=== PATIENT | female | born 1965 | race Caucasian/White ===

== ENCOUNTER → 2023-07-07 00:59 | Outpatient (CLI) | payer MEDICAID, SELFPAY ==
--- NOTE | 2023-07-07 09:23 | DI.RAD_ITS ---
Exam(s) XR FOOT RT COMPLETE EXAM: XR FOOT RT COMPLETE CLINICAL HISTORY: pain in rt foot, M79.671. TECHNIQUE: 2D digital imaging was performed of the right foot. Three images were obtained. AP, obl ique and lateral views were obtained. COMPARISON: MR MR FOOT RT W/WO CONTRAST from 06/04/2023 FINDINGS: BONES: No acute fracture is present. No bony destructive lesion is seen. Since the prior examination there has been resection of the 4th toe to the level of the MTP joint. There is a plantar calcaneal spur. There is an enthesophyte at the posterior calcaneus. JOINTS: No dislocation present. Degenerative changes are seen at the foot predominantly at the tarsom etatarsal joints. SOFT TISSUE: There is mild soft tissue swelling of the distal foot. IMPRESSION: 1. 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 Postsurgical changes are seen in the soft tissues in the r egion of the 4th digit. 2. No destructive changes are seen in the bones at this time. DATA REPOSITORY: RADIATION DOSE DELIVERED:
--- NOTE | 2023-07-07 09:23 | DI.RAD_ITS ---
Exam(s) XR FOOT LT COMPLETE EXAM: XR FOOT LT COMPLETE CLINICAL HISTORY: osteomyelitis left foot, pain lt foot, M86.9. TECHNIQUE: 2D digital imaging was performed of the left foot. Three images were obtained. AP, obli que and lateral views were obtained. COMPARISON: MR MR FOOT LT W/WO CONTRAST from 06/04/2023 FINDINGS: BONES: No acute fracture is present. There again seen findings of an amputation of the great toe. Th ere is now fragmentation seen of the head of the 2nd toe which was not present on the prior examinati on. Periosteal reaction is seen in the 2nd metatarsal and the proximal phalanx of the 2nd toe. Ther e is also volume loss of the heads of the 3rd and 4th metatarsals with periosteal reaction seen in th e distal aspect of the 3rd metatarsal bone. The appearance of the 3rd and 4th metatarsal heads may b e similar compared to the MRI from 06/04/2023. There is a plantar calcaneal spur. There is an enthes ophyte at the posterior calcaneus. JOINTS: There does appear to be a posterior dislocation of the 2nd MTP joint. SOFT TISSUE: There is soft tissue swelling of the distal foot. IMPRESSION: 1. Interval fragmentation of the distal aspect of the 2nd metatarsal bone and dislocation of the 2nd MTP joint. Periosteal reaction is seen involving the proximal phalanx of the 2nd toe and the 2nd met atarsal bone. Differential considerations include acute fracture versus is osteomyelitis. 2. Would appear to be stable deformities of the heads of the 3rd and 4th metatarsal bones. 3. Periosteal reaction involving the distal 3rd metatarsal bone. 4. MRI should be considered for further evaluation in this patient. DATA REPOSITORY: RADIATION DOSE DELIVERED:
== END ==
PROVIDERS: PCP Family Medicine; Visit Provider Podiatrist
DX: Z98.890 Other specified postprocedural states; M79.672 Pain in left foot; S92.321A Displaced fracture of second metatarsal bone, right foot, initial encounter for closed fracture; X58.XXXA Exposure to other specified factors, initial encounter
CPT/HCPCS: 73630

== ENCOUNTER 2023-07-14 09:24 | Inpatient (IN) | payer MEDICAID, SELFPAY ==
--- NOTE | 2023-07-14 | DI.RAD_ITS ---
Exam(s) XR FOOT RT COMPLETE EXAM: XR FOOT RT COMPLETE CLINICAL HISTORY: Osteomyelitis left foot. TECHNIQUE: 2D digital imaging was performed. COMPARISON: CR XR FOOT RT COMPLETE from 07/07/2023 CR XR FOOT LT COMPLETE from 07/14/2023 FINDINGS: 3 views Again noted is amputation of the phalanges of the 4th toe. The head of the 4th metatarsal appears in tact. Some mild gas in the soft tissues over this area is decreased from previous study. No evidenc e of osteomyelitis in the other bones of the foot. Inferior calcaneal spur again noted. IMPRESSION: Stable appearance when compared to 07/07/2023. DATA REPOSITORY: RADIATION DOSE DELIVERED:
--- NOTE | 2023-07-14 | DI.RAD_ITS ---
Exam(s) XR FOOT LT COMPLETE EXAM: XR FOOT LT COMPLETE CLINICAL HISTORY: Osteomyelitis right foot. TECHNIQUE: 2D digital imaging was performed. COMPARISON: CR XR FOOT LT COMPLETE from 07/07/2023 FINDINGS: 3 views Again noted is amputation of the phalanges of the great toe. There is no gas in the soft tissues. With respect of the 2nd toe the sharp edge at the level of the neck of the 2nd metatarsal implies pro bable amputation edge. Periosteal bone formation around the distal diaphysis of 2nd metatarsal is ag ain noted. There is dislocation of the metatarsophalangeal joint of the 2nd toe again noted. The am ount of periosteal bone formation around the proximal aspect of proximal phalanx appears unchanged. Part of the head of the 2nd metatarsal is again noted. This has been partially resected. There is now subluxation at the metatarsophalangeal joint of the 3rd toe, with the proximal phalanx b eing subluxed laterally when compared to the prior images. Appearance of the 4th metatarsal and 4th MTP joint is stable, unchanged. Fifth toe appears stable, unchanged. Large inferior calcaneal spur again noted. IMPRESSION: Multilevel findings as above. DATA REPOSITORY: RADIATION DOSE DELIVERED:
--- OUTSIDE RECORDS SUMMARY | 2023-07-14 09:27 | XMS_ITS | Continuity of Care Document ---
Author Name Unknown Organization [facility] Address [address] [place] [address] Care Team Providers Care Digital Media Director Name Role Phone Attila Bernal Primary Care Physician Encounter [facility] Date(s): 12/06/22 - 12/06/22 [facility] [address] [place] [address] Encounter Diagnosis Open toe wound(Discharge Diagnosis) - 12/06/22 Osteomyelitis of toe of left foot(Discharge Diagnosis) - 12/06/22 Cellulitis of toe of left foot(Discharge Diagnosis) - 12/06/22 Discharge Disposition: Home or Self Care Attending Physician: Angelina Cleaning MD Admitting Physician: Angelina Cleaning MD Allergies, Adverse Reactions, Alerts Substance Reaction Severity Status HOUSE DUST Eye swelling Unknown Active ANIMAL DANDER Eye swelling Unknown Active INSECT VENOM Anaphylactic reaction Unknown Active LATEX Skin rash Unknown Active codeine 1 Loss of consciousness Unknown Active morphine Vomiting Unknown Active Bee Stings Anaphylaxis Severe Active 1patient states turns green and passes out Assessment and Plan Extracted from: Title:Clinical Document Author:Berna Vasquez te:12/06/22 Diagnosis: 1. Open toe wound Comment: Diagnosis: 2. Osteomyelitis of toe of left foot Comment: Diagnosis: 3. Cellulitis of toe of left foot Comment: Diagnosis: Leg pain-swelling Comment: Diagnosis: Toe pain-swelling Comment: Additional Orders: Comment: Other status: SARS-CoV-2 (COVID-19) RNA (ID Now),Nasal, Stat Collect, 12/06/22 10:31:00 EDT, Once, Nurse collect, Print Label, No, No, No, No, No, Not (Complete) Future Appointments Diagnostic Tests Pending * Blood Culture 12/06/22 * Blood Culture 12/06/22 Future Scheduled Tests Laboratory* Drug Screen Urine 11/27/22 Radiology* US Lower Ext Arterial Duplex Bilateral 07/12/22 * XR Foot Complete 3+ Views Left 07/26/22 Functional Status 12/06/22 Family Member Travel History No recent t ravel Recent Travel History No recent travel Other exposure to Infectious Disease Non e Immunizations Given and Recorded Vaccine Date Status Refusal Reason influenza virus vaccine, inactivated 08/14/22 Give n influenza virus vaccine, inactivated 09/22/14 Toy rded influenza virus vaccine, inactivated 09/22/12 Toy rded SARS-CoV-2 (COVID-19) mRNA-1273 vaccine 08/06/21 R ecorded SARS-CoV-2 (COVID-19) mRNA-1273 vaccine 01/08/21 R ecorded SARS-CoV-2 (COVID-19) mRNA-1273 vaccine 12/10/20 R ecorded influenza virus vaccine, live 07/16/21 Recorded influenza virus vaccine, live 07/21/20 Recorded influenza virus vaccine, live 08/12/19 Recorded influenza virus vaccine, live 06/18/18 Recorded influenza virus vaccine, live 06/06/17 Recorded influenza virus vaccine, live 06/19/16 Recorded pneumococcal 23-polyvalent vaccine 03/01/19 Record ed tetanus/diphth/pertuss (Tdap) adult/adol 02/22/15 Recorded hepatitis B adult vaccine 09/22/02 Recorded Medications ARIPiprazole 5 mg oral tablet 5 mg = 1 tab, Oral, Daily, # 90 tab, 4 Refill(s), Pharmacy: [facility] Start Date: 05/15/22 Status: Ordered Bactrim DS 800 mg-160 mg oral tablet 1 tab, Oral, TID, # 84 tab, 1 Refill(s), Pharmacy: [facility] [id number], 165, cm, 11/11/22 16:14:00 EST, Height/Length Dosing, 152.1, kg, 11/11/22 16:14:00 EST, Weight Dosing Start Date: 11/15/22 Stop Date: 01/10/23 Status: Ordered BD Ultra finr Pen needles BD Ultra finr Pen needles, Use one daily, Supply, 1 EA, N/A, As Directed, PRN As needed, # 100 EA, 4 Refill(s), Pharmacy: [place] [id number] Start Date: 05/20/22 Status: Ordered Buphenyl 500 mg oral tablet 0 Refill(s) Start Date: 05/13/22 Status: Ordered buPROPion 300 mg/24 hours (XL) oral tablet, extended release 300 mg = 1 tab, Oral, Daily, # 90 tab, 4 Refill(s), Pharmacy: [place] [id number] Start Date: 05/15/22 Status: Ordered cetirizine 10 mg oral tablet 10 mg = 1 tab, Oral, Daily, # 90 tab, 4 Refill(s), Pharmacy: [place] [id number] Start Date: 05/15/22 Status: Ordered DULoxetine 30 mg oral delayed release capsule 30 mg = 1 cap, Oral, Daily, # 90 cap, 4 Refill(s), Pharmacy: [place] [id number] Start Date: 05/15/22 Stop Date: 08/08/23 Status: Ordered DULoxetine 60 mg oral delayed release capsule 60 mg = 1 cap, Oral, Daily, Take in addition to 30 mg for a total dose of 90 mg, # 90 cap, 4 Refill(s), Pharmacy: [place] [facility] [id number] Start Date: 05/15/22 Status: Ordered ferrous sulfate 325 mg (65 mg elemental iron) oral tablet 325 mg = 1 tab, Oral, TID, # 270 tab, 4 Refill(s), Pharmacy: [place] [facility] [id number] Start Date: 05/22/22 Status: Ordered folic acid 1 mg oral tablet 1 mg = 1 tab, Oral, Daily, # 90 tab, 4 Refill(s), Pharmacy: [place] [facility] [id number] Start Date: 05/15/22 Status: Ordered gabapentin 300 mg oral capsule 900 mg = 3 cap, Oral, TID, 0 Refill(s) Start Date: 11/15/22 Status: Ordered gabapentin 300 mg oral capsule 900 mg = 3 cap, Oral, TID, TAKE 3 CAPSULES BY MOUTH THREE TIMES DAILY, # 270 cap, 3 Refill(s), Pharmacy: [facility] [facility] [id number] Start Date: 08/28/22 Status: Ordered ibuprofen 800 mg oral tablet 1 tab, Oral, TID, # 90 tab, 4 Refill(s), Pharmacy: [facility] [facility] [id number] Start Date: 05/15/22 Status: Ordered Lantus Solostar Pen 100 units/mL subcutaneous solution 10 units =, Subcutaneous, Daily, Inject 10 units daily and titrate up by 2 units every 3-4 days until FBS is below 130., # 3 mL, 4 Refill(s), Pharmacy: [place] [id number] Start Date: 05/15/22 Status: Ordered losartan 100 mg oral tablet 100 mg = 1 tab, Oral, Daily, # 90 tab, 4 Refill(s), Pharmacy: [place] [facility] [id number] Start Date: 05/15/22 Status: Ordered metFORMIN 1000 mg oral tablet 1,000 mg = 1 tab, Oral, BID, # 180 tab, 4 Refill(s), Pharmacy: [place] [facility] [id number] Start Date: 05/15/22 Status: Ordered methotrexate 2.5 mg oral tablet 5 mg = 2 tab, Oral, every week, # 30 tab, 3 Refill(s), Pharmacy: [facility] [facility] [id number] Start Date: 05/15/22 Status: Ordered Narcan 4 mg/0.1 mL nasal spray 1 sprays, Nasal, Once, may repeat every 2 to 3 minutes until patient responds, # 2 EA, 0 Refill(s) Start Date: 02/26/22 Status: Ordered omeprazole 40 mg oral delayed release capsule 40 mg = 1 cap, Oral, Daily, # 90 cap, 4 Refill(s), Pharmacy: [place] [id number] Start Date: 05/15/22 Status: Ordered One Touch Verio One Touch Verio, Test twice daily, Supply, See instructions, # 200 strip, 4 Refill(s), Pharmacy: [place] [id number] Start Date: 05/15/22 Status: Ordered OneTouch Delica Plus lancest 30 gauge OneTouch Delica Plus lancest 30 gauge, Test twice daily, Supply, See instructions, # 200 EA, 4 Refill(s), Pharmacy: [place] [id number] Start Date: 05/15/22 Status: Ordered oxyCODONE-acetaminophen 10 mg-325 mg oral tablet 1 tab, Oral, BID, PRN as needed for pain, # 56 tab, 0 Refill(s), Pharmacy: [place] [id number], 165, cm, 11/11/22 16:14:00 EST, Height/Length Dosing, 152.1, kg, 11/11/22 16:14:00 EST, Weight Dosing Start Date: 11/25/22 Stop Date: 12/23/22 Status: Ordered pramipexole 1.5 mg oral tablet See Instructions, Take 1 tablet daily at bedtime, # 90 tab, 4 Refill(s), Pharmacy: [id number] Start Date: 05/20/22 Status: Ordered semaglutide 4 mg/3 mL (1 mg dose) subcutaneous solution 1 mg =, Subcutaneous, every week, # 3 mL, 4 Refill(s), Pharmacy: [id number], 165, cm, 11/11/22 16:14:00 EST, Height/Length Dosing, 152.1, kg, 11/11/22 16:14:00 EST, Weight Dosing Start Date: 11/27/22 Status: Ordered Problem List Condition Confirmation Course Effective Dates Status H ealth Status Informant Accidental poisoning Confirmed Active Adult health examination Confirmed Active Allergies Confirmed Active Allergic reaction to drug Confirmed Active Anesthesia of skin Confirmed Active Atopic dermatitis Confirmed Active Biceps tendinitis Confirmed Active Cellulitis Confirmed Active Chronic pain Confirmed Active Chronic, continuous use of opioids Confirmed Active Depressive disorder Confirmed Active Depressed Confirmed Active Eczema Confirmed Active Foot pain, left Confirmed Active GERD (gastroesophageal reflux disease) Confirmed Active Hypertensive disorder Confirmed Active Impingement syndrome of right shoulder region Confirmed Active Low back pain Confirmed Active Low back pain Confirmed Active Methicillin resistant Staphylococcus aureus 1 Confirmed 11/14/22 Active Migraine Confirmed Active Flu vaccine need Confirmed Active Nicotine dependence Confirmed Active Obesity Confirmed Active Overweight Confirmed Active Pain in right arm Confirmed Active Toe pain, left Confirmed Active Postoperative infection Confirmed Active Psoriasis Confirmed Active Severe obesity Confirmed Active Shoulder pain Confirmed 05/21/16 Active Strain of muscle of upper limb Confirmed Active Strain of tendon of upper arm Confirmed Active Toxic effect of venom Confirmed Active Type 2 diabetes mellitus without complication Confirmed Active Uterine leiomyoma Confirmed Active 1Problem added by Rule (LH_IC_MDRO_MRSA) following Wound Culture from Wound collected on :26:00 EST 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 Procedures Procedure Date Related Diagnosis Body Site Status Arthroplasty, interposition, intercarpal or carpometacarpal joints 1 04/17/21 Completed Rotator cuff repair 2 09/21/16 Com pleted Hysterectomy 09/21/00 Completed section (procedure) 3 09/22/97 Completed Amputation of toe 4 Compl eted Tubal ligation Completed 1L 1st [facility] arthroplasty 2Right shoulder RCR, Biceps tenodesis, ORIF Clavicle 2015 10108; 1994; 1988 4left great toe, along with debridement Results Laboratory List Name Date Basic Metabolic Panel (BMP) 12/06/22 C-Reactive Protein High Sensitivity (CRP HS) 12/06/22 CBC w/ Diff 12/06/22 Sedimentation Rate (ESR) 12/06/22 SARS-CoV-2 (COVID-19) RNA (ID Now) Automated Diff 12/06/22 Most recent to oldest [Reference Range]: 1 WBC [5.0-10.0 x10^3/mcL] 10.3 x10^3/mcL *HI* (12/06/22 11:16 AM) RBC [4.1-5.3 x10^6/mcL] 3.6 x10^6/mcL *LOW* (12/06/22 11:16 AM) Neutro Auto [40.0-75.0 %] 61.1 % (12/06/22 11:16 AM) Lymph Auto [20.0-50.0 %] 28.6 % (12/06/22 11:16 AM) [place] Auto [2.0-15.0 %] 7.1 % (12/06/22 11:16 AM) Basophil Auto [0.0-1.0 %] 0.5 % (12/06/22 11:16 AM) BUN [7-18 mg/dL] 8 mg/dL (12/06/22 11:16 AM) Glucose Level [74-106 mg/dL] 153 mg/dL *HI* (12/06/22 11:16 AM) Potassium Level [3.5-5.1 mmol/L] 3.4 mmo l/L *LOW* (12/06/22 11:16 AM) MCV [80.0-96.0] 90.9 (12/06/22 11:16 AM) MCHC [31.0-35.0 g/dL] 32.4 g/dL (12/06/22 11:16 AM) Sodium Level [136-145 mmol/L] 138 mmol/L (12/06/22 11:16 AM) Hct [37.0-47.0 %] 33.0 % *LOW* (12/06/22 11:16 AM) Calcium Level [8.5-10.1 mg/dL] 9.1 mg/dL (12/06/22 11:16 AM) MCH [26.0-32.0 pg] 29.5 pg (12/06/22 11:16 AM) Neutro Absolute 6.3 x10^3/mcL *NA* (12/06/22 11:16 AM) Hgb [12.0-16.0 g/dL] 10.7 g/dL *LOW* (12/06/22 11:16 AM) Platelets [130-450 x10^3/mcL] 506 x10^3/ mcL *HI* (12/06/22 11:16 AM) CO2 [21-32 mmol/L] 25 mmol/L (12/06/22 11:16 AM) eGFR Non-AA [>=60] 92 (12/06/22 11:16 AM) eGFR AA [>=60] 92 (12/06/22 11:16 AM) Chloride Level [98-107 mmol/L] 102 mmol/ L (12/06/22 11:16 AM) RDW-CV [11.7-17.0 %] 13.2 % (12/06/22 11:16 AM) Imm Gran Auto [0.0-0.9 %] 0.7 % (12/06/22 11:16 AM) CRP High Sens [0.00-3.00 mg/L] 101.65 mg /L *HI* (12/06/22 11:16 AM) Creatinine Level [0.55-1.02 mg/dL] 0.76 mg/dL (12/06/22 11:16 AM) SARS-CoV-2 (COVID-19) RNA (ID Now) [Not Detected] Not Detected (12/06/22 11:13 AM) Eos, Auto [1.0-6.0 %] 2.0 % (12/06/22 11:16 AM) ESR, [place] [0-30 mm/hr] 99 mm/hr *HI* (12/06/22 11:16 AM) Vital Signs Most recent to oldest [Reference Range]: 1 2 Temperature Temporal Artery [36-38 Deg C ] 36.4 Deg C (12/06/22 10:23 AM) Peripheral Pulse Rate [60-100 bpm] 72 bp m (12/06/22 12:54 PM) 79 bpm (12/06/22 10:23 AM) Respiratory Rate [12-24 br/min] 16 br/mi n (12/06/22 12:54 PM) 18 br/min (12/06/22 10:23 AM) Blood Pressure [90-140/60-90 mmHg] 119/6 7mmHg (12/06/22 12:54 PM) 162/77mmHg *HI* (12/06/22 10:23 AM) Weight Dosing 99.79 kg (12/06/22 10:27 AM) Weight Estimated 99.79 kg (12/06/22 10:23 AM) Height/Length Dosing 167.000 cm (12/06/22 10:27 AM) Height/Length Estimated 167.000 cm (12/06/22 10:23 AM) Social History Social History Type Response Smoking Status Smoking tobacco use: Current everyday tobacco user;Never; Number used per day: 6 cigarettes daily; entered on: 02/26/22 Sex Female Hospital Discharge Instructions Patient Education 12/06/2022 12:11:48 Form - Excuse from Work, School, or Physical Activity Excuse from Work, School, or Physical Activity Ms. Dunham needs to be excused from workplace activities that require significant standing or walking for the next 5 days or until advised to resume these activities by her surgeon or primary care physician Health care provider name (printed): Reyes Parrish MD Health care provider (signature): Date: 12/06/2022 Consult note * Junior Wild DO: PERFORM, MODIFY Event Display: Consultation Note Generic Authored Date: [id number] HOOD DUNHAM :1965 Age:57 years Sex:Female Visit Date:12/06/2022 Primary Care Physician: Attila Bernal MD Chief Complaint Left great toe debridement a few weeks ago by Dr. Donato. Going to PT for wound care, and they having been using a silver medication on it. New open wound, Foul odor, increasing pain, and now shooting up leg, and feverish, and new swelling. Considered Reason for Consultation Patient present for left great toe osteomyelitis chronic wound History of Present Illness Had previous debridement of the toe for osteomyelitis has not healed due to??poor sugars and smoking??patient was seen in??wound center as well as rehab and has??not healed since Review of Systems Is insensate to the left toe, is an open wound with previous scar at the tip??has active drainage and some??mild cellulitis??throughout the toe but does not extend up the foot. Physical Exam Vitals & Measurements T:??36.4?C ??(Temporal Artery)?? HR:??72??(Peripheral)?? RR:??16?? BP:??119/67?? SpO2:??97%?? HT:??167.000??cm?? WT:??99.79??kg??(Estimated)?? Pain Score:??10?? O2 Therapy:??Room air?? Is insensate to the left toe, is an open wound with previous scar at the tip??has active drainage and some??mild cellulitis??throughout the toe but does not extend up the foot. Assessment/Plan 1.??Open toe wound??S91.109A Continue wound care 2.??Osteomyelitis of toe of left foot??M86.9 For office visit in the??outpatient setting with plan for ray amputation 3.??Cellulitis of toe of left foot??L03.032 Continue antibiotics Problem List/Past Medical History Ongoing Accidental poisoning Adult health examination Allergic reaction to drug Allergies Anesthesia of skin Atopic dermatitis Biceps tendinitis Cellulitis Chronic pain Chronic, continuous use of opioids Depressed Depressive disorder Eczema Flu vaccine need Foot pain, left GERD (gastroesophageal reflux disease) Hypertensive disorder Impingement syndrome of right shoulder region Low back pain Low back pain Methicillin resistant Staphylococcus aureus Migraine Nicotine dependence Obesity Overweight Pain in right arm Postoperative infection Psoriasis Severe obesity Shoulder pain Strain of muscle of upper limb Strain of tendon of upper arm Toe pain, left Toxic effect of venom Type 2 diabetes mellitus without complication Uterine leiomyoma Historical Disease caused by 2019 novel coronavirus Procedure/Surgical History ???Arthroplasty, interposition, intercarpal or carpometacarpal joints (04/17/2021)???Rotator cuff repair (09/22/2016)???Hysterectomy (09/22/2000)??? section (procedure) (09/22/1997)???Amputation of toe???Tubal ligation Medications Inpatient No active inpatient medications Home ARIPiprazole 5 mg oral tablet, 5 mg= 1 tab, Oral, Daily, 4 refills Bactrim DS 800 mg-160 mg oral tablet, 1 tab, Oral, TID, 1 refills BD Ultra finr Pen needles, 1 EA, N/A, As Directed, PRN, 4 refills Buphenyl 500 mg oral tablet buPROPion 300 mg/24 hours (XL) oral tablet, extended release, 300 mg= 1 tab, Oral, Daily, 4 refills cetirizine 10 mg oral tablet, 10 mg= 1 tab, Oral, Daily, 4 refills DULoxetine 30 mg oral delayed release capsule, 30 mg= 1 cap, Oral, Daily, 4 refills DULoxetine 60 mg oral delayed release capsule, 60 mg= 1 cap, Oral, Daily, 4 refills ferrous sulfate 325 mg (65 mg elemental iron) oral tablet, 325 mg= 1 tab, Oral, TID, 4 refills folic acid 1 mg oral tablet, 1 mg= 1 tab, Oral, Daily, 4 refills gabapentin 300 mg oral capsule, 900 mg= 3 cap, Oral, TID gabapentin 300 mg oral capsule, 900 mg= 3 cap, Oral, TID, 3 refills ibuprofen 800 mg oral tablet, 1 tab, Oral, TID, 4 refills Lantus Solostar Pen 100 units/mL subcutaneous solution, 10 units, Subcutaneous, Daily, 4 refills losartan 100 mg oral tablet, 100 mg= 1 tab, Oral, Daily, 4 refills metFORMIN 1000 mg oral tablet, 1000 mg= 1 tab, Oral, BID, 4 refills methotrexate 2.5 mg oral tablet, 5 mg= 2 tab, Oral, every week, 3 refills Narcan 4 mg/0.1 mL nasal spray, 1 sprays, Nasal, Once omeprazole 40 mg oral delayed release capsule, 40 mg= 1 cap, Oral, Daily, 4 refills One Touch Verio, See instructions, 4 refills OneTouch Delica Plus lancest 30 gauge, See instructions, 4 refills oxyCODONE-acetaminophen 10 mg-325 mg oral tablet, 1 tab, Oral, BID, PRN pramipexole 1.5 mg oral tablet, See Instructions, 4 refills semaglutide 4 mg/3 mL (1 mg dose) subcutaneous solution, 1 mg, Subcutaneous, every week, 4 refills Allergies Bee Stings??(Anaphylaxis) ANIMAL DANDER??(Eye swelling) HOUSE DUST??(Eye swelling) INSECT VENOM??(Anaphylactic reaction) LATEX??(Skin rash) codeine??(Loss of consciousness) morphine??(Vomiting) Social History Alcohol Never Electronic Cigarette/Vaping Electronic Cigarette Use: Use, within last 90 days. Type: Nicotine infused.- Comments: occasionally Substance Use Never Tobacco Current everyday tobacco user Tobacco Use:. 6 cigarettes daily per day. Never Smokeless Tobacco use:. Family History Hypertensive disorder: Mother. Immunizations Vaccine Date Status influenza virus vaccine, inactivated 08/14/2022 Given SARS-CoV-2 (COVID-19) mRNA-1273 vaccine 08/06/2021 Recorded influenza virus vaccine, live 07/16/2021 Recorded SARS-CoV-2 (COVID-19) mRNA-1273 vaccine 01/08/2021 Recorded SARS-CoV-2 (COVID-19) mRNA-1273 vaccine 12/10/2020 Recorded influenza virus vaccine, live 07/21/2020 Recorded influenza virus vaccine, live 08/12/2019 Recorded pneumococcal 23-polyvalent vaccine 03/01/2019 Recorded influenza virus vaccine, live 06/18/2018 Recorded influenza virus vaccine, live 06/06/2017 Recorded influenza virus vaccine, live 06/19/2016 Recorded tetanus/diphth/pertuss (Tdap) adult/adol 02/22/2015 Recorded influenza virus vaccine, inactivated 09/22/2014 Recorded influenza virus vaccine, inactivated 09/22/2012 Recorded hepatitis B adult vaccine 09/22/2002 Recorded Electronically Signed on 12/06/22 01:29 PM Junior Wild DO Reviewed by: Sonny Rojas MD Physician Emergency department Note * Reyes Parrish MD: PERFORM Event Display: ED Note Physician Authored Date: [id number] HOOD DUNHAM :1965 Age:57 years Sex:Female Visit Date:12/06/2022 Primary Care Physician: Attila Bernal MD HPI 57-year-old female with DM II, nicotine dependence, and obesity presents for evaluation of increasing left great toe pain, discharge, and a malodorous??smell??of at least 1 day duration, patient notes that she had subjective chills without further symptoms yesterday, baseline health today, patient had debridement on 11/[address] Donato due to osteomyelitis. Patient is currently on Bactrim.??ROS with no recent constitutional symptoms. ?? Office visit dated 11/28/2022 notable for: Left toe debridement follow-up, wound noted as improving, apparently some degree of ongoing serosanguineous drainage, no evidence of active cellulitis. Patient to continue oral antibiotics for 28 days (Bactrim per patient). ?? Operative note dated 11/12/2022 reviewed and notable for soft tissue and bony debridement (includingrongeur of bone) for osteomyelitis. ?? M/S/F/SocHx notable for: Accidental poisoning, allergies, atopic dermatitis, cellulitis, chronic pain, chronic, continuous use of opioids, depression, GERD, HTN, MRSA, nicotine dependence, obesity, DM II; remainder reviewed with patient and in chart.? Exam HR 79, BP 162/77, RR 18, T 36.4??C, SaO2 99% on room air. Gen: Pleasant, nontoxic-appearing, resting comfortably. HEENT: NC, AT, PEERL, EOMI. Resp: Unlabored respirations with a normal work of breathing. Card: Extremities warm and well perfused.?? GI: Non-distended. : Deferred MSK: Left great toe with surgical amputation of the distal aspect, granulation tissue and purulent drainage appreciated along the prior incision site, mild diffuse swelling, malodor appreciated. Slight swelling extending to the immediately proximal area of the foot. Remainder of foot visually normal, 2+ DP pulse. Neuro:??alert and oriented?3, no facial asymmetry, vision and hearing WNL. Heme/Lymph: Deferred Skin: Normal color with no visible lesions (other than noted above). Psych: Mood and affect appropriate. ?? Labs COVID-19 negative. WBC 10.3, Hb 10.7, platelet 506, sodium 138, potassium 3.4, glucose 153, creatinine 0.76, CRP 101.65, ESR 99 ?? Imaging XR L Foot:??Suspect that the patient had resection of the distal portion of the first distal phalanx.??Since that time has he injured the toe creating comminuted intra-articular fracture of the residual first phalanx and the adjacent proximal phalanx? In the absence of trauma?? the findings are consistent with osteomyelitis.? MDM Previous chart, nursing note, and vitals reviewed.?? A: 57-year-old female with DM II, nicotine dependence, and obesity presents for evaluation of increasing left great toe pain, discharge, and a malodorous??smell??of at least 1 day duration, patient notes that she had subjective chills without further symptoms yesterday, baseline health today, patient had debridement on 11/[address] Donato due to osteomyelitis.? DDx & Evaluation: Exam demonstrates worsening/recurrent soft tissue infection, imaging C/W osteomyelitis. 12:48 pm?Dr. Wild, advised of patient presentation, will evaluate patient in person. Patient is appropriate for discharge on current antibiotics, prompt outpatient follow-up as arranged for likely revision amputation. While the patient does have signs of active infection,??this is localized at the present time and there are no moderate to high-risk features to suggest that thepatient will have systemic involvement or significant local spread.? Impression:??osteomyelitis. Electronically Signed on 12/06/22 01:08 PM Reyes Parrish MD Emergency department Discharge instructions * Reyes Parrish MD: PERFORM Event Display: ED Discharge Information Authored Date: [id number] HOOD DUNHAM :1965 Age:57 years Sex:Female Visit Date:12/06/2022 Primary Care Physician: Attila Bernal MD Discharge Instructions We would like to thank you for allowing us to assist you with your healthcare needs. The following includes patient education materials and information regarding your injury/illness. ?? You were seen at [facility] for evaluation for evaluation of worsening infection on your left great toe.??You were found to have an ongoing / recurrent infection.??Please continue your currently prescribed antibiotics and follow-up as scheduled with your surgeon.??Should you have fevers, chills, or if you feel sick overall, or if you have worsening local infection, increasing pain, orif you are otherwise concerned about your health, please return immediately to the emergency department.??Please read and follow all of the instructions below. ?? Please follow up with your primary care physician in 2-3 days??for repeat evaluation of your wound and your asymptomatic hypertension. When calling for follow-up care, please make the office aware that this follow-up is from your recent emergency room visit.? Your care today was limited to identifying and treating emergent medical problems only. Many peoplehave subtle differences in their test results that require follow up with their outpatient physician(s) to correctly determine if this represents a normal variation or concerning abnormality with respect to your specific health.??The care given to you today was limited to identifying and treating emergent medical problems - you need to request a copy of all of your medical records from today's visit and follow up with your outpatient physician(s) to review both today's visit and your overall health. If you have any new symptoms or if you are at all concerned about your health please return immediately to the emergency department. ?? Prescriptions: If you are uninsured or have financial difficulties with filling your prescription(s), you may consider using a free pharmacy discount service such as [employer] ([employer]) or [employer] ([employer]). These services allow you to search for a medication on your phone (or computer) and obtain a coupon that usually has a significant discount from the list hansen at a pharmacy. Your physician does not have a financial relationship with either of these services. You may also wish to speak with your physician to determine if lower cost prescriptions are possible. ?? Discharge Vitals Temperature??(Temporal Artery) 97.5 ??F (36.4 ??C) Heart Rate??(Peripheral) 72 Respiratory Rate?? 16 Blood Pressure?? 119/67?? Height?? 65.75 in (167.000 cm) Weight??(Estimated) 220.04 lb (99.79 kg) Allergies Bee Stings??(Anaphylaxis) ANIMAL DANDER??(Eye swelling) HOUSE DUST??(Eye swelling) INSECT VENOM??(Anaphylactic reaction) LATEX??(Skin rash) codeine??(Loss of consciousness) morphine??(Vomiting) What to Do Next Upcoming Scheduled Appointments Friday 11:00 AM EDT ?? With: Corrine Wallace PT Where: [facility] [address] [place] [phone] Status: Confirmed 2022 10:15 AM EDT ?? With: Lesley Green PT Where: [address] [phone] Status: Confirmed Friday 11:00 AM EDT ?? With: Corrine Wallace PT Where: [facility] [address] [place] [phone] Status: Confirmed 2022 9:30 AM EDT ?? With: Lesley Green PT Where: [facility] [address] [place] [phone] Status: Confirmed Friday 11:00 AM EDT ?? With: Corrine Wallace PT Where: [facility] [address] [place] [phone] Status: Confirmed 2022 8:45 AM EDT ?? 2022 10:30 AM EDT ?? With: Corrine Wallace PT Where: [facility] [address] [place] [phone] Status: Confirmed Friday 11:00 AM EDT ?? With: Corrine Wallace PT Where: [facility] [address] [place] [phone] Status: Confirmed 2022 10:30 AM EDT ?? With: Corrine Wallace PT Where: [facility] [address] [place] [phone] Status: Confirmed Friday 10:30 AM EDT ?? With: Corrine Wallace PT Where: [facility] [address] [place] [phone] Status: Confirmed 2022 10:30 AM EDT ?? With: Corrine Wallace PT Where: [facility] [address] [place] [phone] Status: Confirmed Friday 9:45 AM EDT ?? With: Corrine Wallace PT Where: [address] [phone] Status: Confirmed 2022 10:30 AM EDT ?? With: Corrine Wallace PT Where: [facility] [address] [place] [phone] Status: Confirmed Friday 9:45 AM EDT ?? With: Corrine Wallace PT Where: [facility] [address] [place] [phone] Status: Confirmed 2022 9:45 AM EDT ?? With: Corrine Wallace PT Where: [facility] [address] [place] [phone] Status: Confirmed 2022 10:40 AM EDT ?? You were treated today on an emergency basis; it may be george to contact your primary care provider to notify them of your visit today. You may have been referred to your regular doctor or a specialist, please follow up as instructed. If your condition worsens or you can't get in to see the doctor, contact the Emergency Department. Medications What How Much When Why Instructions Next Dose Unchanged ARIPiprazole (ARIPiprazole 5 mg oral tablet) 1 tab Oral (given by mouth) Every day Unchanged buPROPion (buPROPion 300 mg/ 24 hours (XL) oral tablet, extended release) 1 tab Oral (given by mouth) Every day Depressive disorder Unchanged cetirizine (cetirizine 10 mg oral tablet) 1 tab Oral (given by mouth) Every day Allergies Unchanged DULoxetine (DULoxetine 30 mg oral delayed release capsule) 1 Capsules Oral (given by mouth) Every day Depressive disorder Duration: 90 Days Unchanged DULoxetine (DULoxetine 60 mg oral delayed release capsule) 1 Capsules Oral (given by mouth) Every day Depressive disorder Take in addition to 30 mg for a total dose of 90 mg ?? Unchanged Durable Medical Equipment for Prescription ([employer] Plus lancest 30 gauge) See instructions Test twice daily ?? Unchanged ferrous sulfate (ferrous sulfate 325 mg (65 mg elemental iron) oral tablet) 1 tab Oral (given by mouth) 3 times a day Type 2 diabetes mellitus without complication Unchanged folic acid (folic acid 1 mg oral tablet) 1 tab Oral (given by mouth) Every day Eczema Unchanged gabapentin (gabapentin 300 mg oral capsule) 3 Capsules Oral (given by mouth) 3 times a day TAKE 3 CAPSULES BY MOUTH THREE TIMES DAILY ?? Unchanged gabapentin (gabapentin 300 mg oral capsule) 3 Capsules Oral (given by mouth) 3 times a day Unchanged ibuprofen (ibuprofen 800 mg oral tablet) 1 tab Oral (given by mouth) 3 times a day Unchanged insulin glargine (Lantus Solostar Pen 100 units/ mL subcutaneous solution) 10 Units Subcutaneous (under the skin) Every day Type 2 diabetes mellitus without complication Inject 10 units daily and titrate up by 2 units every 3-4 days until FBS is below 130. ?? Unchanged insulin pen needles 30G 8 mm (BD Ultra finr Pen needles) 1 Each Not Applicable As Directed as needed for As needed Type 2 diabetes mellitus without complication Use one daily ?? Unchanged losartan (losartan 100 mg oral tablet) 1 tab Oral (given by mouth) Every day Hypertensive disorder Unchanged metFORMIN (metFORMIN 1000 mg oral tablet) 1 tab Oral (given by mouth) 2 times a day Type 2 diabetes mellitus without complication Unchanged methotrexate (methotrexate 2.5 mg oral tablet) 2 tab Oral (given by mouth) Every week Eczema Unchanged naloxone (Narcan 4 mg/ 0.1 mL nasal spray) 1 Sprays Nasal (into the nose) Once may repeat every 2 to 3 minutes until patient responds ?? Unchanged omeprazole (omeprazole 40 mg oral delayed release capsule) 1 Capsules Oral (given by mouth) Every day Unchanged One Touch Verio Test Strips (One Touch Verio) See instructions Type 2 diabetes mellitus without complication Test twice daily ?? Unchanged oxyCODONE-acetaminophen (oxyCODONE-acetaminophen 10 mg-325 mg oral tablet) 1 tab Oral (given by mouth) 2 times a day as needed for as needed for pain Low back pain Chronic pain Duration: 28 Days Unchanged pramipexole (pramipexole 1.5 mg oral tablet) See instructions Take 1 tablet daily at bedtime ?? Unchanged semaglutide (semaglutide 4 mg/ 3 mL (1 mg dose) subcutaneous solution) 1 Milligrams Subcutaneous (under the skin) Every week Unchanged sodium phenylbutyrate (Buphenyl 500 mg oral tablet) Unchanged sulfamethoxazole-trimethoprim (Bactrim DS 800 mg-160 mg oral tablet) 1 tab Oral (given by mouth) 3 times a day Duration: 28 Days Tests Performed Lab Test Name Test Result Date/Time WBC 10.3 x10^3/mcL 12/06/2022 11:16 EDT RBC 3.6 x10^6/mcL 12/06/2022 11:16 EDT Hgb 10.7 g/dL 12/06/2022 11:16 EDT Hct 33.0 % 12/06/2022 11:16 EDT MCV 90.9 12/06/2022 11:16 EDT MCH 29.5 pg 12/06/2022 11:16 EDT MCHC 32.4 g/dL 12/06/2022 11:16 EDT RDW-CV 13.2 % 12/06/2022 11:16 EDT Platelets 506 x10^3/mcL 12/06/2022 11:16 EDT Neutro Auto 61.1 % 12/06/2022 11:16 EDT Lymph Auto 28.6 % 12/06/2022 11:16 EDT [place] Auto 7.1 % 12/06/2022 11:16 EDT Eos, Auto 2.0 % 12/06/2022 11:16 EDT Basophil Auto 0.5 % 12/06/2022 11:16 EDT Imm Gran Auto 0.7 % 12/06/2022 11:16 EDT Neutro Absolute 6.3 x10^3/mcL 12/06/2022 11:16 EDT ESR, Westergren 99 mm/hr 12/06/2022 11:16 EDT Sodium Level 138 mmol/L 12/06/2022 11:16 EDT Potassium Level 3.4 mmol/L 12/06/2022 11:16 EDT Chloride Level 102 mmol/L 12/06/2022 11:16 EDT CO2 25 mmol/L 12/06/2022 11:16 EDT BUN 8 mg/dL 12/06/2022 11:16 EDT Glucose Level 153 mg/dL 12/06/2022 11:16 EDT Creatinine Level 0.76 mg/dL 12/06/2022 11:16 EDT eGFR AA 92 12/06/2022 11:16 EDT eGFR Non-AA 92 12/06/2022 11:16 EDT Calcium Level 9.1 mg/dL 12/06/2022 11:16 EDT CRP High Sens 101.65 mg/L 12/06/2022 11:16 EDT SARS-CoV-2 (COVID-19) RNA (ID Now) Not Detected 12/06/2022 11:13 EDT Patient/Net Trainer Signature Patient Name:HOOD DUNHAM I have received this information and my questions have been answered. Patient/Net Trainer Name: Patient/Net Trainer Signature: Relationship to Patient: Witness Name/Signature: Date: Electronically Signed on: 12/06/2022 13:08 EDTSigned by:KELLY Discharge summary * Berna Vasquez: PERFORM Event Display: Discharge Note Authored Date: * Berna Vasquez: PERFORM Event Display: Discharge Note Authored Date: Diagnosis: 1. Open toe wound Comment: Diagnosis: 2. Osteomyelitis of toe of left foot Comment: Diagnosis: 3. Cellulitis of toe of left foot Comment: Diagnosis: Leg pain-swelling Comment: Diagnosis: Toe pain-swelling Comment: Additional Orders: Comment: Other status: SARS-CoV-2 (COVID-19) RNA (ID Now),Nasal, Stat Collect, 12/06/22 10:31:00 EDT, Once, Nurse collect, Print Label, No, No, No, No, No, Not (Complete) Electronically Signed on 12/06/22 02:01 PM Berna Vasquez Patient Care team information Care Team Personnel Name: Attila Bernal MD Position: Physician Member Role: Primary Care Physician Address: Address: [address] [address]- [place] Name: Reyes Parrish MD Position: Physician Member Role: ED Physician Name: Khushboo Walker Position: Nurse Member Role: ED Nurse Care Team Related Persons Name: KAYAMOISESNIGEL EDGAR Address: Home Name: LIDIA LLOYD Address: Home
--- OUTSIDE RECORDS SUMMARY | 2023-07-14 09:27 | XMS_ITS | Continuity of Care Document ---
Author Name Unknown Organization [facility] Address [address] [place] [address] Care Team Providers Care Manager Enterprise Content Management Name Role Phone Attila Bernal Primary Care Physician [facility] Date(s): 11/12/22 - 11/12/22 [facility] [address] [place] [address] Discharge Disposition: Home or Self Care Attending Physician: Ricardo Michelle MD Admitting Physician: Ricardo Michelle MD Allergies, Adverse Reactions, Alerts Substance Reaction Severity Status HOUSE DUST Eye swelling Unknown Active ANIMAL DANDER Eye swelling Unknown Active INSECT VENOM Anaphylactic reaction Unknown Active LATEX Skin rash Unknown Active codeine 1 Loss of consciousness Unknown Active morphine Vomiting Unknown Active 1patient states turns green and passes out Assessment and Plan Future Appointments Diagnostic Tests Pending * Tissue Culture 11/12/22 Future Scheduled Tests Radiology* US Lower Ext Arterial Duplex Bilateral 07/12/22 * XR Foot Complete 3+ Views Left 07/26/22 Immunizations Given and Recorded Vaccine Date Status [...] Daily, # 90 tab, 4 Refill(s), Pharmacy: [facility] [id number] Start Date: 05/15/22 Status: Ordered BD Ultra finr Pen needles BD Ultra finr Pen needles, Use one daily, Supply, 1 EA, N/A, As Directed, PRN As needed, # 100 EA, 4 Refill(s), Pharmacy: [facility] [id number] Start Date: 05/20/22 Status: Ordered Buphenyl 500 mg oral tablet 0 Refill(s) Start Date: 05/13/22 Status: Ordered buPROPion 150 mg/24 hours (XL) oral tablet, extended release 150 mg 1 tab, Oral, every 24 hr, # 90 tab, 4 Refill(s), Pharmacy: [facility] [id number] Start Date: 05/15/22 Status: Ordered buPROPion 300 mg/24 hours (XL) oral tablet, extended release 300 mg = 1 tab, Oral, Daily, # 90 tab, 4 Refill(s), Pharmacy: [facility] [id number] Start Date: 05/15/22 Status: Ordered cetirizine 10 mg oral tablet 10 mg = 1 tab, Oral, Daily, # 90 tab, 4 Refill(s), Pharmacy: [facility] [id number] Start Date: 05/15/22 Status: Ordered cetirizine 10 mg oral tablet 10 mg = 1 tab, Oral, Daily, # 30 tab, 0 Refill(s) Start Date: 11/12/22 Status: Ordered DULoxetine 30 mg oral delayed release capsule 30 mg = 1 cap, Oral, Daily, # 90 cap, 4 Refill(s), Pharmacy: [facility] [id number] Start Date: 05/15/22 Stop Date: 08/08/23 Status: Ordered DULoxetine 60 mg oral delayed release capsule 60 mg = 1 cap, Oral, Daily, Take in addition to 30 mg for a total dose of 90 mg, # 90 cap, 4 Refill(s), Pharmacy: [facility] [id number] Start Date: 05/15/22 Status: Ordered ferrous sulfate 325 mg (65 mg elemental iron) oral tablet 325 mg = 1 tab, Oral, TID, # 270 tab, 4 Refill(s), Pharmacy: [facility] [id number] Start Date: 05/22/22 Status: Ordered folic acid 1 mg oral tablet 1 mg = 1 tab, Oral, Daily, # 90 tab, 4 Refill(s), Pharmacy: [facility] [id number] Start Date: 05/15/22 Status: Ordered gabapentin 300 mg oral capsule 900 mg = 3 cap, Oral, TID, TAKE 3 CAPSULES BY MOUTH THREE TIMES DAILY, # 270 cap, 3 Refill(s), Pharmacy: [facility] [id number] Start Date: 08/28/22 Status: Ordered ibuprofen 800 mg oral tablet 1 tab, Oral, TID, # 90 tab, 4 Refill(s), Pharmacy: [facility] [id number] Start Date: 05/15/22 Status: Ordered Lantus Solostar Pen 100 units/mL subcutaneous solution 10 units =, Subcutaneous, Daily, Inject 10 units daily and titrate up by 2 units every 3-4 days until FBS is below 130., # 3 mL, 4 Refill(s), Pharmacy: [facility] [id number] Start Date: 05/15/22 Status: Ordered losartan 100 mg oral tablet 100 mg = 1 tab, Oral, Daily, # 90 tab, 4 Refill(s), Pharmacy: [facility] [id number] Start Date: 05/15/22 Status: Ordered metFORMIN 1000 mg oral tablet 1,000 mg = 1 tab, Oral, BID, # 180 tab, 4 Refill(s), Pharmacy: [facility] [id number] Start Date: 05/15/22 Status: Ordered methotrexate 2.5 mg oral tablet 5 mg = 2 tab, Oral, every week, # 30 tab, 3 Refill(s), Pharmacy: [facility] [id number] Start Date: 05/15/22 Status: Ordered Narcan 4 mg/0.1 mL nasal spray 1 sprays, Nasal, Once, may repeat every 2 to 3 minutes until patient responds, # 2 EA, 0 Refill(s) Start Date: 02/26/22 Status: Ordered omeprazole 40 mg oral delayed release capsule 40 mg = 1 cap, Oral, Daily, # 90 cap, 4 Refill(s), Pharmacy: [facility] Start Date: 05/15/22 Status: Ordered One Touch Verio One Touch Verio, Test twice daily, Supply, See instructions, # 200 strip, 4 Refill(s), Pharmacy: [facility] Start Date: 05/15/22 Status: Ordered OneTouch [employer]ica Plus lancest 30 gauge OneTouch Delica Plus lancest 30 gauge, Test twice daily, Supply, See instructions, # 200 EA, 4 Refill(s), Pharmacy: [facility] Start Date: 05/15/22 Status: Ordered oxyCODONE-acetaminophen 10 mg-325 mg oral tablet 1 tab, Oral, BID, PRN as needed for pain, # 56 tab, 0 Refill(s), Pharmacy: [facility] Start Date: 10/28/22 Stop Date: 11/25/22 Status: Ordered Ozempic 2 mg/1.5 mL (0.25 mg or 0.5 mg dose) subcutaneous solution 0.5 mg, Subcutaneous, every week, rotate injection sites, # 2 mL, 6 Refill(s), Pharmacy: [facility] Start Date: 08/14/22 Status: Ordered pramipexole 1.5 mg oral tablet See Instructions, Take 1 tablet daily at bedtime, # 90 tab, 4 Refill(s), Pharmacy: [id number] Start Date: 05/20/22 Status: Ordered Problem List Condition Confirmation Course [...] Depressive disorder Confirmed Active Depressed Confirmed Active Disease caused by 2019 novel coronavirus 1 Confirmed 02/04/22 Active Eczema Confirmed Active Foot pain, left Confirmed Active GERD (gastroesophageal reflux disease) Confirmed Active Hypertensive disorder Confirmed Active Impingement syndrome of right shoulder region Confirmed Active Low back pain Confirmed Active Low back pain Confirmed Active Migraine Confirmed Active Flu vaccine need Confirmed Active Nicotine dependence Confirmed Active Obesity Confirmed Active Overweight Confirmed Active Pain in right arm Confirmed Active Toe pain, left Confirmed Active Postoperative infection Confirmed Active Psoriasis Confirmed Active Severe obesity Confirmed Active Strain of muscle of upper limb Confirmed Active Strain of tendon of upper arm Confirmed Active Toxic effect of venom Confirmed Active Type 2 diabetes mellitus without complication Confirmed Active Uterine leiomyoma Confirmed Active 1Problem added by Rule (IC_COVID19_AUTO_PROBLEM) following SARS-CoV-2 (COVID-19) RNA (ID Now) from Nasal collected on 04-FEB-2022 09:47:00 EDT tested positive for COVID-19. Procedures Procedure Date Related Diagnosis Body Site Status Arthroplasty, interposition, intercarpal or carpometacarpal joints 1 04/17/21 Completed Rotator cuff repair 2 09/21/16 Com pleted Hysterectomy 09/21/00 Completed section (procedure) 3 09/22/97 Completed Tubal ligation Completed 1L 1st [facility] arthroplasty 2Right shoulder RCR, Biceps tenodesis, ORIF Clavicle 2015 [id number]; 1994; 1988 Social History Social History Type Response Smoking Status Smoking tobacco use: Current everyday tobacco user;Never; Number used per day: 6 cigarettes daily; entered on: 02/26/22 Sex Female Patient Care team information Care Team Personnel Name: Attila Bernal MD Position: Physician Member Role: Primary Care Physician Address: Address: [place] [address]- Care Team Related Persons Name: EDGAR GUADALUPE Address: Home Name: LIDIA LLOYD Address: Home
--- OUTSIDE RECORDS SUMMARY | 2023-07-14 09:27 | XMS_ITS | Continuity of Care Document ---
Author Name Unknown Organization [facility] Address [address] [place] [address] Care Team Providers Care Traffic Analyst Name Role Phone Attila Bernal Primary Care Physician Encounter [facility] Date(s): 06/24/23 - 06/25/[address] [id number] Encounter Diagnosis PICC (peripherally inserted central catheter) in place(Discharge Diagnosis) - 06/24/23 Discharge Disposition: Home or Self Care Attending Physician: Naveed Us MD Admitting Physician: Naveed Us MD Allergies, Adverse Reactions, Alerts Substance Reaction Severity Status HOUSE DUST Eye swelling Unknown Active ANIMAL DANDER Eye swelling Unknown Active INSECT VENOM Anaphylactic reaction Unknown Active LATEX Skin rash Unknown Active codeine 1 Loss of consciousness Unknown Active morphine Vomiting Unknown Active Bee Stings Anaphylaxis Severe Active Benzoin Tincture Mild Active 1patient states turns green and passes out Assessment and Plan Future Appointments Future Scheduled Tests Laboratory* Drug Screen Urine 11/27/22 Radiology* US Lower Ext Arterial Duplex Bilateral 07/12/22 * XR Foot Complete 3+ Views Left 07/26/22 Functional Status 06/24/23 Family Member Travel History No recent t [...] B adult vaccine 09/22/02 Recorded Medications ARIPiprazole 10 mg oral tablet 1 tab, Oral, Daily, # 90 tab, 3 Refill(s), Pharmacy: [facility] [id number], 164, cm, 12/19/22 12:43:00 EDT, Height/Length Dosing, 100, kg, 12/19/22 12:43:00 EDT, Weight Dosing Start Date: 05/01/23 Status: Ordered buPROPion 300 mg/24 hours (XL) oral tablet, extended release 300 mg = 1 tab, Oral, Daily, # 90 tab, 4 Refill(s), Pharmacy: [facility] Start Date: 05/15/22 Status: Ordered cetirizine 10 mg oral tablet 10 mg = 1 tab, Oral, Daily, # 90 tab, 4 Refill(s), Pharmacy: [facility] Start Date: 05/15/22 Status: Ordered DULoxetine 30 mg oral delayed release capsule 30 mg = 1 cap, Oral, Daily, # 90 cap, 4 Refill(s), Pharmacy: [facility] Start Date: 05/15/22 Stop Date: 08/08/23 Status: Ordered DULoxetine 60 mg oral delayed release capsule 60 mg = 1 cap, Oral, Daily, Take in addition to 30 mg for a total dose of 90 mg, # 90 cap, 4 Refill(s), Pharmacy: [facility] Start Date: 05/15/22 Status: Ordered ferrous sulfate 325 mg (65 mg elemental iron) oral tablet 325 mg = 1 tab, Oral, TID, # 270 tab, 4 Refill(s), Pharmacy: [facility] [id number] Start Date: 05/22/22 Status: Ordered gabapentin 300 mg oral capsule 900 mg = 3 cap, Oral, TID, TAKE 3 CAPSULES BY MOUTH THREE TIMES DAILY, # 270 cap, 3 Refill(s), Pharmacy: [facility] [id number], 164, cm, 12/19/22 12:43:00 EDT, Height/Length Dosing, 100, kg, 12/20/2311:43:00 EDT, Weight Dosing Start Date: 01/23/23 Status: Ordered ibuprofen 800 mg oral tablet 1 tab, Oral, TID, # 90 tab, 5 Refill(s), Pharmacy: [facility] [id number], 167, cm, 12/06/22 10:27:00 EDT, Height/Length Dosing, 99.79, kg, 12/06/22 10:27:00 EDT, Weight Dosing Start Date: 12/09/22 Status: Ordered Lantus Solostar Pen 100 units/mL subcutaneous solution 38 units, Subcutaneous, Daily, Inject 38 units daily and titrate up by 2 units every 3-4 days untilFBS is below 130., # 15 mL, 4 Refill(s), Pharmacy: [facility] [id number], 164, cm, 12/19/22 12:43:00 EDT, Height/Length Dosing, 100, kg, 12/19/22 12:43:00 EDT, Weight Dosing Start Date: 01/31/23 Status: Ordered losartan 100 mg oral tablet 100 mg = 1 tab, Oral, Daily, # 90 tab, 4 Refill(s), Pharmacy: [facility] [id number] Start Date: 05/15/22 Status: Ordered metFORMIN 1000 mg oral tablet 1,000 mg = 1 tab, Oral, BID, # 180 tab, 4 Refill(s), Pharmacy: [facility] [id number] Start Date: 05/15/22 Status: Ordered Narcan 4 mg/0.1 mL nasal spray 1 sprays, Nasal, Once, may repeat every 2 to 3 minutes until patient responds, # 2 EA, 0 Refill(s) Start Date: 02/26/22 Status: Ordered omeprazole 40 mg oral delayed release capsule 40 mg = 1 cap, Oral, Daily, # 90 cap, 4 Refill(s), Pharmacy: [facility] [id number] Start Date: 05/15/22 Status: Ordered ondansetron 4 mg oral tablet, disintegrating 4 mg = 1 tab, Oral, every 8 hr, PRN as needed for nausea/vomiting, # 90 tab, 0 Refill(s), Pharmacy:[id number], 164, cm, 12/19/22 12:43:00 EDT, Height/Length Dosing, 100, kg, 12/19/22 12:43:00 EDT, Weight Dosing Start Date: 06/02/23 Status: Ordered One Touch Verio One Touch Verio, Test twice daily, Supply, See instructions, # 200 strip, 4 Refill(s), Pharmacy: [facility] Start Date: 05/15/22 Status: Ordered OneTouch Delica Plus lancest 30 gauge OneTouch Delica Plus lancest 30 gauge, Test twice daily, Supply, See instructions, # 200 EA, 4 Refill(s), Pharmacy: [facility] Start Date: 12/31/22 Status: Ordered oxyCODONE-acetaminophen 10 mg-325 mg oral tablet 1 tab, Oral, BID, PRN as needed for pain, # 56 tab, 0 Refill(s), Pharmacy: [id number], 164, cm, 12/19/22 12:43:00 EDT, Height/Length Dosing, 100, kg, 12/19/22 12:43:00 EDT, Weight Dosing Start Date: 05/30/23 Stop Date: 06/27/23 Status: Ordered Ozempic (1 mg dose) 4 mg/3 mL subcutaneous solution 1 mg =, Subcutaneous, every week, # 3 mL, 0 Refill(s), Pharmacy: [id number], 164, cm, 06/03/23 17:35:00 EDT, Height/Length Dosing, 93.5, kg, 06/03/23 17:35:00 EDT, Weight Dosing Start Date: 06/06/23 Status: Ordered pramipexole 1.5 mg oral tablet See Instructions, Take 1 tablet daily at bedtime, # 90 tab, 4 Refill(s), Pharmacy: [id number], 164, cm, 12/19/22 12:43:00 EDT, Height/Length Dosing, 100, kg, 12/19/22 12:43:00 EDT, Weight Dosing Start Date: 01/23/23 Status: Ordered Relion Pen Golden 30G 8mm Relion Pen Golden 30G 8mm, Use one daily, Supply, 1 EA, N/A, As Directed, PRN As needed, # 100 EA,4 Refill(s), Pharmacy: [id number] Start Date: 03/03/23 Status: Ordered Problem List Condition Confirmation Course Effective Dates Status H ealth Status Informant Foot abscess, left Confirmed Active Accidental poisoning Confirmed Active Acute osteomyelitis of toe of left foot Confirmed Active Adult health examination Confirmed Active Allergies Confirmed Active Allergic reaction to drug Confirmed Active Anesthesia of skin Confirmed Active Atopic dermatitis Confirmed Active Biceps tendinitis Confirmed Active Cellulitis Confirmed Active Cellulitis Confirmed Active Chronic pain Confirmed Active Chronic, continuous use of opioids Confirmed Active Depressive disorder Confirmed Active Depressed Confirmed Active Diabetic foot ulcer Confirmed Active Eczema Confirmed Active Foot pain, left Confirmed Active GERD (gastroesophageal reflux disease) Confirmed Active Status post amputation of toe Confirmed Active Hypertensive disorder Confirmed Active Impingement syndrome of right shoulder region Confirmed Active Low back pain Confirmed Active Low back pain Confirmed Active Methicillin resistant Staphylococcus aureus 1 Confirmed 11/14/22 Active Migraine Confirmed Active Flu vaccine need Confirmed Active Nicotine dependence Confirmed Active Obesity Confirmed Active Open wound of fourth toe of right foot Confirmed Active Open wound of toe of right foot Confirmed Active Osteomyelitis Confirmed Active Osteomyelitis of toe of right foot Confirmed Active Overweight Confirmed Active Pain in right arm Confirmed Active Toe pain, left Confirmed Active Postoperative infection Confirmed Active Psoriasis Confirmed Active Sepsis Confirmed Active Severe obesity Confirmed Active Shoulder pain Confirmed 05/21/16 Active Strain of muscle of upper limb Confirmed Active Strain of tendon of upper arm Confirmed Active Toxic effect of venom Confirmed Active Diabetes mellitus, type 2 2 Confirmed Active Type 2 diabetes mellitus without complication Confirmed Active Uterine leiomyoma Confirmed Active 1Problem added by Rule (LH_IC_MDRO_MRSA) following Wound Culture from Wound collected on [id number] EST 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 2From 11-19-2021 visit: should have a1c. back to limited meds due to cost, awaiting insurance. will order, may wait until insurance in place Procedures Procedure Date Related Diagnosis Body Site Status Amputation great toe 12/18/22 Comp leted Arthroplasty, interposition, intercarpal or carpometacarpal joints 1 04/17/21 Completed Rotator cuff repair 2 09/21/16 Com pleted Hysterectomy 09/21/00 Completed section (procedure) 3 09/22/97 Completed Amputation of toe 4 Compl eted Tubal ligation Completed 1L 1st [facility] arthroplasty 2Right shoulder RCR, Biceps tenodesis, ORIF Clavicle 2015 [id number]; 1994; 1988 4left great toe, along with debridement Vital Signs Most recent to oldest [Reference Range]: 1 Temperature Temporal Artery [36-38 Deg C ] 36.7 Deg C (06/24/23 8:38 PM) Peripheral Pulse Rate [60-100 bpm] 89 bp m (06/24/23 8:38 PM) Respiratory Rate [12-24 br/min] 20 br/mi n (06/24/23 8:38 PM) Blood Pressure [90-140/60-90 mmHg] 170/7 6mmHg *HI* (06/24/23 8:38 PM) Weight Dosing 92.50 kg (06/24/23 8:43 PM) Weight Estimated 92.50 kg (06/24/23 8:38 PM) Height/Length Dosing 165.000 cm (06/24/23 8:43 PM) Height/Length Estimated 165.000 cm (06/24/23 8:38 PM) Social History Social History Type Response Tobacco Former tobacco user Tobacco Use:. Sex Female Hospital Discharge Instructions Follow Up Care 06/24/2023 20:38:41 With:Attila Bernal MD Address: [address] When:1 month Physician Emergency department Note * Naveed Us MD: PERFORM Event Display: ED Note Physician Authored Date: [id number] HOOD DUNHAM :1965 Age:57 years Sex:Female Visit Date:06/24/2023 Primary Care Physician: Attila Bernal MD Basic Information Chief Complaint My picc line dressing came off and I think one of the leads came out. I called [facility] and they told me to reinforce it but I don't think it worked PICC line LUE, taped at this time. Pt reports itchingbut no other complaints History Of Present Illness: 57-year-old female past medical history??extensive as noted in the chart but more recently had??infection requiring outpatient PICC line with vancomycin??had a concern about moving the??wind or dislodging the line??from her left arm. ??She accidentally may have pulled on it and thinks it may have moved. ??She reports that it has been functioning??well??otherwise recently. Review of Systems: PICC line problem Physical Exam Vitals & Measurements T:??36.7?C ??(Temporal Artery)?? HR:??89??(Peripheral)?? RR:??20?? BP:??170/76?? SpO2:??100%?? HT:??165.000??cm?? WT:??92.50??kg??(Estimated)?? O2 Therapy:??Room air?? PICC line appears to be in place when looking at the left upper extremity no surrounding hematoma or erythema,??dressing??in place Medical Decision Makin-year-old female presents with??concern about possibly pulling out her PICC line slightly. ??Otherwise she reports that??during her vancomycin infusions it has been working properly recently. ??Hervitals are stable. ??There is no obvious hematoma or erythema around the site insertion. ??She did have this tape quite extensively which was removed, and she does have her??initial PICC line dressing in place.?? Chest x-ray does not show any coiling of the PICC line in the left arm??and shows appropriate placement.?? Line was able to be flushed and appears to be in working condition.?? Dressing was changed.?? Close follow-up with??her infusion center. ??Discharge stable condition return precautions ED. Assessment/Plan 1.??PICC (peripherally inserted central catheter) in place??Z45.2 Follow Up With When Contact Information Attila Bernal MD Within 1 month [facility] [address] [address]- Additional Instructions: Medication Reconciliation Unchanged ARIPiprazole (ARIPiprazole 10 mg oral tablet)1 tab Oral (given by mouth) every day. Refills: 3. ?? buPROPion (buPROPion 300 mg/24 hours (XL) oral tablet, extended release)1 tab Oral (given by mouth)every day. Refills: 4. ?? cetirizine (cetirizine 10 mg oral tablet)1 tab Oral (given by mouth) every day. Refills: 4. ?? DULoxetine (DULoxetine 30 mg oral delayed release capsule)1 Capsules Oral (given by mouth) every day for 90 Days. Refills: 4. ?? DULoxetine (DULoxetine 60 mg oral delayed release capsule)1 Capsules Oral (given by mouth) every day. Take in addition to 30 mg for a total dose of 90 mg. Refills: 4. ?? Durable Medical Equipment for Prescription ([employer] Plus lancest 30 gauge)Test twice daily.Refills: 4. ?? ferrous sulfate (ferrous sulfate 325 mg (65 mg elemental iron) oral tablet)1 tab Oral (given by mouth) 3 times a day. Refills: 4. ?? gabapentin (gabapentin 300 mg oral capsule)3 Capsules Oral (given by mouth) 3 times a day. TAKE 3 CAPSULES BY MOUTH THREE TIMES DAILY. Refills: 3. ?? ibuprofen (ibuprofen 800 mg oral tablet)1 tab Oral (given by mouth) 3 times a day. Refills: 5. ?? insulin glargine (Lantus Solostar Pen 100 units/mL subcutaneous solution)38 Units Subcutaneous (under the skin) every day. Inject 38 units daily and titrate up by 2 units every 3-4 days until FBS is below 130.. Refills: 4. ?? insulin pen needles 30G 8 mm (Relion Pen Golden 30G 8mm)1 Each Not Applicable As Directed as needed. Use one daily. Refills: 4. ?? losartan (losartan 100 mg oral tablet)1 tab Oral (given by mouth) every day. Refills: 4. ?? metFORMIN (metFORMIN 1000 mg oral tablet)1 tab Oral (given by mouth) 2 times a day. Refills: 4. ?? naloxone (Narcan 4 mg/0.1 mL nasal spray)1 Sprays Nasal (into the nose) once. may repeat every 2 to3 minutes until patient responds. ?? omeprazole (omeprazole 40 mg oral delayed release capsule)1 Capsules Oral (given by mouth) every day. Refills: 4. ?? ondansetron (ondansetron 4 mg oral tablet, disintegrating)1 tab Oral (given by mouth) every 8 hoursas needed as needed for nausea/vomiting. Refills: 0. ?? One Touch Verio Test Strips (One Touch Verio)Test twice daily. Refills: 4. ?? oxyCODONE-acetaminophen (oxyCODONE-acetaminophen 10 mg-325 mg oral tablet)1 tab Oral (given by mouth) 2 times a day as needed as needed for pain for 28 Days. Refills: 0. ?? pramipexole (pramipexole 1.5 mg oral tablet)Take 1 tablet daily at bedtime. Refills: 4. ?? semaglutide (Ozempic (1 mg dose) 4 mg/3 mL subcutaneous solution)1 Milligrams Subcutaneous (under the skin) every week. Refills: 0. Problem List/Past Medical History Ongoing Accidental poisoning Acute osteomyelitis of toe of left foot Adult health examination Allergic reaction to drug Allergies Anesthesia of skin Atopic dermatitis Biceps tendinitis Cellulitis Cellulitis Chronic pain Chronic, continuous use of opioids Depressed Depressive disorder Diabetes mellitus, type 2 Diabetic foot ulcer Eczema Flu vaccine need Foot abscess, left Foot pain, left GERD (gastroesophageal reflux disease) Hypertensive disorder Impingement syndrome of right shoulder region Low back pain Low back pain Methicillin resistant Staphylococcus aureus Migraine Nicotine dependence Obesity Open wound of fourth toe of right foot Open wound of toe of right foot Osteomyelitis Osteomyelitis of toe of right foot Overweight Pain in right arm Postoperative infection Psoriasis Sepsis Severe obesity Shoulder pain Status post amputation of toe Strain of muscle of upper limb Strain of tendon of upper arm Toe pain, left Toxic effect of venom Type 2 diabetes mellitus without complication Uterine leiomyoma Historical Disease caused by 2019 novel coronavirus Procedure/Surgical History ???Amputation great toe (12/19/2022)???Arthroplasty, interposition, intercarpal or carpometacarpal joints (04/17/2021)???Rotator cuff repair (09/22/2016)???Hysterectomy (09/22/2000)??? section (procedure) (09/22/1997)???Amputation of toe???Tubal ligation Allergies Bee Stings??(Anaphylaxis) Benzoin Tincture ANIMAL DANDER??(Eye swelling) HOUSE DUST??(Eye swelling) INSECT VENOM??(Anaphylactic reaction) LATEX??(Skin rash) codeine??(Loss of consciousness) morphine??(Vomiting) Social History Alcohol Never Electronic Cigarette/Vaping Electronic Cigarette Use: Use, within last 90 days.- Comments: occasionally Substance Use Never Tobacco Former tobacco user Tobacco Use:. Family History Hypertensive disorder: Mother. Electronically Signed on 06/25/23 07:01 AM Naveed Us MD Emergency department Discharge instructions * Naveed Us MD: PERFORM Event Display: ED Discharge Information Authored Date: [id number] HOOD DUNHAM :1965 Age:57 years Sex:Female Visit Date:06/24/2023 Primary Care Physician: Attila Bernal MD Discharge Instructions We would like to thank you for allowing us to assist you with your healthcare needs. The following includes patient education materials and information regarding your injury/illness. Diagnosis from Today's Visit PICC (peripherally inserted central catheter) in place Discharge Vitals Temperature??(Temporal Artery) 98.1 ??F (36.7 ??C) Heart Rate??(Peripheral) 89 Respiratory Rate?? 20 Blood Pressure?? 170/76?? Height?? 64.96 in (165.000 cm) Weight??(Estimated) 203.96 lb (92.50 kg) Allergies Bee Stings??(Anaphylaxis) Benzoin Tincture ANIMAL DANDER??(Eye swelling) HOUSE DUST??(Eye swelling) INSECT VENOM??(Anaphylactic reaction) LATEX??(Skin rash) codeine??(Loss of consciousness) morphine??(Vomiting) What to Do Next You Need to Schedule the Following Appointments Follow Up with??Attila Bernal MD When:??Within 1 month Where: [facility] [address] [address] Upcoming Scheduled Appointments Friday 1:00 PM EDT ?? With: Edgra Morrell Where: [address] [address] Status: Confirmed Friday 2:20 PM EDT ?? With: Attila Bernal MD Where: [facility] [address] [address] Status: Confirmed You were treated today on an emergency [...] Why Instructions Next Dose Unchanged ARIPiprazole (ARIPiprazole 10 mg oral tablet) 1 tab Oral [...] ?? Unchanged Durable Medical Equipment for Prescription ([employer] Plus lancest 30 gauge) See instructions Test twice daily ?? Unchanged ferrous sulfate (ferrous sulfate 325 mg (65 mg elemental iron) oral tablet) 1 tab Oral (given by mouth) 3 times a day Type 2 diabetes mellitus without complication Unchanged gabapentin (gabapentin 300 mg oral capsule) 3 Capsules Oral (given by mouth) 3 times a day TAKE 3 CAPSULES BY MOUTH THREE TIMES DAILY ?? Unchanged ibuprofen (ibuprofen 800 mg oral tablet) 1 tab Oral (given by mouth) 3 times a day Unchanged insulin glargine (Lantus Solostar Pen 100 units/ mL subcutaneous solution) 38 Units Subcutaneous (under the skin) Every day Type 2 diabetes mellitus without complication Inject 38 units daily and titrate up by 2 units every 3-4 days until FBS is below 130. ?? Unchanged insulin pen needles 30G 8 mm (Relion Pen Golden 30G 8mm) 1 Each Not Applicable As Directed as needed for As needed Type 2 diabetes mellitus without complication Use one daily ?? Unchanged losartan (losartan 100 mg oral tablet) 1 tab Oral (given by mouth) Every day Hypertensive disorder Unchanged metFORMIN (metFORMIN 1000 mg oral tablet) 1 tab Oral (given by mouth) 2 times a day Type 2 diabetes mellitus without complication Unchanged naloxone (Narcan 4 mg/ 0.1 mL nasal spray) 1 Sprays Nasal (into the nose) Once may repeat every 2 to 3 minutes until patient responds ?? Unchanged omeprazole (omeprazole 40 mg oral delayed release capsule) 1 Capsules Oral (given by mouth) Every day Unchanged ondansetron (ondansetron 4 mg oral tablet, disintegrating) 1 tab Oral (given by mouth) Every 8 hours as needed for as needed for nausea/vomiting Unchanged One Touch Verio Test Strips (One [...] tablet daily at bedtime ?? Unchanged semaglutide (Ozempic (1 mg dose) 4 mg/ 3 mL subcutaneous solution) 1 Milligrams Subcutaneous (under the skin) Every week Patient/Sanitation Superintendent Signature Patient Name:HOOD DUNHAM I have received this information and my questions have been answered. Patient/Sanitation Superintendent Name: Patient/Sanitation Superintendent Signature: Relationship to Patient: Witness Name/Signature: Date: Electronically Signed on: 06/25/2023 00:03 EDTSigned by:JOHNNIE Emergency department Note * Althea Macedo H: PERFORM Event Display: ED Notes Authored Date: [id number] Patient Care team information Care Team Personnel Name: Attila Bernal MD Position: Physician Member Role: Informed Provider Address: Address: [address] [address]- [place] Name: Naveed Us MD Position: Physician Member Role: ED Physician Address: Address: [address] [address] Name: Indira Dorado RN Position: Nurse Member Role: ED Nurse Care Team Related Persons Name: EDGAR GUADALUPE Name: SUPA MOON Name: HOSSEIN MCNEIL Name: WILLA MCNEIL
--- OUTSIDE RECORDS SUMMARY | 2023-07-14 09:27 | XMS_ITS | Continuity of Care Document ---
Author Name Unknown Organization [facility] Address [address] [place] [address] Care Team Providers Care Cafeteria Counter Attendant Name Role Phone Attila Bernal Primary Care Physician [phone] Encounter [facility] Date(s): 01/23/23 - 01/23/[address] [address] Discharge Disposition: Home or Self Care Attending Physician: Attila Bernal MD Admitting Physician: Attila Bernal MD Referring Physician: Attila Bernal MD Allergies, Adverse Reactions, Alerts Substance Reaction [...] Plan Future Appointments Diagnostic Tests Pending * Opioids and Metabolites Confirmation Panel, Urine CTOX 01/23/23 Future Scheduled Tests Laboratory* Drug Screen Urine [...] Recorded Medications ARIPiprazole 10 mg oral tablet 10 mg = 1 tab, Oral, Daily, # 30 tab, 2 Refill(s), Pharmacy: [facility] [address], 164, cm, 12/19/22 12:43:00 EDT, Height/Length Dosing, 100, kg, 12/19/22 12:43:00 EDT, Weight Dosing Start Date: 01/23/23 Status: Ordered Bactrim DS 800 mg-160 mg oral tablet 1 tab, Oral, TID, # 84 tab, 1 Refill(s), Pharmacy: [facility] [address], 165, cm, 11/11/22 16:14:00 EST, Height/Length Dosing, 152.1, kg, 11/11/22 16:14:00 EST, Weight Dosing Start Date: 11/15/22 Stop Date: 01/10/23 Status: Ordered BD Ultra finr Pen needles BD Ultra finr Pen needles, Use one daily, Supply, 1 EA, N/A, As Directed, PRN As needed, # 100 EA, 4 Refill(s), Pharmacy: [facility] Start Date: 05/20/22 Status: Ordered buPROPion 300 mg/24 hours (XL) oral tablet, extended release 300 mg = 1 tab, Oral, Daily, # 90 tab, 4 Refill(s), Pharmacy: [facility] [address] Start Date: 05/15/22 Status: Ordered cetirizine 10 mg oral tablet 10 mg = 1 tab, Oral, Daily, # 90 tab, 4 Refill(s), Pharmacy: [facility] [address] Start Date: 05/15/22 Status: Ordered DULoxetine 30 mg oral delayed release capsule 30 mg = 1 cap, Oral, Daily, # 90 cap, 4 Refill(s), Pharmacy: [facility] [address] Start Date: 05/15/22 Stop Date: 08/08/23 Status: Ordered DULoxetine 60 mg oral delayed release capsule 60 mg = 1 cap, Oral, Daily, Take in addition to 30 mg for a total dose of 90 mg, # 90 cap, 4 Refill(s), Pharmacy: [facility] [address] Start Date: 05/15/22 Status: Ordered ferrous sulfate 325 mg (65 mg elemental iron) oral tablet 325 mg = 1 tab, Oral, TID, # 270 tab, 4 Refill(s), Pharmacy: [facility] [address] Start Date: 05/22/22 Status: Ordered folic acid 1 mg oral tablet 1 mg = 1 tab, Oral, Daily, # 90 tab, 4 Refill(s), Pharmacy: [facility] [address] Start Date: 05/15/22 Status: Ordered gabapentin 300 mg oral capsule 900 mg = 3 cap, Oral, TID, TAKE 3 CAPSULES BY MOUTH THREE TIMES DAILY, # 270 cap, 3 Refill(s), Pharmacy: [facility] [address], 164, cm, 12/19/22 12:43:00 EDT, Height/Length Dosing, 100, kg, 12/20/2311:43:00 EDT, Weight Dosing Start Date: 01/23/23 Status: Ordered ibuprofen 800 mg oral tablet 1 tab, Oral, TID, # 90 tab, 5 Refill(s), Pharmacy: [facility] [address], 167, cm, 12/06/22 10:27:00 EDT, Height/Length Dosing, 99.79, kg, 12/06/22 10:27:00 EDT, Weight Dosing Start Date: 12/09/22 Status: Ordered Lantus Solostar Pen 100 units/mL subcutaneous solution 10 units =, Subcutaneous, Daily, Inject 10 units daily and titrate up by 2 units every 3-4 days until FBS is below 130., # 3 mL, 4 Refill(s), Pharmacy: [facility] [address] Start Date: 05/15/22 Status: Ordered losartan 100 mg oral tablet 100 mg = 1 tab, Oral, Daily, # 90 tab, 4 Refill(s), Pharmacy: [facility] [address] Start Date: 05/15/22 Status: Ordered metFORMIN 1000 mg oral tablet 1,000 mg = 1 tab, Oral, BID, # 180 tab, 4 Refill(s), Pharmacy: [facility] [address] Start Date: 05/15/22 Status: Ordered Narcan 4 mg/0.1 mL nasal spray 1 sprays, Nasal, Once, may repeat every 2 to 3 minutes until patient responds, # 2 EA, 0 Refill(s) Start Date: 02/26/22 Status: Ordered omeprazole 40 mg oral delayed release capsule 40 mg = 1 cap, Oral, Daily, # 90 cap, 4 Refill(s), Pharmacy: [facility] [address] Start Date: 05/15/22 Status: Ordered One Touch Verio One Touch Verio, Test twice daily, Supply, See instructions, # 200 strip, 4 Refill(s), Pharmacy: [facility] [address] Start Date: 05/15/22 Status: Ordered OneTouch Delica Plus lancest 30 gauge OneTouch Delica Plus lancest 30 gauge, Test twice daily, Supply, See instructions, # 200 EA, 4 Refill(s), Pharmacy: [facility] [address] Start Date: 12/31/22 Status: Ordered oxyCODONE-acetaminophen 10 mg-325 mg oral tablet 1 tab, Oral, BID, PRN as needed for pain, # 56 tab, 0 Refill(s), Pharmacy: [facility] [address], 164, cm, 12/19/22 12:43:00 EDT, Height/Length Dosing, 100, kg, 12/19/22 12:43:00 EDT, Weight Dosing Start Date: 01/23/23 Stop Date: 02/20/23 Status: Ordered pramipexole 1.5 mg oral tablet See Instructions, Take 1 tablet daily at bedtime, # 90 tab, 4 Refill(s), Pharmacy: [id number], 164, cm, 12/19/22 12:43:00 EDT, Height/Length Dosing, 100, kg, 12/19/22 12:43:00 EDT, Weight Dosing Start Date: 01/23/23 Status: Ordered semaglutide 4 mg/3 mL (1 mg dose) subcutaneous solution 1 mg =, Subcutaneous, every week, # 3 mL, 4 Refill(s), Pharmacy: [id number], 165, cm, 11/11/22 16:14:00 EST, Height/Length Dosing, 152.1, kg, 11/11/22 16:14:00 EST, Weight Dosing Start Date: 11/27/22 Status: Ordered Problem List Condition Confirmation Course Effective Dates Status H ealth Status Informant Accidental poisoning Confirmed Active Acute osteomyelitis of [...] Nicotine dependence Confirmed Active Obesity Confirmed Active Osteomyelitis Confirmed Active Overweight Confirmed Active Pain in right arm Confirmed Active Toe pain, left Confirmed Active Postoperative infection Confirmed Active Psoriasis Confirmed Active Severe obesity Confirmed Active Shoulder pain Confirmed 05/21/16 Active Strain of muscle of upper limb Confirmed Active Strain of tendon of upper arm Confirmed Active Toxic effect of venom Confirmed Active Diabetes mellitus, type 2 Confirmed Active Type 2 diabetes mellitus [...] shoulder RCR, Biceps tenodesis, ORIF Clavicle 2015 [id number]; 1994; 1988 4left great toe, along with debridement Results Laboratory List Name Date Drug Screen Urine (Drug Screen Urine w/ Opiate Conf) 01/23/23 Automated Diff 01/23/23 Basic Metabolic Panel (BMP) 01/23/23 CBC w/ Diff 01/23/23 Hemoglobin A1c 01/23/23 Sedimentation Rate (ESR) 01/23/23 Most recent to oldest [Reference Range]: 1 WBC [5.0-10.0 x10^3/mcL] 9.1 x10^3/mcL (01/23/23 2:19 PM) RBC [4.1-5.3 x10^6/mcL] 4.7 x10^6/mcL (01/23/23 2:19 PM) Neutro Auto [40.0-75.0 %] 54.8 % (01/23/23 2:19 PM) Lymph Auto [20.0-50.0 %] 35.0 % (01/23/23 2:19 PM) [place] Auto [2.0-15.0 %] 7.3 % (01/23/23 2:19 PM) Basophil Auto [0.0-1.0 %] 0.8 % (01/23/23 2:19 PM) BUN [7-18 mg/dL] 6 mg/dL *LOW* (01/23/23 2:19 PM) U Amph Scrn [Negative] Negative (01/23/23 3:30 PM) Glucose Level [74-106 mg/dL] 89 mg/dL (01/23/23 2:19 PM) Potassium Level [3.5-5.1 mmol/L] 2.8 mmo l/L *LOW* (01/23/23 2:19 PM) U Benzodia Scrn [Negative] Negative (01/23/23 3:30 PM) MCV [80.0-96.0 fL] 89.7 fL (01/23/23 2:19 PM) MCHC [31.0-35.0 g/dL] 32.1 g/dL (01/23/23 2:19 PM) Sodium Level [136-145 mmol/L] 142 mmol/L (01/23/23 2:19 PM) Hct [37.0-47.0 %] 42.0 % (01/23/23 2:19 PM) U Cocaine Scrn [Negative] Negative (01/23/23 3:30 PM) Calcium Level [8.5-10.1 mg/dL] 9.6 mg/dL (01/23/23 2:19 PM) MCH [26.0-32.0 pg] 28.8 pg (01/23/23 2:19 PM) Neutro Absolute 5.0 x10^3/mcL *NA* (01/23/23 2:19 PM) Hgb [12.0-16.0 g/dL] 13.5 g/dL (01/23/23 2:19 PM) Platelets [130-450 x10^3/mcL] 413 x10^3/ mcL (01/23/23 2:19 PM) CO2 [21-32 mmol/L] 32 mmol/L (01/23/23 2:19 PM) U Jen Scrn [Negative] Negative (01/23/23 3:30 PM) U Opiate Scrn [Negative] Negative (01/23/23 3:30 PM) eGFR Non-AA [>=60] 85 (01/23/23 2:19 PM) eGFR AA [>=60] 85 (01/23/23 2:19 PM) Hemoglobin A1c [4.0-6.0 %] 5.5 % (01/23/23 2:19 PM) Chloride Level [98-107 mmol/L] 102 mmol/ L (01/23/23 2:19 PM) U Oxy Scrn [Negative] Positive *ABN* (01/23/23 3:30 PM) U PCP Scrn [Negative] Negative (01/23/23 3:30 PM) RDW-CV [11.7-17.0 %] 13.4 % (01/23/23 2:19 PM) U THC Scr [Negative] Negative (01/23/23 3:30 PM) U PPX Scr [Negative] Negative (01/23/23 3:30 PM) U Methadone Scr [Negative] Negative (01/23/23 3:30 PM) Imm Gran Auto [0.0-0.9 %] 0.2 % (01/23/23 2:19 PM) U Buprenorph Scr [Negative] Negative (01/23/23 3:30 PM) U mAMP Scr [Negative] Negative (01/23/23 3:30 PM) U TCA Scr [Negative] Negative (01/23/23 3:30 PM) Creatinine Level [0.55-1.02 mg/dL] 0.81 mg/dL (01/23/23 2:19 PM) Eos, Auto [1.0-6.0 %] 1.9 % (01/23/23 2:19 PM) ESR, Westergren [0-30 mm/hr] 10 mm/hr (01/23/23 2:19 PM) Social History Social History Type Response Smoking Status Smoking tobacco use: Current everyday tobacco user;Never; Number used per day: 6 cigarettes daily; entered on: 02/26/22 Sex Female Patient Care team information Care Team Personnel Name: Attila Bernal MD Position: Physician Member Role: Primary Care Physician Address: Address: [address] Care Team Related Persons Name: EDGAR GUADALUPE Address: Home
--- OUTSIDE RECORDS SUMMARY | 2023-07-14 09:28 | XMS_ITS | Continuity of Care Document ---
Author Name Unknown Organization [facility] Address [address] [place] [address] Care Team Providers Care Director Of Acquisitions Name Role Phone Attila Bernal Primary Care Physician Encounter [facility] Date(s): 08/14/22 - 08/14/[address] [address] Discharge Disposition: Home or Self Care Attending Physician: Attila Bernal MD Admitting Physician: Attila Bernal MD Allergies, Adverse Reactions, Alerts Substance Reaction Severity Status HOUSE DUST Eye swelling Unknown Active ANIMAL DANDER Eye swelling Unknown Active INSECT VENOM Anaphylactic reaction Unknown Active LATEX Skin rash Unknown Active codeine 1 Loss of consciousness Unknown Active morphine Vomiting Unknown Active 1patient states turns green and passes out Assessment and Plan Future Appointments Future Scheduled Tests Laboratory* Basic Metabolic Panel 08/14/22 * Hemoglobin A1c 08/14/22 Radiology* US Lower Ext Arterial Duplex Bilateral [...] 90 tab, 4 Refill(s), Pharmacy: [facility] [id number] Start Date: 05/15/22 Status: Ordered Bactrim DS 800 mg-160 mg oral tablet 1 tab, Oral, BID, # 28 tab, 0 Refill(s), Pharmacy: [facility] [id number] Start Date: 07/24/22 Stop Date: 08/07/22 Status: Ordered Bactrim DS 800 mg-160 mg oral tablet 1 tab, Oral, BID, # 14 tab, 0 Refill(s), Pharmacy: [facility] [id number] Start Date: 06/13/22 Stop Date: 06/20/22 Status: Ordered BD Ultra finr Pen needles BD Ultra finr Pen needles, Use one daily, Supply, 1 EA, N/A, As Directed, PRN As needed, # 100 EA, 4 Refill(s), Pharmacy: [facility] [address] Start Date: 05/20/22 Status: Ordered Buphenyl 500 mg oral tablet 0 Refill(s) Start Date: 05/13/22 Status: Ordered buPROPion 150 mg =, Oral, Daily, takes with a 300 mg tablet, 0 Refill(s) Start Date: 05/13/22 Status: Ordered buPROPion 150 mg/24 hours (XL) oral tablet, extended release 150 mg 1 tab, Oral, every 24 hr, # 90 tab, 4 Refill(s), Pharmacy: [facility] [id number] Start Date: 05/15/22 Status: Ordered buPROPion 300 mg/24 hours (XL) oral tablet, extended release 300 mg = 1 tab, Oral, Daily, # 60 tab, 0 Refill(s) Start Date: 02/26/22 Status: Ordered buPROPion 300 mg/24 hours (XL) oral tablet, extended release 300 mg = 1 tab, Oral, Daily, # 90 tab, 4 Refill(s), Pharmacy: [facility] [address] Start Date: 05/15/22 Status: Ordered cetirizine 10 mg oral tablet 10 mg = 1 tab, Oral, Daily, # 90 tab, 4 Refill(s), Pharmacy: [facility] [address] Start Date: 05/15/22 Status: Ordered clindamycin 300 mg oral capsule 300 mg = 1 cap, Oral, TID, # 30 cap, 0 Refill(s), Pharmacy: [id number] Start Date: 05/13/22 Stop Date: 05/23/22 Status: Ordered DULoxetine 30 mg oral delayed release capsule TAKE 1 CAPSULE BY MOUTH ONCE DAILY, TAKE IN ADDITION TO 60 MG FOR A TOTAL DAILY DOSE OF 90 MG Start Date: 02/26/22 Status: Ordered DULoxetine 30 mg oral delayed release capsule 30 mg = 1 cap, Oral, Daily, # 90 cap, 4 Refill(s), Pharmacy: [facility] [id number] Start Date: 05/15/22 Stop Date: 08/08/23 Status: Ordered DULoxetine 60 mg oral delayed release capsule TAKE 1 CAPSULE BY MOUTH ONCE DAILY DIRECTED Start Date: 02/26/22 Status: Ordered DULoxetine 60 mg oral delayed release capsule 60 mg = 1 cap, Oral, Daily, Take in addition to 30 mg for a total dose of 90 mg, # 90 cap, 4 Refill(s), Pharmacy: [facility] [address] Start Date: 05/15/22 Status: Ordered ferrous sulfate 325 mg (65 mg elemental iron) oral tablet 325 mg = 1 tab, Oral, TID, # 270 tab, 4 Refill(s), Pharmacy: [facility] [address] Start Date: 05/22/22 Status: Ordered folic acid 1 mg oral tablet 1 mg = 1 tab, Oral, Daily, # 90 tab, 0 Refill(s) Start Date: 02/26/22 Status: Ordered folic acid 1 mg oral tablet 1 mg = 1 tab, Oral, Daily, # 90 tab, 0 Refill(s) Start Date: 02/26/22 Status: Ordered folic acid 1 mg oral tablet 1 mg = 1 tab, Oral, Daily, # 90 tab, 4 Refill(s), Pharmacy: [facility] [address] Start Date: 05/15/22 Status: Ordered gabapentin 300 mg oral capsule 900 mg = 3 cap, Oral, TID, TAKE 3 CAPSULES BY MOUTH THREE TIMES DAILY, # 270 cap, 3 Refill(s), Pharmacy: [facility] [id number] Start Date: 05/15/22 Status: Ordered ibuprofen 800 mg oral tablet 800 mg = 1 tab, Oral, TID, # 90 tab, 0 Refill(s) Start Date: 02/26/22 Status: Ordered ibuprofen 800 mg oral tablet 1 tab, Oral, TID, # 90 tab, 4 Refill(s), Pharmacy: [facility] [address] Start Date: 05/15/22 Status: Ordered Lantus Solostar Pen 100 units/mL subcutaneous solution 10 units =, Subcutaneous, Daily, Inject 10 units daily and titrate up by 2 units every 3-4 days until FBS is below 130., # 3 mL, 4 Refill(s), Pharmacy: [facility] [id number] Start Date: 05/15/22 Status: Ordered losartan 100 mg oral tablet 100 mg = 1 tab, Oral, Daily, # 90 tab, 0 Refill(s) Start Date: 02/26/22 Status: Ordered losartan 100 mg oral tablet 100 mg = 1 tab, Oral, Daily, # 90 tab, 4 Refill(s), Pharmacy: [facility] [address] Start Date: 05/15/22 Status: Ordered metFORMIN 1000 mg oral tablet 1,000 mg = 1 tab, Oral, BID, # 180 tab, 0 Refill(s) Start Date: 02/26/22 Status: Ordered metFORMIN 1000 mg oral tablet 1,000 mg = 1 tab, Oral, BID, # 180 tab, 4 Refill(s), Pharmacy: [facility] [address] Start Date: 05/15/22 Status: Ordered methotrexate 2.5 mg oral tablet TAKE 2 TABLETS BY MOUTH ONCE A WEEK Start Date: 02/26/22 Status: Ordered methotrexate 2.5 mg oral tablet 5 mg = 2 tab, Oral, every week, # 30 tab, 3 Refill(s), Pharmacy: [facility] [address] Start Date: 05/15/22 Status: Ordered Narcan 4 mg/0.1 mL nasal spray 1 sprays, Nasal, Once, may repeat every 2 to 3 minutes until patient responds, # 2 EA, 0 Refill(s) Start Date: 02/26/22 Status: Ordered omeprazole 40 mg oral delayed release capsule 40 mg = 1 cap, Oral, Daily, # 90 cap, 0 Refill(s) Start Date: 02/26/22 Status: Ordered omeprazole 40 mg oral delayed release capsule 40 mg = 1 cap, Oral, Daily, # 90 cap, 4 Refill(s), Pharmacy: [facility] [address] Start Date: 05/15/22 Status: Ordered One Touch Verio One Touch Verio, Test twice daily, Supply, See instructions, # 200 strip, 4 Refill(s), Pharmacy: [facility] [address] Start Date: 05/15/22 Status: Ordered OneTouch Delica Plus lancest 30 gauge OneTouch Delica Plus lancest 30 gauge, Test twice daily, Supply, See instructions, # 200 EA, 4 Refill(s), Pharmacy: [facility] [address] Start Date: 05/15/22 Status: Ordered OneTouch Verio OneTouch Verio, Test twice a day, Supply, See instructions, # 1 EA, 0 Refill(s), Pharmacy: [facility] [address] Start Date: 05/15/22 Status: Ordered oxyCODONE-acetaminophen 10 mg-325 mg oral tablet 1 tab, Oral, BID, PRN as needed for pain, # 56 tab, 0 Refill(s), Pharmacy: [facility] [address] Start Date: 07/22/22 Stop Date: 08/19/22 Status: Ordered Ozempic 2 mg/1.5 mL (0.25 mg or 0.5 mg dose) subcutaneous solution 0.5 mg, Subcutaneous, every week, rotate injection sites, # 2 mL, 6 Refill(s), Pharmacy: [facility] [address] Start Date: 08/14/22 Status: Ordered pramipexole 1.5 mg oral tablet See Instructions, Take 1 tablet daily at bedtime, # 90 tab, 4 Refill(s), Pharmacy: [facility] [id number] Start Date: 05/20/22 Status: Ordered Problem List Condition Confirmation Course Effective Dates Status H ealth Status Informant Accidental poisoning Confirmed Active Adult health examination Confirmed Active Allergies Confirmed Active Anesthesia of skin Confirmed Active [...] shoulder RCR, Biceps tenodesis, ORIF Clavicle 2015 [id number]; 1994; 1988 Results Laboratory List Name Date Drug Screen Urine (Drug Screen Urine w/ Opiate Conf) 08/14/22 Most recent to oldest [Reference Range]: 1 U Amph Scrn [Negative] Negative (08/14/22 5:45 PM) U Benzodia Scrn [Negative] Negative (08/14/22 5:45 PM) U Cocaine Scrn [Negative] Negative (08/14/22 5:45 PM) U Jen Scrn [Negative] Negative (08/14/22 5:45 PM) U Opiate Scrn [Negative] Negative (08/14/22 5:45 PM) U Oxy Scrn [Negative] Positive *ABN* (08/14/22 5:45 PM) U PCP Scrn [Negative] Negative (08/14/22 5:45 PM) U THC Scr [Negative] Negative (08/14/22 5:45 PM) U PPX Scr [Negative] Negative (08/14/22 5:45 PM) U Methadone Scr [Negative] Negative (08/14/22 5:45 PM) U Buprenorph Scr [Negative] Negative (08/14/22 5:45 PM) U mAMP Scr [Negative] Negative (08/14/22 5:45 PM) U TCA Scr [Negative] Negative (08/14/22 5:45 PM) Social History Social History Type Response Smoking Status Smoking tobacco use: Current everyday tobacco user;Never; Number used per day: 6 cigarettes daily; entered on: 02/26/22 Sex Female Patient Care team information Personnel Name: Attila Bernal MD Address: Address: [address] [address]- [place]
--- OUTSIDE RECORDS SUMMARY | 2023-07-14 09:28 | XMS_ITS | Continuity of Care Document ---
Author Name Unknown Organization [facility] Address [address] [place] [address] Care Team Providers Care Protection Consultant Name Role Phone Attila Bernal Primary Care Physician Encounter [facility] Date(s): 06/23/23 - 06/23/23 [facility] [address] [place] [address] Discharge Disposition: Home or Self Care Attending [...] Daily, # 90 tab, 3 Refill(s), Pharmacy: [facility] [id number], 164, cm, 12/19/22 12:43:00 EDT, Height/Length Dosing, 100, kg, 12/19/22 12:43:00 EDT, Weight Dosing Start Date: 05/01/23 Status: Ordered buPROPion 300 mg/24 hours (XL) oral tablet, extended release 300 mg = 1 tab, Oral, Daily, # 90 tab, 4 Refill(s), Pharmacy: [facility] [id number] Start Date: 05/15/22 Status: Ordered cetirizine 10 mg oral tablet 10 mg = 1 tab, Oral, Daily, # 90 tab, 4 Refill(s), Pharmacy: [facility] Start Date: 05/15/22 Status: Ordered DULoxetine 30 mg oral delayed release capsule 30 mg = 1 cap, Oral, Daily, # 90 cap, 4 Refill(s), Pharmacy: [facility] Start Date: 05/15/22 Stop Date: 08/08/23 Status: Ordered DULoxetine 60 mg oral delayed release capsule 60 mg = 1 cap, Oral, Daily, Take in addition to 30 mg for a total dose of 90 mg, # 90 cap, 4 Refill(s), Pharmacy: [facility] Start Date: 05/15/22 Status: Ordered ferrous sulfate 325 mg (65 mg elemental iron) oral tablet 325 mg = 1 tab, Oral, TID, # 270 tab, 4 Refill(s), Pharmacy: [facility] Start Date: 05/22/22 Status: Ordered gabapentin 300 mg oral capsule 900 mg = 3 cap, Oral, TID, TAKE 3 CAPSULES BY MOUTH THREE TIMES DAILY, # 270 cap, 3 Refill(s), Pharmacy: [facility] [address], 164, cm, 12/19/22 12:43:00 EDT, Height/Length Dosing, 100, kg, 12/20/2311:43:00 EDT, Weight Dosing Start Date: 01/23/23 Status: Ordered ibuprofen 800 mg oral tablet 1 tab, Oral, TID, # 90 tab, 5 Refill(s), Pharmacy: [facility] [address], 167, cm, 12/06/22 10:27:00 EDT, Height/Length Dosing, 99.79, kg, 12/06/22 10:27:00 EDT, Weight Dosing Start Date: 12/09/22 Status: Ordered Lantus Solostar Pen 100 units/mL subcutaneous solution 38 units, Subcutaneous, Daily, Inject 38 units daily and titrate up by 2 units every 3-4 days untilFBS is below 130., # 15 mL, 4 Refill(s), Pharmacy: [facility] [address], 164, cm, 12/19/22 12:43:00 EDT, Height/Length Dosing, 100, kg, 12/19/22 12:43:00 EDT, Weight Dosing Start Date: 01/31/23 Status: Ordered losartan 100 mg oral tablet 100 mg = 1 tab, Oral, Daily, # 90 tab, 4 Refill(s), Pharmacy: [facility] [id number] Start Date: 05/15/22 Status: Ordered metFORMIN 1000 mg oral tablet 1,000 mg = 1 tab, Oral, BID, # 180 tab, 4 Refill(s), Pharmacy: [facility] [address] Start Date: 05/15/22 Status: Ordered Narcan 4 mg/0.1 mL nasal spray 1 sprays, Nasal, Once, may repeat every 2 to 3 minutes until patient responds, # 2 EA, 0 Refill(s) Start Date: 02/26/22 Status: Ordered omeprazole 40 mg oral delayed release capsule 40 mg = 1 cap, Oral, Daily, # 90 cap, 4 Refill(s), Pharmacy: [facility] [id number] Start Date: 05/15/22 Status: Ordered ondansetron 4 mg oral tablet, disintegrating 4 mg = 1 tab, Oral, every 8 hr, PRN as needed for nausea/vomiting, # 90 tab, 0 Refill(s), Pharmacy:[id number], 164, cm, 12/19/22 12:43:00 EDT, Height/Length Dosing, 100, kg, 12/19/22 12:43:00 EDT, Weight Dosing Start Date: 06/02/23 Status: Ordered One Touch Verio One Touch Verio, Test twice daily, Supply, See instructions, # 200 strip, 4 Refill(s), Pharmacy: [facility] Start Date: 05/15/22 Status: Ordered OneTouch Delica Plus lancest 30 gauge OneTouch Delica Plus lancest 30 gauge, Test twice daily, Supply, See instructions, # 200 EA, 4 Refill(s), Pharmacy: [facility] Start Date: 12/31/22 Status: Ordered oxyCODONE-acetaminophen 10 mg-325 mg oral tablet 1 tab, Oral, BID, PRN as needed for pain, # 56 tab, 0 Refill(s), Pharmacy: [id number], 164, cm, 12/19/22 12:43:00 EDT, Height/Length Dosing, 100, kg, 12/19/22 12:43:00 EDT, Weight Dosing Start Date: 05/30/23 Stop Date: 06/27/23 Status: Ordered Ozempic (1 mg dose) 4 mg/3 mL subcutaneous solution 1 mg =, Subcutaneous, every week, # 3 mL, 0 Refill(s), Pharmacy: [facility], 164, cm, 06/03/23 17:35:00 EDT, Height/Length Dosing, 93.5, kg, 06/03/23 17:35:00 EDT, Weight Dosing Start Date: 06/06/23 Status: Ordered pramipexole 1.5 mg oral tablet See Instructions, Take 1 tablet daily at bedtime, # 90 tab, 4 Refill(s), Pharmacy: [id number], 164, cm, 12/19/22 12:43:00 EDT, Height/Length Dosing, 100, kg, 12/19/22 12:43:00 EDT, Weight Dosing Start Date: 01/23/23 Status: Ordered Relion Pen [place] 30G 8mm Relion Pen [place] 30G 8mm, Use one daily, Supply, 1 EA, N/A, As Directed, PRN As needed, # 100 EA,4 Refill(s), Pharmacy: [id number] Start Date: 03/03/23 Status: Ordered Problem List [...] following Wound Culture from Wound collected on [id number] EST 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 2From 11-19-2021 [...] shoulder RCR, Biceps tenodesis, ORIF Clavicle 2015 [id number]; 1994; 1988 4left great toe, along with debridement Results Laboratory List Name Date Vancomycin Lvl Trough 06/23/23 Most recent to oldest [Reference Range]: 1 Vanco Tr [5.0-10.0 ug/mL] 5.1 ug/mL (06/23/23 6:53 PM) Social History Social History Type Response Tobacco Former tobacco user Tobacco Use:. Sex Female Patient Care team information Care Team Personnel Name: Attila Bernal MD Position: Physician Member Role: Informed Provider Address: Address: [address] Care Team Related Persons Name: EDGAR GUADALUPE Name: SUPA MOON Name: HOSSEIN MCNEIL Name: WILLA MCNEIL
--- OUTSIDE RECORDS SUMMARY | 2023-07-14 09:28 | XMS_ITS | Continuity of Care Document ---
Author Name Unknown Organization [facility] Address [address] [place] [address] Care Team Providers Care Marketing Representative Name Role Phone Attila Bernal Primary Care Physician [facility] 05/16/23 - 05/16/[address] [address] Encounter Diagnosis Open wound of toe of right foot(Discharge Diagnosis) - 05/16/23 Discharge Disposition: Home or Self Care Attending [...] Daily, # 90 tab, 3 Refill(s), Pharmacy: [facility], 164, cm, 12/19/22 12:43:00 EDT, Height/Length Dosing, 100, kg, 12/19/22 12:43:00 EDT, Weight Dosing Start Date: 05/01/23 Status: Ordered Bactrim DS 800 mg-160 mg oral tablet 1 tab, Oral, TID, # 84 tab, 1 Refill(s), Pharmacy: [place] [address], 165, cm, 11/11/22 16:14:00 EST, Height/Length Dosing, 152.1, kg, 11/11/22 16:14:00 EST, Weight Dosing Start Date: 11/15/22 Stop Date: 01/10/23 Status: Ordered Bactrim DS 800 mg-160 mg oral tablet 1 tab, Oral, BID, # 20 tab, 0 Refill(s), Pharmacy: [place] [address], 164, cm, 12/19/22 12:43:00 EDT, Height/Length Dosing, 100, kg, 12/19/22 12:43:00 EDT, Weight Dosing Start Date: 05/16/23 Stop Date: 05/26/23 Status: Ordered buPROPion 300 mg/24 hours (XL) oral tablet, extended release 300 mg = 1 tab, Oral, Daily, # 90 tab, 4 Refill(s), Pharmacy: [facility] Start Date: 05/15/22 Status: Ordered cetirizine 10 mg oral tablet 10 mg = 1 tab, Oral, Daily, # 90 tab, 4 Refill(s), Pharmacy: [place] [address] Start Date: 05/15/22 Status: Ordered DULoxetine 30 mg oral delayed release capsule 30 mg = 1 cap, Oral, Daily, # 90 cap, 4 Refill(s), Pharmacy: [place] [address] Start Date: 05/15/22 Stop Date: 08/08/23 Status: Ordered DULoxetine 60 mg oral delayed release capsule 60 mg = 1 cap, Oral, Daily, Take in addition to 30 mg for a total dose of 90 mg, # 90 cap, 4 Refill(s), Pharmacy: [place] [address] Start Date: 05/15/22 Status: Ordered ferrous sulfate 325 mg (65 mg elemental iron) oral tablet 325 mg = 1 tab, Oral, TID, # 270 tab, 4 Refill(s), Pharmacy: [place] [address] Start Date: 05/22/22 Status: Ordered folic acid 1 mg oral tablet 1 mg = 1 tab, Oral, Daily, # 90 tab, 4 Refill(s), Pharmacy: [place] [address] Start Date: 05/15/22 Status: Ordered gabapentin 300 mg oral capsule 900 mg = 3 cap, Oral, TID, TAKE 3 CAPSULES BY MOUTH THREE TIMES DAILY, # 270 cap, 3 Refill(s), Pharmacy: [facility] [facility] [address], 164, cm, 12/19/22 12:43:00 EDT, Height/Length Dosing, 100, kg, 12/20/2311:43:00 EDT, Weight Dosing Start Date: 01/23/23 Status: Ordered ibuprofen 800 mg oral tablet 1 tab, Oral, TID, # 90 tab, 5 Refill(s), Pharmacy: [facility] [facility] [address], 167, cm, 12/06/22 10:27:00 EDT, Height/Length Dosing, 99.79, kg, 12/06/22 10:27:00 EDT, Weight Dosing Start Date: 12/09/22 Status: Ordered Lantus Solostar Pen 100 units/mL subcutaneous solution 38 units, Subcutaneous, Daily, Inject 38 units daily and titrate up by 2 units every 3-4 days untilFBS is below 130., # 15 mL, 4 Refill(s), Pharmacy: [place] [facility] [address], 164, cm, 12/19/22 12:43:00 EDT, Height/Length Dosing, 100, kg, 12/19/22 12:43:00 EDT, Weight Dosing Start Date: 01/31/23 Status: Ordered losartan 100 mg oral tablet 100 mg = 1 tab, Oral, Daily, # 90 tab, 4 Refill(s), Pharmacy: [place] [facility] [address] Start Date: 05/15/22 Status: Ordered metFORMIN 1000 mg oral tablet 1,000 mg = 1 tab, Oral, BID, # 180 tab, 4 Refill(s), Pharmacy: [place] [facility] [address] Start Date: 05/15/22 Status: Ordered Narcan 4 mg/0.1 mL nasal spray 1 sprays, Nasal, Once, may repeat every 2 to 3 minutes until patient responds, # 2 EA, 0 Refill(s) Start Date: 02/26/22 Status: Ordered omeprazole 40 mg oral delayed release capsule 40 mg = 1 cap, Oral, Daily, # 90 cap, 4 Refill(s), Pharmacy: [facility] [facility] [address] Start Date: 05/15/22 Status: Ordered One Touch Verio One Touch Verio, Test twice daily, Supply, See instructions, # 200 strip, 4 Refill(s), Pharmacy: [place] [address] Start Date: 05/15/22 Status: Ordered OneTouch Delica Plus lancest 30 gauge OneTouch Delica Plus lancest 30 gauge, Test twice daily, Supply, See instructions, # 200 EA, 4 Refill(s), Pharmacy: [facility] [address] Start Date: 12/31/22 Status: Ordered oxyCODONE-acetaminophen 10 mg-325 mg oral tablet 1 tab, Oral, BID, PRN as needed for pain, # 56 tab, 0 Refill(s), Pharmacy: [place] [address], 164, cm, 12/19/22 12:43:00 EDT, Height/Length Dosing, 100, kg, 12/19/22 12:43:00 EDT, Weight Dosing Start Date: 05/01/23 Stop Date: 05/29/23 Status: Ordered Ozempic (1 mg dose) 4 mg/3 mL subcutaneous solution 1 mg =, Subcutaneous, every week, # 3 mL, 0 Refill(s), Pharmacy: [place] [address], 164, cm, 12/19/22 12:43:00 EDT, Height/Length Dosing, 100, kg, 12/19/22 12:43:00 EDT, Weight Dosing Start Date: 04/29/23 Status: Ordered pramipexole 1.5 mg oral tablet See Instructions, Take 1 tablet daily at bedtime, # 90 tab, 4 Refill(s), Pharmacy: [id number], 164, cm, 12/19/22 12:43:00 EDT, Height/Length Dosing, 100, kg, 12/19/22 12:43:00 EDT, Weight Dosing Start Date: 01/23/23 Status: Ordered Relion Pen [place] 30G 8mm Relion Pen [place] 30G 8mm, Use one daily, Supply, 1 EA, N/A, As Directed, PRN As needed, # 100 EA,4 Refill(s), Pharmacy: [id number] Start Date: 03/03/23 Status: Ordered Problem List [...] right foot Confirmed Active Osteomyelitis Confirmed Active Overweight Confirmed [...] on :26:00 EST 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 2From 11-19-2021 [...] shoulder RCR, Biceps tenodesis, ORIF Clavicle 2015 [id number]; 1994; 1988 4left great toe, along with debridement Results Orders for Microbiology Reports Name Date Wound Culture 05/16/23 Microbiology Reports TEST:Wound Culture STATUS:Order in Progress BODY SITE:Right Foot SOURCE:Drainage COLLECTED DATE/TIME:05/16/23 10:13 AM STAIN REPORT Few epithelial cells Rare White Blood Cells Moderate Gram Positive Cocci Rare Gram Negative Cocci Social History Social History Type Response Smoking Status Smoking tobacco use: Current everyday tobacco user;Never; Number used per day: 6 cigarettes daily; entered on: 04/17/23 Sex Female Patient Care team information Care Team Personnel Name: Attila Bernal MD Position: Physician Member Role: Informed Provider Address: Address: [address] Care Team Related Persons Name: EDGAR GUADALUPE Address: Home Name: HOSSEIN MCNEIL Name: WILLA MCNEIL
--- OUTSIDE RECORDS SUMMARY | 2023-07-14 09:28 | XMS_ITS | Continuity of Care Document ---
Author Name Unknown Organization [facility] Address [address] [place] [address] Care Team Providers Care Repairer Recreational Vehicle Name Role Phone Attila Bernal Primary Care Physician [facility] Date[facility] 04/17/23 - 04/17/[address] [address] Discharge Disposition: Home or Self Care Attending [...] Opioids and Metabolites Confirmation Panel, Urine CTOX 04/17/23 Future Scheduled Tests Laboratory* Drug Screen Urine [...] Daily, # 30 tab, 2 Refill(s), Pharmacy: [facility], 164, cm, 12/19/22 12:43:00 EDT, Height/Length Dosing, 100, kg, 12/19/22 12:43:00 EDT, Weight Dosing Start Date: 01/23/23 Status: Ordered Bactrim DS 800 mg-160 mg oral tablet 1 tab, Oral, TID, # 84 tab, 1 Refill(s), Pharmacy: [place] [address], 165, cm, 11/11/22 16:14:00 EST, Height/Length Dosing, 152.1, kg, 11/11/22 16:14:00 EST, Weight Dosing Start Date: 11/15/22 Stop Date: 01/10/23 Status: Ordered buPROPion 300 mg/24 hours (XL) oral tablet, extended release 300 mg = 1 tab, Oral, Daily, # 90 tab, 4 Refill(s), Pharmacy: [facility] Start Date: 05/15/22 Status: Ordered cetirizine 10 mg oral tablet 10 mg = 1 tab, Oral, Daily, # 90 tab, 4 Refill(s), Pharmacy: [facility] Start Date: 05/15/22 Status: Ordered DULoxetine 30 mg oral delayed release capsule 30 mg = 1 cap, Oral, Daily, # 90 cap, 4 Refill(s), Pharmacy: [facility] Start Date: 05/15/22 Stop Date: 08/08/23 Status: Ordered DULoxetine 60 mg oral delayed release capsule 60 mg = 1 cap, Oral, Daily, Take in addition to 30 mg for a total dose of 90 mg, # 90 cap, 4 Refill(s), Pharmacy: [place] [id number] Start Date: 05/15/22 Status: Ordered ferrous sulfate 325 mg (65 mg elemental iron) oral tablet 325 mg = 1 tab, Oral, TID, # 270 tab, 4 Refill(s), Pharmacy: [place] [id number] Start Date: 05/22/22 Status: Ordered folic acid 1 mg oral tablet 1 mg = 1 tab, Oral, Daily, # 90 tab, 4 Refill(s), Pharmacy: [place] [address] Start Date: 05/15/22 Status: Ordered gabapentin 300 mg oral capsule 900 mg = 3 cap, Oral, TID, TAKE 3 CAPSULES BY MOUTH THREE TIMES DAILY, # 270 cap, 3 Refill(s), Pharmacy: [place] [address], 164, cm, 12/19/22 12:43:00 EDT, Height/Length Dosing, 100, kg, 12/20/2311:43:00 EDT, Weight Dosing Start Date: 01/23/23 Status: Ordered ibuprofen 800 mg oral tablet 1 tab, Oral, TID, # 90 tab, 5 Refill(s), Pharmacy: [place] [address], 167, cm, 12/06/22 10:27:00 EDT, Height/Length Dosing, 99.79, kg, 12/06/22 10:27:00 EDT, Weight Dosing Start Date: 12/09/22 Status: Ordered Lantus Solostar Pen 100 units/mL subcutaneous solution 38 units, Subcutaneous, Daily, Inject 38 units daily and titrate up by 2 units every 3-4 days untilFBS is below 130., # 15 mL, 4 Refill(s), Pharmacy: [place] [address], 164, cm, 12/19/22 12:43:00 EDT, Height/Length Dosing, 100, kg, 12/19/22 12:43... Start Date: 01/31/23 Status: Ordered losartan 100 mg oral tablet 100 mg = 1 tab, Oral, Daily, # 90 tab, 4 Refill(s), Pharmacy: [place] [id number] Start Date: 05/15/22 Status: Ordered metFORMIN 1000 mg oral tablet 1,000 mg = 1 tab, Oral, BID, # 180 tab, 4 Refill(s), Pharmacy: [facility] [id number] Start Date: 05/15/22 Status: Ordered Narcan 4 mg/0.1 mL nasal spray 1 sprays, Nasal, Once, may repeat every 2 to 3 minutes until patient responds, # 2 EA, 0 Refill(s) Start Date: 02/26/22 Status: Ordered omeprazole 40 mg oral delayed release capsule 40 mg = 1 cap, Oral, Daily, # 90 cap, 4 Refill(s), Pharmacy: [place] [address] Start Date: 05/15/22 Status: Ordered One Touch Verio One Touch Verio, Test twice daily, Supply, See instructions, # 200 strip, 4 Refill(s), Pharmacy: [place] [address] Start Date: 05/15/22 Status: Ordered OneTouch Delica Plus lancest 30 gauge OneTouch Delica Plus lancest 30 gauge, Test twice daily, Supply, See instructions, # 200 EA, 4 Refill(s), Pharmacy: [place] [id number] Start Date: 12/31/22 Status: Ordered oxyCODONE-acetaminophen 10 mg-325 mg oral tablet 1 tab, Oral, BID, PRN as needed for pain, # 56 tab, 0 Refill(s), Pharmacy: [facility] [address], 164, cm, 12/19/22 12:43:00 EDT, Height/Length Dosing, 100, kg, 12/19/22 12:43:00 EDT, Weight Dosing Start Date: 03/27/23 Stop Date: 04/24/23 Status: Ordered pramipexole 1.5 mg oral tablet See Instructions, Take 1 tablet daily at bedtime, # 90 tab, 4 Refill(s), Pharmacy: [place] [id number], 164, cm, 12/19/22 12:43:00 EDT, Height/Length Dosing, 100, kg, 12/19/22 12:43:00 EDT, Weight Dosing Start Date: 01/23/23 Status: Ordered Relion Pen [place] 30G 8mm Relion Pen [place] 30G 8mm, Use one daily, Supply, 1 EA, N/A, As Directed, PRN As needed, # 100 EA,4 Refill(s), Pharmacy: [place] [address] Start Date: 03/03/23 Status: Ordered semaglutide 4 mg/3 mL (1 mg dose) subcutaneous solution 1 mg =, Subcutaneous, every week, # 3 mL, 4 Refill(s), Pharmacy: [id number], 165, cm, 11/11/22 16:14:00 [...] following Wound Culture from Wound collected on [id number]:00 EST 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 2From 11-19-2021 [...] shoulder RCR, Biceps tenodesis, ORIF Clavicle 2015 [id number]; 1994; 1988 4left great toe, along with debridement Results Laboratory List Name Date Drug Screen Urine (Drug Screen Urine w/ Opiate Conf) 04/17/23 Basic Metabolic Panel (BMP) 04/17/23 Hemoglobin A1c 04/17/23 Most recent to oldest [Reference Range]: 1 BUN [7-18 mg/dL] 15 mg/dL (04/17/23 9:53 AM) U Amph Scrn [Negative] Negative 1 (04/17/23 1:58 PM) Glucose Level [74-106 mg/dL] 116 mg/dL *HI* (04/17/23 9:53 AM) Potassium Level [3.5-5.1 mmol/L] 4.1 mmo l/L (04/17/23 9:53 AM) U Benzodia Scrn [Negative] Negative (04/17/23 1:58 PM) Sodium Level [136-145 mmol/L] 141 mmol/L (04/17/23 9:53 AM) U Cocaine Scrn [Negative] Negative (04/17/23 1:58 PM) Calcium Level [8.5-10.1 mg/dL] 9.0 mg/dL (04/17/23 9:53 AM) CO2 [21-32 mmol/L] 28 mmol/L (04/17/23 9:53 AM) U Jen Scrn [Negative] Negative (04/17/23 1:58 PM) U Opiate Scrn [Negative] Negative (04/17/23 1:58 PM) eGFR Non-AA [>=60] 95 (04/17/23 9:53 AM) eGFR AA [>=60] 95 (04/17/23 9:53 AM) Hemoglobin A1c [4.0-6.0 %] 5.8 % (04/17/23 9:53 AM) Chloride Level [98-107 mmol/L] 106 mmol/ L (04/17/23 9:53 AM) U Oxy Scrn [Negative] Positive *ABN* (04/17/23 1:58 PM) U PCP Scrn [Negative] Negative (04/17/23 1:58 PM) U THC Scr [Negative] Negative (04/17/23 1:58 PM) U PPX Scr [Negative] Negative (04/17/23 1:58 PM) U Methadone Scr [Negative] Negative (04/17/23 1:58 PM) U Buprenorph Scr [Negative] Negative (04/17/23 1:58 PM) U mAMP Scr [Negative] Negative (04/17/23 1:58 PM) U TCA Scr [Negative] Negative (04/17/23 1:58 PM) Creatinine Level [0.55-1.02 mg/dL] 0.74 mg/dL (04/17/23 9:53 AM) 1Interpretive Data: These are unconfirmed screening results, to be used only for medical (i.e. treatment) purposes. These screening results must not be used for non-medical purposes (e.g. employment or legal testing). New method started 03/28/11 Test Name Reference Range (Cut-off) THC Neg (50 ng/mL) PCP Neg (25 ng/mL) LESLIE Neg (150 ng/mL) MET Neg (500 ng/mL OPI Neg (100 ng/mL) AMP Neg (500 ng/mL BZO Neg (150 ng/mL) TCA Neg (300 ng/mL) MTD Neg (200 ng/mL) BAR Neg (200 ng/mL) OXY Neg (100 ng/mL) PPX Neg (300 ng/mL) BUP Neg (10 ng/mL) Social History Social History Type Response Smoking Status Smoking tobacco use: Current everyday tobacco user;Never; Number used per day: 6 cigarettes daily; entered on: 04/17/23 Sex Female Patient Care team information Care Team Personnel Name: Attila Bernal MD Position: Physician Member Role: Primary Care Physician Address: Address: [id number] [place] [address] Care Team Related Persons Name: EDGAR GUADALUPE Address: Home
--- OUTSIDE RECORDS SUMMARY | 2023-07-14 09:28 | XMS_ITS | Continuity of Care Document ---
Author Name Unknown Organization [facility] Address [address] [place] [address] Care Team Providers Care Belt Tender Name Role Phone Attila Bernal Primary Care Physician [phone] Encounter [facility] Date(s): 06/02/23 - 06/02/[address] [address] Discharge Disposition: Home or Self Care Attending [...] Daily, # 90 tab, 3 Refill(s), Pharmacy: [facility], 164, cm, 12/19/22 12:43:00 EDT, Height/Length Dosing, 100, kg, 12/19/22 12:43:00 EDT, Weight Dosing Start Date: 05/01/23 Status: Ordered Bactrim DS 800 mg-160 mg oral tablet 1 tab, Oral, TID, # 84 tab, 1 Refill(s), Pharmacy: [facility], 165, cm, 11/11/22 16:14:00 EST, Height/Length Dosing, 152.1, kg, 11/11/22 16:14:00 EST, Weight Dosing Start Date: 11/15/22 Stop Date: 01/10/23 Status: Ordered Bactrim DS 800 mg-160 mg oral tablet 1 tab, Oral, BID, # 20 tab, 0 Refill(s), Pharmacy: [facility], 164, cm, 12/19/22 12:43:00 EDT, Height/Length Dosing, 100, kg, 12/19/22 12:43:00 EDT, Weight Dosing Start Date: 05/16/23 Stop Date: 05/26/23 Status: Ordered buPROPion 300 mg/24 hours (XL) oral tablet, extended release 300 mg = 1 tab, Oral, Daily, # 90 tab, 4 Refill(s), Pharmacy: [facility] Start Date: 05/15/22 Status: Ordered cetirizine 10 mg oral tablet 10 mg = 1 tab, Oral, Daily, # 90 tab, 4 Refill(s), Pharmacy: [place] [id number] Start Date: 05/15/22 Status: Ordered DULoxetine 30 mg oral delayed release capsule 30 mg = 1 cap, Oral, Daily, # 90 cap, 4 Refill(s), Pharmacy: [facility] Start Date: 05/15/22 Stop Date: 08/08/23 Status: Ordered DULoxetine 60 mg oral delayed release capsule 60 mg = 1 cap, Oral, Daily, Take in addition to 30 mg for a total dose of 90 mg, # 90 cap, 4 Refill(s), Pharmacy: [place] [address] Start Date: 05/15/22 Status: Ordered ferrous sulfate 325 mg (65 mg elemental iron) oral tablet 325 mg = 1 tab, Oral, TID, # 270 tab, 4 Refill(s), Pharmacy: [facility] Start Date: 05/22/22 Status: Ordered folic acid 1 mg oral tablet 1 mg = 1 tab, Oral, Daily, # 90 tab, 4 Refill(s), Pharmacy: [place] [id number] Start Date: 05/15/22 Status: Ordered gabapentin 300 mg oral capsule 900 mg = 3 cap, Oral, TID, TAKE 3 CAPSULES BY MOUTH THREE TIMES DAILY, # 270 cap, 3 Refill(s), Pharmacy: [facility], 164, cm, 12/19/22 12:43:00 EDT, Height/Length Dosing, 100, kg, 12/20/2311:43:00 EDT, Weight Dosing Start Date: 01/23/23 Status: Ordered ibuprofen 800 mg oral tablet 1 tab, Oral, TID, # 90 tab, 5 Refill(s), Pharmacy: [place] [address], 167, cm, 12/06/22 10:27:00 EDT, Height/Length Dosing, 99.79, kg, 12/06/22 10:27:00 EDT, Weight Dosing Start Date: 12/09/22 Status: Ordered Lantus Solostar Pen 100 units/mL subcutaneous solution 38 units, Subcutaneous, Daily, Inject 38 units daily and titrate up by 2 units every 3-4 days untilFBS is below 130., # 15 mL, 4 Refill(s), Pharmacy: [facility] [id number], 164, cm, 12/19/22 12:43:00 EDT, Height/Length Dosing, 100, kg, 12/19/22 12:43:00 EDT, Weight Dosing Start Date: 01/31/23 Status: Ordered losartan 100 mg oral tablet 100 mg = 1 tab, Oral, Daily, # 90 tab, 4 Refill(s), Pharmacy: [place] [address] Start Date: 05/15/22 Status: Ordered metFORMIN 1000 mg oral tablet 1,000 mg = 1 tab, Oral, BID, # 180 tab, 4 Refill(s), Pharmacy: [place] [facility] [address] Start Date: 05/15/22 Status: Ordered Narcan 4 mg/0.1 mL nasal spray 1 sprays, Nasal, Once, may repeat every 2 to 3 minutes until patient responds, # 2 EA, 0 Refill(s) Start Date: 02/26/22 Status: Ordered omeprazole 40 mg oral delayed release capsule 40 mg = 1 cap, Oral, Daily, # 90 cap, 4 Refill(s), Pharmacy: [place] [address] Start Date: 05/15/22 Status: Ordered ondansetron 4 mg oral tablet, disintegrating 4 mg = 1 tab, Oral, every 8 hr, PRN as needed for nausea/vomiting, # 90 tab, 0 Refill(s), Pharmacy:[place] [id number], 164, cm, 12/19/22 12:43:00 EDT, Height/Length Dosing, 100, kg, 12/19/22 12:43:00 EDT, Weight Dosing Start Date: 06/02/23 Status: Ordered One Touch Verio One Touch Verio, Test twice daily, Supply, See instructions, # 200 strip, 4 Refill(s), Pharmacy: [place] [address] Start Date: 05/15/22 Status: Ordered OneTouch Delica Plus lancest 30 gauge OneTouch Delica Plus lancest 30 gauge, Test twice daily, Supply, See instructions, # 200 EA, 4 Refill(s), Pharmacy: [place] [address] Start Date: 12/31/22 Status: Ordered oxyCODONE-acetaminophen 10 mg-325 mg oral tablet 1 tab, Oral, BID, PRN as needed for pain, # 56 tab, 0 Refill(s), Pharmacy: [place] [address], 164, cm, 12/19/22 12:43:00 EDT, Height/Length Dosing, 100, kg, 12/19/22 12:43:00 EDT, Weight Dosing Start Date: 05/30/23 Stop Date: 06/27/23 Status: Ordered Ozempic (1 mg dose) 4 mg/3 mL subcutaneous solution 1 mg =, Subcutaneous, every week, # 3 mL, 0 Refill(s), Pharmacy: [id number], 164, cm, 12/19/22 12:43:00 EDT, Height/Length Dosing, 100, kg, 12/19/22 12:43:00 EDT, Weight Dosing Start Date: 04/29/23 Status: Ordered pramipexole 1.5 mg oral tablet See Instructions, Take 1 tablet daily at bedtime, # 90 tab, 4 Refill(s), Pharmacy: [id number], 164, cm, 12/19/22 12:43:00 EDT, Height/Length Dosing, 100, kg, 12/19/22 12:43:00 EDT, Weight Dosing Start Date: 01/23/23 Status: Ordered Relion Pen [place] 30G 8mm Relion Pen [place] 30G 8mm, Use one daily, Supply, 1 EA, N/A, As Directed, PRN As needed, # 100 EA,4 Refill(s), Pharmacy: [id number] Start Date: 03/03/23 [...] shoulder RCR, Biceps tenodesis, ORIF Clavicle 2015 [id number]; 1994; 1988 4left great toe, along with debridement Results Laboratory List Name Date .Manual Differential ([facility]) 06/02/23 C-Reactive Protein High Sensitivity (CRP High Sensitivity (CV Risk)) 06/02/23 CBC w/ Diff 06/02/23 Comprehensive Metabolic Panel (CMP) 06/02 Sedimentation Rate (ESR) 06/02/23 Most recent to oldest [Reference Range]: 1 WBC [5.0-10.0 x10^3/mcL] 23.4 x10^3/mcL *HI* (06/02/23 9:11 AM) RBC [4.1-5.3 x10^6/mcL] 4.1 x10^6/mcL (06/02/23 9:11 AM) Segs Man [40-75 %] 80 % *HI* (06/02/23 9:11 AM) Lymph Man [20-50 %] 7 % *LOW* (06/02/23 9:11 AM) [place] Man [2-15 %] 11 % (06/02/23 9:11 AM) Eos Man [1-6 %] 1 % (06/02/23 9:11 AM) BUN [7-18 mg/dL] 9 mg/dL (06/02/23 9:11 AM) Glucose Level [74-106 mg/dL] 141 mg/dL *HI* (06/02/23 9:11 AM) Potassium Level [3.5-5.1 mmol/L] 3.1 mmo l/L *LOW* (06/02/23 AM) MCV [80.0-96.0 fL] 89.6 fL (06/02/23 9: AM) RBC Morph Normal (06/02/23) AST [15-37 unit/L] 9 unit/L *LOW* (06/02/23 AM) ALT [14-59 unit/L] 18 unit/L (06/02/23 AM) MCHC [31.0-35.0 g/dL] 33.7 g/dL (06/02/23 AM) Sodium Level [136-145 mmol/L] 138 mmol/L (06/02/23 AM) Hct [37.0-47.0 %] 37.1 % (06/02/23 AM) Calcium Level [8.5-10.1 mg/dL] 8.9 mg/dL (06/02/23: AM) Albumin Level [3.4-5.0 g/dL] 3.2 g/dL *LOW* (06/02/23 AM) Protein Total [6.4-8.2 g/dL] 7.0 g/dL (06/02/23: AM) MCH [26.0-32.0 pg] 30.2 pg (06/02/23 AM) Bilirubin Total [0.2-1.0 mg/dL] 0.5 mg/d L (06/02/23: AM) Hgb [12.0-16.0 g/dL] 12.5 g/dL (06/02/23: AM) Alk Phos [46-146 unit/L] 93 unit/L (06/02/23 AM) Band Man [0-5 %] 0 % (06/02/23: AM) Platelets [130-450 x10^3/mcL] 400 x10^3/ mcL (06/02/23 9: AM) CO2 [21-32 mmol/L] 27 mmol/L (06/02/23 9:11 AM) eGFR Non-AA [>=60] 89 (06/02/23 9:11 AM) eGFR AA [>=60] 89 (06/02/23 9:11 AM) Chloride Level [98-107 mmol/L] 101 mmol/ L (06/02/23 9:11 AM) RDW-CV [11.5-14.5 %] 12.3 % (06/02/23 9:11 AM) CRP High Sens [0.00-3.00 mg/L] 146.94 mg /L 1, 2 *HI* (06/02/23 9:11 AM) Slide Review Man Diff (06/02/23 9:11 AM) Abs Neut Man 18.7 x10^3/mcL *NA* (06/02/23 9:11 AM) Creatinine Level [0.55-1.02 mg/dL] 0.78 mg/dL (06/02/23 9:11 AM) Baso Man [0-1 %] 1 % (06/02/23 9:11 AM) ESR, [place] [0-30 mm/hr] 49 mm/hr *HI* (06/02/23 9:11 AM) 1Interpretive Data: Risk Level Age/Sex Range Units Less Risk All <1.0 mg/L Average Risk All 1.0 - 3.0 mg/L High Risk All >3.0 mg/L *Indeterminate All >10.0 mg/L *May be an indication of inflammation or infection. 2Result Comment: Required dilution Social History Social History Type Response Smoking Status Smoking tobacco use: Current everyday tobacco user;Never; Number used per day: 6 cigarettes daily; entered on: 04/17/23 Sex Female Patient Care team information Care Team Personnel Name: Attila Bernal MD Position: Physician Member Role: Informed Provider Address: Address: [address] Care Team Related Persons Name: EDGAR GUADALUPE Address: Home Name: HOSSEIN MCNEIL Name: WILLA MCNEIL
--- OUTSIDE RECORDS SUMMARY | 2023-07-14 09:28 | XMS_ITS | Continuity of Care Document ---
Author Name Unknown Organization [facility] Address [address] [place] [address] Care Team Providers Care Database Coordinator Name Role Phone Attila Bernal Primary Care Physician [phone] Encounter [facility]_[place] Date(s): 06/03/23 - 06/06/23 [facility] [address] [place] [address] Encounter Diagnosis Cellulitis(Discharge Diagnosis) - 06/03/23 Diabetic foot ulcer(Discharge Diagnosis) - 06/03/23 Depressive disorder(Discharge Diagnosis) - 06/03/23 Osteomyelitis of toe of right foot(Discharge Diagnosis) - 06/04/23 Foot abscess, left(Discharge Diagnosis) - 06/04/23 Type 2 diabetes mellitus without complication(Discharge Diagnosis) - 06/03/23 Sepsis(Discharge Diagnosis) - 06/03/23 Non-pressure chronic ulcer of other part of unspecified foot with unspecified severity(Discharge Diagnosis) - 06/03/23 Discharge Disposition: Home or Self Care Attending [...] Plan Future Appointments Diagnostic Tests Pending * Blood Culture 06/06/23 * Blood Culture 06/06/23 * Surgical Pathology [facility] 06/05/23 Future Scheduled Tests Laboratory* Drug Screen Urine 11/27/22 Radiology* US Lower Ext Arterial Duplex Bilateral 07/12/22 * XR Foot Complete 3+ Views Left 07/26/22 Functional Status 06/06/23 Living Environment No Living Environmen t Information Available Living Situation Home independently Patient's Responsibilities Community mob ility, Driving, 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, Health and wellness, Housework, Laundry, Meal preparation, Personal ADL, Shopping, Other: 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 [employer] 06/06/23 Lunch Percent 5 06/06/23 Breakfast Percent 5 06/06/23 Activity Status ADL Up to toilet 06/04/23 Anti-Embolism Device Activity: Applied Anti-Embolism Site Condition: No complic ations 06/03/23 Personal Care Provided Gown change, Linen change 06/03/23 ADLs Independent History of Falls Immediately prior to hospitalization Family Member Travel History No recent t [...] hepatitis B adult vaccine 09/22/02 Recorded Medications amoxicillin-clavulanate 875 mg-125 mg oral tablet 1 tab, Oral, every 12 hr, # 20 tab, 0 Refill(s), Pharmacy: [id number], 164, cm, 06/03/2317:35:00 EDT, Height/Length Dosing, 93.5, kg, 06/03/23 17:35:00 EDT, Weight Dosing Start Date: 06/06/23 Stop Date: 06/16/23 Status: Ordered ARIPiprazole 10 mg oral tablet 1 tab, Oral, Daily, # 90 tab, 3 Refill(s), Pharmacy: [place] [id number], 164, cm, 12/19/22 12:43:00 EDT, Height/Length Dosing, 100, kg, 12/19/22 12:43:00 EDT, Weight Dosing Start Date: 05/01/23 Status: Ordered buPROPion 300 mg/24 hours (XL) oral tablet, extended release 300 mg = 1 tab, Oral, Daily, # 90 tab, 4 Refill(s), Pharmacy: [place] [facility] [address] Start Date: 05/15/22 Status: Ordered cetirizine 10 mg oral tablet 10 mg = 1 tab, Oral, Daily, # 90 tab, 4 Refill(s), Pharmacy: [place] [address] Start Date: 05/15/22 Status: Ordered doxycycline hyclate 100 mg oral capsule 100 mg = 1 cap, Oral, BID, # 20 cap, 0 Refill(s), Pharmacy: [place] [facility] [address], 164, cm, 06/03/23 17:35:00 EDT, Height/Length Dosing, 93.5, kg, 06/03/23 17:35:00 EDT, Weight Dosing Start Date: 06/06/23 Stop Date: 06/16/23 Status: Ordered DULoxetine 30 mg oral delayed release capsule 30 mg = 1 cap, Oral, Daily, # 90 cap, 4 Refill(s), Pharmacy: [place] [facility] [id number] Start Date: 05/15/22 Stop Date: 08/08/23 Status: Ordered DULoxetine 60 mg oral delayed release capsule 60 mg = 1 cap, Oral, Daily, Take in addition to 30 mg for a total dose of 90 mg, # 90 cap, 4 Refill(s), Pharmacy: [facility] [facility] [id number] Start Date: 05/15/22 Status: Ordered ferrous sulfate 325 mg (65 mg elemental iron) oral tablet 325 mg = 1 tab, Oral, TID, # 270 tab, 4 Refill(s), Pharmacy: [place] [address] Start Date: 05/22/22 Status: Ordered folic acid 1 mg oral tablet 1 mg = 1 tab, Oral, Daily, # 90 tab, 4 Refill(s), Pharmacy: [facility] Start Date: 05/15/22 Status: Ordered gabapentin 300 mg oral capsule 900 mg = 3 cap, Oral, TID, TAKE 3 CAPSULES BY MOUTH THREE TIMES DAILY, # 270 cap, 3 Refill(s), Pharmacy: [place] [id number], 164, cm, 12/19/22 12:43:00 EDT, Height/Length Dosing, 100, kg, 12/20/2311:43:00 EDT, Weight Dosing Start Date: 01/23/23 Status: Ordered ibuprofen 800 mg oral tablet 1 tab, Oral, TID, # 90 tab, 5 Refill(s), Pharmacy: [facility] [address], 167, cm, 12/06/22 10:27:00 EDT, Height/Length Dosing, 99.79, kg, 12/06/22 10:27:00 EDT, Weight Dosing Start Date: 12/09/22 Status: Ordered Lantus Solostar Pen 100 units/mL subcutaneous solution 38 units, Subcutaneous, Daily, Inject 38 units daily and titrate up by 2 units every 3-4 days untilFBS is below 130., # 15 mL, 4 Refill(s), Pharmacy: [place] [address], 164, cm, 12/19/22 12:43:00 EDT, Height/Length Dosing, 100, kg, 12/19/22 12:43:00 EDT, Weight Dosing Start Date: 01/31/23 Status: Ordered losartan 100 mg oral tablet 100 mg = 1 tab, Oral, Daily, # 90 tab, 4 Refill(s), Pharmacy: [facility] Start Date: 05/15/22 Status: Ordered metFORMIN 1000 mg oral tablet 1,000 mg = 1 tab, Oral, BID, # 180 tab, 4 Refill(s), Pharmacy: [place] [id number] Start Date: 05/15/22 Status: Ordered Narcan 4 mg/0.1 mL nasal spray 1 sprays, Nasal, Once, may repeat every 2 to 3 minutes until patient responds, # 2 EA, 0 Refill(s) Start Date: 02/26/22 Status: Ordered omeprazole 40 mg oral delayed release capsule 40 mg = 1 cap, Oral, Daily, # 90 cap, 4 Refill(s), Pharmacy: [id number] Start Date: 05/15/22 Status: Ordered ondansetron 4 mg oral tablet, disintegrating 4 mg = 1 tab, Oral, every 8 hr, PRN as needed for nausea/vomiting, # 90 tab, 0 Refill(s), Pharmacy:[facility], 164, cm, 12/19/22 12:43:00 EDT, Height/Length Dosing, 100, kg, 12/19/22 12:43:00 EDT, Weight Dosing Start Date: 06/02/23 Status: Ordered One Touch Verio One Touch Verio, Test twice daily, Supply, See instructions, # 200 strip, 4 Refill(s), Pharmacy: [facility] Start Date: 05/15/22 Status: Ordered OneTouch Delica Plus lancest 30 gauge OneTouch Delica Plus lancest 30 gauge, Test twice daily, Supply, See instructions, # 200 EA, 4 Refill(s), Pharmacy: [facility] Start Date: 12/31/22 Status: Ordered oxyCODONE-acetaminophen 10 mg-325 mg oral tablet 1 tab, Oral, BID, PRN as needed for pain, # 56 tab, 0 Refill(s), Pharmacy: [facility], 164, cm, 12/19/22 12:43:00 EDT, Height/Length Dosing, 100, kg, 12/19/22 12:43:00 EDT, Weight Dosing Start Date: 05/30/23 Stop Date: 06/27/23 Status: Ordered Ozempic (1 mg dose) 4 mg/3 mL subcutaneous solution 1 mg =, Subcutaneous, every week, # 3 mL, 0 Refill(s), Pharmacy: [facility], 164, cm, 06/03/23 17:35:00 EDT, Height/Length Dosing, 93.5, kg, 06/03/23 17:35:00 EDT, Weight Dosing Start Date: 06/06/23 Status: Ordered pramipexole 1.5 mg oral tablet See Instructions, Take 1 tablet daily at bedtime, # 90 tab, 4 Refill(s), Pharmacy: [facility], 164, cm, 12/19/22 12:43:00 EDT, Height/Length Dosing, 100, kg, 12/19/22 12:43:00 EDT, Weight Dosing Start Date: 01/23/23 Status: Ordered Relion Pen Lefor 30G 8mm Relion Pen Lefor 30G 8mm, Use one daily, Supply, 1 EA, N/A, As Directed, PRN As needed, # 100 EA,4 Refill(s), Pharmacy: [facility] Start Date: 03/03/23 Status: Ordered Mental Status 06/03/23 Eye Opening Response [place] Spontaneous ly Best Verbal Response Eveline Oriented Best Motor Response Eveline Obeys comman ds [place] Coma Score 15 Problem List Condition Confirmation Course Effective Dates [...] following Wound Culture from Wound collected on [id number] EST 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 2From 11-19-2021 [...] shoulder RCR, Biceps tenodesis, ORIF Clavicle 2015 [id number]; 1994; 1988 4left great toe, along with debridement Results Laboratory List Name Date Glucose POCT 06/06/23 Glucose POCT 06/06/23 Automated Diff 06/06/23 Basic Metabolic Panel (BMP) 06/06/23 C-Reactive Protein 06/06/23 CBC w/ Diff 06/06/23 Magnesium Level 06/06/23 Glucose POCT 06/05/23 ABO/Rh 06/05/23 Antibody Screen Gel 06/05/23 Basic Metabolic Panel (BMP) 06/05/23 C-Reactive Protein 06/05/23 CBC w/ Diff 06/05/23 Magnesium Level 06/05/23 Vancomycin Level 06/05/23 Automated Diff 06/05/23 Lactic Acid 06/04/23 Vancomycin Level 06/04/23 .Manual Differential ([facility]) 06/04/23 Basic Metabolic Panel (BMP) 06/04/23 C-Reactive Protein 06/04/23 CBC w/ Diff 06/04/23 SARS-CoV-2 (COVID-19) RNA (ID Now) Blood Culture ID ([facility]) 2 06/03/23 Urinalysis Microscopic 06/03/23 Urinalysis with Micro if Indicated and C ulture if Indicated 06/03/23 CBC w/ Diff 06/03/23 .Manual Differential (NCTY) 06/03/23 Comprehensive Metabolic Panel (CMP) 06/03 Lactic Acid 06/03/23 PT/ INR 06/03/23 PTT 06/03/23 Procalcitonin 06/03/23 Troponin-I 06/03/23 Most recent to oldest [Reference Range]: 1 2 3 WBC [5.0-10.0 x10^3/mcL] 7.9 x10^3/mcL (06/06/23 7:00 AM) 11.9 x10^3/mcL *HI* (06/05/23 7:08 AM) 20.9 x10^3/mcL *HI* (06/04/23 7:00 AM) RBC [4.1-5.3 x10^6/mcL] 3.6 x10^6/mcL *LOW* (06/06/23 7:00 AM) 3.2 x10^6/mcL *LOW* (06/05/23 7:08 AM) 3.6 x10^6/mcL *LOW* (06/04/23 7:00 AM) Segs Man [40-75 %] 82 % *HI* (06/04/23 7:00 AM) 88 % *HI* (06/03/23 12:46 PM) Lymph Man [20-50 %] 9 % *LOW* (06/04/23 7:00 AM) 7 % *LOW* (06/03/23 12:46 PM) Neutro Auto [40.0-75.0 %] 70.7 % (06/06/23 7:00 AM) 76.2 % *HI* (06/05/23 7:08 AM) Lymph Auto [20.0-50.0 %] 18.2 % *LOW* (06/06/23 7:00 AM) 13.8 % *LOW* (06/05/23 7:08 AM) Bucks Auto [2.0-15.0 %] 8.2 % (06/06/23 7:00 AM) 8.5 % (06/05/23 7:08 AM) Basophil Auto [0.0-1.0 %] 0.5 % (06/06/23 7:00 AM) 0.3 % (06/05/23 7:08 AM) Bucks Man [2-15 %] 7 % (06/04/23 7:00 AM) 5 % (06/03/23 12:46 PM) Eos Man [1-6 %] 1 % (06/04/23 7:00 AM) 0 % *LOW* (06/03/23 12:46 PM) Prothrombin Time [9.0-11.0 seconds] 11.3 seconds *HI* (06/03/23 12:45 PM) INR 1.1 1 *NA* (06/03/23 12:45 PM) BUN [7-18 mg/dL] 8 mg/dL (06/06/23 7:00 AM) 8 mg/dL (06/05/23 7:08 AM) 10 mg/dL (06/04/23 7:00 AM) Glucose POC [74-106 mg/dL] 100 mg/dL (06/06/23 11:40 AM) 87 mg/dL (06/06/23 7:32 AM) 122 mg/dL *HI* (06/05/23 8:02 PM) UA Color Yellow (06/03/23 12:59 PM) UA WBC [0-3] 0-3 (06/03/23 12:59 PM) ABO/Rh Type B POS *Unknown* (06/05/23 7:08 AM) Glucose Level [74-106 mg/dL] 101 mg/dL (06/06/23 7:00 AM) 97 mg/dL (06/05/23 7:08 AM) 112 mg/dL *HI* (06/04/23 7:00 AM) Potassium Level [3.5-5.1 mmol/L] 3.0 mmol/L *LOW* (06/06/23 7:00 AM) 3.1 mmol/L *LOW* (06/05/23 7:08 AM) 3.7 mmol/L (06/04/23 7:00 AM) MCV [80.0-96.0 fL] 88.3 fL (06/06/23 7:00 AM) 88.6 fL (06/05/23 7:08 AM) 90.4 fL (06/04/23 7:00 AM) UA Urobilinogen Normal (06/03/23 12:59 PM) RBC Morph Normal (06/04/23 7:00 AM) Normal (06/03/23 12:46 PM) UA Bili [Negative] Negative (06/03/23 12:59 PM) CRP [<=10.0 mg/L] 159.2 mg/L *HI* (06/06/23 7:00 AM) 240.1 mg/L *HI* (06/05/23 7:08 AM) 317.9 mg/L *HI* (06/04/23 7:00 AM) UA Ketones Negative (06/03/23 12:59 PM) AST [15-37 unit/L] 12 unit/L *LOW* (06/03/23 12:45 PM) ALT [14-59 unit/L] 20 unit/L (06/03/23 12:45 PM) MCHC [31.0-35.0 g/dL] 32.8 g/dL (06/06/23 7:00 AM) 34.3 g/dL (06/05/23 7:08 AM) 32.9 g/dL (06/04/23 7:00 AM) Troponin-I [0.0-51.4 pg/mL] 7.8 pg/mL (06/03/23 12:45 PM) Sodium Level [136-145 mmol/L] 139 mmol/L (06/06/23 7:00 AM) 137 mmol/L (06/05/23:08 AM) 136 mmol/L (06/04/23 7:00 AM) UA RBC [0-2] 0-2 (06/03/23 12:59 PM) UA Leuk Est Negative (06/03/23 12:59 PM) Vancomycin Level Random [18-26 ug/mL] 10 ug/mL *LOW* (06/05/23 7:08 AM) 13 ug/mL *LOW* (06/04/23 7:10 AM) UA Nitrite Negative (06/03/23 12:59 PM) UA Glucose [Negative] Negative (06/03/23 12:59 PM) Hct [37.0-47.0 %] 31.7 % *LOW* (06/06/23 7:00 AM) 28.0 % *LOW* (06/05/23:08 AM) 32.8 % *LOW* (06/04/23 7:00 AM) UA Bacteria None Seen /HPF (06/03/23 12:59 PM) Partial Thromboplastin Time [22-35 seconds] 32 seconds 2 (06/03/23 12:45 PM) Calcium Level [8.5-10.1 mg/dL] 8.3 mg/dL *LOW* (06/06/23 7:00 AM) 8.3 mg/dL *LOW* (06/05/23 7:08 AM) 8.6 mg/dL (06/04/23 7:00 AM) Albumin Level [3.4-5.0 g/dL] 3.3 g/dL *LOW* (06/03/23 12:45 PM) Protein Total [6.4-8.2 g/dL] 7.6 g/dL (06/03/23 12:45 PM) UA Protein Negative (06/03/23 12:59 PM) MCH [26.0-32.0 pg] 29.0 pg (06/06/23 7:00 AM) 30.4 pg (06/05/23 7:08 AM) 29.8 pg (06/04/23 7:00 AM) Magnesium Level [1.8-2.4 mg/dL] 1.7 mg/dL *LOW* (06/06/23 7:00 AM) 1.6 mg/dL *LOW* (06/05/23 7:08 AM) Neutro Absolute 5.6 x10^3/mcL *NA* (06/06/23 7:00 AM) 9.1 x10^3/mcL *NA* (06/05/23 7:08 AM) Bilirubin Total [0.2-1.0 mg/dL] 0.6 mg/dL (06/03/23 12:45 PM) Hgb [12.0-16.0 g/dL] 10.4 g/dL *LOW* (06/06/23 7:00 AM) 9.6 g/dL *LOW* (06/05/23 7:08 AM) 10.8 g/dL *LOW* (06/04/23 7:00 AM) Alk Phos [46-146 unit/L] 133 unit/L (06/03/23 12:45 PM) UA Blood Trace *ABN* (06/03/23 12:59 PM) UA Mucous None Seen /HPF (06/03/23 12:59 PM) Band Man [0-5 %] 0 % (06/04/23 7:00 AM) 0 % (06/03/23 12:46 PM) UA Spec Grav 1.010 *NA* (06/03/23 12:59 PM) Platelets [130-450 x10^3/mcL] 414 x10^3/ mcL (06/06/23 7:00 AM) 356 x10^3/mcL (06/05/23 7:08 AM) 331 x10^3/mcL (06/04/23 7:00 AM) CO2 [21-32 mmol/L] 23 mmol/L (06/06/23 7:00 AM) 24 mmol/L (06/05/23 7:08 AM) 24 mmol/L (06/04/23 7:00 AM) Lactic Acid Lvl [0.7-2.0 mmol/L] 1.5 mmol/L (06/04/23 10:20 AM) 2.4 mmol/L 3 *CRIT* (06/03/23 12:45 PM) UA Squam Epithelial [None Seen] None Seen (06/03/23 12:59 PM) UA pH 6.5 *NA* (06/03/23 12:59 PM) eGFR Non-AA [>=60] 106 (06/06/23 7:00 AM) 104 (06/05/23 7:08 AM) 80 (06/04/23 7:00 AM) eGFR AA [>=60] 106 (06/06/23 7:00 AM) 104 (06/05/23 7:08 AM) 80 (06/04/23 7:00 AM) UA Appear Clear (06/03/23 12:59 PM) Chloride Level [98-107 mmol/L] 105 mmol/L (06/06/23 7:00 AM) 102 mmol/L (06/05/23:08 AM) 102 mmol/L (06/04/23 7:00 AM) Procalcitonin [0.00-0.50 ng/mL] 0.34 ng/mL (06/03/23 12:45 PM) RDW-CV [11.5-14.5 %] 12.2 % (06/06/23 7:00 AM) 12.1 % (06/05/23:08 AM) 12.4 % (06/04/23 7:00 AM) Acinetobacter Baumannii Cmpl x BCID-BFire [Not Detected] Not Detected (06/03/23 2:04 PM) Sharyn albicans BCID-BFire [Not Detected] Not Detected (06/03/23 2:04 PM) Sharyn glabrata BCID-BFire [Not Detected] Not Detected (06/03/23 2:04 PM) Sharyn krusei BCID-[facility] [Not Detected] Not Detected (06/03/23 2:04 PM) Sharyn parapsilosis BCID-BFire [Not Detected] Not Detected (06/03/23 2:04 PM) Sharyn tropicalis BCID-BFir e [Not Detected] Not Detected (06/03/23 2:04 PM) Enterobacter cloacae complex BCID-BFire [Not Detected] Not Detected (06/03/23 2:04 PM) E. coli BCID-BFire [Not Detected] Not Detected (06/03/23 2:04 PM) Haemophilus influenzae BCID-BFire [Not Detected] Not Detected (06/03/23 2:04 PM) Klebsiella oxytoca BCID-BFir e [Not Detected] Not Detected (06/03/23 2:04 PM) Klebsiella pneumoniae BCID-BFire [Not Detected] Not Detected (06/03/23 2:04 PM) KPC (carbapenem-resist gene) BCID-BFire N/A *NA* (06/03/23 2:04 PM) Listeria monocytogenes BCID-BFire [Not Detected] Not Detected (06/03/23 2:04 PM) mecA (methicillin-resist gene) BCID-BFir Detected (06/03/23 2:04 PM) Neisseria meningitidis BCID-BFire [Not Detected] Not Detected (06/03/23 2:04 PM) Pseudomonas aeruginosa BCID-BFire [Not Detected] Not Detected (06/03/23 2:04 PM) Proteus species BCID-BFire [Not Detected] Not Detected (06/03/23 2:04 PM) Streptococcus agalactiae (gr p B) -BFire [Not Detected] Not Detected (06/03/23 2:04 PM) Streptococcus pneumoniae BCID-BFire [Not Detected] Not Detected (06/03/23 2:04 PM) Streptococcus pyogenes (grp A) -BFire [Not Detected] Not Detected (06/03/23 2:04 PM) Serratia marcescens BCID-BFire [Not Detected] Not Detected (06/03/23 2:04 PM) Staphylococcus aureus BCID-BFire [Not Detected] Detected *ABN* (06/03/23 2:04 PM) Staphylococcus species BCID-BFire [Not Detected] Detected *ABN* (06/03/23 2:04 PM) Streptococcus species BCID-BFire [Not Detected] Not Detected (06/03/23 2:04 PM) Snow/B (vanc-resist gene) BCID-BFire N/A *NA* (06/03/23 2:04 PM) Imm Gran Auto [0.0-0.9 %] 0.4 % (06/06/23 7:00 AM) 0.3 % (06/05/23 7:08 AM) Slide Review Not Indicated (06/06/23 7:00 AM) Man Diff (06/04/23 7:00 AM) Man Diff (06/03/23 12:46 PM) Vanco Ds Dt. 04-JUN-2023 *Unknown* (06/05/23 7:08 AM) 04-JUN-2023 *Unknown* (06/04/23 7:10 AM) Vanco Ds Tm. 1412 *NA* (06/05/23 7:08 AM) 0200 *NA* (06/04/23 7:10 AM) UA Culture Ind?. 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 Unknown (06/03/23 4:11 PM) In ICU? Unknown (06/03/23 4:11 PM) Group care resident? Unknown (06/03/23 4:11 PM) status? Unknown (06/03/23 4:11 PM) Cryptococcus neoformans/ricardo-Bifre [Not Detected] Not Detected (06/03/23 2:04 PM) Sharyn auris-Bfire [Not Detected] Not Detected (06/03/23 2:04 PM) Stenotrophomonas maltophila-Bfire [Not Detected] Not Detected (06/03/23 2:04 PM) Salmonella spp. -Bfire [Not Detected] Not Detected (06/03/23 2:04 PM) Bacteroides fragilis-Bfire [Not Detected] Not Detected (06/03/23 2:04 PM) Enterobacterales-Bfire [Not Detected] Not Detected (06/03/23 2:04 PM) Staphylococcus epidmidis-Bfire [Not Detected] Not Detected (06/03/23 2:04 PM) Enterococcus Faecium-Bfire [Not Detected] Not Detected (06/03/23 2:04 PM) Enterococcus Faecalis-Bfire [Not Detected] Not Detected (06/03/23 2:04 PM) VIM-Bfire N/A *NA* (06/03/23 2:04 PM) BNK-30-rprq-Bfire N/A *NA* (06/03/23 2:04 PM) NDM-Bfire N/A *NA* (06/03/23 2:04 PM) mecA/C and MREJ-Bfire Detected *NA* (06/03/23 2:04 PM) IMP-Bfire N/A *NA* (06/03/23 2:04 PM) CTX-M-Bfire N/A *NA* (06/03/23 2:04 PM) mecA/C-Bfire N/A *NA* (06/03/23 2:04 PM) Klebsiella aerogenes-Bfire [Not Detected] Not Detected (06/03/23 2:04 PM) Staphylococcus lugdunensis-Bfire [Not Detected] Not Detected (06/03/23 2:04 PM) Baso Man [0-1 %] 0 % (06/04/23 7:00 AM) 0 % (06/03/23 12:46 PM) Eos, Auto [1.0-6.0 %] 2.0 % (06/06/23 7:00 AM) 0.9 % *LOW* (06/05/23 7:08 AM) 1Interpretive Data: INR 2-2.5 Prophylaxis: Short term DVT INR 2-3 Prophylaxis: hip and femur surgery Therapy: DVT (3 mos) PE (3-6 mos) TIA (penitentiary) Atr Fib (exterminator termite) Syst. emb post CT Mitral Stenosis with emboli (penitentiary) Tissue prosthetic valves (3 mos min) INR 3-4.5 Therapy: recurrent DVT, PE (penitentiary) Prosthetic heart valves (exterminator termite) 2Interpretive Data: NEW reagent effective 06/25/2022- Therapeutic Heparin Reference Range (0.3-0.7 effective anti-Xa level) 40-70 seconds Range (0.3-0.7 effective anti-Xa level) 40-70 seconds NEW reagent effective 06/25/2022- Therapeutic Heparin Reference Range (0.3-0.7 effective anti-Xa level) 40-70 seconds. 3Result Comment: Called to and verbally verified by [id number] - ED - Dr. Parrish at 06/03/2023 12:52:40 EDT. Repeated to confirm Orders for Microbiology Reports Name Date Wound Culture 06/04/23 Wound Culture 06/03/23 Blood Culture 06/03/23 Blood Culture 06/03/23 Microbiology Reports TEST:Wound Culture STATUS:Auth (Verified) BODY SITE:Left Foot SOURCE:Abscess COLLECTED DATE/TIME:06/04/23 4:50 PM FINAL REPORT Moderate Methicillin-Resistant Staphylococcus aureus STAIN REPORT Many White Blood Cells Few Gram Positive Cocci ORGANISM:Methicillin-Resistant Staphylococcus aureus Susceptibilty: Methicillin-Resistant Staphylococcus aureus Tested Drug ANDRES Dilution ANDRES Interpretati on Vancomycin 1 S Trimethoprim/Sulfa 2/38 S Tigecycline <=0.25 S Tetracycline <=4 S Synercid 1 S Rifampin <=1 S Penicillin >2 R* Oxacillin >2 R Meropenem <=2 R* Linezolid 2 S Levofloxacin 4 I Imipenem <=4 R* Gentamicin <=4 S Erythromycin >4 R Daptomycin <=0.5 S Clindamycin >4 R Ciprofloxacin >2 R Cephalothin <=8 R* Ceftriaxone 8 R* Ceftaroline <=0.5 S Cefoxitin Screen >4 Pos Cefotaxime <=8 R* Cefepime 8 R* Cefazolin <=8 R* Azithromycin >4 R Ampicillin/Sulbactam <=8/4 R* Ampicillin >8 R* Amoxicillin/Clavulanate <=4/2 R* TEST:Wound Culture STATUS:Auth (Verified) BODY SITE:Right Foot SOURCE:Wound COLLECTED DATE/TIME:06/03/23 5:19 PM FINAL REPORT Moderate Methicillin-Resistant Staphylococcus aureus STAIN REPORT No organisms seen. ORGANISM:Methicillin-Resistant Staphylococcus aureus Susceptibilty: Methicillin-Resistant Staphylococcus aureus Tested Drug ANDRES Dilution ANDRES Interpretati on Vancomycin 1 S Trimethoprim/Sulfa 2/38 S Tigecycline <=0.25 S Tetracycline <=4 S Synercid 1 S Rifampin <=1 S Penicillin >2 R* Oxacillin >2 R Meropenem <=2 R* Linezolid <=1 S Levofloxacin 4 I Imipenem <=4 R* Gentamicin <=4 S Erythromycin >4 R Daptomycin <=0.5 S Clindamycin >4 R Ciprofloxacin >2 R Cephalothin <=8 R* Ceftriaxone <=4 R* Ceftaroline <=0.5 S Cefoxitin Screen >4 Pos Cefotaxime <=8 R* Cefepime 8 R* Cefazolin <=8 R* Azithromycin >4 R Ampicillin/Sulbactam <=8/4 R* Ampicillin >8 R* Amoxicillin/Clavulanate <=4/2 R* TEST:Blood Culture STATUS:Order in Progress BODY SITE: SOURCE:Blood COLLECTED DATE/TIME:06/03/23 2:04 PM PRELIMINARY REPORT No growth at 24 hours. TEST:Blood Culture STATUS:Auth (Verified) BODY SITE: SOURCE:Blood COLLECTED DATE/TIME:06/03/23 2:04 PM FINAL REPORT Methicillin-Resistant Staphylococcus aureus STAIN REPORT Few Gram Positive Cocci ORGANISM:Methicillin-Resistant Staphylococcus aureus Susceptibilty: Methicillin-Resistant Staphylococcus aureus Tested Drug ANDRES Dilution ANDRES Interpretati on Vancomycin 1 S Trimethoprim/Sulfa 2/38 S Tigecycline <=0.25 S Tetracycline <=4 S Synercid 1 S Rifampin <=1 S Penicillin >2 R* Oxacillin >2 R Meropenem <=2 R* Linezolid 2 S Levofloxacin 4 I Imipenem <=4 R* Gentamicin <=4 S Erythromycin >4 R Daptomycin <=0.5 S Clindamycin >4 R Ciprofloxacin >2 R Cephalothin <=8 R* Ceftriaxone <=4 R* Ceftaroline <=0.5 S Cefoxitin Screen >4 Pos Cefotaxime <=8 R* Cefepime 8 R* Cefazolin <=8 R* Azithromycin >4 R Ampicillin/Sulbactam <=8/4 R* Ampicillin >8 R* Amoxicillin/Clavulanate <=4/2 R* Vital Signs Most recent to oldest [Reference Range]: 1 2 3 Temperature Tympanic [36.6-37.9 Deg C] 36.0 Deg C *LOW* (06/04/23 1:12 AM) Temperature Temporal Artery [36-38 Deg C] 36.5 Deg C (06/06/23 2:12 PM) 36.3 Deg C (06/06/23 10:10 AM) 36 Deg C (06/06/23 6:17 AM) Temperature Temporal Artery (DegF) [97.3-100 Deg F] 97.7 Deg F (06/05/23 2:15 PM) 97.7 Deg F (06/05/23 1:15 PM) 97.7 Deg F (06/05/23 1:00 PM) Peripheral Pulse Rate [60-100 bpm] 53 bpm *LOW* (06/06/23 2:12 PM) 75 bpm (06/06/23 10:10 AM) 76 bpm (06/06/23 6:17 AM) Heart Rate Monitored [60-100 bpm] 78 bpm (06/05/23 2:15 PM) 86 bpm (06/05/23 2:00 PM) 80 bpm (06/05/23 1:45 PM) Respiratory Rate [12-24 br/min] 18 br/min (06/06/23 2:12 PM) 18 br/min (06/06/23 10:10 AM) 18 br/min (06/06/23 6:17 AM) Blood Pressure [90-140/60-90 mmHg] 132/88mmHg (06/06/23 2:12 PM) 128/69mmHg (06/06/23 10:10 AM) 128/70mmHg (06/06/23 6:17 AM) Mean Arterial Pressure, Cuff [65-140 mmHg] 98 mmHg (06/05/23 2:15 PM) 79 mmHg (06/05/23 2:00 PM) 93 mmHg (06/05/23 1:45 PM) Mean Arterial Pressure Cuff 103 mmHg (06/06/23 2:12 PM) 85 mmHg (06/06/23 10:10 AM) 88 mmHg (06/06/23 6:17 AM) Blood Pressure Location Left arm (06/05/23 10:10 AM) Right arm (06/04/23 2:36 AM) Right arm (06/03/23 10:14 PM) Blood Pressure Method Automatic (06/05/23 10:10 AM) Weight 54.5 kg (06/06/23 6:17 AM) 98.5 kg (06/05/23 6:15 AM) 96.7 kg (06/04/23 6:31 AM) Weight Dosing 93.500 kg (06/03/23 5:34 PM) 92.99 kg (06/03/23 12:31 PM) Height 164.000 cm (06/03/23 5:34 PM) 164.000 cm (06/03/23 12:22 PM) Height/Length Dosing 164.000 cm (06/03/23 5:34 PM) 164.000 cm (06/03/23 12:31 PM) Body Mass Index 34.760 kg/m2 (06/03/23 5:34 PM) 35.000 kg/m2 (06/03/23 12:22 PM) Social History Social History Type Response Smoking Status Smoking tobacco use: Current everyday tobacco user;Never; Number used per day: 6 cigarettes daily; entered on: 04/17/23 Sex Female Hospital Discharge Instructions Patient Education 06/06/2023 10:57:10 Diabetes Mellitus and Foot Care Diabetes Mellitus and Foot Care Foot care is an important part of your health, especially when you have diabetes. Diabetes may cause you to have problems because of poor blood flow (circulation) to your feet and legs, which can cause your skin to: ??? Become thinner and vacuum drier tender. ??? Break more easily. ??? Heal more slowly. ??? Peel and crack. You may also have nerve damage (neuropathy) in your legs and feet, causing decreased feeling in them. This means that you may not notice minor injuries to your feet that could lead to more serious problems. Noticing and addressing any potential problems early is the best way to prevent future foot problems. How to care for your feet Foot hygiene ??? Wash your feet daily with warm water and mild soap. Do not use hot water. Then, pat your feet and the areas between your toes until they are completely dry. Do not soak your feet as this can dry your skin. ??? Trim your toenails straight across. Do not dig under them or around the cuticle. File the edgesof your nails with an emery board or nail file. ??? Apply a moisturizing lotion or petroleum jelly to the skin on your feet and to dry, brittle toenails. Use lotion that does not contain alcohol and is unscented. Do not apply lotion between your toes. Shoes and socks ??? Wear clean socks or stockings every day. Make sure they are not too tight. Do not wear knee-high stockings since they may decrease blood flow to your legs. ??? Wear shoes that fit properly and have enough cushioning. Always look in your shoes before you put them on to be sure there are no objects inside. ??? To break in new shoes, wear them for just a few hours a day. This prevents injuries on your feet. Wounds, scrapes, corns, and calluses ??? Check your feet daily for blisters, cuts, bruises, sores, and redness. If you cannot see the bottom of your feet, use a mirror or ask someone for help. ??? Do not cut corns or calluses or try to remove them with medicine. ??? If you find a minor scrape, cut, or break in the skin on your feet, keep it and the skin aroundit clean and dry. You may clean these areas with mild soap and water. Do not clean the area with peroxide, alcohol, or iodine. ??? If you have a wound, scrape, corn, or callus on your foot, look at it several times a day to make sure it is healing and not infected. Check for: ??? Redness, swelling, or pain. ??? Fluid or blood. ??? Warmth. ??? Pus or a bad smell. General tips ??? Do not cross your legs. This may decrease blood flow to your feet. ??? Do not use heating pads or hot water bottles on your feet. They may burn your skin. If you havelost feeling in your feet or legs, you may not know this is happening until it is too late. ??? Protect your feet from hot and cold by wearing shoes, such as at the beach or on hot pavement. ??? Schedule a complete foot exam at least once a year (annually) or more often if you have foot problems. Report any cuts, sores, or bruises to your health care provider immediately. Where to find more information ??? [place] [employer]: www.diabetes.org ? ? Association of [employer] Education [employer]: www.diabeteseducator.org Contact a health care provider if: ??? You have a medical condition that increases your risk of infection and you have any cuts, sores, or bruises on your feet. ??? You have an injury that is not healing. ??? You have redness on your legs or feet. ??? You feel burning or tingling in your legs or feet. ??? You have pain or cramps in your legs and feet. ??? Your legs or feet are numb. ??? Your feet always feel cold. ??? You have pain around any toenails. Get help right away if: ??? You have a wound, scrape, corn, or callus on your foot and: ??? You have pain, swelling, or redness that gets worse. ??? You have fluid or blood coming from the wound, scrape, corn, or callus. ??? Your wound, scrape, corn, or callus feels warm to the touch. ??? You have pus or a bad smell coming from the wound, scrape, corn, or callus. ??? You have a fever. ??? You have a red line going up your leg. Summary ??? Check your feet every day for blisters, cuts, bruises, sores, and redness. ??? Apply a moisturizing lotion or petroleum jelly to the skin on your feet and to dry, brittle toenails. ??? Wear shoes that fit properly and have enough cushioning. ??? If you have foot problems, report any cuts, sores, or bruises to your health care provider immediately. ??? Schedule a complete foot exam at least once a year (annually) or more often if you have foot problems. This information is not intended to replace advice given to you by your health care provider. Make sure you discuss any questions you have with your health care provider. Document Revised: 03/29/2021 Document Reviewed: 03/29/2021 [employer] Patient Education ?? 2022 [employer]. 06/06/2023 10:57:07 Cellulitis, Adult, Qyag-ji-Cedc Cellulitis, Adult Cellulitis is a skin infection. The infected area is often warm, red, swollen, and sore. It occurs most often in the arms and lower legs. It is very important to get treated for this condition. What are the causes? This condition is caused by bacteria. The bacteria enter through a break in the skin, such as a cut, burn, insect bite, open sore, or crack. What increases the risk? This condition is more likely to occur in people who: ??? Have a weak body defense system (immune system). ??? Have open cuts, edwards, bites, or scrapes on the skin. ??? Are older than 60 years of age. ??? Have a blood sugar problem (diabetes). ??? Have a long-lasting (chronic) liver disease (cirrhosis) or kidney disease. ??? Are very overweight (obese). ??? Have a skin problem, such as: ??? Itchy rash (eczema). ??? Slow movement of blood in the veins (venous stasis). ??? Fluid buildup below the skin (edema). ??? Have been treated with high-energy rays (radiation). ??? Use IV drugs. What are the signs or symptoms? Symptoms of this condition include: ??? Skin that is: ??? Red. ??? Streaking. ??? Spotting. ??? Swollen. ??? Sore or painful when you touch it. ??? Warm. ??? A fever. ??? Chills. ??? Blisters. How is this diagnosed? This condition is diagnosed based on: ??? Medical history. ??? Physical exam. ??? Blood tests. ??? Imaging tests. How is this treated? Treatment for this condition may include: ??? Medicines to treat infections or allergies. ??? Home care, such as: ??? Rest. ??? Placing cold or warm cloths (compresses) on the skin. ??? Hospital care, if the condition is very bad. Follow these instructions at home: Medicines ??? Take pgpx-kdh-fknkkds and prescription medicines only as told by your doctor. ??? If you were prescribed an antibiotic medicine, take it as told by your doctor. Do not stop taking it even if you start to feel better. General instructions ??? Drink enough fluid to keep your pee (urine) pale yellow. ??? Do not touch or rub the infected area. ??? Raise (elevate) the infected area above the level of your heart while you are sitting or lying down. ??? Place cold or warm cloths on the area as told by your doctor. ??? Keep all follow-up visits as told by your doctor. This is important. Contact a doctor if: ??? You have a fever. ??? You do not start to get better after 1???2 days of treatment. ??? Your bone or joint under the infected area starts to hurt after the skin has healed. ??? Your infection comes back. This can happen in the same area or another area. ??? You have a swollen bump in the area. ??? You have new symptoms. ??? You feel ill and have muscle aches and pains. Get help right away if: ??? Your symptoms get worse. ??? You feel very sleepy. ??? You throw up (vomit) or have watery poop (diarrhea) for a long time. ??? You see red streaks coming from the area. ??? Your red area gets larger. ??? Your red area turns dark in color. These symptoms may represent a serious problem that is an emergency. Do not wait to see if the symptoms will go away. Get medical help right away. Call your local emergency services (911 in the [place] Do not drive yourself to the hospital. Summary ??? Cellulitis is a skin infection. The area is often warm, red, swollen, and sore. ??? This condition is treated with medicines, rest, and cold and warm cloths. ??? Take all medicines only as told by your doctor. ??? Tell your doctor if symptoms do not start to get better after 1???2 days of treatment. This information is not intended to replace advice given to you by your health care provider. Make sure you discuss any questions you have with your health care provider. Document Revised: 06/20/2022 Document Reviewed: 06/20/2022 [employer] Patient Education ?? 2022 Adisn. 06/06/2023 10:57:03 Sepsis, Diagnosis, Adult Sepsis, Diagnosis, Adult Sepsis is a serious bodily reaction to an infection. The infection that triggers sepsis may be froma bacteria, virus, or fungus. Sepsis can result from an infection in any part of your body. Infections that commonly lead to sepsis include skin, lung, and urinary tract infections. Sepsis is a medical emergency that must be treated right away in a hospital. In severe cases, it can lead to septic shock. Septic shock can weaken your heart and cause your blood pressure to drop. This can cause your central nervous system and your body's organs to stop working. What are the causes? This condition is caused by a severe reaction to infections from bacteria, viruses, or fungus. The germs that most often lead to sepsis include: ??? Escherichia coli (E. coli) bacteria. ??? Staphylococcus aureus (staph) bacteria. ??? Some types of Streptococcus bacteria. The most common infections affect these organs: ??? The lung (pneumonia). ??? The kidneys or bladder (urinary tract infection). ??? The skin (cellulitis). ??? The bowel, gallbladder, or pancreas. What increases the risk? You are more likely to develop this condition if: ??? Your body's disease-fighting system (immune system) is weakened. ??? You are age 65 or older. ??? You are male. ??? You had surgery or you have been hospitalized. ??? You have these devices inserted into your body: ??? A small, thin tube (catheter). ??? IV line. ??? Breathing tube. ??? Drainage tube. ??? You are not getting enough nutrients from food (malnourished). ??? You have a chronic disease, such as cancer, lung disease, kidney disease, or diabetes. What are the signs or symptoms? Symptoms of this condition may include: ??? Fever. ??? Chills or feeling very cold. ??? Confusion or anxiety. ??? Fatigue. ??? Muscle aches. ??? Shortness of breath or rapid breathing (hyperventilation). ??? Nausea and vomiting. ??? Urinating much less than usual. ??? Fast heart rate. ??? Changes in skin color. Your skin may look blotchy, pale, or blue. ??? Cool, clammy, or sweaty skin. ??? Skin rash. Other symptoms depend on the source of your infection. How is this diagnosed? This condition is diagnosed based on your symptoms, medical history, and physical exam. Other testsmay also be done to find out the cause of the infection and how severe the sepsis is. Tests may include: ??? Blood tests. ??? Urine tests. ??? Swabs from other areas of your body that may have an infection. These samples may be tested (cultured) to find out what type of bacteria is causing the infection. ??? Chest X-ray to check for pneumonia. Other imaging tests, such as a CT scan, may also be done. ??? Lumbar puncture. This removes a small amount of the fluid that surrounds your brain and spinal cord. The fluid is then examined for infection. How is this treated? This condition must be treated in a hospital. Based on the cause of your infection, you may be given an antibiotic, antiviral, or antifungal medicine. You may also receive: ??? Fluids through an IV. ??? Oxygen and breathing assistance. ??? Medicines to increase your blood pressure. ??? Kidney dialysis. This process cleans your blood if your kidneys have failed. ??? Surgery to remove infected tissue. ??? Blood transfusion if needed. ??? Medicine to prevent blood clots. ??? Nutrients to correct imbalances in basic body function (metabolism). You may: ??? Receive important salts and minerals (electrolytes) through an IV. ??? Have your blood sugar level adjusted. Follow these instructions at home: Medicines ??? Take qewj-uue-yhbpgte and prescription medicines only as told by your health care provider. ??? If you were prescribed an antibiotic, antiviral, or antifungal medicine, take it as told by your health care provider. Do not stop taking the medicine even if you start to feel better. General instructions ??? If you have a catheter or other indwelling device, ask to have it removed as soon as possible. ??? Keep all follow-up visits. This is important. Contact a health care provider if: ??? You do not feel like you are getting better or regaining strength. ??? You are having trouble coping with your recovery. ??? You frequently feel tired. ??? You feel worse or do not seem to get better after surgery. ??? You think you may have an infection after surgery. Get help right away if: ??? You have any symptoms of sepsis. ??? You have difficulty breathing. ??? You have a rapid or skipping heartbeat. ??? You become confused or disoriented. ??? You have a high fever. ??? Your skin becomes blotchy, pale, or blue. ??? You have an infection that is getting worse or not getting better. These symptoms may represent a serious problem that is an emergency. Do not wait to see if the symptoms will go away. Get medical help right away. Call your local emergency services (911 in the [place] Do not drive yourself to the hospital. Summary ??? Sepsis is a medical emergency that requires immediate treatment in a hospital. ??? This condition is caused by a severe reaction to infections from bacteria, viruses, or fungus. ??? Based on the cause of your infection, you may be given an antibiotic, antiviral, or antifungal medicine. ??? Treatment may also include IV fluids, breathing assistance, and kidney dialysis. This information is not intended to replace advice given to you by your health care provider. Make sure you discuss any questions you have with your health care provider. Document Revised: 07/23/2021 Document Reviewed: 07/23/2021 [employer] Patient Education ?? 2022 Adisn. Follow Up Care 06/03/2023 12:22:44 With:Edison Thien LEYVA MD Address: [address] [place] [address] [address] [place] [address]- When:06/11/2023 Comments:Surgical follow up With:Attila Bernal MD Address: [address] [address]- When:1 to 2 weeks Comments:Hospital follow up Pharmacology Note * Radha Lucia PharmD: PERFORM Event Display: Pharmacy Note Authored Date: [id number] [facility] Pharmacokinetics Note Drug: Vancomycin Pharmacokinetic target: AUC24 (range) 400-600 mg/L.hr Charlee Dunham is a(n) 57 years old female initiating Vancomycin for Abdominal abscess Recent measured serum creatinine values: 06/03/2023 12:45 1.21 mg/dL Assessment: Analysis using Frug[employer] gives the following patient-specific pharmacokinetic parameters: CL: 3.1 L/hr V: 77.6 L T1/2: 18.2 hours At this time we recommend a loading dose of 1500mg and a maintenance regimen of 750 mg IV every 12 hours, which is predicted to result in a steady-state trough of 15.9 mg/L and AUC24 of 465 mg/L.hr. Recommendations: - Vancomycin 750 mg IV every 12 hours - Obtain Vancomycin level 06/04/2023 at 07:00am - Continue to monitor serum creatinine Discharge instructions * Irma Navas D: PERFORM, MODIFY Event Display: Discharge Instructions Authored Date: [id number] CHARLEE DUNHAM :1965 Age:57 years Sex:Female Visit Date:06/03/2023 Primary Care Physician: Attila Bernal MD Hospital Discharge Instructions We would like to thank you for allowing us to assist you with your healthcare needs. The following includes patient education materials and information regarding your injury/illness. Your Next Steps Discharge Orders Discharge Activity Restrictions, as tolerated Discharge Diet Instruction, Diabetic Diet Discharge Surgical Wound Instructions, Right foot 4th toe, cleanse wound skintegrity, adaptic to wound bed, calcium alginate, wrap with gauze Wound Care: Change dressing on both feet daily and as needed. Cleanse with Skintegrity spray, coverwith 4x4 gauze, wrap with Katey and betty wrap. Report to [facility] on 06/09/23 between 8-9am for dressing change to be done by nursing staff. Follow Up Appointments Follow Up with??Attila Bernal MD When:??Within 1 to 2 weeks Why: Hospital follow up Where: [place] [id number]- Follow Up with??Edison [facility], Thien Infante MD When:??06/11/2023 02:45 AM EDT Why: Surgical follow up Where: [facility] [address] [place] [address]- Medications What How Much When Why Instructions Next Dose New amoxicillin-clavulanate (amoxicillin-clavulanate 875 mg-125 mg oral tablet) 1 tab Oral (given by mouth) Every 12 hours Duration: 10 Days Pickup at [facility] 415 06/06 @ 9pm New doxycycline (doxycycline hyclate 100 mg oral capsule) 1 Capsules Oral (given by mouth) 2 times a day Duration: 10 Days Pickup at [facility] 415 06/06 @ 9pm Unchanged ARIPiprazole (ARIPiprazole 10 mg oral tablet) 1 tab Oral (given by mouth) Every day 06/07 @ 9am Unchanged buPROPion (buPROPion 300 mg/ 24 hours (XL) oral tablet, extended release) 1 tab Oral (given by mouth) Every day Depressive disorder 06/07 @ 9am Unchanged cetirizine (cetirizine 10 mg oral tablet) 1 tab Oral (given by mouth) Every day Allergies Resume home dose Unchanged DULoxetine (DULoxetine 30 mg oral delayed release capsule) 1 Capsules Oral (given by mouth) Every day Depressive disorder Duration: 90 Days 06/07 @ 9am Unchanged DULoxetine (DULoxetine 60 mg oral delayed release capsule) 1 Capsules Oral (given by mouth) Every day Depressive disorder Take in addition to 30 mg for a total dose of 90 mg ?? 06/07??@ 9am Unchanged Durable Medical Equipment for Prescription (Content Syndicate: [employer] Plus lancest 30 gauge) See instructions Test twice daily ?? Unchanged ferrous sulfate (ferrous sulfate 325 mg (65 mg elemental iron) oral tablet) 1 tab Oral (given by mouth) 3 times a day Type 2 diabetes mellitus without complication 06/06 @ 3pm Unchanged folic acid (folic acid 1 mg oral tablet) 1 tab Oral (given by mouth) Every day Eczema 06/07 @ 9am Unchanged gabapentin (gabapentin 300 mg oral capsule) 3 Capsules Oral (given by mouth) 3 times a day TAKE 3 CAPSULES BY MOUTH THREE TIMES DAILY ?? 06/06 @ 3pm & 9pm Unchanged ibuprofen (ibuprofen 800 mg oral tablet) 1 tab Oral (given by mouth) 3 times a day Resume home dose Unchanged insulin glargine (Lantus Solostar Pen 100 units/ mL subcutaneous solution) 38 Units Subcutaneous (under the skin) Every day Type 2 diabetes mellitus without complication Inject 38 units daily and titrate up by 2 units every 3-4 days until FBS is below 130. ?? 06/07 @ 9am Unchanged insulin pen needles 30G 8 mm (Relion Pen Lefor 30G 8mm) 1 Each Not Applicable As Directed as needed for As needed Type 2 diabetes mellitus without complication Use one daily ?? Unchanged losartan (losartan 100 mg oral tablet) 1 tab Oral (given by mouth) Every day Hypertensive disorder Resume home dose Unchanged metFORMIN (metFORMIN 1000 mg oral tablet) 1 tab Oral (given by mouth) 2 times a day Type 2 diabetes mellitus without complication Resume Unchanged naloxone (Narcan 4 mg/ 0.1 mL nasal spray) 1 Sprays Nasal (into the nose) Once may repeat every 2 to 3 minutes until patient responds ?? Unchanged omeprazole (omeprazole 40 mg oral delayed release capsule) 1 Capsules Oral (given by mouth) Every day 06/07 @ 7am Unchanged ondansetron (ondansetron 4 mg oral tablet, disintegrating) 1 tab Oral (given by mouth) Every 8 hours as needed for as needed for nausea/vomiting as needed Unchanged One Touch Verio Test Strips (One Touch Verio) See instructions Type 2 diabetes mellitus without complication Test twice daily ?? Unchanged oxyCODONE-acetaminophen (oxyCODONE-acetaminophen 10 mg-325 mg oral tablet) 1 tab Oral (given by mouth) 2 times a day as needed for as needed for pain Low back pain Chronic pain Duration: 28 Days as needed Unchanged pramipexole (pramipexole 1.5 mg oral tablet) See instructions Take 1 tablet daily at bedtime ?? Resume home dose Unchanged semaglutide (Ozempic (1 mg dose) 4 mg/ 3 mL subcutaneous solution) 1 Milligrams Subcutaneous (under the skin) Every week Resume home dose Pharmacy Information [id number]: [address] [place] [address] [phone] Your Summary Your Care Team Admitting Physician - Ricardo Michelle MD Attending Physician - Ricardo Michelle MD Primary Care Physician - Attila Bernal MD Your Diagnosis Sepsis Depressive disorder Cellulitis Osteomyelitis of toe of right foot Diabetic foot ulcer Type 2 diabetes mellitus without complication Foot abscess, left Non-pressure chronic ulcer of other part of unspecified foot with unspecified severity Discharge Vitals Temperature??(Temporal Artery) 97.3 ??F (36.3 ??C) Heart Rate??(Peripheral) 75 Respiratory Rate?? 18 Blood Pressure?? 128/69?? Weight?? 120.17 lb (54.5 kg) Allergies Bee Stings??(Anaphylaxis) Benzoin Tincture ANIMAL DANDER??(Eye swelling) HOUSE DUST??(Eye swelling) INSECT VENOM??(Anaphylactic reaction) LATEX??(Skin rash) codeine??(Loss of consciousness) morphine??(Vomiting) Patient/Network Developer Signature Patient Name:CHARLEE DUNHAM I have received this information and my questions have been answered. Patient/Network Developer Name: Patient/Network Developer Signature: Relationship to Patient: Witness Name/Signature: Date: Electronically Signed on: 06/06/2023 12:01 EDTSigned by:KATINA Consult note * Edison DASHThien MD: PERFORM, MODIFY Event Display: Consultation Note Generic Authored Date: [id number] CHARLEE DUNHAM :1965 Age:57 years Sex:Female Visit Date:06/03/2023 Primary Care Physician: Attila Bernal MD Chief Complaint sepsis, cellulitis, fall at home The patient is a 57-year-old female with past medical history of insulin- dependent type 2 diabetes mellitus, nicotine dependence, peripheral vascular disease status post left sided toe amputation, history of depression, GERD, obesity, history of migraines, anxiety and chronic back pain who presented to the emergency department with a chief complaint of fevers and rigors.?? The patient states thatshe has been generally feeling unwell over the past hour or so and she feels as though she started to shake after she had fallen approximately 1 hour prior to arrival to the emergency department.?? She states that she did hit her head but denies any loss of consciousness.?? She is complaining of some mild neck pain.?? She does have fevers and chills as well.?? Denies any chest pain, shortness of breath, abdominal pain, nausea, vomiting, diarrhea, lightness or dizziness.?? She does state she hasa chronic right toe wound which she states she has been on Bactrim for approximately 1 month for.?? She was seen in the clinic recently for this and she knows that she possibly required debridement.?? She does have a left-sided toe amputation in the past as well due to infected diabetic foot wound.?? In the emergency department patient's vital signs were remarkable for fever of 37.9, tachycardia with heart rate ranging 100 to 113 bpm, respiratory rate 18 to 25 breaths/min and blood pressures have been stable.?? Labs were significant for WBC count of 20.3 with left shift of 80%, hemoglobin 12.3, platelet count 383, sodium 133, potassium 3.2, chloride 96, creatinine 1.21, lactic acid of 2.4, troponin 7.8, procalcitonin 0.34.?? COVID testing was negative.? She has been on??Bactrim??for left foot??toe ulceration??which she says has improved significantly. ?? No history of??seen podiatry Physical Exam Vitals & Measurements T:??37.8?C ??(Temporal Artery)?? TMIN:??35.4?C ??(Temporal Artery)?? TMAX:??37.9?C ??(Temporal Artery)?? HR:??80??(Peripheral)?? RR:??20?? BP:??113/61?? SpO2:??95%?? HT:??164.000??cm?? WT:??96.7??kg?? BMI:??34.760?? Pain Score:??6?? O2 Therapy:??Room air?? Pleasant female??appears well-nourished and hydrated In no acute distress Musculoskeletal:??Right 2nd??toe on the lateral aspect??with?? ulceration, left??plantar aspect of foot with??black appearing eschar??in the ball??of the metatarsal area??of the large toe??which is status post??amputation??with large callus on the left??plantar aspect??of the foot Skin:??Skin is warm, dry and pink,?No??rashes,?No??lesions Assessment/Plan 1.??Sepsis??A41.9 ?? 2.??Cellulitis??L03.90 ??and concerns for deeper infection in both feet Ulceration of the??right toe??this point do not see any bone exposed or??concerns for osteo??but??the??intensity may??be present where an MRI would behelpful. Right foot status post amputation??this edematous and some erythema??she says is normal??no??fluctuance could be appreciated??we will plan also to??obtain an MRI??of both feet??with a high white count. Recommend??referral to??podiatry??to help assist with??potential orthotics to prevent??ongoing??diabetic feet problems.?? Since??podiatry??or orthopedic??surgery for foot care are??not available??I will??plan to follow the patient Ordered: MRI Foot w/ + w/o Contrast Left, 06/04/23 11:30:00 EDT, Routine, Reason: RULE OUT OSTEOMYLITIS, EDEMA, ERYTHEMA, Reason: RULE OUT OSTEOMYLITIS, EDEMA, ERYTHEMA, Exam to be performed outside organization? ?? 3.??Diabetic foot ulcer??E11.621 ?? 4.??Osteomyelitis??M86.9 ?? 5.??Type 2 diabetes mellitus without complication??E11.9 ?? 6.??Depressive disorder??F32.A ?? Non-pressure chronic ulcer of other part of unspecified foot with unspecified severity??L97.509 ?? Orders: MRI Foot w/ + w/o Contrast Right, 06/04/23 11:30:00 EDT, Routine, Reason: RULE OUT OSTEOMYLITIS, EDEMA, ERYTHEMA, Reason: RULE OUT OSTEOMYLITIS, EDEMA, ERYTHEMA, Exam to be performed outside organization? Problem List/Past Medical History Ongoing Accidental poisoning Acute osteomyelitis of toe of left foot Adult health examination Allergic reaction to drug Allergies Anesthesia of skin Atopic dermatitis Biceps tendinitis Cellulitis Cellulitis Chronic pain Chronic, continuous use of opioids Depressed Depressive disorder Diabetes mellitus, type 2 Diabetic foot ulcer Eczema Flu vaccine need Foot pain, left GERD (gastroesophageal reflux disease) Hypertensive disorder Impingement syndrome of right shoulder region Low back pain Low back pain Methicillin resistant Staphylococcus aureus Migraine Nicotine dependence Obesity Open wound of fourth toe of right foot Open wound of toe of right foot Osteomyelitis Overweight Pain in right arm Postoperative infection Psoriasis Sepsis Severe obesity Shoulder pain Status post amputation of toe Strain of muscle of upper limb Strain of tendon of upper arm Toe pain, left Toxic effect of venom Type 2 diabetes mellitus without complication Uterine leiomyoma Historical Disease caused by 2018 novel coronavirus Procedure/Surgical History ???Amputation great toe (12/19/2022)???Arthroplasty, interposition, intercarpal or carpometacarpal joints (04/17/2021)???Rotator cuff repair (09/22/2016)???Hysterectomy (09/22/2000)??? section (procedure) (09/22/1997)???Amputation of toe???Tubal ligation Medications Inpatient acetaminophen, 650 mg= 2 tab, Oral, every 6 hr, PRN ARIPiprazole, 10 mg= 2 tab, Oral, Daily buPROPion, 300 mg= 2 tab, Oral, Daily cefepime DULoxetine, 60 mg= 2 cap, Oral, Daily DULoxetine, 30 mg= 1 cap, Oral, Daily ferrous sulfate, 325 mg= 1 tab, Oral, TID folic acid, 1 mg= 1 tab, Oral, Daily gabapentin, 900 mg= 3 cap, Oral, TID insulin glargine, 20 units= 0.2 mL, Subcutaneous, Daily insulin lispro (HumaLog) correction- sensitive, Sensitive Scale, Subcutaneous, AC & bedtime lidocaine 1% injectable solution, 5 mg= 0.5 mL, Intradermal, As Directed, PRN loratadine, 10 mg= 1 tab, Oral, Daily Normal Saline Flush, 10 mL, IV Push, every 12 hr (ingrid) omeprazole, 40 mg= 2 cap, Oral, Daily ondansetron, 4 mg= 2 mL, IV Push, every 6 hr, PRN Sodium Chloride 0.9% 1,000 mL, 1000 mL, IV Sodium Chloride 0.9% 1,000 mL, 1000 mL, IV vancomycin, 750 mg= 150 mL, IV Piggyback, every 12 hr Home ARIPiprazole 10 mg oral tablet, 1 tab, Oral, Daily, 3 refills Bactrim DS 800 mg-160 mg oral tablet, 1 tab, Oral, TID, 1 refills Bactrim DS 800 mg-160 mg oral tablet, 1 tab, Oral, BID buPROPion 300 mg/24 hours (XL) oral tablet, [...] 800 mg oral tablet, 1 tab, Oral, TID Lantus Solostar Pen 100 units/mL subcutaneous solution, 38 units, Subcutaneous, Daily, 4 refills losartan 100 mg oral tablet, 100 mg= 1 tab, Oral, Daily, 4 refills metFORMIN 1000 mg oral tablet, 1000 mg= 1 tab, Oral, BID, 4 refills Narcan 4 mg/0.1 mL nasal spray, 1 sprays, Nasal, Once omeprazole 40 mg oral delayed release capsule, 40 mg= 1 cap, Oral, Daily, 4 refills ondansetron 4 mg oral tablet, disintegrating, 4 mg= 1 tab, Oral, every 8 hr, PRN One Touch Verio, See instructions, 4 refills OneTouch Delica Plus lancest 30 gauge, See instructions, 4 refills oxyCODONE-acetaminophen 10 mg-325 mg oral tablet, 1 tab, Oral, BID, PRN Ozempic (1 mg dose) 4 mg/3 mL subcutaneous solution, 1 mg, Subcutaneous, every week pramipexole 1.5 mg oral tablet, See Instructions, 4 refills Relion Pen Lefor 30G 8mm, 1 EA, N/A, As Directed, PRN, 4 refills Allergies Bee Stings??(Anaphylaxis) Benzoin Tincture ANIMAL DANDER??(Eye [...] adult vaccine 09/22/2002 Recorded Electronically Signed on 06/04/23 11:37 AM Thien Black MD Electronically Signed on 06/04/23 12:06 PM Thien Black MD Procedure note * Thien Black MD: PERFORM Event Display: Procedure Note Authored Date: [id number] CHARLEE DUNHAM :1965 Age:57 years Sex:Female Visit Date:06/03/2023 Primary Care Physician: Attila Bernal MD Procedure Name I&D??of the left foot Indication Abscess Location Hospital bed Pre-Procedure Exam Procedural Sedation None Technique The patient was prepped and draped??she had little sensation in the left foot??dorsum??of the??first phalange at the base??area corresponding with MRI this area is anesthetized??posteriorly??and the plantar surface also with??was an area??what appeared to be some tracking on??MRI??both areas were anesthetized a cruciate incision was made??in the dorsum??anteriorly??where approximately 15 cc of purulence was expressed??this was cultured??posteriorly where the??tracking to be identified on MRI and this was opened as well with a scalpel??purulence was expressed??and then a??Betadine soaked??4 x 4 was??threaded through the 2 incisions??hemostat had been used to explore the wound??sure there is no??additional abscesses once this is completed??4 x 4 ABD was placed in??wound was then dressed Assessment/Plan 1.??Sepsis??A41.9 2.??Depressive disorder??F32.A 3.??Cellulitis??L03.90 4.??Osteomyelitis of toe of right foot??M86.9 5.??Diabetic foot ulcer??E11.621 6.??Type 2 diabetes mellitus without complication??E11.9 7.??Foot abscess, left??L02.612 Non-pressure chronic ulcer of other part of unspecified foot with unspecified severity??L97.509 Orders: Wound Care, 06/04/23 15:53:00 EDT, Other, Daily, Change dressing PRN, Right foot 4th toe, cleanse wound skintegrity, adaptic to wound bed, calcium alginate, wrap with gauze Electronically Signed on 06/04/23 10:44 PM [facility] shellfish manager Note * Irma Navas D: PERFORM Event Display: Case Management Note Authored Date: [id number] Discharge instructions/education on wound care cellulitis toe amputation reviewed with patient at bedside. Patient reports surgeon did dressing changes with her today and she feels comfortable doing this independently at home through the weekend. Patient will follow-up with [facility] Friday for dressing change to be done by nursing patient is scheduled for follow-up with Dr. Hogan on Monday 06/11 at 2:45 PM however patient says she cannot make this appointment so she will discuss this Friday morning when she goes in for her dressing change. Patient agreeable to referral being sent to [facility] podiatry and this was generated through referral management. No home health services ordered upon discharge as patient plans to continue working. Unable to schedule patient to follow-up with PCP at this time we will work on this next week. Patient's home medications from pharmacy returned to her prior to discharge. TECHNICAL PROJECT MANAGER notified that IV needs to be removed prior to discharge. Extra wound care supplies provided to patient. Contact information provided. Patient aware of new medications for pickup???schedule and indication reviewed. Patient engaged in education and able to verbalize teach back of reviewed material. * Edgar Cordova: PERFORM Event Display: Case Management Note Authored Date: [id number] LOC:Acute Adult Infection: Musculoskeletal Episode Day: 1 InterQual?? criteria (IQ) is confidential and proprietary information and is being provided to you solely as it pertains to the information requested. IQ may contain advanced clinical knowledge whichwe recommend you discuss with your physician upon disclosure to you. Use permitted by and subject to license with [employer] and/or one of its subsidiaries. IQ reflects clinical interpretations and analyses and cannot alone either (a) resolve medical ambiguities of particular situations;or (b) provide the sole basis for definitive decisions. IQ is intended solely for use as screening guidelines with respect to medical appropriateness of healthcare services. All ultimate care decisions are strictly and solely the obligation and responsibility of your health care provider. ?? 2022 [employer] and/or one of its subsidiaries. All Rights Reserved. CPT?? only ?? 8973-7704 [employer]. All Rights Reserved. Review Outcome: Acute Met Other InterQual [X] Select Day, One: [X] Episode Day 1, One: [X] ACUTE, ??? One: [X] Osteomyelitis, actual or suspected, by bone scan, x-ray, CT or MRI and, ??? One: [X] Anti-infective [X] Bone culture scheduled or performed within 24h Anesthesiology Progress note * Khushboo Wheeler MD: PERFORM Event Display: Anesthesiology Progress Note Authored Date: [id number] CHARLEE DUNHAM :1965 Age:57 years Sex:Female Visit Date:06/03/2023 Primary Care Physician: Attila Bernal MD Procedure: on 06/05/23- right ankle block preop diagnosis: Right foot infection Postop diagnosis: Right foot infection Anesthesia Versed ?? Consent was obtained for right ankle block.?? Monitors were applied.?? A time out was done and the patient participated.?? The??right ankle was prepped and draped in an aseptic technique.?? The deep peroneal, superficial peroneal, posterior tibial, and sural nerves were blocked using a 27 guage needle.?? A total of 27 mls of 0.5 % ropivacaine were used.?? Meaningful contact was maintained throughout.??The patient tolerated the procedure well. Electronically Signed on 06/06/23 06:15 AM Khushboo Wheeler MD EKG study * Event Display: Telemetry Strips Please click on link to view image. * Event Display: Telemetry Strips Please click on link to view image. * Event Display: Telemetry Strips Please click on link to view image. Pharmacology Progress note * Antnoia Mehta: PERFORM Event Display: Pharmacy Progress Note Authored Date: [id number] Pharmacy Progress Note [facility] Pharmacokinetics Note Drug: Vancomycin Pharmacokinetic target: AUC24 (range) 400-600 mg/L.hr Current regimen: 750 mg IV every 12 hours Charlee Dunham is a(n) 57 years old female receiving Vancomycin 750 mg IV every 12 hours for abdominalabscess Recent measured serum creatinine values: 06/05/2023 07:00 0.63 mg/dL 06/04/2023 07:00 0.85 mg/dL 06/03/2023 12:45 1.21 mg/dL Assessment: Analysis of the most recent level(s) using [employer] gives the following patient-specific pharmacokinetic parameters: CL: 6.37 L/hr V: 88.2 L T1/2: 10.2 hours Using these values, the current regimen of Vancomycin 750 mg IV every 12 hours is predicted to result in a steady-state trough of 6.9 mg/L and AUC24 of 236 mg/L.hr. At this time we recommend a loading dose of 1500 mg at 14:05 06/03/2023, followed by a regimen of 1500 mg IV every 12 hours, which is p redicted to result in a steady-state trough of 14 mg/L and AUC24 of 469 mg/L.hr. Recommendations: - Vancomycin 1500 mg IV every 12 hours - Obtain Vancomycin level 06/10/2023 at 0700 - Continue to monitor serum creatinine Antonia Mehta Electronically Signed on 06/05/23 08:58 AM Antonia Mehta * Antonia Mehta: PERFORM Event Display: Pharmacy Progress Note Authored Date: [id number] Pharmacy Progress Note Medication list updated with recent fill history from [facility]. Patient was not in room when I went to talk with her. [facility], PharmD. Electronically Signed on 06/04/23 01:15 PM Antonia Mehta * Antonia Mehta: PERFORM Event Display: Pharmacy Progress Note Authored Date: [id number] Pharmacy Progress Note [facility] Pharmacokinetics Note Drug: Vancomycin Pharmacokinetic target: AUC24 (range) 400-600 mg/L.hr Current regimen: 750 mg IV every 12 hours Charlee Dunham is a(n) 57 years old female receiving Vancomycin 750 mg IV every 12 hours for abdominalabscess Recent measured serum creatinine values: 06/03/2023 12:45 1.21 mg/dL Assessment: Analysis of the most recent level(s) using Frugalo gives the following patient-specific pharmacokinetic parameters: CL: 3.18 L/hr V: 88.9 L T1/2: 20.1 hours Using these values, the current regimen of Vancomycin 750 mg IV every 12 hours is predicted to result in a steady-state trough of 16.1 mg/L and AUC24 of 462 mg/L.hr. At this time we recommend a loading dose of 1500 mg at 14:05 06/03/2023, followed by a regimen of 750 mg IV every 12 hours, which is p redicted to result in a steady-state trough of 16.1 mg/L and AUC24 of 462 mg/L.hr. Recommendations: - Vancomycin 750 mg IV every 12 hours - Obtain Vancomycin level 06/05/2023 at 0700 - Continue to monitor serum creatinine Antonia Mehta Electronically Signed on 06/04/23 09:02 AM Antonia Mehta Physician Emergency department Note * Reyes Parrish MD: PERFORM Event Display: ED Note Physician Authored Date: CHARLEE DUNHAM :1965 Age:57 years Sex:Female Visit Date:06/03/2023 Primary Care Physician: Attila Bernal MD HPI 57-year-old obese female with IDDM, nicotine dependence, left foot toe amputations, and low back pain presents for evaluation of shaking of approximately 1 hour duration, denies fevers and chills, notes that she apparently lost her balance this morning when attempting to sit on the toilet, fell forward and struck her head without LOC, patient endorses mild neck pain as well.??Patient was asymptomatic between her fall until approximately 1 hour ago. Denies abdominal pain, chest pain, shortness of breath, dysuria, urinary frequency. Patient no preceding chest pain, abdominal pain, or shortness of breath prior to her fall. Takes no blood thinners or antiplatelet medications. ?? M/S/F/SocHx notable for: please see HPI; remainder reviewed with patient and in chart.? ROS: Negative constitutional, eye, cardiovascular, pulmonary, GI, , MSK, skin, neurologic, psychiatric, endocrine unless noted in the HPI. ?? Exam HR 113, RR 96/64, T 37.4?C, RR 18, SaO2 95% on room air. Gen:??Pleasant, resting comfortably, however the patient has diffuse fine shaking. HEENT: NC, AT, PEERL, EOMI. Resp: Clear to auscultation bilaterally, normal work of breathing, no accessory muscle usage. Card: Regular rate and rhythm with no murmurs, rubs, or gallops, extremities warm and well perfused.?? GI: Non-tender to palpation throughout all quadrants, non-distended, no rebound or guarding. : No suprapubic tenderness to palpation. MSK: No visible deformities, strength and tone without visually appreciable deficit. Nonfocal mild??mid??C-spine tenderness to palpation, mild approximately T3 tenderness to palpation, remainder of C, T, L-spine without tenderness palpation or palpable abnormalities. Patient comfortably moving her neck through full range of motion. Left great toe surgically absent, there is warmth, mild tenderness, and swelling without crepitus in the distal half to approximately one third of the left foot. Approximately the second MTP joint there is a callus. [id number] ultrasound with underlying subcu tissue cobblestoning edema and no focal drainable fluid collections, no gas appreciated. Skin: Normal color with no visible lesions. Neuro: alert and oriented?3, no facial asymmetry, vision and hearing WNL. Psych: Mood and affect appropriate. ?? Labs?? Druvr-ld-verr glucose 104 Lactic acid 2.4 WBC 28.3, Hb 12.3, sodium 133, potassium 3.2, AST 12, ALT 20, ALP 133, total bilirubin 0.6. UA - negative nitrate, negative leukocyte esterase, no bacteria. Troponin 7.8. ?? Imaging EKG: SR at [address]-segment elevations or depressions, T-wave inversions or new LBBB. CT interval 169 msec, QTc 375 msec, no delta waves, epsilon waves, coved or saddle ST-segment changes in leads V1-3, preseptal or inferior lead Q-waves, biphasic P-waves, or T-wave inversions; no LVH. ?? CXR: no acute findings seen in the chest.? XR T-spine: No displaced fracture seen of the visualized portions thoracic spine. ?? XR C-Spine:?? 1.??C7, C7-T1 not well visualized on lateral view. No obvious displaced fracture seen of visualizedportions cervical spine. If there remains suspicion for fracture or other pathology/process, then CT, MRI recommended.?? 2.??Evidence of calcification left carotid artery region, more advanced than expected for age. Correlate for causes, risk factors for atherosclerotic disease, arterial calcification. ?? CT Head:?? 1.??No acute intracranial abnormality seen.?? 2.??Partial opacification sphenoid sinus.?? 3.??Please see body of report for findings. ?? XR L Foot:?? 1. 1st toe amputation through the MTP joint with associated soft tissue swelling 2. Fragmentation and collapse of the heads of this 3rd and 4th metatarsals ?? MDM Previous chart, nursing note, labs, imaging, and vitals reviewed.?? A:??57-year-old obese female with IDDM, nicotine dependence, left foot toe amputations, and low back pain presents for evaluation of shaking of approximately 1 hour duration, denies fevers and chills, notes that she apparently lost her balance this morning when attempting to sit on the toilet, fellforward and struck her head without LOC, patient endorses mild neck pain as well.? Evaluation:?Trauma -??CT head unremarkable, plain films of the C and T-spine without evidence of abnormality, areas that were poorly visualized were without corresponding tenderness on exam. ?Infection -patient with soft tissue infection of the left foot, no drainable fluid collections identified, no clear evidence of osteomyelitis. Patient was given 2 L NS, 0.5 mg Ativan, 1.5 g vancomycin, and 3.375 g Zosyn for symptom management.??Patient with sepsis secondary to cellulitis, no clear evidence of necrotizing fasciitis.??Chest x-ray, abdominal exam, urinalysis, and history withoutevidence of an alternate infectious source. ? Disposition: Patient admitted for further care. ?? Impression: Cellulitis, sepsis. ?? (please reference below for remainder of encounter information) Critical Care Time Organ system(s): Cardiopulmonary, vascular, EXPRESS MANAGER, Renal?? Intervention: Assessment of the patient, interpretation of studies, communication related to patient care. Time: 30 minutes were spent directly related to patient care exclusive of separately billed procedures ?? [place] Body Weight and Adjusted Body Weight from [employer] on 06/03/2023 All calculations should be rechecked by clinician prior to use ?? RESULT SUMMARY: 56 kg [place] Body Weight ?? Equivalent to 123 lbs ?? Actual body weight is 166% (1.7x) ideal body weight ?? 71 kg Adjusted Body Weight ?? Equivalent to 156 lbs ? INPUTS: Sex??? > 1 = Female Height??? > 164 cm Actual body weight??? > 92.99 kg Electronically Signed on 06/03/23 03:05 PM Reyes Parrish MD Progress note * Ricardo Michelle MD: PERFORM Event Display: Progress Note - Physician Authored Date: Work/School Release Form Employee/Student Information Name:CHARLEE DUNHAM Address: [address] [place] [address] [address] [id number] Sex:Female Date of :1965 Age:57 years Emergency Contact:HOSSEIN MCNEIL Release Details This notice verifies that the above identified individual was seen in this facility. Date seen:??06/03-06/06? He/she may return to work/school on date:?2022 ? 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 Restrictions Timeframe Restrictions apply through this date:??N?A? After the date above, he/she should be able to participate full in all duties and activities. Note: If symptoms continue and he/she is unable to return to work/school with full duties by the date specified, please advise them to return to this facility or make an appointment with their Primary Care Provider or Work Comp Physician for further evaluation. Provider Signature: Date: Provider Name:??____Ricardo Michelle MD Electronically Signed on 06/06/23 03:21 PM Ricardo Michelle MD * Ricardo Mcihelle MD: PERFORM Event Display: Progress Note - Physician Authored Date: [id number] CHARLEE DUNHAM :1965 Age:57 years Sex:Female Visit Date:06/03/2023 Primary Care Physician: Attila Bernal MD Subjective The patient is being seen examined as a follow-up??for sepsis,??left lower extremity cellulitis andabscess, right lower extremity fourth digit osteomyelitis of the toe and infected diabetic foot ulcer, type 2 diabetes mellitus, history of depression.?? Patient today is currently n.p.o. awaiting to go to the OR for her suspected toe amputation. ??Overall is considerably improved and fevers and chills and rigors have resolved. ??Yesterday patient had an I&D of the left foot and an abscess and purulent discharge??was found??on MRI. Review of Systems Constitutional:?No??fevers,?No??chills,?No??sweats Eye:?No??recent visual problems ENT:?No??ear pain,?No??nasal congestion,?No??sore throat Respiratory:?No??shortness of breath,?No??cough Cardiovascular:?No??Chest pain,?No??palpitations,?No??syncope Gastrointestinal:?Nonausea,?No??vomiting,?No??diarrhea Genitourinary:?No??hematuria?? Ludni/Lymph:?No??bruising tendency,?No??swollen lymph glands Endocrine:?No??excessive thirst,??No??excessive hunger Musculoskeletal:??Positive for??right lower extremity??toe wound with drainage Integumentary:?No??rash,?No??pruritus,?No??abrasions Neurologic:??Alert & oriented X 4, positive for headache Psychiatric:?No??anxiety,?No??depression Objective Vitals & Measurements T:??36.4?C ??(Temporal Artery)?? TMIN:??36.4?C ??(Temporal Artery)?? TMAX:??37.8?C ??(Temporal Artery)?? HR:??89??(Peripheral)?? RR:??16?? BP:??129/64?? SpO2:??96%?? WT:??98.5??kg?? Pain Score:??0?? O2 Flow Rate:??4?? O2 Therapy:??Room air?? Physical Exam General:??Alert and oriented, well nourished,?No??acute distress Eye:??PERRL, EOMI,?Normal?conjunctiva HENT:??Normocephalic,??Normal?hearing, moist oral mucosa,?No??scleral icterus,?No??sinustenderness Neck:??Supple, non-tender,?No??carotid bruits,?No??JVD,?No??lymphadenopathy Lungs:??Clear to auscultation and percussion,?Non-labored?respiration Heart:?Normal?rate,?Regular??rhythm,?No??murmur,?No??gallop,?No??edema Abdomen:??Soft, non-tender, non-distended,?Normal?bowel sounds,?No??masses Musculoskeletal:??Right toe on the lateral aspect??with purulent discharge??and ulceration, left foot status post??I&D and bandages clean dry and intact Skin:??Skin is warm, dry and pink,?No??rashes,?No??lesions Neurologic:??Awake, alert and oriented X4, CN II-XII grossly??intact Psychiatric:??Cooperative, appropriate mood and affect Assessment/Plan 1.??Sepsis??A41.9 Sepsis and SIRS is improving but still present??with decrease in her WBC count. ??Primary source ofinfection is likely left??foot abscess which and incision and drainage was performed on 06/04/2023. ??Patient is n.p.o. today for??right foot fourth digit suspected amputation/debridement??for osteomyelitis. ??Continue vancomycin, cefepime and Flagyl. ??Appreciate surgical input??and recommendations. ??Continue with wound care.?? Follow-up on cultures. 2.??Depressive disorder??F32.A ??Continue bupropion. 3.??Cellulitis??L03.90 ??As above. 4.??Osteomyelitis of toe of right foot??M86.9 ??As above. 5.??Diabetic foot ulcer??E11.621 ??As above. 6.??Type 2 diabetes mellitus without complication??E11.9 ?Continue insulin glargine, insulin sliding scale, Chemstrips AC plus at bedtime and diabetic diet. 7.??Foot abscess, left??L02.612 ??As above. Non-pressure chronic ulcer of other part of unspecified foot with unspecified severity??L97.509 Orders: magnesium sulfate, 1 g = 100 mL, IV Piggyback, Soln-IV, Once, Administer over: 1 hr, First Dose: 06/05/23 10:00:00 EDT, Stop Date: 06/05/23 10:00:00 EDT, Physician Stop, Routine, 100 mL/hr metroNIDAZOLE, 500 mg = 100 mL, IV Piggyback, Soln-IV, every 8 hr, Antibiotic Indication Skin/soft tissue, abscess/purulent, Administer over: 0.5 hr, First Dose: 06/04/23 18:41:00 EDT, Routine, 200 mL/hr vancomycin, 1,500 mg = 300 mL, IV Piggyback, Soln, every 12 hr, Antibiotic Indication Abdominal abscess, Administer over: 2 hr, First Dose: 06/05/23 14:00:00 EDT, 150 mL/hr Basic Metabolic Panel, Blood, Routine, 06/05/23 6:00:00 EDT, every morning, Lab Collect C-Reactive Protein, Blood, Routine, 06/05/23 6:00:00 EDT, every morning, Lab Collect CBC w/ Diff, Blood, Routine, 06/05/23 6:00:00 EDT, every morning, Lab Collect NPO at Midnight, 06/04/23 16:47:00 EDT, Constant Indicator Wound Culture, Abscess, Foot L, Routine collect, RT - Routine, 06/04/23 16:47:00 EDT, Once, Nurse collect, Print Label Electronically Signed on 06/05/23 04:34 PM Ricardo Michelle MD * Ricardo Michelle MD: PERFORM Event Display: Progress Note - Physician Authored Date: [id number] CHARLEE DUNHAM :1965 Age:57 years Sex:Female Visit Date:06/03/2023 Primary Care Physician: Attila Bernal MD Subjective The patient is being seen examined as a follow-up for sepsis secondary to??left lower extremity cellulitis and??abscess as well as right lower extremity??fourth??digit??osteomyelitis of the toe/infected diabetic foot ulcer, type 2 diabetes mellitus, history of depression.?? Patient today still feels somewhat improved with decrease in rigors.?? MRI was planned for today and then revealed abscess in left lower extremity and bedside incision and drainage was performed on the left side. ??Patient states that her fevers and chills are improved.?? Review of Systems Constitutional:?Positive for??fevers,?No??chills,?No??sweats Eye:?No??recent visual problems ENT:?No??ear pain,?No??nasal congestion,?No??sore throat Respiratory:?No??shortness of breath,?No??cough Cardiovascular:?No??Chest pain,?No??palpitations,?No??syncope Gastrointestinal:?Nonausea,?No??vomiting,?No??diarrhea Genitourinary:?No??hematuria?? Ludin/Lymph:?No??bruising tendency,?No??swollen lymph glands Endocrine:?No??excessive thirst,??No??excessive hunger Musculoskeletal:??Positive for??right lower extremity??toe wound with drainage Integumentary:?No??rash,?No??pruritus,?No??abrasions Neurologic:??Alert & oriented X 4, positive for headache Psychiatric:?No??anxiety,?No??depression Objective Vitals & Measurements T:??37.8?C ??(Temporal Artery)?? TMIN:??35.4?C ??(Temporal Artery)?? TMAX:??37.8?C ??(Temporal Artery)?? HR:??80??(Peripheral)?? RR:??20?? BP:??113/61?? SpO2:??95%?? WT:??96.7??kg?? Pain Score:??0?? O2 Therapy:??Room air?? Physical Exam General:??Alert and oriented, well nourished,?No??acute distress Eye:??PERRL, EOMI,?Normal?conjunctiva HENT:??Normocephalic,??Normal?hearing, moist oral mucosa,?No??scleral icterus,?No??sinustenderness Neck:??Supple, non-tender,?No??carotid bruits,?No??JVD,?No??lymphadenopathy Lungs:??Clear to auscultation and percussion,?Non-labored?respiration Heart:?Normal?rate,?Regular??rhythm,?No??murmur,?No??gallop,?No??edema Abdomen:??Soft, non-tender, non-distended,?Normal?bowel sounds,?No??masses Musculoskeletal:??Right toe on the lateral aspect??with purulent discharge??and ulceration, left??plantar aspect of foot with??black appearing eschar??in the ball??of the metatarsal area??of the large toe??which is status post??amputation??with large callus on the left??plantar aspect??of the foot Skin:??Skin is warm, dry and pink,?No??rashes,?No??lesions Neurologic:??Awake, alert and oriented X4, CN II-XII grossly??intact Psychiatric:??Cooperative, appropriate mood and affect Assessment/Plan 1.??Sepsis??A41.9 Sepsis and SIRS is improving but SIRS is still present with leukocytosis which is down to 20. ??MRIof bilateral lower extremities and feet were obtained yesterday and revealed??left-sided abscess and right-sided what appears to be osteomyelitis of the fourth digit on the right foot.?? After these findings were seen patient was made n.p.o. and bedside incision and drainage was performed and??large amount of pus was removed. ??Follow-up on blood cultures. ??Follow-up on cultures of the abscess as well. ??Continue vancomycin and cefepime.?? We will add metronidazole for abscess component on theleft side. ??Continue with wound care.?N.p.o. after midnight for possible surgical intervention t omorrow??for osteomyelitis of right toe.?? Appreciate surgery's input and assistance and recommendations. 2.??Depressive disorder??F32.A Continue bupropion. 3.??Cellulitis??L03.90 As above. 4.??Osteomyelitis of toe of right foot??M86.9 As above. 5.??Diabetic foot ulcer??E11.621 As above. 6.??Type 2 diabetes mellitus without complication??E11.9 ??Continue insulin glargine, insulin sliding scale, Chemstrips AC plus at bedtime and diabetic diet. 7.??Foot abscess, left??L02.612 As above. Non-pressure chronic ulcer of other part of unspecified foot with unspecified severity??L97.509 Orders: metroNIDAZOLE, 500 mg = 100 mL, IV Piggyback, Soln-IV, every 8 hr, Antibiotic Indication Skin/soft tissue, abscess/purulent, First Dose: 06/04/23 18:41:00 EDT, Routine, 200 mL/hr ABO/Rh, Blood, Routine, 06/05/23 6:00:00 EDT, Once, Lab Collect Antibody Screen Gel, Blood, Routine, 06/05/23 6:00:00 EDT, Once, Lab Collect Basic Metabolic Panel, Blood, Routine, 06/05/23 6:00:00 EDT, every morning, Lab Collect C-Reactive Protein, Blood, Routine, 06/05/23 6:00:00 EDT, every morning, Lab Collect CBC w/ Diff, Blood, Routine, 06/05/23 6:00:00 EDT, every morning, Lab Collect Consult to Counter Pocket Trimmer, 06/03/23 18:58:00 EDT, Evaluate and Treat Consult to Counter Pocket Trimmer, 06/04/23 0:37:00 EDT, Evaluate and Treat Diet Order, 06/04/23 16:51:00 EDT, Diabetic, Medium (1,700-2,000 ruben) 75g CHO NPO at Midnight, 06/04/23 16:47:00 EDT, Constant Indicator Vancomycin Level, Blood, Timed Study, 06/05/23 7:00:00 EDT, Once, Lab Collect, 06/04/23, 1412 Wound Culture, Abscess, Foot L, Routine collect, RT - Routine, 06/04/23 16:47:00 EDT, Once, Nurse collect, Print Label Wound Culture, Wound, Foot R, Routine collect, RT - Routine, 06/03/23 16:33:00 EDT, Once, Nurse collect, Print Label Electronically Signed on 06/04/23 06:46 PM Ricardo Michelle MD History and physical note * Ricardo Michelle MD: PERFORM Event Display: History and Physical Authored Date: [id number] CHARLEE DUNHAMAN :1965 Age:57 years Sex:Female Visit Date:06/03/2023 Primary Care Physician: Attila Bernal MD Chief Complaint neck ache, chills, foot woonds History of Present Illness The patient is a 57-year-old female with past medical history of insulin- dependent type 2 diabetes mellitus, nicotine dependence, peripheral vascular disease status post left sided toe amputation, history of depression, GERD, obesity, history of migraines, anxiety and chronic back pain who presented to the emergency department with a chief complaint of fevers and rigors.?? The patient states thatshe has been generally feeling unwell over the past hour or so and she feels as though she started to shake after she had fallen approximately 1 hour prior to arrival to the emergency department.?? She states that she did hit her head but denies any loss of consciousness.?? She is complaining of some mild neck pain.?? She does have fevers and chills as well.?? Denies any chest pain, shortness of breath, abdominal pain, nausea, vomiting, diarrhea, lightness or dizziness.?? She does state she hasa chronic right toe wound which she states she has been on Bactrim for approximately 1 month for.?? She was seen in the clinic recently for this and she knows that she possibly required debridement.?? She does have a left-sided toe amputation in the past as well due to infected diabetic foot wound.?? In the emergency department patient's vital signs were remarkable for fever of 37.9, tachycardia with heart rate ranging 100 to 113 bpm, respiratory rate 18 to 25 breaths/min and blood pressures have been stable.?? Labs were significant for WBC count of 20.3 with left shift of 80%, hemoglobin 12.3, platelet count 383, sodium 133, potassium 3.2, chloride 96, creatinine 1.21, lactic acid of 2.4, troponin 7.8, procalcitonin 0.34.?? COVID testing was negative.?? CT of the brain was negative for any acute intracranial abnormalities but there was partial opacification of sphenoid sinus seen.?? X-ray of the left foot was significant for first toe amputation and fragmentation collapse of the heads of the third and fourth metatarsal.?? X-ray of the cervical spine revealed C7-T1 not well visualized evidence of calcification of left carotid artery region.?? X-ray of the thoracic spine revealed no displaced fracture.?? Chest x-ray with no acute findings. Review of Systems Constitutional:?Positive for??fevers,?No??chills,?No??sweats Eye:?No??recent visual problems ENT:?No??ear pain,?No??nasal congestion,?No??sore throat Respiratory:?No??shortness of breath,?No??cough Cardiovascular:?No??Chest pain,?No??palpitations,?No??syncope Gastrointestinal:?Nonausea,?No??vomiting,?No??diarrhea Genitourinary:?No??hematuria?? Ludin/Lymph:?No??bruising tendency,?No??swollen lymph glands Endocrine:?No??excessive thirst,??No??excessive hunger Musculoskeletal:??Positive for??right lower extremity??toe wound with drainage Integumentary:?No??rash,?No??pruritus,?No??abrasions Neurologic:??Alert & oriented X 4, positive for headache Psychiatric:?No??anxiety,?No??depression Physical Exam Vitals & Measurements T:??37.9?C ??(Temporal Artery)?? TMIN:??37.4?C ??(Temporal Artery)?? TMAX:??37.9?C ??(Temporal Artery)?? HR:??101??(Peripheral)?? RR:??18?? BP:??117/43?? SpO2:??98%?? HT:??164.000??cm?? WT:??93.500??kg?? BMI:??34.760?? Pain Score:??8?? O2 Therapy:??Room air?? General:??Alert and oriented, well nourished,?No??acute distress Eye:??PERRL, EOMI,?Normal?conjunctiva HENT:??Normocephalic,??Normal?hearing, moist oral mucosa,?No??scleral icterus,?No??sinustenderness Neck:??Supple, non-tender,?No??carotid bruits,?No??JVD,?No??lymphadenopathy Lungs:??Clear to auscultation and percussion,?Non-labored?respiration Heart:?Normal?rate,?Regular??rhythm,?No??murmur,?No??gallop,?No??edema Abdomen:??Soft, non-tender, non-distended,?Normal?bowel sounds,?No??masses Musculoskeletal:??Right toe on the lateral aspect??with purulent discharge??and ulceration, left??plantar aspect of foot with??black appearing eschar??in the ball??of the metatarsal area??of the large toe??which is status post??amputation??with large callus on the left??plantar aspect??of the foot Skin:??Skin is warm, dry and pink,?No??rashes,?No??lesions Neurologic:??Awake, alert and oriented X4, CN II-XII grossly??intact Psychiatric:??Cooperative, appropriate mood and affect Assessment/Plan 1.??Sepsis??A41.9 57-year-old female who??who presents to the emergency department with fevers and chills and rigors.??Patient is meeting sepsis and SIRS criteria with fever, leukocytosis which is severe at 28, tachycardia and tachypnea. ??Source of infection appears to be purulent cellulitis and infected diabetic foot ulcer with history of MRSA??and as well as concern for osteomyelitis with eschar on the plantaraspect of the left foot as well as a deep ulceration of the right foot with possible??visualizationof musculature of the toe on the right side. ??Due to the severity of the infection??as well as known peripheral vascular disease and history of amputation??and??immunocompromise state of??diabetes??and history of resistant bugs we will admit as inpatient. ??She also has failed outpatient treatmentwith Bactrim necessitating inpatient treatment and possible surgical intervention. ??Sepsis also severe with lactic acidosis.?? Normal saline at 75 mL/h. ??Vancomycin??with pharmacy to dose and cefepime.?? Surgical consultation has been placed and appreciate their assistance and recommendations. ??Follow-up on cultures??as there is also concern for bacteremia with her rigors.?? Will discuss with surgery and consider MRI of the bilateral feet??versus CT scan to rule out osteomyelitis. ?? 2.??Cellulitis??L03.90 As above. ?? 3.??Diabetic foot ulcer??E11.621 As above. ?? 4.??Osteomyelitis??M86.9 As above. ?? 5.??Type 2 diabetes mellitus without complication??E11.9 Continue insulin glargine, insulin sliding scale, Chemstrips AC plus at bedtime and diabetic diet. Ordered: ferrous sulfate, 325 mg = 1 tab, Oral, Tab, TID, First Dose: 06/03/23 21:00:00 EDT, Routine insulin glargine, 20 units = 0.2 mL, Subcutaneous, Soln, Daily, First Dose: 06/04/23 9:00:00 EDT, Routine ?? 6.??Depressive disorder??F32.A Continue bupropion. Ordered: buPROPion, 300 mg = 2 tab, Oral, Tab-ER, Daily, First Dose: 06/04/23 9:00:00 EDT, Routine DULoxetine, 60 mg = 2 cap, Oral, Cap-DR, Daily, First Dose: 06/04/23 9:00:00 EDT, Routine DULoxetine, 30 mg = 1 cap, Oral, Cap-DR, Daily, First Dose: 06/04/23 9:00:00 EDT, Routine ?? Non-pressure chronic ulcer of other part of unspecified foot with unspecified severity??L97.509 ?? Orders: acetaminophen, 650 mg = 2 tab, Oral, Tab, every 6 hr, PRN pain, First Dose: 06/03/23 16:33:00 EDT, Routine ARIPiprazole, 10 mg = 2 tab, Oral, Tab, Daily, First Dose: 06/04/23 9:00:00 EDT, Routine cefepime, 2 g = 1 EA, IV Piggyback, Powder-Inj, every 12 hr, Antibiotic Indication Skin/Soft- Tissue Infection, Administer over: 0.5 hr, First Dose: 06/03/23 16:33:00 EDT, Routine, 200 mL/hr folic acid, 1 mg = 1 tab, Oral, Tab, Daily, First Dose: 06/04/23 9:00:00 EDT, Routine gabapentin, 900 mg = 3 cap, Oral, Cap, TID, First Dose: 06/03/23 21:00:00 EDT, Routine lidocaine 1% injectable solution, 5 mg 0.5 mL, Intradermal, Soln, As Directed, PRN other (see comment), First Dose: 06/03/23 16:33:00 EDT loratadine, 10 mg = 1 tab, Oral, Tab, Daily, First Dose: 06/04/23 9:00:00 EDT, Routine omeprazole, 40 mg = 2 cap, Oral, Cap-DR, Daily, First Dose: 06/04/23 6:00:00 EDT, Routine ondansetron, 4 mg = 2 mL, IV Push, Soln, every 6 hr, PRN nausea/vomiting, First Dose: 06/03/23 16:33:00 EDT, Routine Normal Saline Flush, 10 mL, IV Push, Soln, every 12 hr (ingrid), First Dose: 06/03/23 21:00:00 EDT Sodium Chloride 0.9% 1,000 mL, Total Volume (mL): 1,000, 1,000 mL, Soln-IV, IV, 30 mL/hr, Start Date: 06/03/23 16:33:00 EDT, 92.99 kg, Populate Charting Weight From Order, 2.06, m2 Sodium Chloride 0.9% 1,000 mL, Total Volume (mL): 1,000, 1,000 mL, Soln-IV, IV, 75 mL/hr, Start Date: 06/03/23 16:33:00 EDT, 92.99 kg, Populate Charting Weight From Order, 2.06, m2 vancomycin, 750 mg = 150 mL, IV Piggyback, Soln, every 12 hr, Antibiotic Indication Abdominal abscess, Administer over: 1 hr, First Dose: 06/03/23 2:00:00 EDT, 150 mL/hr Ambulate as Tolerated, 06/03/23 16:33:00 EDT, PRN Consult to General Surgery, Routine, diabetic foot wound Diet Order, 06/03/23 16:33:00 EDT, Diabetic Notify Provider of Vital Signs, 06/03/23 16:33:00 EDT, SpO2 < 92% on 2L O2 NC, T > 101.5, HR > 100, HR < 50, SBP greater than 160, SBP less than 90, DBP greater than 90, DBP less than 50,Resp Rate greater than 30, Resp Rate less than 8, Constant Indicator PSO Admit to Inpatient, Semi-Private, Inpatient, Ricardo Michelle MD, 06/03/23 16:08:00 EDT, 06/03/2316:08:00 EDT, 06/03/23 16:08:00 EDT, 2 midnights or more Resuscitation Status, 06/03/23 16:33:00 EDT, Full Code Sequential Compression Devices (SCD's), 06/03/23 16:33:00 EDT, Constant Order, Intermittent pneumatic compression, 06/03/23 16:33:00 EDT Vancomycin Level, Blood, Routine, 06/04/23 7:00:00 EDT, Once, Lab Collect, 06/04/23, 0200 Vital Signs, 06/03/23 16:33:00 EDT, Constant order, every 4 hrs Weight, 06/03/23 16:33:00 EDT, PRN, Admission and Discharge Wound Culture, Wound, Foot R, Routine collect, RT - Routine, 06/03/23 16:33:00 EDT, Once, Nurse collect, Print Label Problem List/Past Medical History Ongoing Accidental poisoning Acute osteomyelitis of toe of left foot Adult health examination Allergic reaction to drug Allergies Anesthesia of skin Atopic dermatitis Biceps tendinitis Cellulitis Cellulitis Chronic pain Chronic, continuous use of opioids Depressed Depressive disorder Diabetes mellitus, type 2 Diabetic foot ulcer Eczema Flu vaccine need Foot pain, left GERD (gastroesophageal reflux disease) Hypertensive disorder Impingement syndrome of right shoulder region Low back pain Low back pain Methicillin resistant Staphylococcus aureus Migraine Nicotine dependence Obesity Open wound of fourth toe of right foot Open wound of toe of right foot Osteomyelitis Overweight Pain in right arm Postoperative infection [...] (procedure) (09/22/1997)???Amputation of toe???Tubal ligation Medications Inpatient acetaminophen, 650 mg= 2 tab, Oral, every 6 hr, PRN ARIPiprazole, 10 mg= 2 tab, Oral, Daily buPROPion, 300 mg= 2 tab, Oral, Daily cefepime DULoxetine, 60 mg= 2 cap, Oral, Daily DULoxetine, 30 mg= 1 cap, Oral, Daily ferrous sulfate, 325 mg= 1 tab, Oral, TID folic acid, 1 mg= 1 tab, Oral, Daily gabapentin, 900 mg= 3 cap, Oral, TID insulin glargine, 20 units= 0.2 mL, Subcutaneous, Daily lidocaine 1% injectable solution, 5 mg= 0.5 mL, Intradermal, As Directed, PRN loratadine, 10 mg= 1 tab, Oral, Daily Normal Saline Flush, 10 mL, IV Push, every 12 hr (ingrid) omeprazole, 40 mg= 2 cap, Oral, Daily ondansetron, 4 mg= 2 mL, IV Push, every 6 hr, PRN Sodium Chloride 0.9% 1,000 mL, 1000 mL, IV Sodium Chloride 0.9% 1,000 mL, 1000 mL, IV vancomycin, 750 mg= 150 mL, IV Piggyback, every 12 hr Home ARIPiprazole 10 mg oral tablet, 1 tab, Oral, Daily, 3 refills Bactrim DS 800 mg-160 mg oral tablet, 1 tab, Oral, TID, 1 refills Bactrim DS 800 mg-160 mg oral tablet, 1 tab, Oral, BID buPROPion 300 mg/24 hours (XL) oral tablet, [...] 800 mg oral tablet, 1 tab, Oral, TID Lantus Solostar Pen 100 units/mL subcutaneous solution, 38 units, Subcutaneous, Daily, 4 refills losartan 100 mg oral tablet, 100 mg= 1 tab, Oral, Daily, 4 refills metFORMIN 1000 mg oral tablet, 1000 mg= 1 tab, Oral, BID, 4 refills Narcan 4 mg/0.1 mL nasal spray, 1 sprays, Nasal, Once omeprazole 40 mg oral delayed release capsule, 40 mg= 1 cap, Oral, Daily, 4 refills ondansetron 4 mg oral tablet, disintegrating, 4 mg= 1 tab, Oral, every 8 hr, PRN One Touch Verio, See instructions, 4 refills OneTouch Delica Plus lancest 30 gauge, See instructions, 4 refills oxyCODONE-acetaminophen 10 mg-325 mg oral tablet, 1 tab, Oral, BID, PRN Ozempic (1 mg dose) 4 mg/3 mL subcutaneous solution, 1 mg, Subcutaneous, every week pramipexole 1.5 mg oral tablet, See Instructions, 4 refills Relion Pen Lefor 30G 8mm, 1 EA, N/A, As Directed, PRN, 4 refills Allergies Bee Stings??(Anaphylaxis) Benzoin Tincture ANIMAL DANDER??(Eye [...] Recorded hepatitis B adult vaccine 09/22/2002 Recorded Lab Results Test Name Test Result Date/Time WBC 28.3 x10^3/mcL 06/03/2023 12:46 EDT RBC 4.1 x10^6/mcL 06/03/2023 12:46 EDT Hgb 12.3 g/dL 06/03/2023 12:46 EDT Hct 35.8 % 06/03/2023 12:46 EDT MCV 86.9 fL 06/03/2023 12:46 EDT MCH 29.9 pg 06/03/2023 12:46 EDT MCHC 34.4 g/dL 06/03/2023 12:46 EDT RDW-CV 12.2 % 06/03/2023 12:46 EDT Platelets 383 x10^3/mcL 06/03/2023 12:46 EDT Segs Man 88 % 06/03/2023 12:46 EDT Lymph Man 7 % 06/03/2023 12:46 EDT Bucks Man 5 % 06/03/2023 12:46 EDT Eos Man 0 % 06/03/2023 12:46 EDT Baso Man 0 % 06/03/2023 12:46 EDT Band Man 0 % 06/03/2023 12:46 EDT Abs Neut Man 24.9 x10^3/mcL 06/03/2023 12:46 EDT RBC Morph Normal 06/03/2023 12:46 EDT Slide Review Man Diff 06/03/2023 12:46 EDT Prothrombin Time 11.3 seconds 06/03/2023 12:45 EDT INR 1.1 06/03/2023 12:45 EDT Partial Thromboplastin Time 32 seconds 06/03/2023 12:45 EDT Sodium Level 133 mmol/L 06/03/2023 12:45 EDT Potassium Level 3.2 mmol/L 06/03/2023 12:45 EDT Chloride Level 96 mmol/L 06/03/2023 12:45 EDT CO2 26 mmol/L 06/03/2023 12:45 EDT Alk Phos 133 unit/L 06/03/2023 12:45 EDT AST 12 unit/L 06/03/2023 12:45 EDT ALT 20 unit/L 06/03/2023 12:45 EDT BUN 12 mg/dL 06/03/2023 12:45 EDT Glucose Level 115 mg/dL 06/03/2023 12:45 EDT Creatinine Level 1.21 mg/dL 06/03/2023 12:45 EDT eGFR AA 53 06/03/2023 12:45 EDT eGFR Non-AA 53 06/03/2023 12:45 EDT Calcium Level 9.3 mg/dL 06/03/2023 12:45 EDT Protein Total 7.6 g/dL 06/03/2023 12:45 EDT Albumin Level 3.3 g/dL 06/03/2023 12:45 EDT Bilirubin Total 0.6 mg/dL 06/03/2023 12:45 EDT Lactic Acid Lvl 2.4 mmol/L 06/03/2023 12:45 EDT Glucose POC 104 mg/dL 06/03/2023 12:29 EDT Troponin-I 7.8 pg/mL 06/03/2023 12:45 EDT Procalcitonin 0.34 ng/mL 06/03/2023 12:45 EDT UA Color YELLOW. 06/03/2023 12:59 EDT UA Appear CLEAR. 06/03/2023 12:59 EDT UA Glucose NEGATIVE 06/03/2023 12:59 EDT UA Bili NEGATIVE 06/03/2023 12:59 EDT UA Ketones NEGATIVE 06/03/2023 12:59 EDT UA Spec Grav 1.010 06/03/2023 12:59 EDT UA Blood TRACE. 06/03/2023 12:59 EDT UA pH 6.5 06/03/2023 12:59 EDT UA Protein NEGATIVE 06/03/2023 12:59 EDT UA Urobilinogen 0.2 Uro 06/03/2023 12:59 EDT UA Nitrite NEGATIVE 06/03/2023 12:59 EDT UA Leuk Est NEGATIVE 06/03/2023 12:59 EDT UA Culture Ind?. Not Indicated 06/03/2023 12:59 EDT UA WBC 0-3 06/03/2023 12:59 EDT UA RBC 0-2 06/03/2023 12:59 EDT UA Squam Epithelial None Seen 06/03/2023 12:59 EDT UA Mucous None Seen 06/03/2023 12:59 EDT UA Bacteria None Seen 06/03/2023 12:59 EDT SARS-CoV-2 (COVID-19) RNA (ID Now) Not Detected 06/03/2023 16:11 EDT Employed in healthcare? Unknown 06/03/2023 16:11 EDT Symptomatic as defined by CDC? Unknown 06/03/2023 16:11 EDT In ICU? Unknown 06/03/2023 16:11 EDT Group care resident? Unknown 06/03/2023 16:11 EDT status? Unknown 06/03/2023 16:11 EDT Electronically Signed on 06/03/23 06:27 PM Ricardo Michelle MD Discharge summary * Ricardo Michelle MD: PERFORM Event Display: Discharge Summary Authored Date: [id number] CHARLEE DUNHAM :1965 Age:57 years Sex:Female Visit Date:06/03/2023 Primary Care Physician: Attila Bernal MD Hospital Course The patient is a 57-year-old female with past medical history of insulin- dependent diabetes mellitus, nicotine dependence, peripheral vascular disease status post left-sided toe amputation, history of depression, GERD, obesity, history of migraines, anxiety and chronic back pain who presents to theemergency department on June 03, 2023 with a chief complaint of fevers and chills.?? Patient was admitted to the hospital for sepsis secondary to cellulitis of the left lower extremity and diabetic ulcer on the fourth digit of the right foot.?? Patient was started on broad-spectrum antibioticswith vancomycin, cefepime and Flagyl was also added later.?? MRI of bilateral feet were obtained torule osteomyelitis on the left foot there was a significantly large abscess and incision and drainage was performed on June 04, 2023 large amount of pustular drainage was removed with cultures growing MRSA.?? On June 05, 2023 patient had the toe amputated as there were signs of osteomyelitis on the MRI and as she was failing antibiotic therapy.?? On the MRI of the left foot there is also superiorly dislocated second MTP joint and MTP fusion with fracture deformity disease and collapseof the articular surfaces of the third and fourth metatarsal head with reactive edema and ulceration of the plantar aspect of the foot adjacent to the second metatarsal head.?? Patient continued to improve and sepsis and SIRS resolved and her WBC count trended downwards from 28.3 down to 7.9 duringher hospitalization.?? She also had some electrolyte abnormalities which were repleted.?? Patient will continue with daily wound care dressing changes for which she has been taught and will continue forward and to include cleansing with saline solution as well as using ABD pads, 4 x 4 gauze and Acebandages.?? Sensitivities have returned and will continue forward with doxycycline 100 mg p.o. twice daily and Augmentin for abscess and broader range for bacteria although likely related to the MRSA.?? Patient to follow-up with her PCP within 1 week.?? Patient to follow-up with surgery in 7 days.?? Patient to also follow-up with podiatry as soon as possible within 1 to 2 weeks.?? Can also consider consultation with vascular surgery for further work-up and to possibly prevent further need for surgical intervention.?? At the time of discharge patient was stable to return home.?? For her other chronic medical conditions her home medications were continued. Physical Exam Vitals & Measurements T:??36.5?C ??(Temporal Artery)?? TMIN:??36?C ??(Temporal Artery)?? TMAX:??36.9?C ??(Temporal Artery)?? HR:??53??(Peripheral)?? RR:??18?? BP:??132/88?? SpO2:??97%?? WT:??54.5??kg?? Pain Score:??0?? O2 Therapy:??Room air?? General:??Alert and oriented, well nourished,?No??acute distress Eye:??PERRL, EOMI,?Normal?conjunctiva HENT:??Normocephalic,??Normal?hearing, moist oral mucosa,?No??scleral icterus,?No??sinustenderness Neck:??Supple, non-tender,?No??carotid bruits,?No??JVD,?No??lymphadenopathy Lungs:??Clear to auscultation and percussion,?Non-labored?respiration Heart:?Normal?rate,?Regular??rhythm,?No??murmur,?No??gallop,?No??edema Abdomen:??Soft, non-tender, non-distended,?Normal?bowel sounds,?No??masses Musculoskeletal:??Right foot status post amputation of fourth digit??with bandage clean dry and intact, left foot status post??I&D and bandages clean dry and intact Skin:??Skin is warm, dry and pink,?No??rashes,?No??lesions Neurologic:??Awake, alert and oriented X4, CN II-XII grossly??intact Psychiatric:??Cooperative, appropriate mood and affect Procedure/Surgical History ???Amputation great toe (12/19/2022)???Arthroplasty, interposition, intercarpal or carpometacarpal joints (04/17/2021)???Rotator cuff repair (09/22/2016)???Hysterectomy (09/22/2000)??? section (procedure) (09/22/1997)???Amputation of toe???Tubal ligation Social History Alcohol Never Electronic Cigarette/Vaping Electronic Cigarette Use: Use, within last 90 days. Type: Nicotine infused.- Comments: occasionally Substance Use Never Tobacco Current everyday tobacco user Tobacco Use:. 6 cigarettes daily per day. Never Smokeless Tobacco use:. Discharge Plan Discharge planning greater than 30 minutes. 1.??Sepsis??A41.9 The patient is a 57-year-old female with past medical history of insulin- dependent diabetes mellitus, nicotine dependence, peripheral vascular disease status post left-sided toe amputation, history of depression, GERD, obesity, history of migraines, anxiety and chronic back pain [facility] with a chief complaint of fevers and chills.?? Patient was admitted to the hospital for sepsis secondary to cellulitis of the left lower extremity and diabetic ulcer on the fourth digit of the right foot.?? Patient was started on broad-spectrum antibioticswith vancomycin, cefepime and Flagyl was also added later.?? MRI of bilateral feet were obtained torule osteomyelitis on the left foot there was a significantly large abscess and incision and drainage was performed on June 04, 2023 large amount of pustular drainage was removed with cultures growing MRSA.?? On June 05, 2023 patient had the toe amputated as there were signs of osteomyelitis on the MRI and as she was failing antibiotic therapy.?? On the MRI of the left foot there is also superiorly dislocated second MTP joint and MTP fusion with fracture deformity disease and collapseof the articular surfaces of the third and fourth metatarsal head with reactive edema and ulceration of the plantar aspect of the foot adjacent to the second metatarsal head.?? Patient continued to improve and sepsis and SIRS resolved and her WBC count trended downwards from 28.3 down to 7.9 duringher hospitalization.?? She also had some electrolyte abnormalities which were repleted.?? Patient will continue with daily wound care dressing changes for which she has been taught and will continue forward and to include cleansing with saline solution as well as using ABD pads, 4 x 4 gauze and Acebandages.?? Sensitivities have returned and will continue forward with doxycycline 100 mg p.o. twice daily and Augmentin for abscess and broader range for bacteria although likely related to the MRSA.?? Patient to follow-up with her PCP within 1 week.?? Patient to follow-up with surgery in 7 days.?? Patient to also follow-up with podiatry as soon as possible within 1 to 2 weeks.?? Can also consider consultation with vascular surgery for further work-up and to possibly prevent further need for surgical intervention.?? At the time of discharge patient was stable to return home.?? For her other chronic medical conditions her home medications were continued. 2.??Depressive disorder??F32.A 3.??Cellulitis??L03.90 4.??Osteomyelitis of toe of right foot??M86.9 5.??Diabetic foot ulcer??E11.621 6.??Type 2 diabetes mellitus without complication??E11.9 7.??Foot abscess, left??L02.612 Non-pressure chronic ulcer of other part of unspecified foot with unspecified severity??L97.509 Orders: amoxicillin-clavulanate 875 mg-125 mg oral tablet, 1 tab, Oral, every 12 hr, # 20 tab, 0 Refill(s),Pharmacy: [id number], 164, cm, 06/03/23 17:35:00 EDT, Height/Length Dosing, 93.5, kg, 06/03/23 17:35:00 EDT, Weight Dosing doxycycline hyclate 100 mg oral capsule, 100 mg = 1 cap, Oral, BID, # 20 cap, 0 Refill(s), Pharmacy: [id number], 164, cm, 06/03/23 17:35:00 EDT, Height/Length Dosing, 93.5, kg, 06/03/23 17:35:00 EDT, Weight Dosing Blood Culture, Blood, Routine collect, RT - Routine, 06/06/23 9:25:00 EDT, Once, Lab Collect, PrintLabel Blood Culture, Blood, Routine collect, RT - Routine, 06/06/23 9:25:00 EDT, Once, Lab Collect, PrintLabel Diet Order, 06/05/23 19:08:00 EDT, Diabetic Discharge Activity Restrictions, as tolerated Discharge Diet Instruction, Diabetic Diet Discharge Patient, 06/06/23 11:04:00 EDT, Home Independently Discharge Surgical Wound Instructions, Right foot 4th toe, cleanse wound skintegrity, adaptic to wound bed, calcium alginate, wrap with gauze All Diagnoses This Visit Sepsis Depressive disorder Cellulitis Osteomyelitis of toe of right foot Diabetic foot ulcer Type 2 diabetes mellitus without complication Foot abscess, left Non-pressure chronic ulcer of other part of unspecified foot with unspecified severity Patient Education Diabetes Mellitus and Foot Care Cellulitis, Adult, [id number] Sepsis, Diagnosis, Adult Follow Up With When Contact Information [facility] MD 06/11/2023 02:45 AM EDT [address] [place] [address]- Additional Instructions: Surgical follow up Attila Bernal MD Within 1 to 2 weeks [facility] Primary [address] [address]- Additional Instructions: Hospital follow up Medication Reconciliation New Prescription amoxicillin-clavulanate (amoxicillin-clavulanate 875 mg-125 mg oral tablet)1 tab Oral (given by mouth) every 12 hours for 10 Days. Refills: 0. ?? doxycycline (doxycycline hyclate 100 mg oral capsule)1 Capsules Oral (given by mouth) 2 times a dayfor 10 Days. Refills: 0. ?? Unchanged ARIPiprazole (ARIPiprazole 10 mg oral tablet)1 [...] 4. ?? Durable Medical Equipment for Prescription ([employer] DelElance Plus lancest 30 gauge)Test twice daily.Refills: 4. ?? ferrous sulfate (ferrous sulfate 325 mg (65 mg elemental iron) oral tablet)1 tab Oral (given by mouth) 3 times a day. Refills: 4. ?? folic acid (folic acid 1 mg oral tablet)1 tab Oral (given by mouth) every day. Refills: 4. ?? gabapentin (gabapentin 300 [...] pen needles 30G 8 mm (Relion Pen [place] 30G 8mm)1 Each Not Applicable As Directed [...] (under the skin) every week. Refills: 0. Electronically Signed on 06/06/23 06:45 PM Ricardo Michelle MD Patient Care team information Care Team Personnel Name: Attila Bernal MD Position: Physician Member Role: Informed Provider Address: Address: [address] Name: Sunshine Hobbs Position: Nurse Member Role: ED Nurse Name: Reyes Parrish MD Position: Physician Member Role: ED Physician Care Team Related Persons Name: EDGAR GUADALUPE Name: SUPA MOON Name: HOSSEIN MCNEIL Name: WILLA MCNEIL
--- OUTSIDE RECORDS SUMMARY | 2023-07-14 09:28 | XMS_ITS | Continuity of Care Document ---
Author Name Unknown Organization [facility] Address [address] [place] [address] Care Team Providers Care Food Court Team Member Name Role Phone Attila Bernal Primary Care Physician Encounter [facility] Date(s): 06/26/23 - 06/26/23 [facility] [address] [place] [address] Discharge Disposition: Home or Self Care Attending Physician: Lester Brito DO Admitting Physician: Lester Brito DO Referring Physician: Lester Briot DO Allergies, Adverse Reactions, Alerts Substance Reaction Severity [...] 90 tab, 3 Refill(s), Pharmacy: [facility] [id number], 164, cm, 12/19/22 12:43:00 EDT, Height/Length Dosing, 100, kg, 12/19/22 12:43:00 EDT, Weight Dosing Start Date: 05/01/23 Status: Ordered buPROPion 300 mg/24 hours (XL) oral tablet, extended release 300 mg = 1 tab, Oral, Daily, # 90 tab, 4 Refill(s), Pharmacy: [facility] Start Date: 05/15/22 Status: Ordered cetirizine 10 mg oral tablet 10 mg = 1 tab, Oral, Daily, # 90 tab, 4 Refill(s), Pharmacy: [facility] Start Date: 05/15/22 Status: Ordered DULoxetine 30 mg oral delayed release capsule 30 mg = 1 cap, Oral, Daily, # 90 cap, 4 Refill(s), Pharmacy: [facility] Start Date: 05/15/22 Stop Date: 08/08/23 Status: Ordered DULoxetine 60 mg oral delayed release capsule 60 mg = 1 cap, Oral, Daily, Take in addition to 30 mg for a total dose of 90 mg, # 90 cap, 4 Refill(s), Pharmacy: [facility] Start Date: 05/15/22 Status: Ordered ferrous sulfate 325 mg (65 mg elemental iron) oral tablet 325 mg = 1 tab, Oral, TID, # 270 tab, 4 Refill(s), Pharmacy: [facility] Start Date: 05/22/22 Status: Ordered gabapentin 300 mg oral capsule 900 mg = 3 cap, Oral, TID, TAKE 3 CAPSULES BY MOUTH THREE TIMES DAILY, # 270 cap, 3 Refill(s), Pharmacy: [facility] [address], 164, cm, 12/19/22 12:43:00 EDT, Height/Length Dosing, 100, kg, 12/20/2311:43:00 EDT, Weight Dosing Start Date: 01/23/23 Status: Ordered ibuprofen 800 mg oral tablet 1 tab, Oral, TID, # 90 tab, 5 Refill(s), Pharmacy: [facility] [address], 167, cm, 12/06/22 10:27:00 EDT, Height/Length Dosing, 99.79, kg, 12/06/22 10:27:00 EDT, Weight Dosing Start Date: 12/09/22 Status: Ordered Lantus Solostar Pen 100 units/mL subcutaneous solution 38 units, Subcutaneous, Daily, Inject 38 units daily and titrate up by 2 units every 3-4 days untilFBS is below 130., # 15 mL, 4 Refill(s), Pharmacy: [facility] [address], 164, cm, 12/19/22 12:43:00 EDT, Height/Length Dosing, 100, kg, 12/19/22 12:43:00 EDT, Weight Dosing Start Date: 01/31/23 Status: Ordered losartan 100 mg oral tablet 100 mg = 1 tab, Oral, Daily, # 90 tab, 4 Refill(s), Pharmacy: [facility] [id number] Start Date: 05/15/22 Status: Ordered metFORMIN 1000 mg oral tablet 1,000 mg = 1 tab, Oral, BID, # 180 tab, 4 Refill(s), Pharmacy: [facility] [id number] Start Date: 05/15/22 Status: Ordered Narcan 4 mg/0.1 mL nasal spray 1 sprays, Nasal, Once, may repeat every 2 to 3 minutes until patient responds, # 2 EA, 0 Refill(s) Start Date: 02/26/22 Status: Ordered omeprazole 40 mg oral delayed release capsule 40 mg = 1 cap, Oral, Daily, # 90 cap, 4 Refill(s), Pharmacy: [facility] [id number] Start Date: 05/15/22 Status: Ordered ondansetron 4 [...] instructions, # 200 strip, 4 Refill(s), Pharmacy: [facility] Start Date: 05/15/22 Status: Ordered OneTouch Delica Plus lancest 30 gauge OneTouch Delica Plus lancest 30 gauge, Test twice daily, Supply, See instructions, # 200 EA, 4 Refill(s), Pharmacy: [facility] Start Date: 12/31/22 Status: Ordered oxyCODONE-acetaminophen 10 mg-325 mg oral tablet 1 tab, Oral, BID, PRN as needed for pain, # 56 tab, 0 Refill(s), Pharmacy: [id number], 164, cm, 12/19/22 12:43:00 EDT, Height/Length Dosing, 100, kg, 12/19/22 12:43:00 EDT, Weight Dosing Start Date: 05/30/23 Stop Date: 06/27/23 Status: Ordered Ozempic (1 mg dose) 4 mg/3 mL subcutaneous solution 1 mg =, Subcutaneous, every week, # 3 mL, 1 Refill(s), Pharmacy: [facility], 165, cm, 06/24/23 20:43:00 EDT, Height/Length Dosing, 92.5, kg, 06/24/23 20:43:00 EDT, Weight Dosing Start Date: 06/26/23 Status: Ordered pramipexole 1.5 mg oral tablet See Instructions, Take 1 tablet daily at bedtime, # 90 tab, 4 Refill(s), Pharmacy: [id number], 164, cm, 12/19/22 12:43:00 EDT, Height/Length Dosing, 100, kg, 12/19/22 12:43:00 EDT, Weight Dosing Start Date: 01/23/23 Status: Ordered Relion Pen [place] 30G 8mm Relion Pen [place] 30G 8mm, Use one daily, Supply, 1 EA, N/A, As Directed, PRN As needed, # 100 EA,4 Refill(s), Pharmacy: [id number] Start Date: 03/03/23 Status: Ordered Problem List [...] following Wound Culture from Wound collected on [id number] EST 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 2From 11-19-2021 [...] shoulder RCR, Biceps tenodesis, ORIF Clavicle 2015 [id number]; 1994; 1988 4left great toe, along with debridement Results Laboratory List Name Date C-Reactive Protein High Sensitivity 06/26 Comprehensive Metabolic Panel 06/26/23 Hemoglobin 06/26/23 Vancomycin Level 06/26/23 Most recent to oldest [Reference Range]: 1 BUN [7-18 mg/dL] 9 mg/dL (06/26/23 12:12 PM) Glucose Level [74-106 mg/dL] 147 mg/dL *HI* (06/26/23 12:12 PM) Potassium Level [3.5-5.1 mmol/L] 3.1 mmo l/L *LOW* (06/26/23 12:12 PM) AST [15-37 unit/L] 14 unit/L *LOW* (06/26/23 12: PM) ALT [14-59 unit/L] 21 unit/L (06/26/23 12:12 PM) Sodium Level [136-145 mmol/L] 141 mmol/L (06/26/23 12:12 PM) Vancomycin Level Random [18-26 ug/mL] 6 ug/mL *LOW* (06/26/23 12:12 PM) Calcium Level [8.5-10.1 mg/dL] 8.8 mg/dL (06/26/23 12:12 PM) Albumin Level [3.4-5.0 g/dL] 3.0 g/dL *LOW* (06/26/23 12:12 PM) Protein Total [6.4-8.2 g/dL] 7.1 g/dL (06/26/23 12:12 PM) Bilirubin Total [0.2-1.0 mg/dL] 0.3 mg/d L (06/26/23 12:12 PM) Hgb [12.0-16.0 g/dL] 10.7 g/dL *LOW* (06/26/23 12:12 PM) Alk Phos [46-146 unit/L] 101 unit/L (06/26/23 12:12 PM) CO2 [21-32 mmol/L] 27 mmol/L (06/26/23 12:12 PM) eGFR Non-AA [>=60] 103 (06/26/23 12:12 PM) eGFR AA [>=60] 103 (06/26/23 12:12 PM) Chloride Level [98-107 mmol/L] 105 mmol/ L (06/26/23 12:12 PM) CRP High Sens [0.00-3.00 mg/L] 12.25 mg/ L 1 *HI* (06/26/23 12:12 PM) Olamide Ds Dt. 26-JUN-2023 *Unknown* (06/26/23 12:12 PM) Olamide Ds Tm. 0630 *NA* (06/26/23 12:12 PM) Creatinine Level [0.55-1.02 mg/dL] 0.65 mg/dL (06/26/23 12:12 PM) 1Interpretive Data: Risk Level Age/Sex Range Units Less Risk All <1.0 mg/L Average Risk All 1.0 - 3.0 mg/L High Risk All >3.0 mg/L *Indeterminate All >10.0 mg/L *May be an indication of inflammation or infection. Social History Social History Type Response Tobacco Former tobacco user Tobacco Use:. Sex Female Patient Care team information Care Team Personnel Name: Attila Bernal MD Position: Physician Member Role: Informed Provider Address: Address: [address] Care Team Related Persons Name: EDGAR GUADALUPE Name: SUPA MOON Name: HOSSEIN MCNEIL Name: WILLA MCNEIL
--- OUTSIDE RECORDS SUMMARY | 2023-07-14 09:28 | XMS_ITS | Continuity of Care Document ---
Author Name Unknown Organization [facility] Address [address] [place] [address] Care Team Providers Care Fitness Sales Consultant Name Role Phone Attila Bernal Primary Care Physician [phone] [facility] - 07/24/[address] [address] Encounter Diagnosis Diabetic ulcer of left foot(Discharge Diagnosis) - 07/24/22 Non-pressure chronic ulcer of other part of left foot with unspecified severity (Discharge Diagnosis) - 07/24/22 Discharge Disposition: Home or Self Care Attending Physician: Mauricio Donato MD Admitting Physician: Mauricio Donato MD Referring Physician: Mauricio Donato MD Allergies, Adverse Reactions, Alerts Substance Reaction Severity Status HOUSE DUST Eye swelling Unknown Active ANIMAL DANDER Eye swelling Unknown Active INSECT VENOM Anaphylactic reaction Unknown Active LATEX Skin rash Unknown Active codeine 1 Loss of consciousness Unknown Active morphine Vomiting Unknown Active 1patient states turns green and passes out Assessment and Plan Future Appointments Future Scheduled Tests Radiology* US Lower Ext Arterial Duplex Bilateral 07/12/22 Immunizations Given and Recorded Vaccine Date Status Refusal Reason SARS-CoV-2 (COVID-19) mRNA-1273 vaccine 08/06/21 R ecorded [...] Record ed tetanus/diphth/pertuss (Tdap) adult/adol 02/22/15 Recorded influenza virus vaccine, inactivated 09/22/14 Toy rded influenza virus vaccine, inactivated 09/22/12 Toy rded hepatitis B adult vaccine 09/22/02 Recorded Medications ARIPiprazole 5 mg oral tablet 5 mg = 1 tab, Oral, Daily, # 90 tab, 4 Refill(s), Pharmacy: [facility] [id number] Start Date: 05/15/22 Status: Ordered Bactrim DS 800 mg-160 mg oral tablet 1 tab, Oral, BID, # 28 tab, 0 Refill(s), Pharmacy: [facility] [id number] Start Date: 07/24/22 Stop Date: 08/07/22 Status: Ordered Bactrim DS 800 mg-160 mg oral tablet 1 tab, Oral, BID, # 14 tab, 0 Refill(s), Pharmacy: [facility] [id number] Start Date: 06/13/22 Stop Date: 06/20/22 Status: Ordered BD Ultra finr Pen needles BD Ultra finr Pen needles, Use one daily, Supply, 1 EA, N/A, As Directed, PRN As needed, # 100 EA, 4 Refill(s), Pharmacy: [facility] [id number] Start Date: 05/20/22 Status: Ordered Buphenyl 500 mg oral tablet 0 Refill(s) Start Date: 05/13/22 Status: Ordered buPROPion 150 mg =, Oral, Daily, takes with a 300 mg tablet, 0 Refill(s) Start Date: 05/13/22 Status: Ordered buPROPion 150 mg/24 hours (XL) oral tablet, extended release 150 mg 1 tab, Oral, every 24 hr, # 90 tab, 4 Refill(s), Pharmacy: [facility] [id number] Start Date: 05/15/22 Status: Ordered buPROPion 300 mg/24 hours (XL) oral tablet, extended release 300 mg = 1 tab, Oral, Daily, # 60 tab, 0 Refill(s) Start Date: 02/26/22 Status: Ordered buPROPion 300 mg/24 hours (XL) oral tablet, extended release 300 mg = 1 tab, Oral, Daily, # 90 tab, 4 Refill(s), Pharmacy: [facility] [id number] Start Date: 05/15/22 Status: Ordered cetirizine 10 mg oral tablet 10 mg = 1 tab, Oral, Daily, # 90 tab, 4 Refill(s), Pharmacy: [facility] [id number] Start Date: 05/15/22 Status: Ordered clindamycin 300 mg oral capsule 300 mg = 1 cap, Oral, TID, # 30 cap, 0 Refill(s), Pharmacy: [id number] Start Date: 05/13/22 Stop Date: 05/23/22 Status: Ordered DULoxetine 30 mg oral delayed release capsule TAKE 1 CAPSULE BY MOUTH ONCE DAILY, TAKE IN ADDITION TO 60 MG FOR A TOTAL DAILY DOSE OF 90 MG Start Date: 02/26/22 Status: Ordered DULoxetine 30 mg oral delayed release capsule 30 mg = 1 cap, Oral, Daily, # 90 cap, 4 Refill(s), Pharmacy: [facility] [id number] Start Date: 05/15/22 Stop Date: 08/08/23 Status: Ordered DULoxetine 60 mg oral delayed release capsule TAKE 1 CAPSULE BY MOUTH ONCE DAILY DIRECTED Start Date: 02/26/22 Status: Ordered DULoxetine 60 mg oral delayed release capsule 60 mg = 1 cap, Oral, Daily, Take in addition to 30 mg for a total dose of 90 mg, # 90 cap, 4 Refill(s), Pharmacy: [facility] [id number] Start Date: 05/15/22 Status: Ordered ferrous sulfate 325 mg (65 mg elemental iron) oral tablet 325 mg = 1 tab, Oral, TID, # 270 tab, 4 Refill(s), Pharmacy: [facility] [id number] Start Date: 05/22/22 Status: Ordered folic acid [...] Daily, # 90 tab, 4 Refill(s), Pharmacy: [facility] [id number] Start Date: 05/15/22 Status: Ordered gabapentin 300 mg oral capsule 900 mg = 3 cap, Oral, TID, TAKE 3 CAPSULES BY MOUTH THREE TIMES DAILY, # 270 cap, 3 Refill(s), Pharmacy: [facility] [id number] Start Date: 05/15/22 Status: Ordered ibuprofen 800 mg oral tablet 800 mg = 1 tab, Oral, TID, # 90 tab, 0 Refill(s) Start Date: 02/26/22 Status: Ordered ibuprofen 800 mg oral tablet 1 tab, Oral, TID, # 90 tab, 4 Refill(s), Pharmacy: [facility] [id number] Start Date: 05/15/22 Status: Ordered Lantus Solostar Pen 100 units/mL subcutaneous solution 10 units =, Subcutaneous, Daily, Inject 10 units daily and titrate up by 2 units every 3-4 days until FBS is below 130., # 3 mL, 4 Refill(s), Pharmacy: [facility] [id number] Start Date: 05/15/22 Status: Ordered losartan 100 mg oral tablet 100 mg = 1 tab, Oral, Daily, # 90 tab, 0 Refill(s) Start Date: 02/26/22 Status: Ordered losartan 100 mg oral tablet 100 mg = 1 tab, Oral, Daily, # 90 tab, 4 Refill(s), Pharmacy: [facility] [id number] Start Date: 05/15/22 Status: Ordered metFORMIN 1000 mg oral tablet 1,000 mg = 1 tab, Oral, BID, # 180 tab, 0 Refill(s) Start Date: 02/26/22 Status: Ordered metFORMIN 1000 mg oral tablet 1,000 mg = 1 tab, Oral, BID, # 180 tab, 4 Refill(s), Pharmacy: [facility] [id number] Start Date: 05/15/22 Status: Ordered methotrexate 2.5 mg oral tablet TAKE 2 TABLETS BY MOUTH ONCE A WEEK Start Date: 02/26/22 Status: Ordered methotrexate 2.5 mg oral tablet 5 mg = 2 tab, Oral, every week, # 30 tab, 3 Refill(s), Pharmacy: [facility] [id number] Start Date: 05/15/22 Status: Ordered Narcan 4 [...] Daily, # 90 cap, 4 Refill(s), Pharmacy: [facility] [address] Start Date: 05/15/22 Status: Ordered One Touch Verio One Touch Verio, Test twice daily, Supply, See instructions, # 200 strip, 4 Refill(s), Pharmacy: [facility] [id number] Start Date: 05/15/22 Status: Ordered OneTouch Delica Plus lancest 30 gauge OneTouch Delica Plus lancest 30 gauge, Test twice daily, Supply, See instructions, # 200 EA, 4 Refill(s), Pharmacy: [facility] [id number] Start Date: 05/15/22 Status: Ordered OneTouch Verio OneTouch Verio, Test twice a day, Supply, See instructions, # 1 EA, 0 Refill(s), Pharmacy: [facility] [id number] Start Date: 05/15/22 Status: Ordered oxyCODONE-acetaminophen 10 mg-325 mg oral tablet 1 tab, Oral, BID, PRN as needed for pain, # 56 tab, 0 Refill(s), Pharmacy: [facility] [id number] Start Date: 07/22/22 Stop Date: 08/19/22 Status: Ordered Ozempic 2 mg/1.5 mL (0.25 mg or 0.5 mg dose) subcutaneous solution 0.5 mg, Subcutaneous, every week, rotate injection sites, # 2 mL, 6 Refill(s), Pharmacy: [facility] [id number] Start Date: 05/15/22 Status: Ordered pramipexole 1.5 mg oral tablet See Instructions, Take 1 tablet daily at bedtime, # 90 tab, 4 Refill(s), Pharmacy: [id number] Start Date: 05/20/22 Status: Ordered Problem List [...] back pain Confirmed Active Migraine Confirmed Active Nicotine dependence Confirmed Active Obesity [...] shoulder RCR, Biceps tenodesis, ORIF Clavicle 2015 [id number]; 1994; 1988 Social History Social History Type Response Smoking Status Smoking tobacco use: Current everyday tobacco user;Never; Number used per day: 6 cigarettes daily; entered on: 02/26/22 Sex Female Patient Care team information Personnel Name: Attila Bernal MD Address: Address: [address]
--- OUTSIDE RECORDS SUMMARY | 2023-07-14 09:28 | XMS_ITS | Continuity of Care Document ---
Author Name Unknown Organization [facility] Address [address] [place] [address] Care Team Providers Care Payroll And Benefits Specialist Name Role Phone Attila Bernal Primary Care Physician Encounter [facility]CT[facility]_[place] Date(s): 06/16/23 - 06/22/23 [facility] [address] [place] [address] Encounter Diagnosis Diabetic foot ulcer(Discharge Diagnosis) - 06/16/23 Type 2 diabetes mellitus without complication(Discharge Diagnosis) - 06/16/23 Hypertensive disorder(Discharge Diagnosis) - 06/16/23 Depressive disorder(Discharge Diagnosis) - 06/16/23 Right leg numbness(Discharge Diagnosis) - 06/21/23 Peripheral vascular disease(Discharge Diagnosis) - 06/21/23 Discharge Disposition: Home or Self Care Attending Physician: Lester Brtio DO Admitting Physician: Roscoe Kidd MD Allergies, Adverse Reactions, Alerts Substance Reaction [...] Complete 3+ Views Left 07/26/22 Functional Status 06/22/23 ADLs Independent Activity Status ADL Ambulating in room 06/20/23 Personal Care Provided Bed bath 06/17/23 Living Environment No Living Environmen t Information Available Lives In Mobile home Lives With Alone Living Situation Home independently Home Barriers None 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 Home Equipment Cane, Walker 1 Number of Stairs Outside 4 2 1Result Comment: Has dme, but does not use. 2Result Comment: railing Immunizations Given and Recorded Vaccine Date Status [...] Daily, # 90 tab, 3 Refill(s), Pharmacy: [facility], 164, cm, 12/19/22 12:43:00 EDT, Height/Length Dosing, 100, kg, 12/19/22 12:43:00 EDT, Weight Dosing Start Date: 05/01/23 Status: Ordered buPROPion 300 mg/24 hours (XL) oral tablet, extended release 300 mg = 1 tab, Oral, Daily, # 90 tab, 4 Refill(s), Pharmacy: [facility] [address] Start Date: 05/15/22 Status: Ordered cetirizine 10 mg oral tablet 10 mg = 1 tab, Oral, Daily, # 90 tab, 4 Refill(s), Pharmacy: [place] [id number] Start Date: 05/15/22 Status: Ordered DULoxetine 30 mg oral delayed release capsule 30 mg = 1 cap, Oral, Daily, # 90 cap, 4 Refill(s), Pharmacy: [place] [id number] Start Date: 05/15/22 Stop Date: 08/08/23 Status: Ordered DULoxetine 60 mg oral delayed release capsule 60 mg = 1 cap, Oral, Daily, Take in addition to 30 mg for a total dose of 90 mg, # 90 cap, 4 Refill(s), Pharmacy: [place] [id number] Start Date: 05/15/22 Status: Ordered ferrous sulfate 325 mg (65 mg elemental iron) oral tablet 325 mg = 1 tab, Oral, TID, # 270 tab, 4 Refill(s), Pharmacy: [place] [id number] Start Date: 05/22/22 Status: Ordered gabapentin 300 mg oral capsule 900 mg = 3 cap, Oral, TID, TAKE 3 CAPSULES BY MOUTH THREE TIMES DAILY, # 270 cap, 3 Refill(s), Pharmacy: [place] [id number], 164, cm, 12/19/22 12:43:00 EDT, Height/Length Dosing, 100, kg, 12/20/2311:43:00 EDT, Weight Dosing Start Date: 01/23/23 Status: Ordered ibuprofen 800 mg oral tablet 1 tab, Oral, TID, # 90 tab, 5 Refill(s), Pharmacy: [place] [id number], 167, cm, 12/06/22 10:27:00 EDT, Height/Length Dosing, 99.79, kg, 12/06/22 10:27:00 EDT, Weight Dosing Start Date: 12/09/22 Status: Ordered Lantus Solostar Pen 100 units/mL subcutaneous solution 38 units, Subcutaneous, Daily, Inject 38 units daily and titrate up by 2 units every 3-4 days untilFBS is below 130., # 15 mL, 4 Refill(s), Pharmacy: [place] [id number], 164, cm, 12/19/22 12:43:00 EDT, Height/Length Dosing, 100, kg, 12/19/22 12:43:00 EDT, Weight Dosing Start Date: 01/31/23 Status: Ordered losartan 100 mg oral tablet 100 mg = 1 tab, Oral, Daily, # 90 tab, 4 Refill(s), Pharmacy: [place] [id number] Start Date: 05/15/22 Status: Ordered metFORMIN 1000 mg oral tablet 1,000 mg = 1 tab, Oral, BID, # 180 tab, 4 Refill(s), Pharmacy: [place] [id number] Start Date: 05/15/22 Status: Ordered Narcan 4 mg/0.1 mL nasal spray 1 sprays, Nasal, Once, may repeat every 2 to 3 minutes until patient responds, # 2 EA, 0 Refill(s) Start Date: 02/26/22 Status: Ordered omeprazole 40 mg oral delayed release capsule 40 mg = 1 cap, Oral, Daily, # 90 cap, 4 Refill(s), Pharmacy: [place] [id number] Start Date: 05/15/22 Status: Ordered ondansetron 4 mg oral tablet, disintegrating 4 mg = 1 tab, Oral, every 8 hr, PRN as needed for nausea/vomiting, # 90 tab, 0 Refill(s), Pharmacy:[place] [id number], 164, cm, 12/19/22 12:43:00 EDT, Height/Length Dosing, 100, kg, 12/19/22 12:43:00 EDT, Weight Dosing Start Date: 06/02/23 Status: Ordered One Touch Verio One Touch Verio, Test twice daily, Supply, See instructions, # 200 strip, 4 Refill(s), Pharmacy: [place] [id number] Start Date: 05/15/22 Status: Ordered OneTouch Delica Plus lancest 30 gauge OneTouch Delica Plus lancest 30 gauge, Test twice daily, Supply, See instructions, # 200 EA, 4 Refill(s), Pharmacy: [place] [id number] Start Date: 12/31/22 Status: Ordered oxyCODONE-acetaminophen 10 mg-325 mg oral tablet 1 tab, Oral, BID, PRN as needed for pain, # 56 tab, 0 Refill(s), Pharmacy: [place] [id number], 164, cm, 12/19/22 12:43:00 EDT, Height/Length Dosing, 100, kg, 12/19/22 12:43:00 EDT, Weight Dosing Start Date: 05/30/23 Stop Date: 06/27/23 Status: Ordered Ozempic (1 mg dose) 4 mg/3 mL subcutaneous solution 1 mg =, Subcutaneous, every week, # 3 mL, 0 Refill(s), Pharmacy: [id number], 164, cm, 06/03/23 17:35:00 EDT, Height/Length Dosing, 93.5, kg, 06/03/23 17:35:00 EDT, Weight Dosing Start Date: 06/06/23 Status: Ordered pramipexole 1.5 mg oral tablet See Instructions, Take 1 tablet daily at bedtime, # 90 tab, 4 Refill(s), Pharmacy: [id number], 164, cm, 12/19/22 12:43:00 EDT, Height/Length Dosing, 100, kg, 12/19/22 12:43:00 EDT, Weight Dosing Start Date: 01/23/23 Status: Ordered Relion Pen [place] 30G 8mm Relion Pen [place] 30G 8mm, Use one daily, Supply, 1 EA, N/A, As Directed, PRN As needed, # 100 EA,4 Refill(s), Pharmacy: [id number] Start Date: 03/03/23 Status: Ordered [...] following Wound Culture from Wound collected on [id number] EST 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 2From 11-19-2021 [...] shoulder RCR, Biceps tenodesis, ORIF Clavicle 2015 [id number]; 1994; 1988 4left great toe, along with debridement Results Laboratory List Name Date Vancomycin Level 06/22/23 Basic Metabolic Panel 06/22/23 CBC w/ Diff 06/22/23 Magnesium Level 06/22/23 C-Reactive Protein (CRP) 06/22/23 Glucose POCT 06/22/23 Automated Diff 06/22/23 Glucose POCT 06/21/23 Glucose POCT 06/21/23 Automated Diff 06/21/23 Basic Metabolic Panel 06/21/23 CBC w/ Diff 06/21/23 Magnesium Level 06/21/23 C-Reactive Protein (CRP) 06/21/23 Vancomycin Level 06/21/23 Basic Metabolic Panel 06/20/23 C-Reactive Protein (CRP) 06/20/23 CBC w/ Diff 06/20/23 Magnesium Level 06/20/23 Vancomycin Level 06/20/23 Automated Diff 06/20/23 Phosphorus Level 06/19/23 Phosphorus Level 06/18/23 .Manual Differential (NCTY) 06/17/23 CBC w/ Diff 06/17/23 Phosphorus Level 06/17/23 SARS-CoV-2 (COVID-19) RNA (ID Now) C-Reactive Protein High Sensitivity 06/16 Comprehensive Metabolic Panel 06/16/23 Procalcitonin 06/16/23 Sedimentation Rate (ESR) 06/16/23 Most recent to oldest [Reference Range]: 1 2 3 WBC [5.0-10.0 x10^3/mcL] 7.4 x10^3/mcL (06/22/23 7:38 AM) 9.7 x10^3/mcL (06/21/23 6:48 AM) 13.6 x10^3/mcL *HI* (06/20/23 7:18 AM) RBC [4.1-5.3 x10^6/mcL] 3.5 x10^6/mcL *LOW* (06/22/23 7:38 AM) 3.6 x10^6/mcL *LOW* (06/21/23 6:48 AM) 3.7 x10^6/mcL *LOW* (06/20/23 7:18 AM) Segs Man [40-75 %] 71 % (06/17/23 7:25 AM) Lymph Man [20-50 %] 20 % (06/17/23 7:25 AM) Neutro Auto [40.0-75.0 %] 55.2 % (06/22/23 7:38 AM) 62.1 % (06/21/23 6:48 AM) 74.9 % (06/20/23 7:18 AM) Lymph Auto [20.0-50.0 %] 29.4 % (06/22/23 7:38 AM) 25.6 % (06/21/23 6:48 AM) 15.7 % *LOW* (06/20/23 7:18 AM) Yuba Auto [2.0-15.0 %] 9.0 % (06/22/23 7:38 AM) 7.0 % (06/21/23 6:48 AM) 5.0 % (06/20/23 7:18 AM) Basophil Auto [0.0-1.0 %] 1.5 % *HI* (06/22/23 7:38 AM) 1.2 % *HI* (06/21/23 6:48 AM) 1.2 % *HI* (06/20/23 7:18 AM) Yuba Man [2-15 %] 8 % (06/17/23 7:25 AM) Eos Man [1-6 %] 1 % (06/17/23 7:25 AM) BUN [7-18 mg/dL] 6 mg/dL *LOW* (06/22/23 7:38 AM) 8 mg/dL (06/21/23 6:48 AM) 6 mg/dL *LOW* (06/20/23 7:18 AM) Glucose POC [74-106 mg/dL] 73 mg/dL *LOW* (06/22/23 7:24 AM) 167 mg/dL *HI* (06/21/23 8:39 PM) 130 mg/dL *HI* (06/21/23 4:46 PM) Glucose Level [74-106 mg/dL] 77 mg/dL (06/22/23 7:38 AM) 86 mg/dL (06/21/23 6:48 AM) 115 mg/dL *HI* (06/20/23 7:18 AM) Potassium Level [3.5-5.1 mmol/L] 3.7 mmol/L (06/22/23 7:38 AM) 3.5 mmol/L (06/21/23 6:48 AM) 4.3 mmol/L (06/20/23 7:18 AM) MCV [80.0-96.0 fL] 89.8 fL (06/22/23 7:38 AM) 91.2 fL (06/21/23 6:48 AM) 91.5 fL (06/20/23 7:18 AM) RBC Morph Normal (06/17/23 7:25 AM) CRP [<=10.0 mg/L] 19.9 mg/L *HI* (06/22/23 7:37 AM) 43.5 mg/L *HI* (06/21/23 6:47 AM) 77.4 mg/L *HI* (06/20/23 7:18 AM) AST [15-37 unit/L] 11 unit/L *LOW* (06/16/23 12:09 PM) ALT [14-59 unit/L] 19 unit/L (06/16/23 12:09 PM) MCHC [31.0-35.0 g/dL] 32.3 g/dL (06/22/23 7:38 AM) 31.7 g/dL (06/21/23 6:48 AM) 31.6 g/dL (06/20/23 7:18 AM) Sodium Level [136-145 mmol/L] 142 mmol/L (06/22/23 7:38 AM) 142 mmol/L (06/21/23 6:48 AM) 142 mmol/L (06/20/23 7:18 AM) Vancomycin Level Random [18-26 ug/mL] 15 ug/mL *LOW* (06/22/23 10:00 AM) 10 ug/mL *LOW* (06/21/23 6:47 AM) 13 ug/mL *LOW* (06/20/23 7:18 AM) Hct [37.0-47.0 %] 31.6 % *LOW* (06/22/23 7:38 AM) 33.1 % *LOW* (06/21/23 6:48 AM) 33.5 % *LOW* (06/20/23 7:18 AM) Calcium Level [8.5-10.1 mg/dL] 8.4 mg/dL *LOW* (06/22/23 7:38 AM) 8.5 mg/dL (06/21/23 6:48 AM) 8.7 mg/dL (06/20/23 7:18 AM) Phosphorus Level [2.6-4.7 mg/dL] 4.3 mg/dL (06/19/23 7:10 AM) 4.0 mg/dL (06/18/23 7:00 AM) 3.5 mg/dL (06/17/23 7:25 AM) Albumin Level [3.4-5.0 g/dL] 2.9 g/dL *LOW* (06/16/23 12:09 PM) Protein Total [6.4-8.2 g/dL] 7.1 g/dL (06/16/23 12:09 PM) MCH [26.0-32.0 pg] 29.0 pg (06/22/23 7:38 AM) 28.9 pg (06/21/23 6:48 AM) 29.0 pg (06/20/23 7:18 AM) Magnesium Level [1.8-2.4 mg/dL] 1.8 mg/dL (06/22/23 7:38 AM) 1.7 mg/dL *LOW* (06/21/23 6:48 AM) 1.9 mg/dL (06/20/23 7:18 AM) Neutro Absolute 4.1 x10^3/mcL *NA* (06/22/23 7:38 AM) 6.0 x10^3/mcL *NA* (06/21/23 6:48 AM) 10.2 x10^3/mcL *NA* (06/20/23 7:18 AM) Bilirubin Total [0.2-1.0 mg/dL] 0.3 mg/dL (06/16/23 12:09 PM) Hgb [12.0-16.0 g/dL] 10.2 g/dL *LOW* (06/22/23 7:38 AM) 10.5 g/dL *LOW* (06/21/23 6:48 AM) 10.6 g/dL *LOW* (06/20/23 7:18 AM) Alk Phos [46-146 unit/L] 97 unit/L (06/16/23 12:09 PM) Band Man [0-5 %] 0 % (06/17/23 7:25 AM) Platelets [130-450 x10^3/mcL] 484 x10^3/mcL *HI* (06/22/23 7:38 AM) 556 x10^3/mcL *HI* (06/21/23 6:48 AM) 538 x10^3/mcL *HI* (06/20/23 7:18 AM) CO2 [21-32 mmol/L] 27 mmol/L (06/22/23 7:38 AM) 27 mmol/L (06/21/23 6:48 AM) 26 mmol/L (06/20/23 7:18 AM) eGFR Non-AA [>=60] 108 (06/22/23 7:38 AM) 105 (06/21/23 6:48 AM) 86 (06/20/23 7:18 AM) eGFR AA [>=60] 108 (06/22/23 7:38 AM) 105 (06/21/23 6:48 AM) 86 (06/20/23 7:18 AM) Chloride Level [98-107 mmol/L] 109 mmol/L *HI* (06/22/23 7:38 AM) 107 mmol/L (06/21/23 6:48 AM) 106 mmol/L (06/20/23 7:18 AM) Procalcitonin [0.00-0.50 ng/mL] <0.15 ng/mL (06/16/23 12:09 PM) RDW-CV [11.5-14.5 %] 12.8 % (06/22/23 7:38 AM) 12.9 % (06/21/23 6:48 AM) 12.7 % (06/20/23 7:18 AM) Imm Gran Auto [0.0-0.9 %] 1.5 % *HI* (06/22/23 7:38 AM) 0.6 % (06/21/23 6:48 AM) 0.6 % (06/20/23 7:18 AM) CRP High Sens [0.00-3.00 mg/L] 23.96 mg/L 1 *HI* (06/16/23 12:09 PM) Slide Review Man Diff (06/17/23 7:25 AM) Olamide Cummins Dt. 22-JUN-2023 *Unknown* (06/22/23 10:00 AM) 20-JUN-2023 *Unknown* (06/21/23 6:47 AM) 19-JUN-2023 *Unknown* (06/20/23 7:18 AM) Olamide Cummins Tm. 0500 *NA* (06/22/23 10:00 AM) 1730 *NA* (06/21/23 6:47 AM) 2200 *NA* (06/20/23 7:18 AM) Creatinine Level [0.55-1.02 mg/dL] 0.54 mg/dL *LOW* (06/22/23 7:38 AM) 0.60 mg/dL (06/21/23 6:48 AM) 0.80 mg/dL (06/20/23 7:18 AM) SARS-CoV-2 (COVID-19) RNA (ID Now) [Not Detected] Not Detected (06/16/23 5:00 PM) Baso Man [0-1 %] 0 % (06/17/23 7:25 AM) Eos, Auto [1.0-6.0 %] 3.4 % (06/22/23 7:38 AM) 3.5 % (06/21/23 6:48 AM) 2.6 % (06/20/23 7:18 AM) ESR, Westergren [0-30 mm/hr] 64 mm/hr *HI* (06/16/23 12:09 PM) 1Interpretive Data: Risk Level Age/Sex Range Units Less Risk All <1.0 mg/L Average Risk All 1.0 - 3.0 mg/L High Risk All >3.0 mg/L *Indeterminate All >10.0 mg/L *May be an indication of inflammation or infection. Orders for Microbiology Reports Name Date Blood Culture 06/16/23 Microbiology Reports TEST:Blood Culture STATUS:Auth (Verified) BODY SITE: SOURCE:Blood COLLECTED DATE/TIME:06/16/23 1:06 PM FINAL REPORT No growth at 5 days. Vital Signs Most recent to oldest [Reference Range]: 1 2 3 Temperature Temporal Artery [36-38 Deg C] 36.3 Deg C (06/22/23 7:22 AM) 36.7 Deg C (06/22/23 4:13 AM) 36.9 Deg C (06/21/23 8:42 PM) Temperature Temporal Artery (DegF) [97.3-100 Deg F] 97.34 Deg F (06/22/23 7:22 AM) 98.06 Deg F (06/22/23 4:13 AM) 98.42 Deg F (06/21/23 8:42 PM) Peripheral Pulse Rate [60-100 bpm] 71 bpm (06/22/23 7:22 AM) 69 bpm (06/22/23 4:13 AM) 93 bpm (06/21/23 8:42 PM) Heart Rate Monitored [60-100 bpm] 87 bpm (06/16/23 3:44 PM) 80 bpm (06/16/23 2:40 PM) Respiratory Rate [12-24 br/min] 16 br/min (06/22/23 7:22 AM) 17 br/min (06/22/23 4:13 AM) 16 br/min (06/21/23 8:42 PM) Blood Pressure [90-140/60-90 mmHg] 127/70mmHg (06/22/23 7:22 AM) 115/63mmHg (06/22/23 4:13 AM) 121/64mmHg (06/21/23 8:42 PM) Mean Arterial Pressure, Cuff [65-140 mmHg] 80 mmHg (06/22/23 4:13 AM) 83 mmHg (06/21/23 8:42 PM) 81 mmHg (06/21/23 5:00 PM) Mean Arterial Pressure Cuff 87 mmHg (06/22/23 7:22 AM) 79 mmHg (06/22/23 4:13 AM) 82 mmHg (06/21/23 8:42 PM) Blood Pressure Location Right arm (06/22/23 7:22 AM) Right arm (06/22/23 4:13 AM) Right arm (06/21/23 8:42 PM) Blood Pressure Method Automatic (06/22/23 7:22 AM) Automatic (06/22/23 4:13 AM) Automatic (06/21/23 8:42 PM) Weight 95.8 kg (06/22/23 7:22 AM) 95.9 kg (06/18/23 11:01 AM) 95.3 kg (06/17/23 6:27 AM) Weight Measured (lbs) 211.203 lb (06/22/23 7:22 AM) Weight Dosing 54.500 kg (06/16/23 5:44 PM) 88.90 kg (06/16/23 10:32 AM) Weight Estimated 88.90 kg (06/16/23 10:06 AM) Height 164.000 cm (06/16/23 5:44 PM) Height/Length Dosing 164.000 cm (06/16/23 5:44 PM) 165.100 cm (06/16/23 10:32 AM) Body Mass Index 20.260 kg/m2 (06/16/23 5:44 PM) Height/Length Estimated 165.100 cm (06/16/23 10:06 AM) Social History Social History Type Response Tobacco Former tobacco user Tobacco Use:. Sex Female Hospital Discharge Instructions Patient Education 06/22/2023 06:26:11 Diabetes Mellitus and Foot Care Diabetes Mellitus and Foot Care Foot care is an important part of your health, especially when you have diabetes. Diabetes may cause you to have problems because of poor blood flow (circulation) to your feet and legs, which can cause your skin to: ??? 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 ??? Break more easily. ??? Heal more [...] immediately. Where to find more information ??? [place] [employer]: www.diabetes.org ? ? Association of [...] provider. Document Revised: 03/29/2021 Document Reviewed: 03/29/2021 Elsevier Patient Education ?? 2022 BRAIN. Follow Up Care 06/16/2023 10:06:43 With:Attila Bernal MD Address: [place] [id number]- When:06/26/2023 09:20:00 Comments:Hospital follow up Pharmacology Note * Radha Lucia PharmD: PERFORM Event Display: Pharmacy Note Authored Date: [id number] [facility] Pharmacokinetics Note Drug: Vancomycin Pharmacokinetic target: AUC24 (range) 400-600 mg/L.hr Current regimen: 1250 mg IV every 12 hours Charlee Dunham is a(n) 57 years old female receiving Vancomycin 1250 mg IV every 12 hours for DiabeticFoot Infection Recent measured serum creatinine values: 06/19/2023 07:10 0.65 mg/dL 06/18/2023 07:00 0.54 mg/dL 06/17/2023 07:25 0.61 mg/dL Assessment: Analysis of the most recent level(s) using [employer] gives the following patient-specific pharmacokinetic parameters: CL: 4.65 L/hr V: 53.8 L T1/2: 8.94 hours Using these values, the current regimen of Vancomycin 1250 mg IV every 12 hours is predicted to result in a steady-state trough of 15.4 mg/L and AUC24 of 534 mg/L.hr. At this time we recommend a regimen of 1250 mg IV every 12 hours, which is predicted to result in a steady-state trough of 15.4 mg/Land AUC24 of 534 mg/L.hr. Recommendations: - Vancomycin 1250 mg IV every 12 hours - Obtain Vancomycin level 06/20/2023 at 07:00am - Continue to monitor serum creatinine Discharge instructions * Meghan Conti RN: PERFORM Event Display: Discharge Instructions Authored Date: [id number] CHARLEE DUNHAM :1965 Age:57 years Sex:Female Visit Date:06/16/2023 Primary Care Physician: Attila Bernal MD Hospital Discharge Instructions We would like to thank you for allowing us to assist you with your healthcare needs. The following includes patient education materials and information regarding your injury/illness. Your Next Steps Discharge Orders Discharge Activity Restrictions, Other (please specify):, Limit walking; keep feet and wounds covered and clean at all times Discharge Diet Instruction, Diabetic Diet Scheduled Future Appointments 2022 10:20 AM EDT ?? With: Attila Bernal MD Where: [address] [address] Status: Confirmed Friday 2:20 PM EDT ?? With: Attila Bernal MD Where: [address] [address] Status: Confirmed Follow Up Appointments Follow Up with??Attila Bernal MD When:??06/26/2023 10:20 AM EDT Why: Hospital follow up Where: [address] [address]- Medications What How Much When Why Instructions Next Dose Changed buPROPion (buPROPion 300 mg/ 24 hours (XL) oral tablet, extended release) 1 tab Oral (given by mouth) Every day Depressive disorder Unchanged ARIPiprazole (ARIPiprazole 10 mg oral tablet) 1 tab Oral (given by mouth) Every day Unchanged cetirizine (cetirizine 10 mg oral tablet) [...] ?? Unchanged Durable Medical Equipment for Prescription ([employer] lancest 30 gauge) See instructions Test [...] pen needles 30G 8 mm (Relion Pen [place] 30G 8mm) 1 Each Not Applicable As [...] Milligrams Subcutaneous (under the skin) Every week ?? What How Much When Comments Stop Taking doxycycline (doxycycline hyclate 100 mg oral capsule) 1 Capsules Oral (given by mouth) 2 times a day Duration: 10 Days Your Summary Your Care Team Admitting Physician - Roscoe Kidd MD Attending Physician - Lester Brito DO Primary Care Physician - Attila Bernal MD Your Diagnosis Diabetic foot ulcer Type 2 diabetes mellitus without complication Hypertensive disorder Depressive disorder Right leg numbness Peripheral vascular disease Problems Ongoing - Any problem that you are currently receiving treatment for. Accidental poisoning Acute osteomyelitis of toe of [...] diabetes mellitus without complication Uterine leiomyoma Historical - Any problem that you are no longer receiving treatment for. Disease caused by 2019 novel coronavirus Tests Performed/Pending .Manual Differential (NCTY) Automated Diff Basic Metabolic Panel C-Reactive Protein High Sensitivity CBC w/ Diff Comprehensive Metabolic Panel CRP Glucose POCT Magnesium Level Phosphorus Level Procalcitonin SARS-CoV-2 (COVID-19) RNA (ID Now) Sedimentation Rate (ESR) Vancomycin Level?-- Results Pending -- Discharge Vitals Temperature??(Temporal Artery) 97.3 ??F (36.3 ??C) Heart Rate??(Peripheral) 71 Respiratory Rate?? 16 Blood Pressure?? 127/70?? Weight?? 211.24 lb (95.8 kg) Allergies Bee Stings??(Anaphylaxis) Benzoin Tincture ANIMAL DANDER??(Eye swelling) HOUSE DUST??(Eye swelling) INSECT VENOM??(Anaphylactic reaction) LATEX??(Skin rash) codeine??(Loss of consciousness) morphine??(Vomiting) Education Materials Diabetes Mellitus and Foot Care Foot care is an important part of your health, especially when you have diabetes. Diabetes may cause you to have problems because of poor blood flow (circulation) to your feet and legs, which can cause your skin to: ? 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 ? Break more easily. ? Heal more slowly. ? Peel and crack. You may also have nerve damage (neuropathy) in your legs and feet, causing decreased feeling in them. This means that you may not notice minor injuries to your feet that could lead to more serious problems. Noticing and addressing any potential problems early is the best way to prevent future foot problems. How to care for your feet Foot hygiene ? Wash your feet daily with warm water and mild soap. Do not use hot water. Then, pat your feet and the areas between your toes until they are completely dry. Do not soak your feet as this can dry yourskin. ? Trim your toenails straight across. Do not dig under them or around the cuticle. File the edges of your nails with an emery board or nail file. ? Apply a moisturizing lotion or petroleum jelly to the skin on your feet and to dry, brittle toenails. Use lotion that does not contain alcohol and is unscented. Do not apply lotion between your toes. Shoes and socks ? Wear clean socks or stockings every day. Make sure they are not too tight. Do not wear knee-high stockings since they may decrease blood flow to your legs. ? Wear shoes that fit properly and have enough cushioning. Always look in your shoes before you put them on to be sure there are no objects inside. ? To break in new shoes, wear them for just a few hours a day. This prevents injuries on your feet. Wounds, scrapes, corns, and calluses ? Check your feet daily for blisters, cuts, bruises, sores, and redness. If you cannot see the bottomof your feet, use a mirror or ask someone for help. ? Do not cut corns or calluses or try to remove them with medicine. ? If you find a minor scrape, cut, or break in the skin on your feet, keep it and the skin around it clean and dry. You may clean these areas with mild soap and water. Do not clean the area with peroxide, alcohol, or iodine. ? If you have a wound, scrape, corn, or callus on your foot, look at it several times a day to make sure it is healing and not infected. Check for: ? Redness, swelling, or pain. ? Fluid or blood. ? Warmth. ? Pus or a bad smell. General tips ? Do not cross your legs. This may decrease blood flow to your feet. ? Do not use heating pads or hot water bottles on your feet. They may burn your skin. If you have lost feeling in your feet or legs, you may not know this is happening until it is too late. ? Protect your feet from hot and cold by wearing shoes, such as at the beach or on hot pavement. ? Schedule a complete foot exam at least once a year (annually) or more often if you have foot problems. Report any cuts, sores, or bruises to your health care provider immediately. Where to find more information ? [place] [employer]: www.diabetes.org ? Association of Diabetes Care & Education Specialists: www.diabeteseducator.org Contact a health care provider if: ? You have a medical condition that increases your risk of infection and you have any cuts, sores, orbruises on your feet. ? You have an injury that is not healing. ? You have redness on your legs or feet. ? You feel burning or tingling in your legs or feet. ? You have pain or cramps in your legs and feet. ? Your legs or feet are numb. ? Your feet always feel cold. ? You have pain around any toenails. Get help right away if: ? You have a wound, scrape, corn, or callus on your foot and: ? You have pain, swelling, or redness that gets worse. ? You have fluid or blood coming from the wound, scrape, corn, or callus. ? Your wound, scrape, corn, or callus feels warm to the touch. ? You have pus or a bad smell coming from the wound, scrape, corn, or callus. ? You have a fever. ? You have a red line going up your leg. Summary ? Check your feet every day for blisters, cuts, bruises, sores, and redness. ? Apply a moisturizing lotion or petroleum jelly to the skin on your feet and to dry, brittle toenails. ? Wear shoes that fit properly and have enough cushioning. ? If you have foot problems, report any cuts, sores, or bruises to your health care provider immediately. ? Schedule a complete foot exam at least once a year (annually) or more often if you have foot problems. This information is not intended to replace advice given to you by your health care provider. Make sure you discuss any questions you have with your health care provider. Document Revised: 03/29/2021 Document Reviewed: 03/29/2021 [employer] Patient Education ?? 2022 [employer] 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 Patient/Stone Trimmer Name: Patient/Stone Trimmer Signature: Relationship to Patient: Witness Name/Signature: Date: Electronically Signed on: 06/22/2023 09:51 EDTSigned by:NURIS Consult note * Nilo Oconnor DO: PERFORM Event Display: Consultation Note Generic Authored Date: [id number] CHARLEE DUNHAM :1965 Age:57 years Sex:Female Visit Date:06/16/2023 Primary Care Physician: Attila Bernal MD Chief Complaint Pt states she has had prolems with her feet due to Diabetic Ulcers Reason for Consultation diabetic foot ulcers History of Present Illness The patient is a 57-year-old female with past medical history of insulin- dependent type 2 diabetes mellitus, nicotine dependence, peripheral vascular disease status post left sided toe amputation, history of depression, GERD, obesity, history of migraines, anxiety and chronic back pain who presented to the emergency department concern for healing of her wounds. She had right 4th toe amputation and drainage of abscess of left foot and placement of drain with Dr. Hogan sep 15. She was seen in office Sep 20 and had sutures removed to her right foot and drain removed left foot. She was set up with referal to podiatry at this time but was not able to make the appointment. She presents with increa sed swelling to the left foot after drain was removed. SHe has noted some drainage from the wound that has since stopped. She also noted the the wound on her right foot 4th toe amputation opened up. NO fevers, currently. She states redness and swelling improved. Review of Systems Pertinent HPI in chart Physical Exam Vitals & Measurements T:??36.3?C ??(Temporal Artery)?? TMIN:??35.9?C ??(Temporal Artery)?? TMAX:??36.7?C ??(Temporal Artery)?? HR:??83??(Peripheral)?? RR:??18?? BP:??124/63?? SpO2:??99%?? HT:??164.000??cm?? WT:??95.3??kg?? BMI:??20.260?? Pain Score:??4?? O2 Therapy:??Room air?? NAD, cooperative ?? Non labored breathing ?? RR ?? Soft, NT, ND ?? Left foot is swollen with erythema, no active drainage, previous drain was removed and site is now closed. There is warmness to touch ?? Right foot 4th digit with superificial wound dehiscence. no active drainage. Assessment/Plan 1.??Diabetic foot ulcer??E11.621 S/P right foot 4th digit amputation with superficial wound dehiscence. Patient left foot status post drainage with sialastic drain (latex allergy). ?? Pack the right foot wound dehiscence with daily dressing changes ?? Left foot I suspect an abscess has formed, she is generally insensate on exam. Will plan on openingwound further and attempt this at bedside. ?? - Continue broad spectrum abx to cover for MRSA - Ok for diet today. 2.??Type 2 diabetes mellitus without complication??E11.9 3.??Hypertensive disorder??I10 4.??Depressive disorder??F32.A Non-pressure chronic ulcer of other part of unspecified foot with unspecified severity??L97.509 Problem List/Past Medical History Ongoing Accidental poisoning [...] (09/22/1997)???Amputation of toe???Tubal ligation Medications Inpatient acetaminophen, 1000 mg= 2 tab, Oral, every 6 hr, PRN ARIPiprazole, 10 mg= 2 tab, Oral, Daily buPROPion, 300 mg= 2 tab, Oral, Daily Colace, 200 mg= 2 cap, Oral, BID, PRN Dextrose 50% intravenous solution, 12.5 g= 25 mL, IV Push, As Directed, PRN Dextrose 50% intravenous solution, 25 g= 50 mL, IV Push, As Directed, PRN DULoxetine, 60 mg= 2 cap, Oral, Daily DULoxetine, 30 mg= 1 cap, Oral, Daily ferrous sulfate, 325 mg= 1 tab, Oral, TID folic acid, 1 mg= 1 tab, Oral, Daily gabapentin, 900 mg= 3 cap, Oral, TID GlucaGen, 1 mg= 3 mL, IM, As Directed, PRN glucose 40% oral gel, 15 g, Oral, As Directed, PRN glucose 40% oral gel, 30 g, Oral, As Directed, PRN ibuprofen, 600 mg= 1 tab, Oral, every 6 hr, PRN insulin glargine, 38 units= 0.38 mL, Subcutaneous, Daily insulin lispro (HumaLog) correction- moderate, Moderate Scale, Subcutaneous, QID(ACHS) lidocaine 1% injectable solution, 1 mg= 0.1 mL, Intradermal, As Directed, PRN loratadine, 10 mg= 1 tab, Oral, Daily losartan, 100 mg= 2 tab, Oral, Daily morphine, 4 mg= 1 mL, IV Push, every 2 hr, PRN Mylanta, 15 mL, Oral, every 6 hr, PRN Normal Saline Flush, 10 mL, IV Push, every 12 hr (ingrid) omeprazole, 40 mg= 2 cap, Oral, Daily ondansetron, 4 mg= 2 mL, IV Push, every 6 hr, PRN oxyCODONE, 10 mg= 2 tab, Oral, every 4 hr, PRN pramipexole, 1.5 mg= 1.5 tab, Oral, every night at bedtime Sodium Chloride 0.9% 1,000 mL, 1000 mL, IV Sodium Chloride 0.9% 1,000 mL, 1000 mL, IV vancomycin, 1000 mg= 200 mL, IV Piggyback, every 8 hr Zosyn + Sodium Chloride 0.9% 100 mL Home ARIPiprazole 10 mg oral tablet, 1 tab, Oral, Daily, 3 refills buPROPion 300 mg/24 hours (XL) oral tablet, extended release, 300 mg= 1 tab, Oral, Daily, 4 refills cetirizine 10 mg oral tablet, 10 mg= 1 tab, Oral, Daily, 4 refills doxycycline hyclate 100 mg oral capsule, 100 mg= 1 cap, Oral, BID DULoxetine 30 mg oral delayed release capsule, [...] tablet, See Instructions, 4 refills Relion [place] 30G 8mm, 1 EA, N/A, As Directed, PRN, 4 refills Allergies Bee Stings??(Anaphylaxis) Benzoin Tincture ANIMAL DANDER??(Eye swelling) HOUSE DUST??(Eye swelling) INSECT VENOM??(Anaphylactic reaction) LATEX??(Skin rash) codeine??(Loss of consciousness) morphine??(Vomiting) Social History Alcohol Never Electronic Cigarette/Vaping Electronic Cigarette Use: Use, within last 90 days.- Comments: occasionally Substance Use Never Tobacco Former tobacco user Tobacco Use:. Family History Hypertensive disorder: Mother. Immunizations Vaccine [...] adult vaccine 09/22/2002 Recorded Electronically Signed on 06/17/23 12:59 PM Nilo Oconnor DO Procedure note * Nilo Oconnor DO: PERFORM Event Display: Procedure Note Authored Date: [id number] CHARLEE DUNHAM :1965 Age:57 years Sex:Female Visit Date:06/16/2023 Primary Care Physician: Attila Bernal MD Procedure Name Left foot abscess drainage Consent Verbal consent Indication 57 year old female with recurrent infection of her left foot . She previously had abscess that was drained. Location Left foot Pre-Procedure Exam Left foot cellulitis, ulcer on plantar aspect of left food and dorsal aspect of left food 2nd interdigit space. There is tract that communicates through the ulcers. Procedural Sedation NOne Technique The wound was probed with betadine wick. There was through and through tract from previous abscess cavity. A iodoform 1/2 packing was placed through the wound and tied in place for drainage. There was a??small amount of purulent drainage.??Patient tolerated the procedure well. Post-Procedure Exam Complications NOne Total Time 5 min Assessment/Plan 1.??Diabetic foot ulcer??E11.[address] for drainage.??continue IV abx treatment 2.??Type 2 diabetes mellitus without complication??E11.9 3.??Hypertensive disorder??I10 4.??Depressive disorder??F32.A Non-pressure chronic ulcer of other part of unspecified foot with unspecified severity??L97.509 Electronically Signed on 06/17/23 04:13 PM Nilo Oconnor DO Occupational therapy Progress note * Lesley Weston OT: PERFORM, MODIFY Event Display: Occupational Therapy Progress Note Authored Date: [id number] Patient ID and date of checked: Confirmed *Current Level of Care:??In-Patient *Admitting Diagnosis: Diabetic foot ulcer *Therapy Diagnosis: Increased need for assistance with personal care Pertinent Medical History: Patient presented to ED for worsening right diabetic foot ulcers. She was admitted 06/16/23 for above diagnosis. Other medical history includes multiple digit amputations due to PVD and poorly controlled diabetes as well as the following: Accidental poisoning Acute osteomyelitis of toe of left foot Adult health examination Allergic reaction to drug Allergies Anesthesia of skin Atopic dermatitis Biceps tendinitis Cellulitis Cellulitis Chronic pain Chronic, continuous use of opioids Depressive disorder Diabetes mellitus, type 2 Diabetic foot ulcer Eczema Flu vaccine need Foot abscess, left Foot pain, left GERD (gastroesophageal reflux disease) Hypertensive disorder Impaired tissue integrity Impingement syndrome of right shoulder region Low back pain Methicillin resistant Staphylococcus aureus [...] 2 diabetes mellitus without complication Uterine leiomyoma *Subjective: Patient resting on bed upon OT and PT arrival. Patient reports she has been toileting independently. Easily agrees to functional performance with therapists. Patient left in care of PT to perform stairs upon OT departure. RN updated. Hand Dominance: Right *Barriers to Learning: ??x None Communication Cultural Education level Hearing Language Vision Physical Cognitive Motivational Emotional Acute medical condition Precautions: ??x Standard precautions ??x MRSA/VRE Contact precautions Droplet precautions Airborne precautions Covid precautions Total hip replacement Total knee replacement Total shoulder replacement Fall risk *Previous Level of Function: Patient lives alone and is independent with all ADL and IADL, including driving, with no use of AD for functional mobility at baseline. 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 Currently,she is employed at [employer]. Prior Home Setup: ?Living Situation/Level of Supervision: lives alone/ independent ?Living Environment: mobile home with 4 steps with railing to enter. Bathroom has tub/shower with multiple grab bars in tub and surrounding standard height toilet. ?Home Equipment: has RW and cane, DNU at baseline *Current Level of Function: Pain: Numeric rating not provided. Patient is able to bear full weight through R foot without increased pain. Vision/Hearing: both WFL Cognition: All grossly WFL including safety awareness Upper Extremity Passive/Active Range of Motion: B UE AROM is WFL Manual Muscle Testing: B UE strength is WFL Proprioception/Sensation: Chronically impaired. Coordination: ?Fine Motor: intact ?Gross Motor: intact ADLs: Activity Assistance Comments Bathing Upper Body ??independent ??washing face and applying deoderant, both performed in standing at sink Bathing Lower Body Dressing Upper Body Dressing Lower Body ??patient denies need to don underwear when offered. Independent with sock management Eating ??independent Shaving Combing Hair Brushing Teeth ??independent ??performed in standing at sink Toileting ??denies need at this time, still, reports independence prior to OT arrival Bed Mobility: Activity Assistance Comments Rolling Scooting/Repositioning Supine to Sit ??independent Sit to Supine Transfers: Activity Assistive Device Assistance Comments Sit to Stand ??none utilized ??independent ??from EOB Stand to Sit ??independent ??controlled descent with appropriate hand and foot placement Bed to Chair Chair to Bed Shower Transfer Toilet Transfer ??patient reports independence Functional Ambulation During ADLs: Assistance Assistive Device Distance??(ft) Comments ??independent ??none, patient managed IV pole independently ??20 x2 ??- Balance: ?Static Sitting: good ?Dynamic Sitting: good ?Static Standing: good ?Dynamic Standing: good *Standardized Testing: Standardized Test Score Comments AM-PAC Levon Index Jack Balance Score PASS SLUMS Short Blessed Test [place] Cognitive Assessment Modified Levon Index ??100/100 ??[place] with all ADLs Motor Assessment Scale Quick DASH *Patient Education: Patient introduced to this therapist and provided brief scope of acute OT services. *Occupational Therapy Assessment: Patient is a 57-year-old female currently admitted for diabetic right foot ulcer. Patient lives at home alone and is independent with all ADLs and IADLs, with no useof AD for functional mobility at baseline. Patient easily agrees to therapy evaluation this morningand demonstrates independence during all self-care and functional mobility tasks. Given level of independence demonstrated, there is no indication for further skilled acute OT services. Patient will be discharged from OT at this time. *Rehab Potential: Not applicable?_ *Short Term Goals?time frame: NA *Retirement Goals?time frame: NA *Patient Goals: Home *Discharge Plan: discharge from therapy today Discharge Recommendations: ?Post discharge Rehab needs: None for OT ?Supervision needs: limited supervision ?Discussed plan of care with: patient, PT, RN *Procedure Documentation: CPT 35803: Low Complexity OT Evaluation:??10 minutes Occupational Therapy Low Complexity Evaluation performed. History involves brief review. Examination of performance deficit(s) includes 1-3 elements. Clinical decision making includes limited?? treatment option considerations. present?comorbidities. Task modifications/assistance are not necessary. *Total Time: 10 minutes *Time In: 11:35 *Time Out: 11:45 Electronically Signed on 06/17/23 12:27 PM Lesley Weston OT senior planning manager Note * Edgar Cordova: PERFORM Event Display: Case Management Note Authored Date: [id number] Day Reviewed: 06/16/2023 Review Type: Level Of Service Subtype: LOC:Acute Adult Infection: Musculoskeletal Episode Day: 1 InterQual?? criteria (IQ) is confidential and proprietary information and is being provided to you solely as it pertains to the information requested. IQ may contain advanced clinical knowledge whichwe recommend you discuss with your physician upon disclosure to you. Use permitted by and subject to license with [employer] and/or one of its subsidiaries. IQ reflects [...] of your health care provider. ?? 2022 [employer] and/or one of its subsidiaries. All Rights Reserved. CPT?? only ?? [employer]. All Rights Reserved. Review Outcome: Acute Met Other InterQual [X] Select Day, One: [X] Episode Day 1, One: [X] ACUTE, ??? One: [X] Osteomyelitis, actual or suspected, by bone scan, x-ray, CT or MRI and, ??? One: [X] Anti-infective [X] Bone culture scheduled or performed within 24h EKG study * Event Display: Telemetry Strips Please click on link to view image. * Event Display: Telemetry Strips Please click on link to view image. Pharmacology Progress note * Lindsey Armenta PharmD: PERFORM Event Display: Pharmacy Progress Note Authored Date: [id number] Pharmacy Progress Note * During daily monitoring; patient had a change in Scr, noted below. Vancomycin dosage has been adjusted accordingly. Will continue to monitor. * [facility] Pharmacokinetics Note Drug: Vancomycin Pharmacokinetic target: AUC24 (range) 400-600 mg/L.hr Current regimen: 1250 mg IV every 12 hours Charlee Dunham is a(n) 57 years old female receiving Vancomycin 1250 mg IV every 12 hours for [PLEASE ADD INDICATION] Recent measured serum creatinine values: 06/20/2023 07:18 0.8 mg/dL 06/19/2023 07:10 0.65 mg/dL 06/18/2023 07:00 0.54 mg/dL Assessment: Analysis of the most recent level(s) using [employer] gives the following patient-specific pharmacokinetic parameters: CL: 4.1 L/hr V: 51.6 L T1/2: 9.71 hours Using these values, the current regimen of Vancomycin 1250 mg IV every 12 hours is predicted to result in a steady-state trough of 18.1 mg/L and AUC24 of 606 mg/L.hr. At this time we recommend a regimen of 750 mg IV every 8 hours, which is predicted to result in a steady-state trough of 17.8 mg/L and AUC24 of 546 mg/L.hr. Recommendations: - Vancomycin 750 mg IV every 8 hours - Obtain Vancomycin level 06/21/2023 @ 07:00 - Continue to monitor serum creatinine Lindsey Armenta pharmD Electronically Signed on 06/20/23 09:41 AM Lindsey Armenta PharmD * Lindsey Armenta PharmD: PERFORM Event Display: Pharmacy Progress Note Authored Date: [id number] Discussed potential oral option of linezolid as a possibility for MRSA treatment for Charlee as she did fail treatment with doxycyline as an outpatient and would meet criteria to be initiated on this with insurance coverage. Still discussion of continuing vancomycin therapy and that 12 hour regimen would be preferred for outpatient setting vs Q8h regimen. Will adjust from 750 mg q8h to 1000 mg q12h with close monitoring of her Scr as it did increase from 0.65 to 0.8 this morning. Dose of 1000 mg q12h would result in a predicted AUC of 487 mg/L.hr which is between the desired range of 400-600 mg/L.hr. Mateusz NEGRETE Electronically Signed on 06/20/23 10:48 AM Lindsey Armenta PharmD * Antonia Mehta: PERFORM Event Display: Pharmacy Progress Note Authored Date: [id number] Pharmacy Progress Note [facility] Pharmacokinetics Note Drug: Vancomycin Pharmacokinetic target: AUC24 (range) 400-600 mg/L.hr Current regimen: 1000 mg IV every 8 hours Charlee Dunham is a(n) 57 years old female receiving Vancomycin 1000 mg IV every 8 hours for diabetic foot infection Recent measured serum creatinine values: 06/18/2023 08:57 0.54 mg/dL 06/18/2023 07:00 0.54 mg/dL 06/17/2023 07:25 0.61 mg/dL Assessment: Analysis of the most recent level(s) using [employer] gives the following patient-specific pharmacokinetic parameters: CL: 4.86 L/hr V: 57.5 L T1/2: 8.67 hours Using these values, the current regimen of Vancomycin 1000 mg IV every 8 hours is predicted to result in a steady-state trough of 19.6 mg/L and AUC24 of 616 mg/L.hr. At this time we recommend a regimen of 1250 mg IV every 12 hours, which is predicted to result in a steady-state trough of 14.9 mg/L and AUC24 of 515 mg/L.hr. Recommendations: - Vancomycin 1250 mg IV every 12 hours - Obtain Vancomycin level 06/19/2023 at 0700 - Continue to monitor serum creatinine Antonia Mehta Electronically Signed on 06/18/23 09:08 AM Antonia Mehta * Antonia Mehta: PERFORM Event Display: Pharmacy Progress Note Authored Date: [id number] Pharmacy Progress Note [facility] Pharmacokinetics Note Drug: Vancomycin Pharmacokinetic target: AUC24 (range) 400-600 mg/L.hr Current regimen: 1000 mg IV every 8 hours Charlee Dunham is a(n) 57 years old female receiving Vancomycin 1000 mg IV every 8 hours for diabetic foot infection Recent measured serum creatinine values: 06/17/2023 07:25 0.61 mg/dL 06/16/2023 17:31 0.62 mg/dL 06/05/2023 07:00 0.63 mg/dL Assessment: Analysis of the most recent level(s) using [employer] gives the following patient-specific pharmacokinetic parameters: CL: 6.32 L/hr V: 84.4 L T1/2: 9.58 hours Using these values, the current regimen of Vancomycin 1000 mg IV every 8 hours is predicted to result in a steady-state trough of 15.2 mg/L and AUC24 of 469 mg/L.hr. At this time we recommend a regimen of 1000 mg IV every 8 hours, which is predicted to result in a steady-state trough of 15.2 mg/L and AUC24 of 469 mg/L.hr. Recommendations: - Vancomycin 1000 mg IV every 8 hours - Obtain Vancomycin level 06/18/2023 at 0700 - Continue to monitor serum creatinine Antonia Mehta Electronically Signed on 06/17/23 02:03 PM Antonia Mehta Respiratory therapy Hospital Progress note * Alok Mao: PERFORM Event Display: Respiratory Therapy Progress Note Authored Date: [id number] ??CHARLEE DUNHAM 57 Years MEASURED Body Mass Index: 20.26 kg/m2 (06/16/23 17:44:00) BSA Measured: 2.3 m2 (08/14/22 15:38:00) Height: 164 cm (06/16/23 17:44:00) Weight: 54.5 kg (06/16/23 17:44:00) DOSING Height/Length Dosin cm (06/16/23 17:44:00) Weight Dosin.5 kg (06/16/23 17:44:00) Respiratory Shift Summary Breath Sounds: Clear Shift Treatments: None Shift Events: Respiratory Protocol??Aerosol Therapy Assessment and Scoring Lung History (1) Smoking history less than 1 pack/day, History of lung disease(Asthma) Breath Sounds (0) Clear in all [place] Respiratory Rate (1)??19-25 Modified Adan Scale or Observed Dyspnea (0) None Oxygen Therapy (0) Room air, at baseline home O2, post-op, or CHF Home Respiratory Medications (0) None Inhaler Use Assessment ? Clinically Stable? Yes? Can take a slow deep breath on command? Yes? Can perform a 3 second breath hold? Yes Respiratory total Score: 2 Respiratory Guidelines 0-2 pts - No Therapy indicated Electronically Signed on 06/16/23 06:57 PM Alok Mao Physician Emergency department Note * Junior Basurto MD: PERFORM Event Display: ED Note Physician Authored Date: [id number] CHARLEE DUNHAM :1965 Age:57 years Sex:Female Visit Date:06/16/2023 Primary Care Physician: Attila Bernal MD Basic Information Time Seen: Junior Basurto MD / 06/16/2023 11:32 Chief Complaint Pt states she has had prolems with her feet due to Diabetic Ulcers History Of Present Illness: This is a very pleasant 57-year-old lady, history notable for but not limited to type 2 diabetes, previous diabetic ulcer??with??multiple toe amputations,??GERD,??presenting today for evaluation of left greater than right toe pain.?? She is noted to have come to the hospital 06/03 For diabetic wounds and underwent MRI of his feet on 06/04.?? There is concern for skin/soft tissue infection on the left foot but then some osteomyelitis on her right fourth toe.?? She subsequently had the right fourthtoe??amputated and felt like things were healing well. ??She was on IV antibiotics??while in the hospital and noted improvement to the pain and swelling to her left foot.?? She went home on the??15thon Bactrim and notes that she completed that course 2 days ago. ??Since, she has had worsening erythema??and pain in the left foot and noted that the??incision on the right foot seems to be more openwith some drainage as well. ??She has not had fevers or chills. Review of Systems: Positive for foot wound and otherwise as noted in HPI Physical Exam Vitals & Measurements T:??35.9?C ??(Temporal Artery)?? HR:??82??(Peripheral)?? RR:??20?? BP:??125/65?? SpO2:??97%?? HT:??164.000??cm?? WT:??54.500??kg?? BMI:??20.260?? Pain Score:??8?? O2 Therapy:??Room air?? Vital signs and nursing notes reviewed ?? CONSTITUTIONAL: _well appearing in no acute distress SKIN: _Warm, dry EYES: _extraocular movements are grossly intact, clear conjunctiva HENT: _Normocephalic, atraumatic, moist mucus membranes NECK: _no obvious swelling, normal range of motion PULMONARY: _normal chest rise and fall, no respiratory distress or stridor CARDIOVASCULAR: _regular rate, distal extremities are warm and well perfused GASTROINTESTINAL: _nondistended GENITOURINARY: _deferred NEUROLOGIC: _normal speech, moves all extremities with equal strength and coordination MUSCULOSKELETAL: _Left foot???patient is??status post great toe??amputation. ??There is fairly diffuse erythema??and some induration noted dorsal aspect of the forefoot extending to the second and third toe. ??This is blanchable. ??There is no extending crepitus. ??The right foot, there is notably??fourth toe amputation??with somewhat open incision, no significant erythema, mild amount of drainage. ??Otherwise no deformities noted to this foot PSYCHIATRIC: _normal mood and affect ? Medical Decision Making: ? On my initial evaluation the patient appears generally well and non-toxic, they engage and answer questions appropriately, hemodynamically stable, no evidence of tachycardia, easy WOB with SpO2 saturation upper 90s to 100% on room air, afebrile by oral temperature.?? Her??feet are concerning for diabetic ulcer/cellulitis versus potential osteomyelitis versus??abscess, does not appear to have rapidly progressive features or signs of systemic illness??that would raise suspicion??for necrotizing infection. ??We will plan to check labs as ordered, check cultures and give IV antibiotics. ??We willcheck screening x-ray to evaluate for overt signs of osteomyelitis??although in the context of recent MRI,??relatively low suspicion. Procedure No Qualifying Data Reexamination/Reevaluation Labs reviewed???mild leukocytosis is noted at 15.8.?? CRP is elevated at 23.?? Mild hypokalemia is noted which we will replace oral and IV.?? Renal function is preserved.?? X-rays do not show clear signs of osteomyelitis.?? Discussed with hospitalist group, Dr. Kidd, who graciously agrees to evaluate for admission. ?? Medical Decision-Making: Clinical lab tests: ordered and reviewed -??Yes Tests in the radiology section of CPT??: ordered and reviewed -??Yes Tests in the medicine section of CPT??: ordered and reviewed -??Yes Review and summarize past medical records -??Yes Discuss the patient with other providers -??Yes Assessment/Plan 1.??Diabetic foot ulcer??E11.621 2.??Type 2 diabetes mellitus without complication??E11.9 3.??Hypertensive disorder??I10 4.??Depressive disorder??F32.A Non-pressure chronic ulcer of other part of unspecified foot with unspecified severity??L97.509 Orders: Blood Culture, Blood, Stat collect, ST - Stat, 06/16/23 12:37:00 EDT, Once, Nurse collect, Print Label Decision to Admit, 06/16/23 13:54:00 EDT, Medical Unit Medication Reconciliation Unchanged ARIPiprazole (ARIPiprazole 10 mg oral tablet)1 tab Oral (given by mouth) every day. Refills: 3. ?? buPROPion (buPROPion 300 mg/24 hours (XL) oral tablet, extended release)1 tab Oral (given by mouth)every day. Refills: 4. ?? cetirizine (cetirizine 10 mg oral tablet)1 tab Oral (given by mouth) every day. Refills: 4. ?? doxycycline (doxycycline hyclate 100 mg oral capsule)1 Capsules Oral (given by mouth) 2 times a dayfor 10 Days. Refills: 0. ?? DULoxetine (DULoxetine 30 mg oral delayed release capsule)1 Capsules Oral (given by mouth) every day for 90 Days. Refills: 4. ?? DULoxetine (DULoxetine 60 mg oral delayed release capsule)1 Capsules Oral (given by mouth) every day. Take in addition to 30 mg for a total dose of 90 mg. Refills: 4. ?? Durable Medical Equipment for Prescription (Tandem Transit Plus lancest 30 gauge)Test twice daily.Refills: 4. [...] pen needles 30G 8 mm (Relion [place] 30G 8mm)1 Each Not Applicable As Directed [...] (09/22/2000)??? section (procedure) (09/22/1997)???Amputation of toe???Tubal ligation Medication Administration Given cefTRIAXone, IV Piggyback ferrous sulfate, 325 mg, Oral. For: Type 2 diabetes mellitus without complication gabapentin, 900 mg, Oral magnesium sulfate, 1 g, 1 g, IV Piggyback potassium chloride, 10 mEq, 10 mEq, 10 mEq, IV Piggyback potassium chloride, 40 mEq, Oral vancomycin, IV Piggyback Zosyn + Sodium Chloride 0.9% 100 mL, IV Piggyback Allergies Bee Stings??(Anaphylaxis) Benzoin Tincture ANIMAL DANDER??(Eye swelling) HOUSE DUST??(Eye swelling) INSECT VENOM??(Anaphylactic reaction) LATEX??(Skin rash) codeine??(Loss of consciousness) morphine??(Vomiting) Social History Alcohol Never Electronic Cigarette/Vaping Electronic Cigarette Use: Use, within last 90 days.- Comments: occasionally Substance Use Never Tobacco Former tobacco user Tobacco Use:. Family History Hypertensive disorder: Mother. Electronically Signed on 06/16/23 07:48 PM Junior Basurto MD Physical therapy Progress note * Lesley Green PT: PERFORM Event Display: Physical Therapy Progress Note Authored Date: [id number] Patient ID and date of checked:??Yes *Current Level of Care: In-Patient *Admitting Diagnosis: Feet pain with infection status post recent amputation. *Therapy Diagnosis: Same with concerns for mobility Pertinent Medical History: Methicillin resistant Staphylococcus aureus Shoulder pain Accidental poisoning Acute osteomyelitis of toe of left foot Adult health examination Allergic reaction to drug Allergies Anesthesia of skin Atopic dermatitis Biceps tendinitis Cellulitis Cellulitis Chronic pain Chronic, continuous use of opioids Depressed Depressive disorder Diabetes mellitus, type 2 Diabetic foot ulcer Eczema Flu vaccine need Foot abscess, left Foot pain, left GERD (gastroesophageal reflux disease) Hypertensive disorder Impaired tissue integrity Impingement syndrome of right shoulder region Low back pain Low back pain Migraine Nicotine dependence Obesity Open wound of fourth toe of right foot Open wound of toe of right foot Osteomyelitis Osteomyelitis of toe of right foot Overweight Pain in right arm Postoperative infection Psoriasis Sepsis Severe obesity Status post amputation of toe Strain of muscle of upper limb Strain of tendon of upper arm Toe pain, left Toxic effect of venom Type 2 diabetes mellitus without complication Uterine leiomyoma Amputation great toe: 12/19/22 Arthroplasty, interposition, intercarpal or carpometacarpal joints: 04/17/21 Rotator cuff repair: 09/22/16 Hysterectomy: 09/22/00 section: 09/22/97 Amputation of toe Tubal ligation *Subjective: Patient reporting to therapy that she has been ambulating independently in the room and into the bathroom. She has no concerns about returning to her previous environment. *Barriers to Learning: ??x None Communication Cultural Education level Hearing Language Vision Physical Cognitive Motivational Emotional Precautions: Standard precautions ??x MRSA/VRE Contact precautions Droplet precautions Airborne precautions Covid precautions Total hip replacement Total knee replacement Total shoulder replacement Fall risk *Previous Level of Function: Patient living independently in her own home. Driving for community access. As working at [employer]. Occupational Status/Profile: As per above Prior Home Setup: ?? Living Situation/Level of Supervision: Independent ?Living Environment: Single-story mobile home ?Stairs/Ramps: 4 with railings ?Home Equipment: Patient has a cane and a walker available. *Current Level of Function: Ambulate independently without assistive device in her room. Pain: ?Patient complaining of primarily right foot pain and is currently on IV antibiotics. Cognition: Alert and oriented Passive/Active Range of Motion: Within normal limits Manual Muscle Testing: Not formally tested today Bed Mobility: Activity Assistance Comments Rolling Scooting/Repositioning Supine to Sit Independent Sit to Supine Independent Transfers: Activity Assistive Device Assistance Comments Sit to Stand Independent Stand to Sit Independent Bed to Chair Chair to Bed Shower Transfer Toilet Transfer Ambulation: Assistance Assistive Device Distance Comments Independent None required Total of 40 feet Patient has been accessing bathroom independently. Stairs: Assistance Assistive Device # Steps Comments Independent Railings only For Balance: No loss of balance or concerns of balance noted during all mobility completed. Skin Integrity: Not assessed by PT is being managed by PCP and surgical services. *Standardized Testing: Standardized Test: [facility] Functional Impairment Rating ? Score: 0% impairment ? Comments: *Patient Education: None required *Physical Therapy Assessment: Patient is a 57-year-old female well-known to physical therapy for multiple courses of outpatient treatment related to bilateral foot wounds due to complications from diabetes. Patient recently underwent multiple amputations and subsequently developed an infection requiring recent hospitalization. Patient's wounds are being managed by surgical services. Patient's primary admitting diagnosis was bilateral foot pain, and this was not a limiting factor in patient's independence with mobility today. She was able to complete all transfers, ambulation, and stairs required for return home without difficulty or concerns for balance. No further skilled physical therapy i ntervention is required and patient is being discharged from our care. *Rehab Potential:??Not applicable *Short Term Goals?time frame: Not applicable *Ward Attendant Goals?time frame: Not applicable *Patient Goals: To have less foot pain and for the wound to heal. PT Plan of Care:??Discharge from skilled PT services today. Discharge Recommendations: No needs identified for return to home environment. *Evaluation Procedure Documentation: CPT 39035: Low Complexity PT Evaluation:?20?? minutes Physical Therapy Evaluation performed. History involves 3 or more personal factors and/or comorbidities. Examination of body system(s) includes 3 or more elements. Clinical presentation is stable. Clinical decision making is low. *Total Time: 20 minutes *Time In: 11:30 AM *Time Out: 11:50 AM This document was dictated utilizing voice recognition software and may contain inadvertent errors. Electronically Signed on 06/17/23 12:50 PM Lesley Green PT Progress note * Lester Brito DO: PERFORM Event Display: Progress Note - Physician Authored Date: [id number] CHARLEE DUNHAM :1965 Age:57 years Sex:Female Visit Date:06/16/2023 Primary Care Physician: Attila Bernal MD Subjective 57-year-old woman??with a history of??diabetes, hypertension, depression,??cellulitis,??and obesity??presented with??a diabetic foot wound??and has subsequently undergone??drain placement. ?? I was called last??evening for patient complaint of right lower leg numbness. ??Exam was unrevealing??and she has no other new neurological findings. ?? Did do a CTA??of both legs to assess her vasculature and to see if we could identify??possible cause of her??numbness??but this??revealed only some??minor vascular disease but no evidence of DVT??or other??changes to account for her??below the??right knee??numbness in the??S1-S2 dermatomal distribut ion??(though only below the knee). Review of Systems Right lower extremity numbness??and bilateral??chronic foot numbness.?? No fevers. ??Denies chest pain, dyspnea, palpitations, dizziness, headaches, sudden visual changes, cough, or new peripheral edema. Objective Vitals & Measurements T:??37.0?C ??(Temporal Artery)?? TMIN:??36.1?C ??(Temporal Artery)?? TMAX:??37?C ??(Temporal Artery)?? HR:??79??(Peripheral)?? RR:??18?? BP:??129/66?? SpO2:??99%?? NIH Stroke Scale Score:??1?? Pain Score:??8?? O2 Therapy:??Room air?? Physical Exam General: Alert and oriented woman who appears stated age in no acute distress; ??apparent full command of cognitive faculties HEENT: Normocephalic; normal facial movements; extraocular muscle movements apparently normal; necksupple without adenopathy; no evidence of thyromegaly or nodularity Cardiovascular: S1-S2; ??no noted murmurs, rubs or gallops Pulmonary: Good air movement bilaterally with no wheezes, rales or rhonchi Skin: Warm and dry; no rashes Neurological: Moves all extremities; no focal deficits; cranial nerves 3, 4, 6, 7, 8, 11, and 12 within normal limits Musculoskeletal: No edema; no obvious arthropathy; left foot with??mild erythema??but with??very little erythema??and no obvious tenderness;??plastic drain??passes through??the ventral and dorsal surfaces of foot??to keep wound open; right foot with??dehisced??surgical wound between third and fifthtoes, with absence??of fourth toe Psych: normal affect; apparently euthymic; no abnormal thoughts or hallucinations evident.?? Assessment/Plan 1.??Diabetic foot ulcer??E11.621 Seems to have failed??oral therapy with metronidazole, Levaquin, and Bactrim. ?? Have reinstituted??vancomycin and her white cell count and??CRP have come down. ?? Decline is in place and she should be able to??return home tomorrow. ?? She has wounds on both feet but a drain??in her left foot??and a surgical wound on the right foot??which will take some time to heal??by secondary intention??with her reduced??blood flow. ??She does have an appointment with podiatry??next week.?? She should be able to discharge home tomorrow to continue her vancomycin infusions. 2.??Type 2 diabetes mellitus without complication??E11.9 Continue glargine, sliding scale, and her diabetic diet.?? Diabetes has been well controlled with her A1c in March 2023 of 5.8%. 3.??Hypertensive disorder??I10 Blood pressure's well controlled. 4.??Depressive disorder??F32.A Continue duloxetine, gabapentin, and aripiprazole. ??Mood does seem to be a bit low. 5.??Right leg numbness??R20.0 The cause of this and not entirely clear although??it is in an S1-S2 dermatomal distribution but only below the knee.?? It seems likely??to be a local effect. ??She has no other neurological changes.??CTA of her lower extremity??did not reveal??a cause of this. 6.??Peripheral vascular disease??I73.9 CTA of both lower extremities showed segmental disease of bilateral anterior tibial arteries??with bilateral??patent dorsal pedis??arteries??but no evidence of significant vascular stenosis or occlusion in the arteries of the abdomen pelvis or lower extremities. Orders: Lovenox, 40 mg = 0.4 mL, Subcutaneous, Soln, every 24 hr for 30 days, First Dose: 06/20/23 18:56:00EDT, Stop Date: 07/20/23 18:55:00 EDT, Physician Stop, Routine magnesium oxide, 400 mg = 1 tab, Oral, Tab, Daily for 30 days, First Dose: 06/22/23 9:00:00 EDT, Stop Date: 07/22/23 8:59:00 EDT, Physician Stop, Routine vancomycin, 1,000 mg = 1 EA, IV Piggyback, Powder-Inj, Once, Antibiotic Indication Diabetic Foot Infection, Administer over: 1 hr, First Dose: 06/21/23 17:30:00 EDT, Stop Date: 06/21/23 17:30:00 EDT,Physician Stop, Routine, 250 mL/hr vancomycin, 1,000 mg = 1 EA, IV Piggyback, Powder-Inj, Once, Antibiotic Indication Diabetic Foot Infection, Administer over: 1.3 hr, First Dose: 06/22/23 5:00:00 EDT, Stop Date: 06/22/23 5:00:00 EDT,Physician Stop, Routine, 200 mL/hr Communication Order, 06/20/23 12:59:00 EDT, Constant order, Flush before and after use with 20 ml 0.9% normal saline, or at least every 24 hours. Communication Order, 06/20/23 12:59:00 EDT, Constant order, If unable to obtain blood return, the following trechnique may initiate blood flow: Valsalva - ask patient to cough, hold breath, change position and lift shoulders. If still no blood return order a STAT portabl... Communication Order, 06/20/23 12:59:00 EDT, Constant order, Use minimum of 10 ml syringe to avoid excessive pressure. Dressing Change, 06/21/23 12:59:00 EDT, Stop date 06/21/23 12:59:00 EDT, Change PICC Line Dressing 24 hours after insertion Dressing Change, 06/27/23 12:59:00 EDT, every week, Change extension sets, needleless connector andStatLock weekly with the dressing change. [facility] [place], 06/20/23 12:59:00 EDT, Constant order, Change Continuous IV Tubing every 96 hours Vancomycin Level, Blood, Timed Study, 06/22/23 10:00:00 EDT, Once, Lab Collect, 06/22/23, 0500 Disposition:??Patient will discharge to home tomorrow??to continue with her vancomycin infusions. Electronically Signed on 06/21/23 12:02 PM Lester Brito DO * Nilo Oconnor DO: PERFORM Event Display: Progress Note - Physician Authored Date: [id number] CHARLEE DUNHAM :1965 Age:57 years Sex:Female Visit Date:06/16/2023 Primary Care Physician: Attila Bernal MD Subjective Patient had some numbness in left calf last night. Somewhat improved this morning. Over-all sensation and motor function remains intact. WBC normalized and CRP downtrending. Review of Systems see hPI Objective Vitals & Measurements T:??36.3?C ??(Temporal Artery)?? TMIN:??36.1?C ??(Temporal Artery)?? TMAX:??37?C ??(Temporal Artery)?? HR:??71??(Peripheral)?? RR:??17?? BP:??116/63?? SpO2:??97%?? NIH Stroke Scale Score:??1?? Pain Score:??8?? O2 Therapy:??Room air?? Physical Exam left foot with palpable DP pulse, connie in place with minimal seropurulent drainage on dressing ?? right foot with palpable PT, sensation and motor function intact, in the 4th web space superficial incisional dehiscence with some fibrinous exudate. Assessment/Plan 1.??Diabetic foot ulcer??E11.621 Overall improving eryrthema and swelling in left foot with drain placed. Covering for MRSA with vancomycin with no normalization of WBC count and CRP downtrending. CT of RLE was ordered for numbness and we can follow up on that. PICC line as been placed and she can be discharged on IV abx with podiatry follow up. 2.??Type 2 diabetes mellitus without complication??E11.9 3.??Hypertensive disorder??I10 4.??Depressive disorder??F32.A 5.??Right leg numbness??R20.0 Electronically Signed on 06/21/23 09:41 AM El-Nilo Solano DO * Lester Brito DO: PERFORM Event Display: Progress Note - Physician Authored Date: [id number] CHARLEE DUNHAM :1965 Age:57 years Sex:Female Visit Date:06/16/2023 Primary Care Physician: Attila Bernal MD Subjective 57-year-old woman??with a history of??diabetes, hypertension, depression,??cellulitis,??and obesity??presented with??a diabetic foot wound??and has subsequently undergone??drain placement. ?? She has had some pain??in the??right foot as well and this is bandaged today.?? She does have a fairly deep??laceration??type injury??between the??fourth and fifth toes??on the right foot. ?? I will see the wound??on the left foot when the nurse takes the dressing down later today. ?? She is feeling well??but somewhat frustrated with the??turn of events. ??She will have a PICC line placed today and hopefully will get her home??when we can arrange??vancomycin in the home. ?? White cell count has come down today although her inflammatory marker guillermo slightly. ?? We will recheck in the morning. Review of Systems Denies fever,??chest pain, dyspnea, palpitations, dizziness, headaches, sudden visual changes, cough, or new peripheral edema. Objective Vitals & Measurements T:??36.2?C ??(Temporal Artery)?? TMIN:??36.2?C ??(Temporal Artery)?? TMAX:??36.9?C ??(Temporal Artery)?? HR:??78??(Peripheral)?? RR:??18?? BP:??113/62?? SpO2:??95%?? Pain Score:??8?? O2 Therapy:??Room air?? Physical Exam General: Alert and oriented woman who appears stated age in no acute distress; ??apparent full command of cognitive faculties HEENT: Normocephalic; normal facial movements; extraocular muscle movements apparently normal; necksupple without adenopathy; no evidence of thyromegaly or nodularity Cardiovascular: S1-S2; ??no noted murmurs, rubs or gallops Pulmonary: Good air movement bilaterally with no wheezes, rales or rhonchi Skin: Warm and dry; no rashes Neurological: Moves all extremities; no focal deficits; cranial nerves 3, 4, 6, 7, 8, 11, and 12 within normal limits Musculoskeletal: No edema; no obvious arthropathy; left foot dorsum??with??drain??placed under??third toe??without evident drainage;??very little erythema??and no obvious tenderness; right foot with??laceration between fourth and fifth toes. Psych: normal affect; apparently euthymic; no abnormal thoughts or hallucinations evident.?? Assessment/Plan 1.??Diabetic foot ulcer??E11.621 Seems to have failed??oral therapy with metronidazole, Levaquin, and Bactrim. ?? Have reinstituted??vancomycin and her white cell count has come down. ?? We will get a PICC line today and send her home on vancomycin.?? She is at risk for polymicrobial infection and if her??white cell count does not continue??down may need to add??a broader spectrum antibiotic but we could do this at home as well. ?? She has wounds on both feet but a drain??in her left foot??and a laceration on the right foot??which will take some time to heal??with her reduced??blood flow. ??She does have an appointment with podiatry??next week. 2.??Type 2 diabetes mellitus without complication??E11.9 Continue glargine, sliding scale, and her diabetic diet.?? Diabetes has been well controlled with her A1c in March 2023 of 5.8%. 3.??Hypertensive disorder??I10 Blood pressures well controlled. 4.??Depressive disorder??F32.A Continue duloxetine, gabapentin, and aripiprazole. ??Mood does seem to be a bit low. Orders: vancomycin, 1,000 mg = 200 mL, IV Piggyback, Soln, every 12 hr, Antibiotic Indication Diabetic FootInfection, Administer over: 1 hr, First Dose: 06/20/23 18:30:00 EDT, 200 mL/hr Basic Metabolic Panel, Blood, Routine, 06/20/23 7:00:00 EDT, every morning, for 3 days, Lab Collect C-Reactive Protein, Blood, Routine, 06/20/23 7:00:00 EDT, every morning, for 3 days, Nurse collect CBC w/ Diff, Blood, Routine, 06/20/23 7:00:00 EDT, every morning, for 3 days, Lab Collect Communication Order, 06/20/23 12:59:00 EDT, Constant order, Flush before and after use with 20 ml 0.9% normal saline, or at least every 24 hours. Communication Order, 06/20/23 12:59:00 EDT, Constant order, If unable to obtain blood return, the following trechnique may initiate blood flow: Valsalva - ask patient to cough, hold breath, change position and lift shoulders. If still no blood return order a STAT portabl... Communication Order, 06/20/23 12:59:00 EDT, Constant order, Use minimum of 10 ml syringe to avoid excessive pressure. Dressing Change, 06/21/23 12:59:00 EDT, Stop date 06/21/23 12:59:00 EDT, Change PICC Line Dressing 24 hours after insertion Dressing Change, 06/27/23 12:59:00 EDT, every week, Change extension sets, needleless connector andStatLock weekly with the dressing change. Dressing Change, 06/20/23 12:59:00 EDT, Stop date 06/20/23 12:59:00 EDT, As Directed. Change transparent dressing every 7 days; change gauze dressing every 48 hours; PRN: change dressing if it is damp, soiled or no longer intact. Magnesium Level, Blood, Routine, 06/20/23 7:00:00 EDT, every morning, for 3 days, Lab Collect [facility] [place], 06/20/23 12:59:00 EDT, Stop date 06/20/23 12:59:00 EDT, Change Intermittent IV Tubing every [address] [facility] [place], 06/20/23 12:59:00 EDT, Constant order, Change Continuous IV Tubing every 96 hours Vancomycin Level, Blood, Timed Study, 06/21/23 7:00:00 EDT, Once, Lab Collect, 06/20/23, 1730 Disposition:??Expect we can get her home??on Friday once??delivery of??medication??is assured.?? [place] she will need 6 more days of vancomycin in the home. Electronically Signed on 06/20/23 01:23 PM Lester Brito DO History and physical note * Vernon Spencer FREIGHT CAR BU[employer]: PERFORM Event Display: History and Physical Authored Date: [id number] CHARLA CHARLEE JOYCE :1965 Age:57 years Sex:Female Visit Date:06/16/2023 Primary Care Physician: Attila Bernal MD Chief Complaint Pt states she has had prolems with her feet due to Diabetic Ulcers History of Present Illness 57-year-old female patient presents to the emergency department today with complaints of??painful wounds to her feet.?? Patient was recently??admitted??to this facility due to diabetic foot wounds that she underwent debridement and amputation of one of her digits.?? Patient has had multiple digits amputated due to peripheral vascular disease as well as poorly controlled diabetes.?? Today she presents with a new wound between the fourth and fifth??digit on the right foot.?? This is open??and painful she also has redness to both feet that appear cellulitic.?? Medical history significant for diabetes, major depressive disorder,??peripheral neuropathy, hypertension.?? She is seen and evaluated at the bedside in the emergency department where she is awake, alert, oriented x3 she is not in any acute distress her only complaint at the present is that she is hungry. ??She denies any current fevers or chills denies nausea or vomiting denies chest pain or shortness of breath??denies weakness ordizziness and denies changes in urinary or bowel habits.?? Case discussed with the ER provider prior to admission. ??Patient will be admitted as an inpatient??for further IV antibiotics??as well as consultation with general surgery??for evaluation of the wounds on her feet.?? She will require physical and occupational therapy evaluations as well while in the hospital.?? And may require additional amputations.?? Physical exam??physical Review of Systems Constitutional:?No??fevers,?No??chills,?No??sweats Eye:?No??recent visual problems ENT:?No??ear pain,?No??nasal congestion,?No??sore throat Respiratory:?No??shortness of breath,?No??cough Cardiovascular:?No??Chest pain,?No??palpitations,?No??syncope Gastrointestinal:?Nonausea,?No??vomiting,?No??diarrhea Genitourinary:?No??hematuria Ludin/Lymph:?No??bruising tendency,?No??swollen lymph glands Endocrine:?No??excessive thirst,??No??excessive hunger Musculoskeletal:??No??back pain,??No??neck pain,??No??joint pain,??No??muscle pain,??No??decreased range of motion Integumentary:?No??rash,?No??pruritus,?No??abrasions Neurologic: Alert & oriented X 4 Psychiatric:?No??anxiety,?No??depression Physical Exam Vitals & Measurements T:??35.3?C ??(Temporal Artery)?? HR:??80??(Monitored)?? RR:??17?? BP:??130/69?? SpO2:??100%?? HT:??165.100??cm?? WT:??88.90??kg??(Estimated)?? O2 Therapy:??Room air?? General: Alert and oriented, well nourished, no acute distress. Eye: PERRL, EOMI, normal conjunctiva. HENT: Normocephalic, clear tympanic membranes, normal hearing, moist oral mucosa, no scleral icterus, no sinus tenderness. Neck: Supple, non-tender, no carotid bruits, no JVD, no lymphadenopathy. Lungs: Clear to auscultation and percussion, non-labored respiration. Heart: Normal rate, regular rhythm, no murmur, gallop or edema. Breast: No lumps, no bumps, no scars, normal nipples. Abdomen: Soft, non-tender, non-distended, normal bowel sounds, no masses. Musculoskeletal: Normal range of motion and strength, pain, erythema??to both feet??with??multiple wounds. Skin: Skin is warm, dry and appropriate for ethnicity, no rashes or lesions. Neurologic: Awake, alert and oriented X4, CN II-XII intact. Psychiatric: Cooperative, appropriate mood and affect. Assessment/Plan 1.??Diabetic foot ulcer??E11.621 -??Admitted to inpatient -Consult to general surgery -Vancomycin pharmacy to dose -Zosyn 3.375 g IV every 8 hours -Oxycodone for moderate pain, morphine for severe pain -Tylenol for fever or headache, Zofran for nausea and vomiting -Normal saline at 75 cc/h -SCDs for DVT prophylaxis -CBC, BMP, mag, Phos, CRP daily ?? 2.??Type 2 diabetes mellitus without complication??E11.9 -??Poorly controlled due to noncompliance -Sliding scale insulin with q. ACHS blood sugar checks -Continue glargine??at 38 units daily -Hold metformin during hospitalization Ordered: ferrous sulfate, 325 mg = 1 tab, Oral, Tab, TID, First Dose: 06/16/23 15:00:00 EDT, Routine insulin glargine, 38 units, Subcutaneous, Soln, Daily, First Dose: 06/17/23 9:00:00 EDT, Routine ?? 3.??Hypertensive disorder??I10 -??Blood pressures currently controlled -Home medications have been continued -Monitor vital signs per orders Ordered: losartan, 100 mg = 2 tab, Oral, Tab, Daily, First Dose: 06/17/23 9:00:00 EDT, Routine ?? 4.??Depressive disorder??F32.A -??Major, recurrent, currently active and moderate -Home meds are continued Ordered: buPROPion, 300 mg, Oral, Tab-ER, Daily, First Dose: 06/17/23 9:00:00 EDT, Routine DULoxetine, 30 mg = 1 cap, Oral, Cap-DR, Daily, First Dose: 06/17/23 9:00:00 EDT, Routine DULoxetine, 60 mg = 2 cap, Oral, Cap-DR, Daily, First Dose: 06/17/23 9:00:00 EDT, Routine ?? Orders: ARIPiprazole, 10 mg = 2 tab, Oral, Tab, Daily, First Dose: 06/17/23 9:00:00 EDT, Routine folic acid, 1 mg = 1 tab, Oral, Tab, Daily, First Dose: 06/17/23 9:00:00 EDT, Routine gabapentin, 900 mg = 3 cap, Oral, Cap, TID, First Dose: 06/16/23 15:00:00 EDT, Routine loratadine, 10 mg = 1 tab, Oral, Tab, Daily, First Dose: 06/17/23 9:00:00 EDT, Routine omeprazole, 40 mg = 2 cap, Oral, Cap-DR, Daily, First Dose: 06/17/23 6:00:00 EDT, Routine Zosyn, 3.375 g, IV Piggyback, Powder-Inj, every 8 hr, Antibiotic Indication Diabetic Foot Infection, Administer over: 4 hr, First Dose: 06/16/23 14:48:00 EDT, Routine pramipexole, 1.5 mg = 1.5 tab, Oral, Tab, every night at bedtime, First Dose: 06/16/23 21:00:00 EDT, Routine vancomycin - Pharmacy to Dose, pharmacy to dose, IV Piggyback, Once, Antibiotic Indication DiabeticFoot Infection, First Dose: 06/16/23 15:00:00 EDT, Stop Date: 06/16/23 15:00:00 EDT Consult to General Surgery, Routine, diabetic foot ulcers Problem List/Past Medical History Ongoing Accidental poisoning [...] (procedure) (09/22/1997)???Amputation of toe???Tubal ligation Medications Inpatient ARIPiprazole, 10 mg= 2 tab, Oral, Daily buPROPion, 300 mg, Oral, Daily DULoxetine, 60 mg= 2 cap, Oral, Daily DULoxetine, 30 mg= 1 cap, Oral, Daily ferrous sulfate, 325 mg= 1 tab, Oral, TID folic acid, 1 mg= 1 tab, Oral, Daily gabapentin, 900 mg= 3 cap, Oral, TID insulin glargine, 38 units, Subcutaneous, Daily loratadine, 10 mg= 1 tab, Oral, Daily losartan, 100 mg= 2 tab, Oral, Daily magnesium sulfate, 1 g= 100 mL, IV Piggyback, every 1 hr omeprazole, 40 mg= 2 cap, Oral, Daily potassium chloride, 10 mEq= 100 mL, IV Piggyback, every 1 hr pramipexole, 1.5 mg= 1.5 tab, Oral, every night at bedtime vancomycin - Pharmacy to Dose, pharmacy to dose, IV Piggyback, Once Zosyn, 3.375 g, IV Piggyback, every 8 hr Home ARIPiprazole 10 mg oral tablet, 1 tab, Oral, Daily, 3 refills buPROPion 300 mg/24 hours (XL) oral tablet, extended release, 300 mg= 1 tab, Oral, Daily, 4 refills cetirizine 10 mg oral tablet, 10 mg= 1 tab, Oral, Daily, 4 refills doxycycline hyclate 100 mg oral capsule, 100 mg= 1 cap, Oral, BID DULoxetine 30 mg oral delayed release capsule, [...] tablet, See Instructions, 4 refills Relion [place] 30G 8mm, 1 EA, N/A, As Directed, PRN, 4 refills Allergies Bee Stings??(Anaphylaxis) Benzoin Tincture ANIMAL DANDER??(Eye swelling) HOUSE DUST??(Eye swelling) INSECT VENOM??(Anaphylactic reaction) LATEX??(Skin rash) codeine??(Loss of consciousness) morphine??(Vomiting) Social History Alcohol Never Electronic Cigarette/Vaping Electronic Cigarette Use: Use, within last 90 days.- Comments: occasionally Substance Use Never Tobacco Former tobacco user Tobacco Use:. Family History Hypertensive disorder: Mother. Immunizations Vaccine [...] Results Test Name Test Result Date/Time WBC 15.8 x10^3/mcL 06/16/2023 12:09 EDT RBC 3.8 x10^6/mcL 06/16/2023 12:09 EDT Hgb 11.2 g/dL 06/16/2023 12:09 EDT Hct 33.3 % 06/16/2023 12:09 EDT MCV 88.8 fL 06/16/2023 12:09 EDT MCH 29.9 pg 06/16/2023 12:09 EDT MCHC 33.6 g/dL 06/16/2023 12:09 EDT RDW-CV 12.5 % 06/16/2023 12:09 EDT Platelets 615 x10^3/mcL 06/16/2023 12:09 EDT Neutro Auto 67.2 % 06/16/2023 12:09 EDT Lymph Auto 23.5 % 06/16/2023 12:09 EDT [place] Auto 6.6 % 06/16/2023 12:09 EDT Eos, Auto 1.7 % 06/16/2023 12:09 EDT Basophil Auto 0.6 % 06/16/2023 12:09 EDT Imm Gran Auto 0.4 % 06/16/2023 12:09 EDT Neutro Absolute 10.6 x10^3/mcL 06/16/2023 12:09 EDT ESR, Westergren 64 mm/hr 06/16/2023 12:09 EDT Sodium Level 143 mmol/L 06/16/2023 12:09 EDT Potassium Level 2.7 mmol/L 06/16/2023 12:09 EDT Chloride Level 106 mmol/L 06/16/2023 12:09 EDT CO2 27 mmol/L 06/16/2023 12:09 EDT Alk Phos 97 unit/L 06/16/2023 12:09 EDT AST 11 unit/L 06/16/2023 12:09 EDT ALT 19 unit/L 06/16/2023 12:09 EDT BUN 7 mg/dL 06/16/2023 12:09 EDT Glucose Level 100 mg/dL 06/16/2023 12:09 EDT Creatinine Level 0.62 mg/dL 06/16/2023 12:09 EDT eGFR AA 104 06/16/2023 12:09 EDT eGFR Non-AA 104 06/16/2023 12:09 EDT Calcium Level 8.5 mg/dL 06/16/2023 12:09 EDT Protein Total 7.1 g/dL 06/16/2023 12:09 EDT Albumin Level 2.9 g/dL 06/16/2023 12:09 EDT Bilirubin Total 0.3 mg/dL 06/16/2023 12:09 EDT CRP High Sens 23.96 mg/L 06/16/2023 12:09 EDT Procalcitonin <0.15 ng/mL 06/16/2023 12:09 EDT Diagnostic Results COMPARISON:?? MR FOOT RT W/WO CONTRAST 06/04/2023 11:59 AM? FINDINGS:?? Bones/joints: Absence of the 4th toe. Degenerative changes in the?? tarsal bones.?? Soft tissues: No bubbles of air in the soft tissues to suggest soft?? tissue infection.? IMPRESSION:?? 1. ?? Absence of the 4th toe.?? 2. ?? Degenerative changes in the tarsal bones.?? 3. ?? No bubbles of air in the soft tissues to suggest soft tissue?? infection.?? [1] [1]??XR Foot Complete 3+ Views Bilateral; DomainUser, Generated 06/16/2023 11:47 EDT Electronically Signed on 06/16/23 03:26 PM Vernon Spencer NP, Richard Brian MD: PERFORM Event Display: History and Physical Authored Date: [id number] I saw and evaluated Ms Dunham??on 06/16/2023??. ??The case was discussed on rounds with RENETTA Spencer??. I personally reviewed the HPI, PH, FH, SH, ROS and medications. I repeated pertinent portions of the examination and reviewed the relevant imaging and laboratory data. I agree with the findings, assessment and plan as documented. At this time, based on her current clinical condition and treatment, I expect the patient to remain in the hospital more than two days.?? Electronically Signed on 06/16/23 04:24 PM Roscoe Kidd MD Discharge summary * Lester Brito DO: PERFORM Event Display: Discharge Summary Authored Date: [id number] CHARLEE DUNHAM :1965 Age:57 years Sex:Female Visit Date:06/16/2023 Primary Care Physician: Attila Bernal MD Hospital Course Discharge Summary ?? Date of admission:??06/16/2023 ?? Date of discharge:??06/22/2023 ?? Discharge diagnoses:??Diabetic foot infection ?? Consultations:??Dr. Oconnor of surgery ?? Operations/procedures:??Surgical drainage of??left foot??abscess??on 06/17/2023 at the bedside PICC line placement??in the left upper extremity on??06/20/2023. CTA??lower extremity??which showed segmental disease of bilateral anterior tibial arteries??with bilateral patent dorsal pedis arteries??but no evidence of significant vascular stenosis or occlusion of the arteries of the abdomen, pelvis, or lower extremities.?? Liquid stool in the colon??concerning for colitis??(per patient without symptoms);??adrenal nodules with recommendation for follow-up CTscan; right renal calculus;??healing nondisplaced subacute fracture of the??head neck of the??left second metatarsal;??small rim-enhancing collection in the plantar aspect of the forefoot which is being drained by ring- shaped device? Summary of presentation and course ?? 57-year-old woman??with a history of??diabetes, hypertension, depression,??cellulitis,??and obesity??presented with??a diabetic foot wound??and has subsequently undergone??drain placement. ?? Has been planning to discharge her??several days ago but she had been changed to oral antibiotics??and her??white cell count and inflammatory markers are??guillermo??substantially. ?? Subsequently switched her back to vancomycin and her numbers have been looking better. ?? Wound cultures??and blood culture from??previous admission??with discharge of 06/04/2023??have only grown MRSA??and??current cultures have been negative. ?? She did complain on??06/20/2023??of??new onset numbness??in the back of her??right leg??below the knee in the??S1-S2 dermatomal region??of unclear etiology.?? She has no other neurological symptoms. ?? Did do a CTA??of both legs to assess her vasculature and to see if we could identify??possible cause of her??numbness??but this??revealed only some??minor vascular disease but no evidence of DVT??or other??changes to account for her??below the??right knee??numbness in the??S1-S2 dermatomal distribut ion??(though only below the knee). ?? CT scan??incidental finding of??adrenal nodules with recommendation for follow-up??CT. ?? As she seems to respond to the vancomycin alone,??she will be??sent home to complete??a 10-day course of antibiotics??intravenously??until 2023. ?? She will have follow-up with her primary care provider, Dr. Dennis, on 06/26/2023??and she has??an appointment with a managing broker??on Friday,??06/25/2023??to further address the foot infection. ?? Disposition:??Discharge to home today??to follow-up with podiatry??this coming week??and with her primary care physician, Dr. Dennis.?? She will have??vancomycin??through the PICC line until??2023.?? Obviously this could be extended if needed.?? Will have blood sugar through the??antibiotic delivery company.?? She will have VNA services for wound care, PICC line care, and antibiotic??administration teaching. ? Greater than 30 minutes was spent on the day of discharge in coordinating care and arranging outpatient follow-up. ?? I certify that this patient is under my care and that I,?Lester Brito, DO??or a nurse practitioner or physician's assistant city attorney working with me, had a face to face encounter with this patient on:?06/21/2023 ?? I certify/re-certify that the above stated patient is homebound and upon completion of the face to face encounter, has a need/continued need for intermittent shelter, physical therapy, and/orspeech or occupational therapy services in their home for their current diagnosis as outlined in their initial plan of care. These services will continue to be monitored by myself or another physician who will periodically review and update the plan of care as required. ?? Name of Community Physician who will monitor the patient's home health services:?Attila Bernal MD ?? Skilled services are required for assessment of the patient's??musculoskeletal; integumentary??systems due to: 1:Diabetic foot ulcer; 2:Type 2 diabetes mellitus without complication; 3:Hypertensive disorder; 4:Depressive disorder; 5:Right leg numbness; 6:Peripheral vascular disease? SENIOR CARE? [x ] Order? [ ] N/A [ x] Alf needed to monitor patient's medical condition, instruct on medication regimen and??signs and symptoms to report. Patient is at??risk of decompensation and or adverse events due to recent hospitalization.?? [x ] residential needed to monitor and assess exacerbation of medical condition. [ x]??residential needed monitor wound for signs and symptoms of infection, provide wound care,and/or training of patients and caregivers. [ x] residential needed to instruct patient/caregiver how to administer injectable medications and??to??recognize/monitor for adverse side effects. ? HOMEBOUND The following conditions illustrate the patient's normal inability to the leave home and that leaving home requres a considerable and taxing effort. [ x] Patient is unable to leave the home because of illness or injury,??requiring the aid of supportive devices such as crutches, canes,??wheelchairs and walkers; the use of special transportation; or the assistance of another to leave their??place of residence. ? Physical Exam Vitals & Measurements T:??36.3?C ??(Temporal Artery)?? TMIN:??36.3?C ??(Temporal Artery)?? TMAX:??37.2?C ??(Temporal Artery)?? HR:??71??(Peripheral)?? RR:??16?? BP:??127/70?? SpO2:??99%?? WT:??95.8??kg?? Pain Score:??4?? O2 Therapy:??Room air?? 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 section (procedure) (09/22/1997)???Amputation of toe???Tubal ligation Social History Alcohol Never Electronic Cigarette/Vaping Electronic Cigarette Use: Use, within last 90 days.- Comments: occasionally Substance Use Never Tobacco Former tobacco user Tobacco Use:. Discharge Plan 1.??Diabetic foot ulcer??E11.621 2.??Type 2 diabetes mellitus without complication??E11.9 3.??Hypertensive disorder??I10 4.??Depressive disorder??F32.A 5.??Right leg numbness??R20.0 6.??Peripheral vascular disease??I73.9 Orders: magnesium oxide, 400 mg = 1 tab, Oral, Tab, Daily for 30 days, First Dose: 06/22/23 9:00:00 EDT, Stop Date: 07/22/23 8:59:00 EDT, Physician Stop, Routine Discharge Activity Restrictions, Other (please specify):, Limit walking; keep feet and wounds covered and clean at all times Discharge Diet Instruction, Diabetic Diet Discharge Patient, 06/22/23 9:33:00 EDT, Home with Home Health, Home with VNA Services -shelter for wound care and IV antibiotics management through PICC line Follow-up with podiatry this week and with Dr. Dennis on June 26. Vancomycin Level, Blood, Timed Study, 06/22/23 10:00:00 EDT, Once, Lab Collect, 06/22/23, 0500 All Diagnoses This Visit Diabetic foot ulcer Type 2 diabetes mellitus without complication Hypertensive disorder Depressive disorder Right leg numbness Peripheral vascular disease Patient Education Diabetes Mellitus and Foot Care Follow Up With When Contact Information Attila Bernal MD 06/26/2023 10:20 [place] [id number]- Additional Instructions: Hospital follow up Medication Reconciliation Changed buPROPion (buPROPion 300 mg/24 hours (XL) oral tablet, extended release)1 tab Oral (given by mouth)every day. Refills: 4. ?? Unchanged ARIPiprazole (ARIPiprazole 10 mg oral tablet)1 tab Oral (given by mouth) every day. Refills: 3. ?? cetirizine (cetirizine 10 mg oral tablet)1 [...] 4. ?? Durable Medical Equipment for Prescription ([employer] Transit Plus lancest 30 gauge)Test twice daily.Refills: 4. [...] pen needles 30G 8 mm (Relion [place] 30G 8mm)1 Each Not Applicable As Directed [...] (under the skin) every week. Refills: 0. ?? Discontinued doxycycline (doxycycline hyclate 100 mg oral capsule)1 Capsules Oral (given by mouth) 2 times a dayfor 10 Days. Refills: 0. Electronically Signed on 06/22/23 09:36 AM Lester Brito DO Patient Care team information Care Team Personnel Name: Attila Bernal MD Position: Physician Member Role: Informed Provider Address: Address: [address] [address]- [place] Name: Lisa Cordova Position: Nurse Member Role: ED Nurse Name: Junior Basurto MD Position: Physician Member Role: ED Physician Address: Address: [address] [place] [address] [address] [place] [address] Care Team Related Persons Name: EDGAR GUADALUPE Name: SUPA MOON Name: HOSSEIN MCNEIL Name: WILLA MCNEIL
--- OUTSIDE RECORDS SUMMARY | 2023-07-14 09:29 | XMS_ITS | Continuity of Care Document ---
Author Name Unknown Organization [facility] Address [address] [place] [address] Care Team Providers Care School Bus Driver Name Role Phone Attila Bernal Primary Care Physician [phone] [facility] Date(s[facility] 12/19/22 - 12/19/[address] [address] Encounter Diagnosis Diabetic ulcer of left foot(Discharge Diagnosis) - 12/19/22 Type 2 diabetes mellitus with foot ulcer(Final) - Non-pressure chronic ulcer of other part of left foot with unspecified severity (Final) - Discharge Disposition: Home or Self Care Attending Physician: Sonny Rojas MD Admitting Physician: Sonny Rojas MD Referring Physician: Attila Bernal MD Allergies, [...] Plan Future Appointments Diagnostic Tests Pending * Surgical Pathology [facility] 12/19/22 Future Scheduled Tests Laboratory* Drug Screen Urine 11/27/22 Radiology* US Lower Ext Arterial Duplex Bilateral 07/12/22 * XR Foot Complete 3+ Views Left 07/26/22 Functional Status 12/19/22 ADLs Independent Recent Travel History No recent travel Other [...] Daily, # 90 tab, 4 Refill(s), Pharmacy: [facility] [id number] Start Date: 05/15/22 Status: Ordered Bactrim DS 800 mg-160 mg oral tablet 1 tab, Oral, TID, # 84 tab, 1 Refill(s), Pharmacy: [facility] [id number], 165, cm, 11/11/22 16:14:00 EST, Height/Length Dosing, 152.1, kg, 11/11/22 16:14:00 EST, Weight Dosing Start Date: 11/15/22 Stop Date: 01/10/23 Status: Ordered BD Ultra finr Pen needles BD Ultra finr Pen needles, Use one daily, Supply, 1 EA, N/A, As Directed, PRN As needed, # 100 EA, 4 Refill(s), Pharmacy: [facility] Start Date: 05/20/22 Status: Ordered Buphenyl 500 mg oral tablet 0 Refill(s) Start Date: 05/13/22 Status: Ordered buPROPion 300 mg/24 hours (XL) oral tablet, extended release 300 mg = 1 tab, Oral, Daily, # 90 tab, 4 Refill(s), Pharmacy: [facility] [id number] Start Date: 05/15/22 Status: Ordered cetirizine 10 mg oral tablet 10 mg = 1 tab, Oral, Daily, # 90 tab, 4 Refill(s), Pharmacy: [facility] [id number] Start Date: 05/15/22 Status: Ordered DULoxetine 30 mg oral delayed release capsule 30 mg = 1 cap, Oral, Daily, # 90 cap, 4 Refill(s), Pharmacy: [facility] [id number] Start Date: 05/15/22 Stop Date: 08/08/23 Status: Ordered DULoxetine 60 mg oral delayed release capsule 60 mg = 1 cap, Oral, Daily, Take in addition to 30 mg for a total dose of 90 mg, # 90 cap, 4 Refill(s), Pharmacy: [facility] [id number] Start Date: 05/15/22 Status: Ordered ferrous sulfate 325 mg (65 mg elemental iron) oral tablet 325 mg = 1 tab, Oral, TID, # 270 tab, 4 Refill(s), Pharmacy: [facility] [id number] Start Date: 05/22/22 Status: Ordered folic acid 1 mg oral tablet 1 mg = 1 tab, Oral, Daily, # 90 tab, 4 Refill(s), Pharmacy: [facility] [id number] Start Date: 05/15/22 Status: Ordered gabapentin 300 mg oral capsule 900 mg = 3 cap, Oral, TID, 0 Refill(s) Start Date: 11/15/22 Status: Ordered gabapentin 300 mg oral capsule 900 mg = 3 cap, Oral, TID, TAKE 3 CAPSULES BY MOUTH THREE TIMES DAILY, # 270 cap, 3 Refill(s), Pharmacy: [facility] [id number] Start Date: 08/28/22 Status: Ordered ibuprofen 800 mg oral tablet 1 tab, Oral, TID, # 90 tab, 5 Refill(s), Pharmacy: [facility] [id number], 167, cm, 12/06/22 10:27:00 EDT, Height/Length Dosing, 99.79, kg, 12/06/22 10:27:00 EDT, Weight Dosing Start Date: 12/09/22 Status: Ordered Lantus Solostar Pen 100 units/mL subcutaneous solution 10 units =, Subcutaneous, Daily, Inject 10 units daily and titrate up by 2 units every 3-4 days until FBS is below 130., # 3 mL, 4 Refill(s), Pharmacy: [facility] [id number] Start Date: 05/15/22 Status: Ordered losartan 100 mg oral tablet 100 mg = 1 tab, Oral, Daily, # 90 tab, 4 Refill(s), Pharmacy: [facility] [id number] Start Date: 05/15/22 Status: Ordered metFORMIN 1000 mg oral tablet 1,000 mg = 1 tab, Oral, BID, # 180 tab, 4 Refill(s), Pharmacy: [facility] [id number] Start Date: 05/15/22 Status: Ordered methotrexate 2.5 mg oral tablet 5 mg = 2 tab, Oral, every week, # 30 tab, 3 Refill(s), Pharmacy: [facility] [id number] Start Date: 05/15/22 Status: Ordered Narcan 4 mg/0.1 mL nasal spray 1 sprays, Nasal, Once, may repeat every 2 to 3 minutes until patient responds, # 2 EA, 0 Refill(s) Start Date: 02/26/22 Status: Ordered omeprazole 40 mg oral delayed release capsule 40 mg = 1 cap, Oral, Daily, # 90 cap, 4 Refill(s), Pharmacy: [facility] [id number] Start Date: 05/15/22 Status: Ordered One Touch Verio One Touch Verio, Test twice daily, Supply, See instructions, # 200 strip, 4 Refill(s), Pharmacy: [facility] [id number] Start Date: 05/15/22 Status: Ordered OneTouch Delica Plus lancest 30 gauge OneTouch Delica Plus lancest 30 gauge, Test twice daily, Supply, See instructions, # 200 EA, 4 Refill(s), Pharmacy: [facility] [id number] Start Date: 05/15/22 Status: Ordered oxyCODONE-acetaminophen 10 mg-325 mg oral tablet 1 tab, Oral, BID, PRN as needed for pain, # 56 tab, 0 Refill(s), Pharmacy: [facility] [id number], 165, cm, 11/11/22 16:14:00 EST, Height/Length Dosing, 152.1, kg, 11/11/22 16:14:00 EST, Weight Dosing Start Date: 11/25/22 Stop Date: 12/23/22 Status: Ordered pramipexole 1.5 mg oral tablet See Instructions, Take 1 tablet daily at bedtime, # 90 tab, 4 Refill(s), Pharmacy: [id number] Start Date: 05/20/22 Status: Ordered semaglutide 4 mg/3 mL (1 mg dose) subcutaneous solution 1 mg =, Subcutaneous, every week, # 3 mL, 4 Refill(s), Pharmacy: [id number], 165, cm, 11/11/22 16:14:00 EST, [...] following Wound Culture from Wound collected on [id number]:00 EST 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 Procedures Procedure Date Related Diagnosis Body Site Status Arthroplasty, interposition, intercarpal or carpometacarpal joints 1 04/17/21 Completed Rotator cuff repair 2 09/21/16 Com pleted Hysterectomy 09/21/00 Completed section (procedure) 3 09/22/97 Completed Amputation of toe 4 Compl eted Tubal ligation Completed 1L 1st [facility] arthroplasty 2Right shoulder RCR, Biceps tenodesis, ORIF Clavicle 2015 [id number]; 1994; 1988 4left great toe, along with debridement Results Laboratory List Name Date Glucose POCT 12/19/22 Glucose POCT 12/19/22 Most recent to oldest [Reference Range]: 1 2 Glucose POC [74-106 mg/dL] 101 mg/dL (12/19/22 2:36 PM) 77 mg/dL (12/19/22 12:26 PM) Vital Signs Most recent to oldest [Reference Range]: 1 2 3 Temperature Oral [35.8-37.3 Deg C] 37.4 Deg C *HI* (12/19/22 12:34 PM) Temperature Temporal Artery [36-38 Deg C] 36.6 Deg C (12/19/22 3:15 PM) 36.5 Deg C (12/19/22 2:20 PM) 36.5 Deg C (12/19/22 2:05 PM) Temperature Temporal Artery (DegF) [97.3-100 Deg F] 97.88 Deg F (12/19/22 3:15 PM) 97.7 Deg F (12/19/22 2:20 PM) 97.7 Deg F (12/19/22 2:05 PM) Peripheral Pulse Rate [60-100 bpm] 76 bpm (12/19/22 3:15 PM) 75 bpm (12/19/22 3:05 PM) 73 bpm (12/19/22 2:50 PM) Heart Rate Monitored [60-100 bpm] 77 bpm (12/19/22 3:15 PM) 75 bpm (12/19/22 3:05 PM) 74 bpm (12/19/22 2:50 PM) Respiratory Rate [12-24 br/min] 14 br/min (12/19/22 3:15 PM) 18 br/min (12/19/22 3:05 PM) 17 br/min (12/19/22 2:50 PM) Blood Pressure [90-140/60-90 mmHg] 136/86mmHg (12/19/22 3:15 PM) 136/86mmHg (12/19/22 3:05 PM) 136/62mmHg (12/19/22 2:50 PM) Mean Arterial Pressure, Cuff [65-140 mmHg] 103 mmHg (12/19/22 3:15 PM) 103 mmHg (12/19/22 3:05 PM) 87 mmHg (12/19/22 2:50 PM) Weight 100.000 kg (12/19/22 12:34 PM) Weight Dosing 100.000 kg (12/19/22 12:34 PM) Weight Estimated 99.79 kg (12/17/22 3:52 PM) Height 164.000 cm (12/19/22 12:34 PM) Height/Length Dosing 164.000 cm (12/19/22 12:34 PM) Body Mass Index 37.180 kg/m2 (12/19/22 12:34 PM) Social History Social History Type Response Smoking Status Smoking tobacco use: Current everyday tobacco user;Never; Number used per day: 6 cigarettes daily; entered on: 02/26/22 Sex Female Hospital Discharge Instructions Patient Education 12/19/2022 14:00:25 MK Postop Discharge DEVAN ([facility]) POST- OPERATIVE DISCHARGE INSTRUCTIONS Follow-up in the [facility] office. Please call [phone] to schedule/confirm appointment. Wound Care Leave dressing in place until follow up. Avoid getting the wound/dressings wet. Dressing and sutures will be removed on first visit. No tub baths or swimming for 14 days. Heel weight bearing as much as possible to left foot. Keep elevated when possible. Activity No strenuous activity. Light activity is strongly recommended. Diet Resume normal diet. Pain Control/Medications Take over the counter pain medication for pain control (acetaminophen AND ibuprofen can be taken simultaneously). If you need additional medication for pain control, please call the office. Ice packs to incisions for 20 minutes every hour as needed Miscellaneous Report any fever >101?? F. Report any problems with urination to your physician. For mild irritation at IV site: a. Apply warm, moist pack to area for 20 minutes four times a day for 2-3 days. b. Call doctor for persistent redness and/or drainage at IV site. In the event of any problems after surgery, do not hesitate to contact your doctor, [facility] , or the Emergency Room at [phone]. 12/19/2022 14:00:04 ss Post General Anesthesia / Procedure Dischage Instructions General Post Anesthesia / Sedation Discharge Instructions Activities: Do not attempt to drive a vehicle or operate power equipment of any kind for at least 24 hours after discharge from the hospital. Do not consume alcoholic beverages or other mood-altering drugs on the day of surgery. Mild irritation at needle site: Apply warm, moist pack to area for 20 minutes four times a day for 2-3 days. Call physician if persistent redness and/or drainage at needle site. Go to ER or Call the office if: Fever within 24 hours after procedure / Surgery Uncontrollable pain even when taking pain medications as prescribed Discharge instructions * Sara Sanchez RN: PERFORM Event Display: Discharge Instructions Authored Date: [id number] HOOD DUNHAM :1965 Age:57 years Sex:Female Visit Date:12/19/2022 Primary Care Physician: Attila Bernal MD Hospital Discharge Instructions We would like to thank you for allowing us to assist you with your healthcare needs. The following includes patient education materials and information regarding your injury/illness. Your Next Steps Discharge Orders Discharge Activity Restrictions, No Restrictions Discharge Diet Instruction, Regular home diet Discharge Patient Instructions, Take pain medication as prescribed and report to your physician pain which is not relieved by the pills. Discharge Patient Instructions, Report any fever >101?? F. Discharge Surgical Wound Instructions, No Dressing required. Patient may shower starting tomorrow. Your Summary Your Care Team Admitting Physician - Sonny Rojas MD Attending Physician - Sonny Rojas MD Primary Care Physician - Attial Bernal MD Referring Physician - Attila Bernal MD Education Materials POST- OPERATIVE DISCHARGE INSTRUCTIONS [facility] office. Please call [phone] to schedule/confirm appointment. ? Wound Care Leave dressing in place until follow up. Avoid getting the wound/dressings wet. Dressing and sutures will be removed on first visit. No tub baths or swimming for 14 days. Heel weight bearing as much as possible to left foot. Keep elevated when possible. ? Activity No strenuous activity. Light activity is strongly recommended. Diet Resume normal diet. ? Pain Control/Medications Take over the counter pain medication for pain control (acetaminophen AND ibuprofen can be taken simultaneously). If you need additional medication for pain control, please call the office. Ice packs to incisions for 20 minutes every hour as needed ? Miscellaneous Report any fever >101?? F. Report any problems with urination to your physician. For mild irritation at IV site: a. Apply warm, moist pack to area for 20 minutes four times a day for 2-3 days. b. Call doctor for persistent redness and/or drainage at IV site. In the event of any problems after surgery, do not hesitate to contact your doctor, [facility] , or the Emergency Room at [phone]. General Post Anesthesia / Sedation Discharge Instructions ? Activities: Do not attempt to drive a vehicle or operate power equipment of any kind for at least 24 hours after discharge from the hospital. ? Do not consume alcoholic beverages or other mood-altering drugs on the day of surgery. ? Mild irritation at needle site: Apply warm, moist pack to area for 20 minutes four times a day for 2-3 days. ? Call physician if persistent redness and/or drainage at needle site. ? Go to ER or Call the office if: ? Fever within 24 hours after procedure / Surgery ? Uncontrollable pain even when taking pain medications as prescribed Patient Name:HOOD DUNHAM I have received this information and my questions have been answered. Patient/Quality Checker Name: Patient/Quality Checker Signature: Relationship to Patient: Witness Name/Signature: Date: Electronically Signed on: 12/19/2022 15:02 EDTSigned by:YAW Anesthesiology Progress note * Lance Obrien MD: PERFORM Event Display: Anesthesiology Progress Note Authored Date: [id number] HOOD DUNHAM :1965 Age:57 years Sex:Female Visit Date:12/19/2022 Primary Care Physician: Attila Bernal MD Left??deep peroneal superficial peroneal??and posterior??tibial nerve blocks Images D7-year-old white female for left great toe amputation??wishes to minimize opioid use following surgery risk benefits and limitations of nerve blocks were explained to the patient she excepted these??she was given 2 mg of Versed for sedation her left ankle was sterilely prepped and draped??5% ropivacaine was injected??around the??deep peroneal, superficial peroneal and posterior tibial nerve??will of 30 cc of local anesthetic were used patient tolerated the block well Electronically Signed on 12/19/22 01:09 PM Lance Obrien MD History and physical note * Sonny Rojas MD: PERFORM Event Display: History and Physical Authored Date: [id number] HOOD DUNHAM :1965 Age:57 years Sex:Female Visit Date:12/19/2022 Primary Care Physician: Attila Bernal MD H&P??reviewed from 12/17/2022, pt examined,??no significant changes to medical history. Proceed as planned.? Sonny Rojas MD 12/19/2022 ?? Electronically Signed on 12/19/22 01:19 PM Sonny Rojas MD * Melissa Augustin: PERFORM Event Display: History and Physical Authored Date: [id number] HOOD DUNHAM :1965 Age:57 years Sex:Female Primary Care Physician: Attila Bernal MD Patient was seen in the office on 12/17/2022 Electronically Signed on 12/18/22 10:42 AM Melissa Augustin Patient Care team information Care Team Personnel Name: Attila Bernal MD Position: Physician Member Role: Primary Care Physician Address: Address: [facility] [address] Care Team Related Persons Name: EDGAR GUADALUPE Address: Home
--- OUTSIDE RECORDS SUMMARY | 2023-07-14 09:29 | XMS_ITS | Continuity of Care Document ---
Author Name Unknown Organization [facility] Address [address] [place] [address] Care Team Providers Care Virtual Assistant For Advertisers Name Role Phone Attila Bernal Primary Care Physician Encounter [facility] Date(s): 08/20/22 - 08/20/22 [facility] [address] [place] [address] Discharge Disposition: Home or Self Care Attending [...] Daily, # 90 tab, 4 Refill(s), Pharmacy: [facility] [id number] Start Date: 05/15/22 Status: Ordered Bactrim DS 800 mg-160 mg oral tablet 1 tab, Oral, BID, # 28 tab, 0 Refill(s), Pharmacy: [facility] [id number] Start Date: 07/24/22 Stop Date: 08/07/22 Status: Ordered Bactrim DS 800 mg-160 mg oral tablet 1 tab, Oral, BID, # 14 tab, 0 Refill(s), Pharmacy: [facility] [id number] Start Date: 06/13/22 Stop Date: 06/20/22 Status: Ordered BD Ultra finr Pen needles BD Ultra finr Pen needles, Use one daily, Supply, 1 EA, N/A, As Directed, PRN As needed, # 100 EA, 4 Refill(s), Pharmacy: [facility] [id number] Start Date: 05/20/22 Status: Ordered Buphenyl 500 mg oral tablet 0 Refill(s) Start Date: 05/13/22 Status: Ordered buPROPion 150 mg =, Oral, Daily, takes with a 300 mg tablet, 0 Refill(s) Start Date: 05/13/22 Status: Ordered buPROPion 150 mg/24 hours (XL) oral tablet, extended release 150 mg 1 tab, Oral, every 24 hr, # 90 tab, 4 Refill(s), Pharmacy: [facility] [id number] Start Date: 05/15/22 Status: Ordered buPROPion 300 mg/24 hours (XL) oral tablet, extended release 300 mg = 1 tab, Oral, Daily, # 60 tab, 0 Refill(s) Start Date: 02/26/22 Status: Ordered buPROPion 300 mg/24 hours (XL) oral tablet, extended release 300 mg = 1 tab, Oral, Daily, # 90 tab, 4 Refill(s), Pharmacy: [facility] [id number] Start Date: 05/15/22 Status: Ordered cetirizine 10 mg oral tablet 10 mg = 1 tab, Oral, Daily, # 90 tab, 4 Refill(s), Pharmacy: [facility] [id number] Start Date: 05/15/22 Status: Ordered clindamycin 300 mg oral capsule 300 mg = 1 cap, Oral, TID, # 30 cap, 0 Refill(s), Pharmacy: [id number] Start Date: 05/13/22 Stop Date: 05/23/22 Status: Ordered DULoxetine 30 mg oral delayed release capsule TAKE 1 CAPSULE BY MOUTH ONCE DAILY, TAKE IN ADDITION TO 60 MG FOR A TOTAL DAILY DOSE OF 90 MG Start Date: 02/26/22 Status: Ordered DULoxetine 30 mg oral delayed release capsule 30 mg = 1 cap, Oral, Daily, # 90 cap, 4 Refill(s), Pharmacy: [facility] [id number] Start Date: 05/15/22 Stop Date: 08/08/23 Status: Ordered DULoxetine 60 mg oral delayed release capsule TAKE 1 CAPSULE BY MOUTH ONCE DAILY DIRECTED Start Date: 02/26/22 Status: Ordered DULoxetine 60 mg oral delayed release capsule 60 mg = 1 cap, Oral, Daily, Take in addition to 30 mg for a total dose of 90 mg, # 90 cap, 4 Refill(s), Pharmacy: [facility] [id number] Start Date: 05/15/22 Status: Ordered ferrous sulfate 325 mg (65 mg elemental iron) oral tablet 325 mg = 1 tab, Oral, TID, # 270 tab, 4 Refill(s), Pharmacy: [facility] [id number] Start Date: 05/22/22 Status: Ordered folic acid [...] Daily, # 90 tab, 4 Refill(s), Pharmacy: [facility] [id number] Start Date: 05/15/22 Status: Ordered gabapentin 300 mg oral capsule 900 mg = 3 cap, Oral, TID, TAKE 3 CAPSULES BY MOUTH THREE TIMES DAILY, # 270 cap, 3 Refill(s), Pharmacy: [id number] Start Date: 05/15/22 Status: Ordered ibuprofen 800 mg oral tablet 800 mg = 1 tab, Oral, TID, # 90 tab, 0 Refill(s) Start Date: 02/26/22 Status: Ordered ibuprofen 800 mg oral tablet 1 tab, Oral, TID, # 90 tab, 4 Refill(s), Pharmacy: [id number] Start Date: 05/15/22 Status: Ordered Lantus Solostar Pen 100 units/mL subcutaneous solution 10 units =, Subcutaneous, Daily, Inject 10 units daily and titrate up by 2 units every 3-4 days until FBS is below 130., # 3 mL, 4 Refill(s), Pharmacy: [facility] [id number] Start Date: 05/15/22 Status: Ordered losartan 100 mg oral tablet 100 mg = 1 tab, Oral, Daily, # 90 tab, 0 Refill(s) Start Date: 02/26/22 Status: Ordered losartan 100 mg oral tablet 100 mg = 1 tab, Oral, Daily, # 90 tab, 4 Refill(s), Pharmacy: [facility] [id number] Start Date: 05/15/22 Status: Ordered metFORMIN 1000 mg oral tablet 1,000 mg = 1 tab, Oral, BID, # 180 tab, 0 Refill(s) Start Date: 02/26/22 Status: Ordered metFORMIN 1000 mg oral tablet 1,000 mg = 1 tab, Oral, BID, # 180 tab, 4 Refill(s), Pharmacy: [facility] [id number] Start Date: 05/15/22 Status: Ordered methotrexate 2.5 mg oral tablet TAKE 2 TABLETS BY MOUTH ONCE A WEEK Start Date: 02/26/22 Status: Ordered methotrexate 2.5 mg oral tablet 5 mg = 2 tab, Oral, every week, # 30 tab, 3 Refill(s), Pharmacy: [facility] [id number] Start Date: 05/15/22 Status: Ordered Narcan 4 [...] Daily, # 90 cap, 4 Refill(s), Pharmacy: [id number] Start Date: 05/15/22 Status: Ordered One Touch Verio One Touch Verio, Test twice daily, Supply, See instructions, # 200 strip, 4 Refill(s), Pharmacy: [id number] Start Date: 05/15/22 Status: Ordered OneTouch Delica Plus lancest 30 gauge OneTouch Delica Plus lancest 30 gauge, Test twice daily, Supply, See instructions, # 200 EA, 4 Refill(s), Pharmacy: [id number] Start Date: 05/15/22 Status: Ordered OneTouch Verio OneTouch Verio, Test twice a day, Supply, See instructions, # 1 EA, 0 Refill(s), Pharmacy: [id number] Start Date: 05/15/22 Status: Ordered oxyCODONE-acetaminophen 10 mg-325 mg oral tablet 1 tab, Oral, BID, PRN as needed for pain, # 56 tab, 0 Refill(s), Pharmacy: [facility] [id number] Start Date: 07/22/22 Stop Date: 08/19/22 Status: Ordered Ozempic 2 mg/1.5 mL (0.25 mg or 0.5 mg dose) subcutaneous solution 0.5 mg, Subcutaneous, every week, rotate injection sites, # 2 mL, 6 Refill(s), Pharmacy: [facility] [id number] Start Date: 08/14/22 Status: Ordered pramipexole 1.5 mg oral tablet See Instructions, Take 1 tablet daily at bedtime, # 90 tab, 4 Refill(s), Pharmacy: [id number] Start Date: 05/20/22 Status: Ordered Problem List [...] shoulder RCR, Biceps tenodesis, ORIF Clavicle 2015 [id number]; 1994; 1988 Results Laboratory List Name Date Basic Metabolic Panel (BMP) 08/20/22 Hemoglobin A1c 08/20/22 Most recent to oldest [Reference Range]: 1 BUN [7-18 mg/dL] 11 mg/dL (08/20/22 9:16 AM) Glucose Level [74-106 mg/dL] 107 mg/dL *HI* (08/20/22 9:16 AM) Potassium Level [3.5-5.1 mmol/L] 4.2 mmo l/L (08/20/22 9:16 AM) Sodium Level [136-145 mmol/L] 142 mmol/L (08/20/22 9:16 AM) Calcium Level [8.5-10.1 mg/dL] 8.9 mg/dL (08/20/22 9:16 AM) CO2 [21-32 mmol/L] 31 mmol/L (08/20/22 9:16 AM) eGFR Non-AA [>=60] 102 (08/20/22 9:16 AM) eGFR AA [>=60] 102 (08/20/22 9:16 AM) Hemoglobin A1c [4.0-6.0 %] 8.4 % *HI* (08/20/22 9:16 AM) Chloride Level [98-107 mmol/L] 106 mmol/ L (08/20/22 9:16 AM) Creatinine Level [0.55-1.02 mg/dL] 0.68 mg/dL (08/20/22 9:16 AM) Social History Social History Type Response Smoking Status Smoking tobacco use: Current everyday tobacco user;Never; Number used per day: 6 cigarettes daily; entered on: 02/26/22 Sex Female Patient Care team information Personnel Name: Attila Bernal MD Address: Address: [address]
--- OUTSIDE RECORDS SUMMARY | 2023-07-14 09:29 | XMS_ITS | Continuity of Care Document ---
Author Name Unknown Organization [facility] Address [address] [place] [address] Care Team Providers Care Delivery Person Name Role Phone Attila Bernal Primary Care Physician [phone] Encounter [facility] Date(s): 11/11/22 - 11/15/22 [facility] [address] [place] [address] Encounter Diagnosis Diabetic foot ulcer with osteomyelitis(Discharge Diagnosis) - 11/11/22 Hypertensive disorder(Discharge Diagnosis) - 11/11/22 Type 2 diabetes mellitus with other specified complication(Discharge Diagnosis) - 11/11/22 Discharge Disposition: Home or Self Care Attending [...] Diagnostic Tests Pending * Surgical Pathology [facility] 11/12/22 Future Scheduled Tests Radiology* US Lower Ext Arterial Duplex Bilateral 07/12/22 * XR Foot Complete 3+ Views Left 07/26/22 Functional Status 11/15/22 Breakfast Percent 75 11/12/22 Afternoon Snack Percent 100 11/12/22 ADLs Independent 11/11/22 Evening Snack Percent 100 11/11/22 Living Environment Living Situation: Ho me independently Current Home Treatments: Blood glucose monitoring Home Devices/Equipment Blood glucose monitor Professional Skilled Services: Special Services and Community Resources: Sensory Deficits: Performed by: Caitlin Maya11/11/22 11:23:00 Lives In Mobile home Lives With Family Living Situation Home independently Patient's Responsibilities 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, 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, 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, Health and wellness, Home management, Housework, Laundry, Meal preparation, Personal ADL Current Home Treatments Blood glucose mo nitoring Home Equipment Blood glucose monito r 11/11/22 Activity Status ADL Up to toilet, Up ad edmund Anti-Embolism Device Activity: Applied Anti-Embolism Site Condition: No complic ations 11/11/22 Recent Travel History No recent travel Other [...] Daily, # 90 tab, 4 Refill(s), Pharmacy: [id number] Start Date: 05/15/22 Status: Ordered Bactrim DS 800 mg-160 mg oral tablet 1 tab, Oral, TID, # 84 tab, 1 Refill(s), Pharmacy: [id number], 165, cm, 11/11/22 16:14:00 EST, Height/Length Dosing, 152.1, kg, 11/11/22 16:14:00 EST, Weight Dosing Start Date: 11/15/22 Stop Date: 01/10/23 Status: Ordered BD Ultra finr Pen needles BD Ultra finr Pen needles, Use one daily, Supply, 1 EA, N/A, As Directed, PRN As needed, # 100 EA, 4 Refill(s), Pharmacy: [place] [id number] Start Date: 05/20/22 Status: Ordered Buphenyl 500 mg oral tablet 0 Refill(s) Start Date: 05/13/22 Status: Ordered buPROPion 150 mg/24 hours (XL) oral tablet, extended release 150 mg 1 tab, Oral, every 24 hr, # 90 tab, 4 Refill(s), Pharmacy: [place] [id number] Start Date: 05/15/22 Status: Ordered buPROPion 300 mg/24 hours (XL) oral tablet, extended release 300 mg = 1 tab, Oral, Daily, # 90 tab, 4 Refill(s), Pharmacy: [place] [id number] Start Date: 05/15/22 Status: Ordered cetirizine 10 mg oral tablet 10 mg = 1 tab, Oral, Daily, # 90 tab, 4 Refill(s), Pharmacy: [place] [id number] Start Date: 05/15/22 Status: Ordered DULoxetine 30 mg oral delayed release capsule 30 mg = 1 cap, Oral, Daily, # 90 cap, 4 Refill(s), Pharmacy: [place] [id number] Start Date: 05/15/22 Stop Date: 08/08/23 Status: Ordered DULoxetine 60 mg oral delayed release capsule 60 mg = 1 cap, Oral, Daily, Take in addition to 30 mg for a total dose of 90 mg, # 90 cap, 4 Refill(s), Pharmacy: [place] [id number] Start Date: 05/15/22 Status: Ordered ferrous sulfate 325 mg (65 mg elemental iron) oral tablet 325 mg = 1 tab, Oral, TID, # 270 tab, 4 Refill(s), Pharmacy: [place] [id number] Start Date: 05/22/22 Status: Ordered folic acid 1 mg oral tablet 1 mg = 1 tab, Oral, Daily, # 90 tab, 4 Refill(s), Pharmacy: [facility] [facility] [id number] Start Date: 05/15/22 Status: Ordered gabapentin 300 mg oral capsule 900 mg = 3 cap, Oral, TID, 0 Refill(s) Start Date: 11/15/22 Status: Ordered gabapentin 300 mg oral capsule 900 mg = 3 cap, Oral, TID, TAKE 3 CAPSULES BY MOUTH THREE TIMES DAILY, # 270 cap, 3 Refill(s), Pharmacy: [place] [id number] Start Date: 08/28/22 Status: Ordered ibuprofen 800 mg oral tablet 1 tab, Oral, TID, # 90 tab, 4 Refill(s), Pharmacy: [place] [id number] Start Date: 05/15/22 Status: Ordered insulin lispro (HumaLog) correction- sensitive Sensitive Scale, Subcutaneous, Soln, First Dose: 11/13/22 11:30:00 EST Start Date: 11/13/22 Stop Date: 11/13/22 Status: Completed Lantus Solostar Pen 100 units/mL subcutaneous solution 10 units =, Subcutaneous, Daily, Inject 10 units daily and titrate up by 2 units every 3-4 days until FBS is below 130., # 3 mL, 4 Refill(s), Pharmacy: [place] [id number] Start Date: 05/15/22 Status: Ordered losartan 100 mg oral tablet 100 mg = 1 tab, Oral, Daily, # 90 tab, 4 Refill(s), Pharmacy: [place] [id number] Start Date: 05/15/22 Status: Ordered metFORMIN 1000 mg oral tablet 1,000 mg = 1 tab, Oral, BID, # 180 tab, 4 Refill(s), Pharmacy: [place] [id number] Start Date: 05/15/22 Status: Ordered methotrexate 2.5 mg oral tablet 5 mg = 2 tab, Oral, every week, # 30 tab, 3 Refill(s), Pharmacy: [place] [id number] Start Date: 05/15/22 Status: Ordered Narcan 4 mg/0.1 mL nasal spray 1 sprays, Nasal, Once, may repeat every 2 to 3 minutes until patient responds, # 2 EA, 0 Refill(s) Start Date: 02/26/22 Status: Ordered omeprazole 40 mg oral delayed release capsule 40 mg = 1 cap, Oral, Daily, # 90 cap, 4 Refill(s), Pharmacy: [place] [id number] Start Date: 05/15/22 Status: Ordered One Touch Verio One Touch Verio, Test twice daily, Supply, See instructions, # 200 strip, 4 Refill(s), Pharmacy: [place] [id number] Start Date: 05/15/22 Status: Ordered OneTouch Delica Plus lancest 30 gauge OneTouch Delica Plus lancest 30 gauge, Test twice daily, Supply, See instructions, # 200 EA, 4 Refill(s), Pharmacy: [id number] Start Date: 05/15/22 Status: Ordered oxyCODONE-acetaminophen 10 mg-325 mg oral tablet 1 tab, Oral, BID, PRN as needed for pain, # 56 tab, 0 Refill(s), Pharmacy: [id number] Start Date: 10/28/22 Stop Date: 11/25/22 Status: Ordered Ozempic 2 mg/1.5 mL (0.25 mg or 0.5 mg dose) subcutaneous solution 0.5 mg, Subcutaneous, every week, rotate injection sites, # 2 mL, 6 Refill(s), Pharmacy: [id number] Start Date: 08/14/22 Status: Ordered pramipexole 1.5 mg oral tablet See Instructions, Take 1 tablet daily at bedtime, # 90 tab, 4 Refill(s), Pharmacy: [id number] Start Date: 05/20/22 Status: Ordered Problem List [...] 2Right shoulder RCR, Biceps tenodesis, ORIF Clavicle 2016 [id number]; 1994; 1988 Results Laboratory List Name Date C-Reactive Protein High Sensitivity (CRP HS) 11/15/22 CBC w/o Diff 11/15/22 Comprehensive Metabolic Panel (CMP) 11/15 Vancomycin Lvl Trough 11/15/22 Glucose POCT 11/14/22 Vancomycin Lvl Trough 11/14/22 Glucose POCT 11/14/22 C-Reactive Protein High Sensitivity (CRP HS) 11/14/22 CBC w/o Diff 11/14/22 Comprehensive Metabolic Panel (CMP) 11/14 Glucose POCT 11/13/22 CBC w/o Diff 11/13/22 Comprehensive Metabolic Panel (CMP) 11/13 Vancomycin Lvl Trough 11/13/22 SARS-CoV-2 (COVID-19) RNA (ID Now) Urinalysis with Micro if Indicated and C ulture if Indicated 11/11/22 Beta Hydroxybutyrate 11/11/22 Osmolality Serum 11/11/22 C-Reactive Protein High Sensitivity 11/11 Hemoglobin A1c 11/11/22 Automated Diff 11/11/22 Most recent to oldest [Reference Range]: 1 2 3 WBC [5.0-10.0 x10^3/mcL] 10.1 x10^3/mcL *HI* (11/15/22 6:50 AM) 7.9 x10^3/mcL (11/14/22 6:45 AM) 10.1 x10^3/mcL *HI* (11/13/22 9:39 AM) RBC [4.1-5.3 x10^6/mcL] 3.6 x10^6/mcL *LOW* (11/15/22 6:50 AM) 3.4 x10^6/mcL *LOW* (11/14/22 6:45 AM) 3.4 x10^6/mcL *LOW* (11/13/22 9:39 AM) Neutro Auto [40.0-75.0 %] 71.8 % (11/11/22 10:15 AM) Lymph Auto [20.0-50.0 %] 17.8 % *LOW* (11/11/22 10:15 AM) [place]ka Auto [2.0-15.0 %] 7.2 % (11/11/22 10:15 AM) Basophil Auto [0.0-1.0 %] 0.5 % (11/11/22 10:15 AM) BUN [7-18 mg/dL] 14 mg/dL (11/15/22 6:50 AM) 18 mg/dL (11/14/22 6:45 AM) 12 mg/dL (11/13/22 9:39 AM) Glucose POC [74-106 mg/dL] 145 mg/dL *HI* (11/14/22 9:05 PM) 139 mg/dL *HI* (11/14/22 7:22 AM) 133 mg/dL *HI* (11/13/22 4:19 PM) UA Color Yellow (11/11/22 12:07 PM) Whole Blood Glucose - Manual Entry [74-106 mmol/L] 266 mmol/L *HI* (11/11/22 1:11 PM) Glucose Level [74-106 mg/dL] 144 mg/dL *HI* (11/15/22 6:50 AM) 162 mg/dL *HI* (11/14/22 6:45 AM) 207 mg/dL *HI* (11/13/22 9:39 AM) Potassium Level [3.5-5.1 mmol/L] 4.3 mmol/L (11/15/22 6:50 AM) 4.2 mmol/L (11/14/22 6:45 AM) 3.8 mmol/L (11/13/22 9:39 AM) Vanco Tr [5.0-10.0 ug/mL] 19.6 ug/mL *HI* (11/15/22 6:50 AM) 23.4 ug/mL *HI* (11/14/22 1:00 PM) 14.2 ug/mL *HI* (11/13/22 5:00 AM) MCV [80.0-96.0] 92.0 (11/15/22 6:50 AM) 92.7 (11/14/22 6:45 AM) 92.4 (11/13/22 9:39 AM) UA Urobilinogen Normal (11/11/22 12:07 PM) UA Bili [Negative] Negative (11/11/22 12:07 PM) UA Ketones Negative (11/11/22 12:07 PM) AST [15-37 unit/L] 19 unit/L (11/15/22 6:50 AM) 15 unit/L (11/14/22 6:45 AM) 11 unit/L *LOW* (11/13/22 9:39 AM) ALT [14-59 unit/L] 32 unit/L (11/15/22 6:50 AM) 26 unit/L (11/14/22 6:45 AM) 24 unit/L (11/13/22 9:39 AM) MCHC [31.0-35.0 g/dL] 32.5 g/dL (11/15/22 6:50 AM) 31.7 g/dL (11/14/22 6:45 AM) 31.9 g/dL (11/13/22 9:39 AM) Osmolality [300-1300 mOsm/L] 303 mOsm/L (11/11/22 12:05 PM) Sodium Level [136-145 mmol/L] 142 mmol/L (11/15/22 6:50 AM) 144 mmol/L (11/14/22 6:45 AM) 142 mmol/L (11/13/22 9:39 AM) UA Leuk Est Negative (11/11/22 12:07 PM) UA Nitrite Negative (11/11/22 12:07 PM) UA Glucose [Negative] 3+ *ABN* (11/11/22 12:07 PM) Hct [37.0-47.0 %] 33.2 % *LOW* (11/15/22 6:50 AM) 31.9 % *LOW* (11/14/22 6:45 AM) 31.7 % *LOW* (11/13/22 9:39 AM) Calcium Level [8.5-10.1 mg/dL] 8.8 mg/dL (11/15/22 6:50 AM) 8.7 mg/dL (11/14/22 6:45 AM) 8.7 mg/dL (11/13/22 9:39 AM) Albumin Level [3.4-5.0 g/dL] 2.9 g/dL *LOW* (11/15/22 6:50 AM) 2.8 g/dL *LOW* (11/14/22 6:45 AM) 2.7 g/dL *LOW* (11/13/22 9:39 AM) Protein Total [6.4-8.2 g/dL] 7.1 g/dL (11/15/22 6:50 AM) 6.9 g/dL (11/14/22 6:45 AM) 6.9 g/dL (11/13/22 9:39 AM) UA Protein Negative (11/11/22 12:07 PM) MCH [26.0-32.0 pg] 29.9 pg (11/15/22 6:50 AM) 29.4 pg (11/14/22 6:45 AM) 29.4 pg (11/13/22 9:39 AM) Neutro Absolute 10.0 x10^3/mcL *NA* (11/11/22 10:15 AM) Bilirubin Total [0.2-1.0 mg/dL] 0.4 mg/dL (11/15/22 6:50 AM) 0.3 mg/dL (11/14/22 6:45 AM) 0.3 mg/dL (11/13/22 9:39 AM) Hgb [12.0-16.0 g/dL] 10.8 g/dL *LOW* (11/15/22 6:50 AM) 10.1 g/dL *LOW* (11/14/22 6:45 AM) 10.1 g/dL *LOW* (11/13/22 9:39 AM) Alk Phos [46-146 unit/L] 108 unit/L (11/15/22 6:50 AM) 101 unit/L (11/14/22 6:45 AM) 98 unit/L (11/13/22 9:39 AM) UA Blood Negative (11/11/22 12:07 PM) UA Spec Grav 1.010 *NA* (11/11/22 12:07 PM) Platelets [130-450 x10^3/mcL] 526 x10^3/mcL *HI* (11/15/22 6:50 AM) 472 x10^3/mcL *HI* (11/14/22 6:45 AM) 477 x10^3/mcL *HI* (11/13/22 9:39 AM) CO2 [21-32 mmol/L] 26 mmol/L (11/15/22 6:50 AM) 26 mmol/L (11/14/22 6:45 AM) 26 mmol/L (11/13/22 9:39 AM) UA pH 7.0 *NA* (11/11/22 12:07 PM) eGFR Non-AA [>=60] 105 (11/15/22 6:50 AM) 100 (11/14/22 6:45 AM) 95 (11/13/22 9:39 AM) eGFR AA [>=60] 105 (11/15/22 6:50 AM) 100 (11/14/22 6:45 AM) 95 (11/13/22 9:39 AM) UA Appear Clear (11/11/22 12:07 PM) Hemoglobin A1c [4.0-6.0 %] 8.1 % *HI* (11/11/22 10:15 AM) Chloride Level [98-107 mmol/L] 109 mmol/L *HI* (11/15/22 6:50 AM) 110 mmol/L *HI* (11/14/22 6:45 AM) 108 mmol/L *HI* (11/13/22 9:39 AM) Blood Glucose, Capillary 167 (11/13/22 11:40 AM) RDW-CV [11.7-17.0 %] 12.4 % (11/15/22 6:50 AM) 12.3 % (11/14/22 6:45 AM) 12.3 % (11/13/22 9:39 AM) Imm Gran Auto [0.0-0.9 %] 0.8 % (11/11/22 10:15 AM) CRP High Sens [0.00-3.00 mg/L] 20.39 mg/L *HI* (11/15/22 6:50 AM) 31.88 mg/L *HI* (11/14/22 6:45 AM) 131.32 mg/L *HI* (11/11/22 10:15 AM) Creatinine Level [0.55-1.02 mg/dL] 0.61 mg/dL (11/15/22 6:50 AM) 0.71 mg/dL (11/14/22 6:45 AM) 0.74 mg/dL (11/13/22 9:39 AM) SARS-CoV-2 (COVID-19) RNA (ID Now) [Not Detected] Not Detected (11/11/22 2:00 PM) Beta-Hydroxybutyrate [0.0-0.5 mmol/L] 0.4 mmol/L (11/11/22 12:05 PM) Eos, Auto [1.0-6.0 %] 1.9 % (11/11/22 10:15 AM) Orders for Microbiology Reports Name Date MRSA Screen Culture 11/11/22 Wound Culture 11/11/22 Blood Culture 11/11/22 Blood Culture 11/11/22 Microbiology Reports TEST:Wound Culture STATUS:Auth (Verified) BODY SITE:Toe SOURCE:Wound COLLECTED DATE/TIME:11/11/22 4:08 PM FINAL REPORT Moderate 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 TEST:Blood Culture STATUS:Order in Progress BODY SITE: SOURCE:Blood COLLECTED DATE/TIME:11/11/22 10:15 AM PRELIMINARY REPORT No growth at 24 hours. Vital Signs Most recent to oldest [Reference Range]: 1 2 3 4 Temperature Temporal Artery [36-38 Deg C] 36.2 Deg C (11/15/22 8:30 AM) 36.7 Deg C (11/15/22 5:02 AM) 36.7 Deg C (11/15/22 12:08 AM) Temperature Temporal Artery (DegF) [97.3-100 Deg F] 98.06 Deg F (11/15/22 5:02 AM) 98.06 Deg F (11/15/22 12:08 AM) 97.52 Deg F (11/14/22 7:20 PM) Peripheral Pulse Rate [60-100 bpm] 82 bpm (11/15/22 8:30 AM) 80 bpm (11/14/22 1:05 PM) 74 bpm (11/14/22 7:19 AM) Heart Rate Monitored [60-100 bpm] 72 bpm (11/15/22 5:02 AM) 76 bpm (11/15/22 12:08 AM) 87 bpm (11/14/22 7:20 PM) Respiratory Rate [12-24 br/min] 18 br/min (11/15/22 8:30 AM) 18 br/min (11/15/22 5:02 AM) 20 br/min (11/15/22 12:08 AM) Blood Pressure [90-140/60-90 mmHg] 142/76mmHg *HI* (11/15/22 8:30 AM) 145/76mmHg *HI* (11/15/22 5:02 AM) 137/78mmHg (11/15/22 12:08 AM) Mean Arterial Pressure, Cuff [65-140 mmHg] 99 mmHg (11/15/22 5:02 AM) 98 mmHg (11/15/22 12:08 AM) 102 mmHg (11/14/22 7:20 PM) Mean Arterial Pressure Cuff 90 mmHg (11/14/22 5:00 PM) 85 mmHg (11/14/22 1:05 PM) 96 mmHg (11/14/22 7:19 AM) Blood Pressure Location Left arm (11/14/22 7:20 PM) Left arm (11/14/22 5:00 PM) Left arm (11/13/22 10:50 PM) Left arm (11/13/22 10:50 PM) Blood Pressure Method Automatic (11/13/22 5:15 AM) Automatic (11/12/22 7:54 PM) Automatic (11/12/22 3:38 PM) Weight 106 kg (11/12/22 8:18 AM) 152.100 kg (11/11/22 4:04 PM) 152.100 kg (11/11/22 4:04 PM) Weight Dosing 152.100 kg (11/11/22 4:04 PM) 152.100 kg (11/11/22 3:34 PM) 102.97 kg (11/11/22 9:50 AM) Usual Weight 111.36 kg (11/11/22 4:04 PM) Weight Estimated 102.97 kg (11/11/22 9:44 AM) Height 165.000 cm (11/11/22 4:04 PM) 165.000 cm (11/11/22 3:34 PM) Height/Length Dosing 165.000 cm (11/11/22 4:04 PM) 165.000 cm (11/11/22 3:34 PM) 165.000 cm (11/11/22 9:50 AM) Body Mass Index 55.870 kg/m2 (11/11/22 4:04 PM) 55.870 kg/m2 (11/11/22 3:34 PM) Height/Length Estimated 165.000 cm (11/11/22 9:44 AM) Social History Social History Type Response Smoking Status Smoking tobacco use: Current everyday tobacco user;Never; Number used per day: 6 cigarettes daily; entered on: 02/26/22 Sex Female Hospital Discharge Instructions Patient Education 11/15/2022 08:37:11 Diabetes Mellitus and Foot Care Diabetes Mellitus and Foot Care Foot care is an important part of your health, especially when you have diabetes. Diabetes may cause you to have problems because of poor blood flow (circulation) to your feet and legs, which can cause your skin to: ??? Become thinner and drier take off tender. ??? Break more easily. ??? Heal [...] immediately. Where to find more information ??? [place] [employer]: www.diabetes.org ? ? Association of [...] provider. Document Revised: 03/29/2021 Document Reviewed: 03/29/2021 [employer] Patient Education ?? 2021 [employer]. 11/15/2022 07:48:42 Diabetes Mellitus and Skin Care Diabetes Mellitus and Skin Care Diabetes, also called diabetes mellitus, can lead to skin problems. People with diabetes have a higher risk for many types of skin complications because poorly controlled blood sugar (glucose) levelscan cause problems over time. These problems include: ??? Damage to nerves. This can affect your ability to feel wounds, which means you may not notice minor skin injuries that could lead to serious problems. This can also decrease the amount that you sweat, causing dry skin that can break down. ??? Damage to blood vessels. The lack of blood flow can cause skin to break down and can slow healing time, which can lead to infections. ??? Areas of skin that become thick or discolored. Common skin conditions There are certain skin conditions that commonly affect people who have diabetes, such as: ??? Dry skin. ??? Thin skin. The skin on the feet may get thinner, break more easily, and heal more slowly than normal. ??? Bacterial skin infections, including: ??? Styes. ??? Boils. ??? Infected hair follicles. ??? Infections of the skin around the nails. ??? Fungal skin infections. These are most common in areas where skin rubs together, such as in thearmpits or under the breasts. Common skin changes Diabetes can also cause the skin to change. You may develop: ??? Dark, velvety markings on the skin that usually appear on the face, neck, armpits, inner thighs, and groin. ??? Red, raised, scar-like tissue that may itch, feel painful, or develop into a wound. ??? Blisters on the feet, toes, hands, or fingers. ??? Thickened, wax-like areas of skin that usually occur on the hands, forehead, or toes. ??? Brown or red, ring-shaped or frny-htxu-gxvejc patches of skin on the ears or fingers. ??? Pea-shaped, yellow bumps that may be itchy and surrounded by a red ring. This usually affects the arms, feet, buttocks, and the top of the hands. ??? Round, discolored patches of olivo skin that do not hurt or itch. These may look like age spots. General tips Most skin problems can be prevented or treated easily if caught early. Talk with your health care provider if you have any concerns. General tips usually include: ??? Check your skin every day for cuts, bruises, redness, blisters, or sores, especially on your feet. Tell your health care provider about any cuts, wounds, or sores that you have and if they are healing slowly. ??? Keep your skin clean and dry. Do not use hot water. ??? Moisturize your skin to prevent chapping. ??? Do not scratch dry skin. Scratching dry skin can expose it to infection. ??? Keep your blood glucose levels within target range. Supplies needed: ??? Mild soap or gentle skin cleanser. ??? Lotion. How to care for dry itchy skin It is common for people with diabetes to have itchy skin caused by dryness. Frequent high glucose levels can cause itchiness, and poor circulation and certain skin infections can make dry, itchy skinworse. If you have itchy skin that is red or covered in a rash, this could be a sign of an allergicreaction. If you have a rash or if your skin is very itchy, contact your health care provider. You may need help to manage your diabetes better, or you may need treatment for an infection. Untreated fungal infections can be dangerous because they allow more serious bacterial infections to enter the body. To relieve dry skin and itching: ??? Avoid very hot showers and baths. ??? Use mild soap and gentle skin cleansers. Do not use soap that is perfumed or harsh or that dries your skin. Moisturizing soaps may help. ??? Put on moisturizing lotion as soon as you finish bathing. Follow these instructions at home: ??? Schedule a foot exam with your health care provider once every year. This exam includes an inspection of the structure and skin of your feet. ??? Make sure that your health care provider performs a visual foot exam at every medical visit. ??? If you get a skin injury, such as a cut, blister, or sore, check the area every day for signs of infection. Check for: ??? Redness, swelling, or pain. ??? Fluid or blood. ??? Warmth. ??? Pus or a bad smell. ??? Do not use any products that contain nicotine or tobacco. These products include cigarettes, chewing tobacco, and vaping devices, such as e-cigarettes. If you need help quitting, ask your health care provider. ??? Take bird-pxx-mgzcogz and prescription medicines only as told by your health care provider. This includes all diabetes medicines you are taking. Where to find more information ??? [place] [employer]: www.diabetes.org ? ? Association of Diabetes Care & Education Specialists: www.diabeteseducator.org Contact a health care provider if you: ??? Develop a cut or sore, especially on your feet. ??? Develop signs of infection after a skin injury. ??? Have itchy skin that develops redness or a rash. ??? Have discolored areas of skin. ??? Have areas where your skin is changing, such as thickening or appearing shiny. Summary ??? People with diabetes have a higher risk for many types of skin complications. This is because poorly controlled blood sugar (glucose) levels can cause skin problems over time. ??? Most skin problems can be prevented or treated easily if caught early. Keep your blood glucose levels within target range. ??? Check your skin every day for cuts, bruises, redness, blisters, or sores, especially on your feet. ??? Tell your health care provider about any cuts, wounds, or sores that you have and if they are healing slowly. This information is not intended to replace advice given to you by your health care provider. Make sure you discuss any questions you have with your health care provider. Document Revised: 03/29/2021 Document Reviewed: 03/29/2021 [employer] Patient Education ?? 2021 [employer]. Follow Up Care 11/11/2022 09:44:25 With:Sonny Rojas MD Address: [facility] [address] [place] [address]- When:11/28/2022 Comments:HOSPITAL FOLLOW UP With:Attila Bernal MD Address: [facility] [address] [place] [address]- When:11/27/2022 10:00:00 Comments:HOSPITAL FOLLOW UP Pharmacology Note * Radha Lucia PharmD: PERFORM Event Display: Pharmacy Note Authored Date: [id number] Vancomycin New Start Note Indication: Osteomyelitis Target trough: 15-20 mcg/mL Objective: Height: 165cm Weight: 106kg Micro: (_) Blood Culture - No growth to date (_) Urine Culture - No growth to date (_) Sputum Culture - No growth to date (_) Wound Culture - No growth to date (_) No cultures drawn at this time (X) Culture and susceptibility pending Loading dose: None Initial ordered dose: 2000mg Q 12hr Pharmacokinetics: CrCl 92.6ml/min SCr 0.82mg/dL Assessment: Plan: 1. Start vancomycin 2000 mg IV q 12 hours to achieve an estimated trough of approx 17.79 mcg/mL. 2. Vancomycin trough is (_) not yet scheduled, will assess patient tomorrow. (X) ordered for 05:00 on 11/13/22. (_) not scheduled. Repeat trough recommended in one week or if there is a significant change in renal function. 3. Will follow patient clinically and make adjustments to vancomycin dosing as necessary. 4. Please contact pharmacist with questions or concerns. Addendum: Trough level from 11/13/22 came back at 14.2mcg/mL. SCr change to 0.70mg/dL. Dose adjusted to 1500mg Q8hr with next trough scheduled for 11/14/22 at 13:00. Will continue to monitor daily and adjust as necessary based on lab values and culture results. Discharge instructions * Irma Navas: PERFORM Event Display: Discharge Instructions Authored Date: [id number] HOOD DUNHAM :1965 Age:57 years Sex:Female Visit Date:11/11/2022 Primary Care Physician: Attila Bernal MD Hospital Discharge Instructions We would like to thank you for allowing us to assist you with your healthcare needs. The following includes patient education materials and information regarding your injury/illness. After you leave the hospital, you may get your health information including your test results, physician notes and discharge information by accessing your Patient Portal. Your Next Steps Instructions From Your Care Team Call your primary care provider for: Temperature greater than 101F. Pain that does not go away. Persistent nausea, vomiting or constipation. Shortness of breath, with or without chest discomfort. Weight gain of 3 or more pounds per day. Redness or drainage from incision. Change dressing daily and as needed. Remove dressing before showering. ?? Surgical Wound Care Instructions: Recommend ??appointment with wound care for evaluation and treatment with possible ongoing debridement and wound checks. I would recommend soaking the foot in warm salty water or Epsom salts at night, bacitracin ointment, moist saline gauze and an Asher wrap on a daily basis and as needed. She can shower at home. Physical therapy to evaluate for a custom boot for her left foot. Consider stopping methotrexate if possible as it can inhibit wound healing.?? Vitamin D and Calcium supplements OTC??daily 2000 units for Vit D and Calcium around 1200 mg.?? Hernares swab was negative, but it would be reasonable to use mupirocin in the nares daily to prevent colonization Diabetic teaching an home teaching if it can be arranged by her primary provider.?? Discharge Orders Discharge Activity Restrictions, No Restrictions Discharge Diet Instruction, Consistent Carbohydrate [id number] ruben, Diabetic ADA, Heart Healthy Diet Discharge Weight Bearing Restrictions, Lower, 11/15/22 8:59:00 EST, full weight- bearing, Left lowerextremity with walking boot to protect foot Discharge Wound Care Instructions, As per surgery in patient instructions and per outpatient wound care clinic instructions. Follow Up Appointments Follow Up with??Sonny Rojas MD When:??11/28/2022 02:30 AM EST Why: HOSPITAL FOLLOW UP Where: [facility] [address] [place] [address]- Follow Up with??Attila Bernal MD When:??11/27/2022 11:00 AM EST Why: HOSPITAL FOLLOW UP Where: [address] [id number]- Medications What How Much When Why Instructions Next Dose New sulfamethoxazole-trimethoprim (Bactrim DS 800 mg-160 mg oral tablet) 1 tab Oral (given by mouth) 3 times a day Duration: 28 Days Refills: 1 Pickup at [id number] Start today Changed cetirizine (cetirizine 10 mg oral tablet) 1 tab Oral (given by mouth) Every day Allergies resume Changed gabapentin (gabapentin 300 mg oral capsule) 3 Capsules Oral (given by mouth) 3 times a day TAKE 3 CAPSULES BY MOUTH THREE TIMES DAILY ?? 11/15 @ 12pm Unchanged ARIPiprazole (ARIPiprazole 5 mg oral tablet) 1 tab Oral (given by mouth) Every day 11/15pm Unchanged buPROPion (buPROPion 150 mg/ 24 hours (XL) oral tablet, extended release) 1 tab Oral (given by mouth) Every 24 hours Depressive disorder 11/16 @ m Unchanged buPROPion (buPROPion 300 mg/ 24 hours (XL) oral tablet, extended release) 1 tab Oral (given by mouth) Every day Depressive disorder 11/16m Unchanged DULoxetine (DULoxetine 30 mg oral delayed release capsule) 1 Capsules Oral (given by mouth) Every day Depressive disorder Duration: 90 Days 11/15pm Unchanged DULoxetine (DULoxetine 60 mg oral delayed release capsule) 1 Capsules Oral (given by mouth) Every day Depressive disorder Take in addition to 30 mg for a total dose of 90 mg ?? 11/15pm Unchanged Durable Medical Equipment for Prescription (Unbound DelLeaky Plus lancest 30 gauge) See instructions Test twice daily ?? Unchanged ferrous sulfate (ferrous sulfate 325 mg (65 mg elemental iron) oral tablet) 1 tab Oral (given by mouth) 3 times a day Type 2 diabetes mellitus without complication 11/15 @ 3 pm & 9pm Unchanged folic acid (folic acid 1 mg oral tablet) 1 tab Oral (given by mouth) Every day Eczema 11/16m Unchanged ibuprofen (ibuprofen 800 mg oral tablet) 1 tab Oral (given by mouth) 3 times a day Resume Unchanged insulin glargine (Lantus Solostar Pen 100 units/ mL subcutaneous solution) 10 Units Subcutaneous (under the skin) Every day Type 2 diabetes mellitus without complication Inject 10 units daily and titrate up by 2 units every 3-4 days until FBS is below 130. ?? 11/16 @ m Unchanged insulin pen needles 30G 8 mm (BD Ultra finr Pen needles) 1 Each Not Applicable As Directed as needed for As needed Type 2 diabetes mellitus without complication Use one daily ?? Unchanged losartan (losartan 100 mg oral tablet) 1 tab Oral (given by mouth) Every day Hypertensive disorder 11/15 @ pm Unchanged metFORMIN (metFORMIN 1000 mg oral tablet) 1 tab Oral (given by mouth) 2 times a day Type 2 diabetes mellitus without complication Resume Unchanged methotrexate (methotrexate 2.5 mg oral tablet) 2 tab Oral (given by mouth) Every week Eczema Resume Unchanged naloxone (Narcan 4 mg/ 0.1 mL nasal spray) 1 Sprays Nasal (into the nose) Once may repeat every 2 to 3 minutes until patient responds ?? As needed Unchanged omeprazole (omeprazole 40 mg oral delayed release capsule) 1 Capsules Oral (given by mouth) Every day 11/16 @7am Unchanged One Touch Verio Test Strips (One Touch Verio) See instructions Type 2 diabetes mellitus without complication Test twice daily ?? Unchanged oxyCODONE-acetaminophen (oxyCODONE-acetaminophen 10 mg-325 mg oral tablet) 1 tab Oral (given by mouth) 2 times a day as needed for as needed for pain Low back pain Chronic pain Duration: 28 Days last dose 11/13 Unchanged pramipexole (pramipexole 1.5 mg oral tablet) See instructions Take 1 tablet daily at bedtime ?? 11/15 @ 9pm Unchanged semaglutide (Ozempic 2 mg/ 1.5 mL (0.25 mg or 0.5 mg dose) subcutaneous solution) 0.5 Milligrams Subcutaneous (under the skin) Every week Type 2 diabetes mellitus without complication rotate injection sites ?? Resume Unchanged sodium phenylbutyrate (Buphenyl 500 mg oral tablet) Resume Pharmacy Information [id number]: [address] [id number] [phone] Your Summary Your Care Team Admitting Physician - Ricardo Michelle MD Attending Physician - Ricardo Michelle MD Primary Care Physician - Attila Bernal MD Your Diagnosis Diabetic foot ulcer with osteomyelitis Type 2 diabetes mellitus with other specified complication Hypertensive disorder Discharge Vitals Temperature??(Temporal Artery) 97.2 ??F (36.2 ??C) Heart Rate??(Peripheral) 82 Respiratory Rate?? 18 Blood Pressure?? 142/76?? Allergies ANIMAL DANDER??(Eye swelling) HOUSE DUST??(Eye swelling) INSECT VENOM??(Anaphylactic reaction) LATEX??(Skin rash) codeine??(Loss of consciousness) morphine??(Vomiting) Patient Name:HOOD DUNHAM I have received this information and my questions have been answered. 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 Operator Name: 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 Operator Signature: Relationship to Patient: Witness Name/Signature: Date: Electronically Signed on: 11/15/2022 10:51 ESTSigned by:MDR Consult note * Mauricio Donato MD: PERFORM Event Display: Consultation Note Generic Authored Date: [id number] HOOD DUNHAM :1965 Age:57 years Sex:Female Visit Date:11/11/2022 Primary Care Physician: Attila Bernal MD Chief Complaint DIabetic Left Toe Ulcer Reason for Consultation Diabetic toe ulcer with osteomyelitis left great??toe History of Present Illness The patient??is a 57-year-old white female??who presented to the emergency room??progressive worsening??left big toe ulcer.?? I??had seen the patient in June when I was here in the past??and the patient??had some superficial breakdown of the area and a question of osteo forming at that time.?? At that time we had debrided some of this tissue away in the office and it looked relatively healthy though??it was concerning out how long it may take to heal.?We had scheduled her to get ultrasound studies??of her lower extremities to check for blood flow and that took a long time to??take place.?? The??reasoning for that was to see if she??had adequate??blood supply to her lower extremities??for a better??chance of healing. ??If her blood supply was inadequate, she might require some sort of vascular procedure to enhance her blood flow. ??Fortunately??she was not seen??by anybody in follow-up for about 5 months and now the toe is in??much??worse shape.?? At present, she has some exposedbone??reportedly that is covered by some purulent material and some surrounding necrotic tissue as well. ??The toe is diffusely swollen as is the foot??having some diffuse edema in it as well.?? But,her diabetes is also??out of sorts??with her blood sugar being in the 400 level.?? She also has diabetic neuropathy with numbness from her ankles down bilaterally.?? There is have been obtained by the nurses. Review of Systems Foot swelling??and open wound??of the left great toe.?? It is not??not terribly painful for her dueto her diminished sensation firm??her neuropathy Physical Exam Vitals & Measurements T:??36.9?C ??(Temporal Artery)?? TMIN:??36.5?C ??(Temporal Artery)?? TMAX:??36.9?C ??(Temporal Artery)?? HR:??82??(Peripheral)?? RR:??20?? BP:??118/92?? BP:??136/63(Sitting)?? SpO2:??98%?? HT:??165.000??cm?? WT:??152.100??kg?? WT:??152.100??kg?? BMI:??55.870?? Pain Score:??10?? O2 Therap y:??Room air?? General:??The patient is a??57-year-old white female??who is to be in good spirits despite the??notes of her wound.?? Cardiovascular is??the rate and rhythm Lungs: Seem clear Abdomen is benign Left lower extremity has an open ulcerated wound that predominantly takes up the distal joint of her left great toe.?? She has surrounding??inflammation with some purulent drainage??below the skin level??center??normal skin has??sloughed away. ??There??is reportedly bone exposure though it is covered with some slough??and??making that difficult to ascertain, but I suspect there is bone just underneath??is hidden by the?? necrotic tissue and??drainage. Assessment/Plan 1.??Diabetic foot ulcer with osteomyelitis??E11.621 Diabetic??foot ulcer with??purulence and gangrenous tissue and probable osteomyelitis??of the left great toe Plan:??The patient was placed on antibiotics and we will try to get her blood sugars under control with the help of the hospitalist. ??We are scheduling her for an operation tomorrow for??aggressive debridement possible removal of some bony tissue??and either the leaving the area open or potentially trying to close it with a drain.?? Disc??are continued infection, failure to heal, advancement of the infection??even possible amputation of the higher up level??of her extremity. Allergies??T78.40XA Depressive disorder??F32.A Eczema??L30.9 Hypertensive disorder??I10 Non-pressure chronic ulcer of other part of unspecified foot with unspecified severity??L97.509 Osteomyelitis, unspecified??M86.9 Type 2 diabetes mellitus with other specified complication??E11.69 Type 2 diabetes mellitus without complication??E11.9 Problem List/Past Medical History Ongoing Accidental poisoning Adult health examination Allergies Anesthesia of skin Atopic dermatitis Biceps tendinitis Cellulitis Chronic pain Chronic, continuous use of opioids Depressed Depressive disorder Disease caused by 2019 novel coronavirus Eczema Flu vaccine need Foot pain, left GERD (gastroesophageal reflux disease) Hypertensive disorder Impingement syndrome of right shoulder region Low back pain Low back pain Migraine Nicotine dependence Obesity Overweight Pain in right arm Postoperative infection Psoriasis Severe obesity Strain of muscle of upper limb Strain of tendon of upper arm Toe pain, left Toxic effect of venom Type 2 diabetes mellitus without complication Uterine leiomyoma Historical No qualifying data Procedure/Surgical History ???Arthroplasty, interposition, intercarpal or carpometacarpal joints (04/17/2021)???Rotator cuff repair (09/22/2016)???Hysterectomy (09/22/2000)??? section (procedure) (09/22/1997)???Tubal ligation Medications Inpatient acetaminophen, 650 mg= 2 tab, Oral, every 6 hr, PRN ARIPiprazole, 5 mg= 1 tab, Oral, Daily buPROPion, 150 mg= 1 tab, Oral, every 24 hr cefepime + Sodium Chloride 0.9% 100 mL DULoxetine, 30 mg= 1 cap, Oral, Daily DULoxetine, 60 mg= 2 cap, Oral, Daily ferrous sulfate, 325 mg= 1 tab, Oral, TID folic acid, 1 mg= 1 tab, Oral, Daily gabapentin, 900 mg= 3 cap, Oral, TID insulin glargine, 30 units= 0.3 mL, Subcutaneous, Daily lidocaine 1% injectable solution, 5 mg= 0.5 mL, Intradermal, As Directed, PRN loratadine, 10 mg= 1 tab, Oral, Daily losartan, 100 mg= 2 tab, Oral, Daily metroNIDAZOLE, 500 mg= 100 mL, IV Piggyback, every 6 hr Normal Saline Flush, 10 mL, IV Push, every 12 hr (ingrid) ondansetron, 4 mg= 2 mL, IV Push, every 6 hr, PRN pantoprazole, 40 mg= 1 EA, IV Push, Daily pramipexole, 1.5 mg= 1.5 tab, Oral, every night at bedtime Sodium Chloride 0.9% 1,000 mL, 1000 mL, IV Sodium Chloride 0.9% 1,000 mL, 1000 mL, IV Vancomycin- -Pharmacy To Dose, 2000 mg= 400 mL, IV Piggyback, As Directed Home ARIPiprazole 5 mg oral tablet, 5 mg= 1 tab, Oral, Daily, 4 refills BD Ultra finr Pen needles, 1 EA, N/A, As Directed, PRN, 4 refills Buphenyl 500 mg oral tablet buPROPion 150 mg/24 hours (XL) oral tablet, extended release, 150 mg= 1 tab, Oral, every 24 hr, 4 refills buPROPion 300 mg/24 hours (XL) oral [...] tablet, 1 tab, Oral, BID, PRN Ozempic 2 mg/1.5 mL (0.25 mg or 0.5 mg dose) subcutaneous solution, 0.5 mg, Subcutaneous, every week, 6 refills pramipexole 1.5 mg oral tablet, See Instructions, 4 refills Allergies ANIMAL DANDER??(Eye swelling) HOUSE DUST??(Eye swelling) INSECT VENOM??(Anaphylactic reaction) LATEX??(Skin rash) codeine??(Loss of consciousness) morphine??(Vomiting) Social History Electronic Cigarette/Vaping Electronic Cigarette Use: Use, within last 90 days. Type: Nicotine infused.- Comments: occasionally Tobacco Current everyday tobacco user Tobacco Use:. [...] adult vaccine 09/22/2002 Recorded Electronically Signed on 11/11/22 04:18 PM Mauricio Donato MD Reviewed by: Ricardo Michelle MD manager night Note * Cindy Washington E: PERFORM Event Display: Case Management Note Authored Date: [id number] [employer]?? Review Summary Created By: Cindy Washington Created Date: 11/11/2022, 01:17 PM EST Review Status: In Primary Completed Date: Facility: [facility] Criteria Status: Acute Met Criteria Product: LOC:Acute Adult Criteria Subset: Infection: Musculoskeletal Criteria Version: InterQual?? 2021, 2021 Release Select Day, One: Initial review, One: Episode Day 1, One: ACUTE, ??? One: Osteomyelitis, actual or suspected, by bone scan, x???ray, CT or MRI and, ??? One: Anti???infective Bone culture scheduled orperformed within 24h Septic arthritis and, Both: Physician Emergency department Note * José Miguel Sauceda MD: PERFORM Event Display: ED Note Physician Authored Date: [id number] CHARLAHOOD Barlow :1965 Age:57 years Sex:Female Visit Date:11/11/2022 Primary Care Physician: Attila Bernal MD Basic Information Time Seen: José Miguel Sauceda MD / 11/11/2022 09:53 Chief Complaint I have a diabetic ulcer, it's pretty gangrenous. Pt reports left big toe ulcer, states it's downto the bone. History Of Present Illness: 57-year-old female with history of diabetes and a diabetic foot ulcer on the left big toe for months presents because she feels that for the last week or 2 the left big toe has become more infected??with a blackish eschar??and increased swelling??and redness. ??No trauma. ??No fever or chills.?? Otherwise no chest pain or shortness of breath or abdominal pain vomiting or diarrhea or urinary symptoms.?? She had duplex??studies last July at [facility] and there is no arterial insufficiency. ??She was seen by Dr. Donato last June for some debridement on the same toe but she feels it got worse the last week or 2.?? Patient does not check her glucose regularly, arose around 220 three??days ago. Review of Systems: Constitutional:??no??fever,? Skin:??See HPI ENMT:??no??ear pain,??no??sore throat,??no??congestion,??no??hoarseness Respiratory:??no??shortness of breath,??no??cough,? Cardiovascular:??no??chest pain, Gastrointestinal:??no??nausea,??no??vomiting,??no abdominal pain Genitourinary:??no??dysuria,??no??hematuria,??no??discharge,??no??pain Musculoskeletal:??no??back pain,??no??trauma, see HPI Neurologic:??Complaints voiced ?? Heme/Lymph:??no??bleeding tendency,??no??bruising tendency,??no??petechiae,??no??swollen nodes ?? Physical Exam Vitals & Measurements T:??36.5?C ??(Temporal Artery)?? HR:??102??(Peripheral)?? RR:??18?? BP:??171/80?? SpO2:??98%?? HT:??165.000??cm?? WT:??102.97??kg??(Estimated)?? Pain Score:??10?? O2 Therapy:??Room air?? General:??alert,??no acute distress. Skin:??warm,??dry. Head:??no??trauma,??normocephalic. ?? Eye:??normal??conjunctiva, sclera??clear. Cardiovascular:?normal??peripheral perfusion. Respiratory:?? , respirations??non-labored. ?? Extremities:??Left lower extremity is well-perfused, there is no signs of DVT,??the left big toe shows some erythema some inflammation??and a ulcer??on the plantar aspect??of the distal phalanx with some blackish eschar, foul smell is noted.?? Minimal swelling on the dorsum of the foot, no lymphangitis up her leg.?? Foot is well-perfused otherwise. Neurological:??oriented??x 4,?? , speech??normal. Psychiatric:??cooperative, affect??appropriate for age,?? Medical Decision Making: Medical Decision-Making: Clinical lab tests: ordered and reviewed -??Yes Tests in the radiology section of CPT??: ordered and reviewed -??Yes ?? Decide to obtain previous medical records or to obtain history from someone other than the patient:-??Yes ?? Review and summarize past medical records -??Yes Discuss the patient with other providers -??Yes, general surgery??Dr. Donato and also Dr. Michelle from??hospital medicine. Independent visualization of images, tracings, or specimens? Yes ?? Differential diagnosis includes osteomyelitis, infected diabetic ulcer of the left big toe,??no signs of sepsis, ? Was 416 here, she states she did take her Lantus insulin today,??we will give her a liter of fluid check a beta hydroxybutyrate osmolality and give her 10 units subcu regular insulin at the time.?? Ispoke with Dr. Donato from general surgery??at around 11 AM. 45, awaiting his consult.?? Patient got Rocephin as an antibiotic.?? Cultures were drawn. ?? Glucometer was 266 at 1:10 PM.?? Cultures were drawn, patient seen by Dr. Donato who asked that the patient be admitted to medicine for further diabetes control and??administration of IV antibiotics and he will plan on doing debridement??tomorrow in the OR.?? Patient hemodynamically stable here.infected diabetic foot ulcer. Patient remained hemodynamically stable here. ?? Procedure No Qualifying Data Assessment/Plan 1.??Diabetic foot ulcer with osteomyelitis??E11.621 Non-pressure chronic ulcer of other part of unspecified foot with unspecified severity??L97.509 Osteomyelitis, unspecified??M86.9 Type 2 diabetes mellitus with other specified complication??E11.69 Orders: Blood Culture, Blood, Stat collect, ST - Stat, 11/11/22 10:01:00 EST, Once, Nurse collect, Print Label Blood Culture, Blood, Stat collect, ST - Stat, 11/11/22 10:01:00 EST, Once, Nurse collect, Print Label Decision to Admit, 11/11/22 13:10:00 EST, Medical Unit Osmolality Serum, Blood, Stat, 11/11/22 11:46:00 EST, Once, Nurse collect Medication Reconciliation Unchanged ARIPiprazole (ARIPiprazole 5 mg oral tablet)1 tab Oral (given by mouth) every day. Refills: 4. ?? buPROPion (buPROPion 150 mg/24 hours (XL) oral tablet, extended release)1 tab Oral (given by mouth)every 24 hours. Refills: 4. ?? buPROPion (buPROPion 300 mg/24 hours (XL) [...] 4. ?? Durable Medical Equipment for Prescription (Regalamos Plus lancest 30 gauge)Test twice daily.Refills: 4. [...] 3 times a day. Refills: 4. ?? insulin glargine (Lantus Solostar Pen 100 units/mL subcutaneous solution)10 Units Subcutaneous (under the skin) every day. Inject 10 units daily and titrate up by 2 units every 3-4 days until FBS is below 130.. Refills: 4. ?? insulin pen needles 30G 8 mm (BD Ultra finr Pen needles)1 Each Not Applicable As Directed as needed. Use one daily. Refills: 4. ?? losartan (losartan 100 mg oral tablet)1 tab Oral (given by mouth) every day. Refills: 4. ?? metFORMIN (metFORMIN 1000 mg oral tablet)1 tab Oral (given by mouth) 2 times a day. Refills: 4. ?? methotrexate (methotrexate 2.5 mg oral tablet)2 tab Oral (given by mouth) every week. Refills: 3. ?? naloxone (Narcan 4 mg/0.1 mL nasal spray)1 Sprays Nasal (into the nose) once. may repeat every 2 to3 minutes until patient responds. ?? omeprazole (omeprazole 40 mg oral delayed release capsule)1 Capsules Oral (given by mouth) every day. Refills: 4. ?? One Touch Verio Test Strips (One Touch Verio)Test twice daily. Refills: 4. ?? oxyCODONE-acetaminophen (oxyCODONE-acetaminophen 10 mg-325 mg oral tablet)1 tab Oral (given by mouth) 2 times a day as needed as needed for pain for 28 Days. Refills: 0. ?? pramipexole (pramipexole 1.5 mg oral tablet)Take 1 tablet daily at bedtime. Refills: 4. ?? semaglutide (Ozempic 2 mg/1.5 mL (0.25 mg or 0.5 mg dose) subcutaneous solution)0.5 Milligrams Subcutaneous (under the skin) every week. rotate injection sites. Refills: 6. ?? sodium phenylbutyrate (Buphenyl 500 mg oral tablet) Problem List/Past Medical History Ongoing Accidental poisoning Adult health examination Allergies Anesthesia of skin Atopic dermatitis Biceps tendinitis Cellulitis Chronic pain Chronic, continuous use of opioids Depressed Depressive disorder Disease caused by 2019 novel coronavirus Eczema Flu vaccine need Foot pain, left GERD (gastroesophageal reflux disease) Hypertensive disorder Impingement syndrome of right shoulder region Low back pain Low back pain Migraine Nicotine dependence Obesity Overweight Pain in right arm Postoperative infection Psoriasis Severe obesity Strain of muscle of upper limb Strain of tendon of upper arm Toe pain, left Toxic effect of venom Type 2 diabetes mellitus without complication Uterine leiomyoma Historical No qualifying data Procedure/Surgical History ???Arthroplasty, interposition, intercarpal or carpometacarpal joints (04/17/2021)???Rotator cuff repair (09/22/2016)???Hysterectomy (09/22/2000)??? section (procedure) (09/22/1997)???Tubal ligation Medication Administration Given !-Rocephin, IV Piggyback 0.9% NaCl bolus, 1 L, IV Bolus HumuLIN R, 10 units, Subcutaneous Allergies ANIMAL DANDER??(Eye swelling) HOUSE DUST??(Eye swelling) INSECT VENOM??(Anaphylactic reaction) LATEX??(Skin rash) codeine??(Loss of consciousness) morphine??(Vomiting) Social History Electronic Cigarette/Vaping Electronic Cigarette Use: Use, within last 90 days. Type: Nicotine infused.- Comments: occasionally Tobacco Current everyday tobacco user Tobacco Use:. 6 cigarettes daily per day. Never Smokeless Tobacco use:. Family History Hypertensive disorder: Mother. Lab Results CBC and Differential?? LATEST RESULTS?? WBC?? 11/11/22 10:15?? 13.9 ??High?? RBC?? 11/11/22 10:15?? 4.0 ??Low?? Hgb?? 11/11/22 10:15?? 11.9 ??Low?? Hct?? 11/11/22 10:15?? 36.3 ??Low?? MCV?? 11/11/22 10:15?? 90.5?? MCH?? 11/11/22 10:15?? 29.7?? MCHC?? 11/11/22 10:15?? 32.8?? RDW-CV?? 11/11/22 10:15?? 12.2?? Platelets?? 11/11/22 10:15?? 531 ??High?? Neutro Auto?? 11/11/22 10:15?? 71.8?? Lymph Auto?? 11/11/22 10:15?? 17.8 ??Low?? [place] Auto?? 11/11/22 10:15?? 7.2?? Eos, Auto?? 11/11/22 10:15?? 1.9?? Basophil Auto?? 11/11/22 10:15?? 0.5?? Imm Gran Auto?? 11/11/22 10:15?? 0.8?? Neutro Absolute?? 11/11/22 10:15?? 10.0? Routine Chemistry?? LATEST RESULTS?? HISTORICAL RESULTS?? Sodium Level?? 11/11/22 10:15?? 134 ??Low?? 08/20/22?? 142?? Potassium Level?? 11/11/22 10:15?? 3.2 ??Low?? 08/20/22?? 4.2?? Chloride Level?? 11/11/22 10:15?? 96 ??Low?? 08/20/22?? 106?? CO2?? 11/11/22 10:15?? 30?? 08/20/22?? 31?? Alk Phos?? 11/11/22 10:15?? 121? AST?? 11/11/22 10:15?? 19? ALT?? 11/11/22 10:15?? 29? BUN?? 11/11/22 10:15?? 10?? 08/20/22?? 11?? Glucose Level?? 11/11/22 10:15?? 416 ??High?? 08/20/22?? 107 ??High?? Creatinine Level?? 11/11/22 10:15?? 0.82?? 08/20/22?? 0.68?? eGFR AA?? 11/11/22 10:15?? 84?? 08/20/22?? 102?? eGFR Non-AA?? 11/11/22 10:15?? 84?? 08/20/22?? 102?? Calcium Level?? 11/11/22 10:15?? 9.6?? 08/20/22?? 8.9?? Protein Total?? 11/11/22 10:15?? 8.1? Albumin Level?? 11/11/22 10:15?? 3.0 ??Low? Bilirubin Total?? 11/11/22 10:15?? 0.4? Beta-Hydroxybutyrate?? 11/11/22 12:05?? 0.4? Hemoglobin A1c?? 11/11/22 10:15?? 8.1 ??High?? 08/20/22?? 8.4 ??High?? CRP High Sens?? 11/11/22 10:15?? 131.32 ??High? Glucose POC?? 11/11/22 13:10?? 266 ??High? UA Macroscopic?? LATEST RESULTS?? HISTORICAL RESULTS?? UA Color?? 11/11/22 12:07?? Yellow?? 02/27/22?? Yellow?? UA Appear?? 11/11/22 12:07?? Clear?? 02/27/22?? Cloudy Abnormal?? UA Glucose?? 11/11/22 12:07?? 3+ Abnormal?? 02/27/22?? 1+ Abnormal?? UA Bili?? 11/11/22 12:07?? Negative?? 02/27/22?? Negative?? UA Ketones?? 11/11/22 12:07?? Negative?? 02/27/22?? Trace Abnormal?? UA Spec Grav?? 11/11/22 12:07?? 1.010?? 02/27/22?? >=1.030?? UA Blood?? 11/11/22 12:07?? Negative?? 02/27/22?? 1+ Abnormal?? UA pH?? 11/11/22 12:07?? 7.0?? 02/27/22?? 6.0?? UA Protein?? 11/11/22 12:07?? Negative?? 02/27/22?? Negative?? UA Urobilinogen?? 11/11/22 12:07?? Normal?? 02/27/22?? Normal?? UA Nitrite?? 11/11/22 12:07?? Negative?? 02/27/22?? Negative?? UA Leuk Est?? 11/11/22 12:07?? Negative?? 02/27/22?? Negative? Point of Care?? LATEST RESULTS?? Whole Blood Glucose - Manual Entry?? 11/11/22 13:11?? 266 mmol/L ??High? Electronically Signed on 11/11/22 01:15 PM José Miguel Sauceda MD Physical medicine and rehab Consult note * Leno Manning PT, DPT: PERFORM Event Display: Belt Notcher Consultation Authored Date: Discussed current mobility level with pt. She has been ambulating I in the room with no issue. 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 Pt expresses wanting a walking boot for her L LE to protect the surgical site and allow for improved healing; PT feels that walking boot would be helpful for pt and MD/ case management are looking into ordering the walking boot. Pt has no acute PT needs at this time and there are no concerns mobility-george; she is DCing to a trailer with 3 steps as well as a ramp which she will have no issue with. -Leno Manning PT, DPT Electronically Signed on 11/13/22 12:16 PM Leno Manning PT, DPT Physical therapy Progress note * Leno Manning PT DPT: PERFORM Event Display: Physical Therapy Progress Note Authored Date: [id number] Adjusted note type to be PT progress note Electronically Signed on 11/13/22 02:37 PM Leno Manning PT, DPT Nutrition and dietetics Progress note * Beatrice Dunham RD: PERFORM Event Display: Nutrition Note Authored Date: [id number] Nutrition Recommendations Patient is a 57 year old woman admitted with diabetic foot ulcer on left great toe with osteo, s/p debridement an removal of 1-2 cm of distal bone.?? Patient tells me she really didn't want to come to the hospital, however she has been unable to treat the wound herself and decided to seek medical attention. Patient tells me she does not follow any specific diet at home though she knows that she needs to be following an ADA/carb control diet. She reports that she has had some diabetic education from someone in the health field, though it is unknown whether this person was a dietitian/check processor. She is agreeable to seek diabetic MNT when discharged from the hospital. ?? Today she tells me her appetite is very good and she is frequently hungry between meals. We discussed adding glucose control boost as snacks to help manage her hunger and provide added nutrition for wound healing. ?? Her height is 165.1 cm and her current weight is 106kg, BMI 38.77. She denies weight loss, or change in appetite. Nutrition Risk Level moderate Assessment and Monitoring 1-2x/week and as needed Nutrition Diagnosis NCP Diagnosis Priority: 6(Recorded: 11/14/2022 11:40 EST) Increased nutrient needs, Altered nutrition lab valuesrelated to Increased demands for nutrient, e.g., wound healingas evidenced by Great toe diabetic wound with osteo, A1c 8.1 Nutrition Goals improve blood glucose control goal <180 provide adequate nutrition for wound healing Nutrition Interventions Laith BID glucose control boost BID, PM, HS snacks continue diabetic diet basic discussion for wound healing Nutrition Education recommend outpatient diabetes education and counseling Anthropometrics/Estimated Needs [id number] kg(Recorded: 11/12/2022 08:18 EST) Usual Bpqnpj513.36 kg(Recorded: 11/11/2022 16:04 EST) Ypkstb601.000 cm(Recorded: 11/11/2022 16:04 EST) Body Mass Index55.870 kg/m2(Recorded: 11/11/2022 16:04 EST) Reason for Visit DIabetic Left Toe Ulcer Problem List/Past Medical History Ongoing Accidental poisoning [...] right arm Postoperative infection Psoriasis Severe obesity Strain of muscle of upper limb Strain of tendon of upper arm Toe pain, left Toxic effect of venom Type 2 diabetes mellitus without complication Uterine leiomyoma Historical Disease caused by 2019 novel coronavirus Procedure/Surgical History ???Arthroplasty, interposition, intercarpal or carpometacarpal joints (04/17/2021)???Rotator cuff repair (09/22/2016)???Hysterectomy (09/22/2000)??? section (procedure) (09/22/1997)???Tubal ligation Social History Electronic Cigarette/Vaping Electronic Cigarette Use: Use, within last 90 days. Type: Nicotine infused.- Comments: occasionally Tobacco Current everyday tobacco user Tobacco Use:. 6 cigarettes daily per day. Never Smokeless Tobacco use:. Family History Hypertensive disorder: Mother. Diet Orders Diet Order, 11/12/22 15:20:00 EST, Diabetic, Medium (1,700-2,000 ruben) 75g CHO Allergies ANIMAL DANDER??(Eye swelling) HOUSE DUST??(Eye swelling) INSECT VENOM??(Anaphylactic reaction) LATEX??(Skin rash) codeine??(Loss of consciousness) morphine??(Vomiting) Nutrition Lab Results Test Name Test Result Date/Time WBC 7.9 x10^3/mcL 11/14/2022 06:45 EST Hgb 10.1 g/dL 11/14/2022 06:45 EST Hct 31.9 % 11/14/2022 06:45 EST MCV 92.7 11/14/2022 06:45 EST Platelets 472 x10^3/mcL 11/14/2022 06:45 EST Sodium Level 144 mmol/L 11/14/2022 06:45 EST Potassium Level 4.2 mmol/L 11/14/2022 06:45 EST Chloride Level 110 mmol/L 11/14/2022 06:45 EST CO2 26 mmol/L 11/14/2022 06:45 EST Alk Phos 101 unit/L 11/14/2022 06:45 EST ALT 26 unit/L 11/14/2022 06:45 EST BUN 18 mg/dL 11/14/2022 06:45 EST Glucose Level 162 mg/dL 11/14/2022 06:45 EST Creatinine Level 0.71 mg/dL 11/14/2022 06:45 EST Albumin Level 2.8 g/dL 11/14/2022 06:45 EST Bilirubin Total 0.3 mg/dL 11/14/2022 06:45 EST Medications Inpatient ARIPiprazole, 5 mg= 1 tab, Oral, Daily buPROPion, 450 mg= 3 tab, Oral, Daily cefepime + Sodium Chloride 0.9% 100 mL Dextrose 50% intravenous solution, 12.5 g= 25 mL, IV Push, Once, PRN DULoxetine, 30 mg= 1 cap, Oral, Daily DULoxetine, 60 mg= 2 cap, Oral, Daily ferrous sulfate, 325 mg= 1 tab, Oral, TID folic acid, 1 mg= 1 tab, Oral, Daily gabapentin, 900 mg= 3 cap, Oral, TID glucose 40% oral gel, 15 g, Oral, As Directed, PRN glucose 40% oral gel, 30 g, Oral, As Directed, PRN ibuprofen, 800 mg= 4 tab, Oral, every 6 hr, PRN insulin lispro (HumaLog) correction- sensitive, Sensitive Scale, Subcutaneous, QID(ACHS) Lantus, 36 units= 0.36 mL, Subcutaneous, every morning lidocaine 1% injectable solution, 5 mg= 0.5 mL, Intradermal, As Directed, PRN loratadine, 10 mg= 1 tab, Oral, Daily losartan, 100 mg= 2 tab, Oral, Daily metroNIDAZOLE, 500 mg= 100 mL, IV Piggyback, every 6 hr Normal Saline Flush, 10 mL, IV Push, every 12 hr (ingrid) ondansetron, 4 mg= 2 mL, IV Push, every 6 hr, PRN pantoprazole, 40 mg= 1 EA, IV Push, Daily Percocet 5 mg-325 mg oral tablet, 1 tab, Oral, every 6 hr, PRN pramipexole, 1.5 mg= 1.5 tab, Oral, every night at bedtime Sodium Chloride 0.9% 1,000 mL, 1000 mL, IV Sodium Chloride 0.9% 1,000 mL, 1000 mL, IV Vancomycin- -Pharmacy To Dose, 1500 mg= 300 mL, IV Piggyback, every 8 hr Home ARIPiprazole 5 mg oral tablet, 5 mg= 1 tab, Oral, Daily, 4 refills BD Ultra finr Pen needles, 1 EA, N/A, As Directed, PRN, 4 refills Buphenyl 500 mg oral tablet buPROPion 150 mg/24 hours (XL) oral tablet, extended release, 150 mg= 1 tab, Oral, every 24 hr, 4 refills buPROPion 300 mg/24 hours (XL) oral tablet, extended release, 300 mg= 1 tab, Oral, Daily, 4 refills cetirizine 10 mg oral tablet, 10 mg= 1 tab, Oral, Daily, 4 refills cetirizine 10 mg oral tablet, 10 mg= 1 tab, Oral, Daily DULoxetine 30 mg oral delayed release capsule, [...] tablet, 1 tab, Oral, BID, PRN Ozempic 2 mg/1.5 mL (0.25 mg or 0.5 mg dose) subcutaneous solution, 0.5 mg, Subcutaneous, every week, 6 refills pramipexole 1.5 mg oral tablet, See Instructions, 4 refills Electronically Signed on 11/14/22 12:[address] Progress note * Mauricio Donato MD: PERFORM Event Display: Progress Note - Physician Authored Date: [id number] HOOD DUNHAM :1965 Age:57 years Sex:Female Visit Date:11/11/2022 Primary Care Physician: Attila Bernal MD Anticipated Discharge Date 11/15/2022 Subjective The patient seems to be doing well this morning. ??She is scheduled for discharge today.?? IV??filtrated and the nurse was requesting??stopping the vancomycin.?? She will be placed on Bactrim for discharge, so that should be okay. Objective Vitals & Measurements T:??36.7?C ??(Temporal Artery)?? TMIN:??35.8?C ??(Temporal Artery)?? TMAX:??36.7?C ??(Temporal Artery)?? HR:??72??(Monitored)?? RR:??18?? BP:??145/76?? SpO2:??98%?? Pain Score:??0?? O2 Therapy:??Room air?? Physical Exam General: Well-developed well-nourished white female no acute distress.?? Lungs: Breathing is unlabored Left lower extremity has a large walking boot on it. ??Her dressing seems to be dry.?? Her wound had??been checked yesterday??in the evening and looks like it was coming along adequately. Diagnostic Results Bacteria??from her foot??wound are sensitive to Bactrim Assessment/Plan 1.??Diabetic foot ulcer with osteomyelitis??E11.621 Osteomyelitis left great toe Plan Recommend treatment with Bactrim DS one BID x 2 weeks? Recommend appt with wound care for evaluation and treatment with possible ongoing debridement and wound checks. I would recommend soaking the foot in warm salty water or Epsom salts at night, bacitracin ointment, moist saline gauze and an Asher wrap on a daily basis and as needed. She can shower at home. Physical therapy to evaluate for a custom boot for her left foot. Consider stopping methotrexate if possible as it can inhibit wound healing.?? Vitamin D and Calcium supplements OTC??daily 2000 units for Vit D and Calcium around 1200 mg. Diabetic teaching an home teaching if it can be arranged by her primary provider.? 2.??Type 2 diabetes mellitus with other specified complication??E11.69 3.??Hypertensive disorder??I10 Orders: Colace, 100 mg = 1 cap, Oral, Cap, BID for 30 days, PRN constipation, First Dose: 11/14/22 15:45:00EST, Stop Date: 12/14/22 15:44:00 EDT, Physician Stop, Routine Plan:??Patient is for discharge today and will require close follow-up.?? She will be seen at the wound care center if she keeps her appointment.?? I hope??to see her when I get back to make sure that this is progressing as it should. Electronically Signed on 11/15/22 08:20 AM Mauricio Donato MD * Bubba Denton MD: PERFORM Event Display: Progress Note - Physician Authored Date: [id number] HOOD DUNHAM :1965 Age:57 years Sex:Female Visit Date:11/11/2022 Primary Care Physician: Attila Bernal MD Subjective This is a 57-year-old??female patient who??is an uncontrolled diabetic??and has a diabetic foot ulcer over her left large toe now status post partial debridement??with osteomyelitis.?? Cultures have come back with sensitivities and patient is on IV??vancomycin??and metronidazole with??cefepime at this time??with plans to convert to oral therapy??in the morning. ??Because of her osteomyelitis patient does need adequate??course of vancomycin IV. ??The??best oral??agent appears to be??Bactrim DS??which will be reviewed with the surgeon.?? He did want to complete??today's IV antibiotic therapy??because of osteomyelitis.?? She offers no other complaints??except for numbness over her left foot more than right which is a chronic problem.?? She is a full code. Review of Systems 13 point review of systems otherwise unrevealing or stable. Objective Physical Exam General: Patient appears appropriate for age, alert and oriented x3 and in no acute distress. ??Sheis obese. HEENT: Normocephalic, eyes pupils equal react light symmetrically, extraocular movement tact and sclera anicteric.?? Oropharynx with moist mucosa. Neck: Supple without JVD. Back: Stooped posture without CVA tenderness. Lungs: Fair aeration with bronchovesicular breath sounds diffusely but??no focalizing rales or rhonchi. ??No expiratory wheeze. Heart: Regular rate and rhythm with no murmurs gallops appreciated.?? Abdomen: Obese contour,??soft nontender to palpation with no palpable hepatosplenomegaly. ??Bowel sounds positive in all quadrants. Extremities: Without clubbing, cyanosis or pitting edema. ??Left foot has dry bandage wrapped??withshortened first toe obvious??by gross exam. Neuro: Cranial nerves II through XII gross intact, no focal motor deficits.?? Decreased??sensation lower extremities.?? No tremor. Psych: Normal mood and affect. ??No abnormal thought processes. ??Remote and recent memory intact. Lab Results Last 48 Hours?? Chemistry ? Event Name?? Event Result?? Date/Time?? Sodium Level 144 mmol/L 11/14/22 06:45:00 Potassium Level 4.2 mmol/L 11/14/22 06:45:00 Chloride Level 110 mmol/L??High 11/14/22 06:45:00 CO2 26 mmol/L 11/14/22 06:45:00 Alk Phos 101 unit/L 11/14/22 06:45:00 AST 15 unit/L 11/14/22 06:45:00 ALT 26 unit/L 11/14/22 06:45:00 BUN 18 mg/dL 11/14/22 06:45:00 Glucose Level 162 mg/dL??High 11/14/22 06:45:00 Blood Glucose, Capillary 167 11/13/22 11:40:00 Creatinine Level 0.71 mg/dL 11/14/22 06:45:00 eGFR AA 100 11/14/22 06:45:00 eGFR Non-AA 100 11/14/22 06:45:00 Calcium Level 8.7 mg/dL 11/14/22 06:45:00 Protein Total 6.9 g/dL 11/14/22 06:45:00 Albumin Level 2.8 g/dL??Low 11/14/22 06:45:00 Bilirubin Total 0.3 mg/dL 11/14/22 06:45:00 CRP High Sens 31.88 mg/L??High 11/14/22 06:45:00 Glucose POC 139 mg/dL??High 11/14/22 07:22:00 ? Hematology ? Event Name?? Event Result?? Date/Time?? WBC 7.9 x10^3/mcL 11/14/22 06:45:00 RBC 3.4 x10^6/mcL??Low 11/14/22 06:45:00 Hgb 10.1 g/dL??Low 11/14/22 06:45:00 Hct 31.9 %??Low 11/14/22 06:45:00 MCV 92.7 11/14/22 06:45:00 MCH 29.4 pg 11/14/22 06:45:00 MCHC 31.7 g/dL 11/14/22 06:45:00 RDW-CV 12.3 % 11/14/22 06:45:00 Platelets 472 x10^3/mcL??High 11/14/22 06:45:00 ? Microbiology ? Event Name?? Event Result?? Date/Time?? Tissue Culture See Result??Critical 11/12/22 15:00:00 ? All Other Results ? Event Name?? Event Result?? Date/Time?? Vanco Tr 23.4 ug/mL??High 11/14/22 13:00:25 ? Assessment/Plan 1.??Diabetic foot ulcer with osteomyelitis??E11.621 Status post debridement??on 11/11/2022??with IV??vancomycin??now to complete??72 hours and convert to oral therapy in the morning.?? Patient's wound is being cared for by the surgeon status post debridement. 2.??Type 2 diabetes mellitus with other specified complication??E11.69 Glucometer measurements with coverage??to continue with patient to return to outpatient medical therapy at discharge. 3.??Hypertensive disorder??I10 Stable on present medical regimen with adjustment as needed.?? Systolic??blood pressure does occasionally run high. Orders: Dietary Supplements, 11/14/22 12:03:00 EST, Laith, ALL, Breakfast Dinner Dietary Supplements, 11/14/22 12:04:00 EST, Boost, ALL, Afternoon Snack Bedtime Snack, 8 ounce glucose control boost, (strawberry preferred) Vancomycin Lvl Trough, Blood, Timed Study, 11/15/22 7:00:00 EST, Once, Lab Collect Electronically Signed on 11/14/22 02:57 PM Bubba Denton MD * Mauricio Donato MD: PERFORM Event Display: Progress Note - Physician Authored Date: [id number] HOOD DUNHAM :1965 Age:57 years Sex:Female Visit Date:11/11/2022 Primary Care Physician: Attila Bernal MD Anticipated Discharge Date Possibly 11/16/2022 if her??sensitivities are back. Subjective Patient is setting up in bed and seems well rested this morning. ??She states she is having a little feeling in her foot which she is??about. ??She says there is some pain but it is certainly tolerable. Review of Systems Mild foot pain Objective Physical Exam General: Patient sitting up in bed as described earlier. ??She is in no acute distress. Dressing on her left foot is clean and dry. ??We have changed it yesterday and it seems markedly improved from the day previous.?? The preliminary cultures are showing Staph aureus??gram-negative bacilli??which is Alcaligenes??faecalis.?? Susceptibility is pending Lab Results Stable?? Assessment/Plan 1.??Diabetic foot ulcer with osteomyelitis??E11.621 Plan:??The patient??seems to be doing well. ??I would like to have the final sensitivities to determine what oral medications to place her on for discharge.?? She is wanting to go home and get back to work at [employer]. ??We will try to set her up with wound care as well. 2.??Type 2 diabetes mellitus with other specified complication??E11.69 3.??Hypertensive disorder??I10 Orders: Tissue Culture, Biopsy, Toe, RT collect, RT - Routine, 11/12/22 15:00:00 EST, Once, Lab Collect, Collected, by SANTANA, Micro Spec, 11/12/22 16:34:00 EST, Print Label [email or web address], Ricardo Michelle MD, Not Required Electronically Signed on 11/14/22 07:21 AM Mauricio Donato MD History and physical note * Ricardo Michelle MD: MODIFY, PERFORM Event Display: History and Physical Authored Date: [id number] HOOD DUNHAM :1965 Age:57 years Sex:Female Visit Date:11/11/2022 Primary Care Physician: Attila Bernal MD Chief Complaint I have a diabetic ulcer, it's pretty gangrenous. Pt reports left big toe ulcer, states it's downto the bone. History of Present Illness The patient is a 57-year-old female with past medical history of type 2 diabetes mellitus, chronic infected foot ulcer with osteomyelitis, history of depression, GERD, obesity, migraines, anxiety, chronic pain who presents to the emergency department with a chief complaint of worsening right lower extremity wound. ??The patient's wound is on her right great toe. ??Increased pustular drainage, increased pain, increased swelling of the??left foot and toe. ??Patient otherwise denies any fevers or chills, chest pain, abdominal pain, nausea, vomiting, diarrhea, lightness or dizziness. ??She reports compliance with her medications. ??She states that she does not follow diabetic diet. ??She also de nies checking her blood sugars. In the emergency department patient's vital signs were within normal limits. ??In the emergency department patient had a heart rate of 102 otherwise vital signs were unremarkable. ??Labs are significant for a WBC count of 13.9, hemoglobin 11.9, platelet count 531, sodium 134, potassium 3.2, hemoglobin A1c 8.1, CRP 1-31, urine analysis was unremarkable. ??X-ray of the foot was obtained and revealed emphysematous cellulitis of first toe and findings consistent of osteomyelitis of the first toe. ?? Review of Systems Constitutional:?No??fevers,?No??chills,?No??sweats Eye:?No??recent visual problems ENT:?No??ear pain,?No??nasal congestion,?No??sore throat Respiratory:?No??shortness of breath,?No??cough Cardiovascular:?No??Chest pain,?No??palpitations,?No??syncope Gastrointestinal:?Nonausea,?No??vomiting,?No??diarrhea Genitourinary:?No??hematuria?? Ludin/Lymph:?No??bruising tendency,?No??swollen lymph glands Endocrine:?No??excessive thirst,??No??excessive hunger Musculoskeletal:??No??back pain,??No??neck pain,??No??joint pain,??No??muscle pain,??No??decreased range of motion Integumentary:?No??rash,?No??pruritus,?No??abrasions, left ulcer??on first digit??with purulent discharge,??necrotic tissue present??approximately 2 x 2 cm at the plantar aspect of great toe Neurologic:??Alert & oriented X 4 Psychiatric:?No??anxiety,?No??depression Physical Exam Vitals & Measurements T:??36.5?C ??(Temporal Artery)?? HR:??102??(Peripheral)?? RR:??18?? BP:??171/80?? SpO2:??98%?? HT:??165.000??cm?? WT:??102.97??kg??(Estimated)?? Pain Score:??10?? O2 Therapy:??Room air?? Assessment/Plan 1.??Diabetic foot ulcer with osteomyelitis??E11.621 57-year-old female presented with worsening diabetic foot ulcer of the??left great toe??with signs of osteomyelitis seen on x-ray.?? We will admit patient as inpatient.?? Will cover with broad-spectrum antibiotics in light of diabetic??chronic foot wounds with vancomycin and Zosyn. ??We will also cover with Zosyn for anaerobic coverage??due to emphysematous changes seen on??x- ray.?? Wound culturewill be obtained. ??MRSA screen will also be obtained and discontinue??MRSA coverage if negative.??N.p.o. after midnight in anticipation for possible surgical intervention.?? DVT prophylaxis to be initiated postop. ?? Allergies??T78.40XA Ordered: loratadine, 10 mg = 1 tab, Oral, Tab, Daily, First Dose: 11/12/22 9:00:00 EST, Routine ?? Depressive disorder??F32.A Continue bupropion and duloxetine. Ordered: buPROPion, 150 mg, Oral, Tab-ER, every 24 hr, First Dose: 11/11/22 14:00:00 EST, Routine DULoxetine, 30 mg = 1 cap, Oral, Cap-DR, Daily, First Dose: 11/12/22 9:00:00 EST, Routine DULoxetine, 60 mg = 2 cap, Oral, Cap-DR, Daily, First Dose: 11/12/22 9:00:00 EST, Routine ?? Eczema??L30.9 Ordered: folic acid, 1 mg = 1 tab, Oral, Tab, Daily, First Dose: 11/12/22 9:00:00 EST, Routine ?? Hypertensive disorder??I10 Continue losartan. Ordered: losartan, 100 mg = 2 tab, Oral, Tab, Daily, First Dose: 11/12/22 9:00:00 EST, Routine ?? Non-pressure chronic ulcer of other part of unspecified foot with unspecified severity??L97.509 ?? Osteomyelitis, unspecified??M86.9 As above. ?? Type 2 diabetes mellitus with other specified complication??E11.69 Continue Lantus. ??Insulin sliding scale. ??Chemstrips AC plus at bedtime. ??Diabetic diet. ?? Type 2 diabetes mellitus without complication??E11.9 Ordered: ferrous sulfate, 325 mg = 1 tab, Oral, Tab, TID, First Dose: 11/11/22 15:00:00 EST, Routine insulin glargine, 30 units = 0.3 mL, Subcutaneous, Soln, Daily, First Dose: 11/11/22 13:56:00 EST, Routine ?? Orders: ARIPiprazole, 5 mg = 1 tab, Oral, Tab, Daily, First Dose: 11/12/22 9:00:00 EST, Routine gabapentin, 900 mg = 3 cap, Oral, Cap, TID, First Dose: 11/11/22 15:00:00 EST, Routine Zosyn, 3.375 g, IV Piggyback, Powder-Inj, every 8 hr, Antibiotic Indication Bone and/or Joint Infection, Administer over: 4 hr, First Dose: 11/11/22 22:00:00 EST, Routine Zosyn, 4.5 g = 1 EA, IV Piggyback, Powder-Inj, Once, Antibiotic Indication Bone and/or Joint Infection, Administer over: 30 minutes, First Dose: 11/11/22 15:00:00 EST, Stop Date: 11/11/22 15:00:00 EST, Physician Stop, Routine pramipexole, 1.5 mg = 1.5 tab, Oral, Tab, every night at bedtime, First Dose: 11/11/22 21:00:00 EST, Routine Vancomycin- -Pharmacy To Dose, 1,500 mg, IV Piggyback, Soln, As Directed, Antibiotic Indication Bone and/or Joint Infection, First Dose: 11/11/22 14:26:00 EST, Physician Stop, Routine MRSA Screen Culture, Nares, Routine collect, RT - Routine, 11/11/22 14:26:00 EST, Once, Nurse collect NPO at Midnight, 11/11/22 14:26:00 EST, Constant Indicator PSO Admit to Inpatient, Semi-Private Telemetry, Inpatient, Ricardo Michelle MD, 11/11/22 13:10:00 EST, 11/11/22 13:10:00 EST, 11/11/22 13:10:00 EST, 2 midnights or more Wound Culture, Wound, Toe, Routine collect, RT - Routine, 11/11/22 14:26:00 EST, Once, Nurse collect, Print Label Problem List/Past Medical History Ongoing Accidental poisoning Adult health examination Allergies Anesthesia of skin Atopic dermatitis Biceps tendinitis Cellulitis Chronic pain Chronic, continuous use of opioids Depressed Depressive disorder Disease caused by 2019 novel coronavirus Eczema Flu vaccine need Foot pain, left GERD (gastroesophageal reflux disease) Hypertensive disorder Impingement syndrome of right shoulder region Low back pain Low back pain Migraine Nicotine dependence Obesity Overweight Pain in right arm Postoperative infection Psoriasis Severe obesity Strain of muscle of upper limb Strain of tendon of upper arm Toe pain, left Toxic effect of venom Type 2 diabetes mellitus without complication Uterine leiomyoma Historical No qualifying data Procedure/Surgical History ???Arthroplasty, interposition, intercarpal or carpometacarpal joints (04/17/2021)???Rotator cuff repair (09/22/2016)???Hysterectomy (09/22/2000)??? section (procedure) (09/22/1997)???Tubal ligation Medications Inpatient ARIPiprazole, 5 mg= 1 tab, Oral, Daily buPROPion, 150 mg, Oral, every 24 hr DULoxetine, 30 mg= 1 cap, Oral, Daily DULoxetine, 60 mg= 2 cap, Oral, Daily ferrous sulfate, 325 mg= 1 tab, Oral, TID folic acid, 1 mg= 1 tab, Oral, Daily gabapentin, 900 mg= 3 cap, Oral, TID insulin glargine, 30 units= 0.3 mL, Subcutaneous, Daily loratadine, 10 mg= 1 tab, Oral, Daily losartan, 100 mg= 2 tab, Oral, Daily pramipexole, 1.5 mg= 1.5 tab, Oral, every night at bedtime Vancomycin- -Pharmacy To Dose, 1500 mg, IV Piggyback, As Directed Zosyn Zosyn, 3.375 g, IV Piggyback, every 8 hr Home ARIPiprazole 5 mg oral tablet, 5 mg= 1 tab, Oral, Daily, 4 refills BD Ultra finr Pen needles, 1 EA, N/A, As Directed, PRN, 4 refills Buphenyl 500 mg oral tablet buPROPion 150 mg/24 hours (XL) oral tablet, extended release, 150 mg= 1 tab, Oral, every 24 hr, 4 refills buPROPion 300 mg/24 hours (XL) oral [...] tablet, 1 tab, Oral, BID, PRN Ozempic 2 mg/1.5 mL (0.25 mg or 0.5 mg dose) subcutaneous solution, 0.5 mg, Subcutaneous, every week, 6 refills pramipexole 1.5 mg oral tablet, See Instructions, 4 refills Allergies ANIMAL DANDER??(Eye swelling) HOUSE DUST??(Eye swelling) INSECT VENOM??(Anaphylactic reaction) LATEX??(Skin rash) codeine??(Loss of consciousness) morphine??(Vomiting) Social History Electronic Cigarette/Vaping Electronic Cigarette Use: Use, within last 90 days. Type: Nicotine infused.- Comments: occasionally Tobacco Current everyday tobacco user Tobacco Use:. [...] adult vaccine 09/22/2002 Recorded Electronically Signed on 11/11/22 02:31 PM Ricardo Michelle MD Electronically Signed on 11/11/22 03:12 PM Ricardo Michelle MD Discharge summary * Bubba Denton MD: PERFORM Event Display: Discharge Summary Authored Date: [id number] HOOD DUNHAM :1965 Age:57 years Sex:Female Visit Date:11/11/2022 Primary Care Physician: Attila Bernal MD Hospital Course Discharge Summary ?? Date of admission:??11/11/2022 ?? Date of discharge:??11/15/2022 ?? Discharge diagnoses:??Diabetic foot ulcer left large toe??status post??partial amputation and debridement,??Type 2 diabetes mellitus,??Hypertension ?? Consultations:??Surgery,??Mauricio Estrada MD ?? Operations/procedures:??Partial amputation with debridement??distal??left large toe ?? Summary of presentation and course: This is a??57-year-old lady??with poor diabetic control??long-term??and diabetic neuropathy left foot??who presented with diabetic ulcer and osteomyelitis of the left large toe. ??She underwent??debridement??and partial imitation of the distal toe leaving soft tissue for eventual??closure??once infection cleared.?? Wound and tissue culture did grow MRSA and??Alcaligenes faecalis??both sensitive to??Bactrim DS which will be treated for??an 8-week course rather than 2 weeks??with pharmacy suggesting??such treatment for osteomyelitis.?? It will be a slightly high dose 3 times daily.?? The patient??otherwise is medically stable??at discharge with labs??and imaging as per reports??with no active? ?issues. ?? Disposition:??Discharged home??with outpatient wound care to be??established with PCP??and patient to follow-up surgery as scheduled.?? Prognosis fair. Patient is a full code. ?? Greater than 30 minutes was spent on the day of discharge in coordinating care and arranging outpatient follow-up. Physical Exam Vitals & Measurements T:??36.2?C ??(Temporal Artery)?? TMIN:??35.8?C ??(Temporal Artery)?? TMAX:??36.7?C ??(Temporal Artery)?? HR:??82??(Peripheral)?? RR:??18?? BP:??142/76?? SpO2:??98%?? Pain Score:??3?? O2 Therapy:??Room air?? General: Patient appears appropriate for age, alert and oriented x3 and in no acute distress. ??Sheis obese. HEENT: Normocephalic, eyes pupils equal react light symmetrically, extraocular movement tact and sclera anicteric.?? Oropharynx with moist mucosa. Neck: Supple without JVD. Back: Stooped posture without CVA tenderness. Lungs: Fair aeration with bronchovesicular breath sounds diffusely but??no focalizing rales or rhonchi. ??No expiratory wheeze. Heart: Regular rate and rhythm with no murmurs gallops appreciated.?? Abdomen: Obese contour,??soft nontender to palpation with no palpable hepatosplenomegaly. ??Bowel sounds positive in all quadrants. Extremities: Without clubbing, cyanosis or pitting edema. ??Left foot has dry bandage wrapped??withshortened first toe obvious??by gross exam.?? Wound exam revealed??dry base down to bone??with??pliable??pink??rim of tissue??and deep??ulcer which was the debridement of the soft tissue and bone??with toenail mostly intact??and??appearance of??revision possible later for closure over??bone once??infection is cleared. Neuro: Cranial nerves II through XII gross intact, no focal motor deficits.?? Decreased??sensation lower extremities.?? No tremor. Psych: Normal mood and affect. ??No abnormal thought processes. ??Remote and recent memory intact. Medications Inpatient ARIPiprazole, 5 mg= 1 tab, Oral, Daily buPROPion, 450 mg= 3 tab, Oral, Daily Colace, 100 mg= 1 cap, Oral, BID, PRN Dextrose 50% intravenous solution, 12.5 g= 25 mL, IV Push, Once, PRN DULoxetine, 30 mg= 1 cap, Oral, Daily DULoxetine, 60 mg= 2 cap, Oral, Daily ferrous sulfate, 325 mg= 1 tab, Oral, TID folic acid, 1 mg= 1 tab, Oral, Daily gabapentin, 900 mg= 3 cap, Oral, TID glucose 40% oral gel, 15 g, Oral, As Directed, PRN glucose 40% oral gel, 30 g, Oral, As Directed, PRN ibuprofen, 800 mg= 4 tab, Oral, every 6 hr, PRN insulin lispro (HumaLog) correction- sensitive, Sensitive Scale, Subcutaneous, QID(ACHS) Lantus, 36 units= 0.36 mL, Subcutaneous, every morning lidocaine 1% injectable solution, 5 mg= 0.5 mL, Intradermal, As Directed, PRN loratadine, 10 mg= 1 tab, Oral, Daily losartan, 100 mg= 2 tab, Oral, Daily Normal Saline Flush, 10 mL, IV Push, every 12 hr (ingrid) ondansetron, 4 mg= 2 mL, IV Push, every 6 hr, PRN pantoprazole, 40 mg= 1 EA, IV Push, Daily Percocet 5 mg-325 mg oral tablet, 1 tab, Oral, every 6 hr, PRN pramipexole, 1.5 mg= 1.5 tab, Oral, every night at bedtime Sodium Chloride 0.9% 1,000 mL, 1000 mL, IV Sodium Chloride 0.9% 1,000 mL, 1000 mL, IV Home ARIPiprazole 5 mg oral tablet, 5 mg= 1 tab, Oral, Daily, 4 refills Bactrim DS 800 mg-160 mg oral tablet, 1 tab, Oral, TID, 1 refills BD Ultra finr Pen needles, 1 EA, N/A, As Directed, PRN, 4 refills Buphenyl 500 mg oral tablet buPROPion 150 mg/24 hours (XL) oral tablet, extended release, 150 mg= 1 tab, Oral, every 24 hr, 4 refills buPROPion 300 mg/24 hours (XL) oral [...] tablet, 1 tab, Oral, BID, PRN Ozempic 2 mg/1.5 mL (0.25 mg or 0.5 mg dose) subcutaneous solution, 0.5 mg, Subcutaneous, every week, 6 refills pramipexole 1.5 mg oral tablet, See Instructions, 4 refills Procedure/Surgical History ???Arthroplasty, interposition, intercarpal or carpometacarpal joints (04/17/2021)???Rotator cuff repair (09/22/2016)???Hysterectomy (09/22/2000)??? section (procedure) (09/22/1997)???Tubal ligation Social History Electronic Cigarette/Vaping Electronic Cigarette Use: Use, within last 90 days. Type: Nicotine infused.- Comments: occasionally Tobacco Current everyday tobacco user Tobacco Use:. 6 cigarettes daily per day. Never Smokeless Tobacco use:. Lab Results Last 48 Hours?? Chemistry ? Event Name?? Event Result?? Date/Time?? Sodium Level 142 mmol/L 11/15/22 06:50:00 Potassium Level 4.3 mmol/L 11/15/22 06:50:00 Chloride Level 109 mmol/L??High 11/15/22 06:50:00 CO2 26 mmol/L 11/15/22 06:50:00 Alk Phos 108 unit/L 11/15/22 06:50:00 AST 19 unit/L 11/15/22 06:50:00 ALT 32 unit/L 11/15/22 06:50:00 BUN 14 mg/dL 11/15/22 06:50:00 Glucose Level 144 mg/dL??High 11/15/22 06:50:00 Blood Glucose, Capillary 167 11/13/22 11:40:00 Creatinine Level 0.61 mg/dL 11/15/22 06:50:00 eGFR AA 105 11/15/22 06:50:00 eGFR Non-AA 105 11/15/22 06:50:00 Calcium Level 8.8 mg/dL 11/15/22 06:50:00 Protein Total 7.1 g/dL 11/15/22 06:50:00 Albumin Level 2.9 g/dL??Low 11/15/22 06:50:00 Bilirubin Total 0.4 mg/dL 11/15/22 06:50:00 CRP High Sens 20.39 mg/L??High 11/15/22 06:50:00 Glucose POC 145 mg/dL??High 11/14/22 21:05:00 ? Hematology ? Event Name?? Event Result?? Date/Time?? WBC 10.1 x10^3/mcL??High 11/15/22 06:50:00 RBC 3.6 x10^6/mcL??Low 11/15/22 06:50:00 Hgb 10.8 g/dL??Low 11/15/22 06:50:00 Hct 33.2 %??Low 11/15/22 06:50:00 MCV 92 11/15/22 06:50:00 MCH 29.9 pg 11/15/22 06:50:00 MCHC 32.5 g/dL 11/15/22 06:50:00 RDW-CV 12.4 % 11/15/22 06:50:00 Platelets 526 x10^3/mcL??High 11/15/22 06:50:00 ? All Other Results ? Event Name?? Event Result?? Date/Time?? Vanco Tr 19.6 ug/mL??High 11/15/22 06:50:00 ? Diagnostic Results Exam: XR Left Foot?? Exam date and time: 11/11/2022 10:11 AM?? Clinical indication: Hallux infection? TECHNIQUE:?? Imaging protocol: Radiologic exam of the Left foot.?? Views: 3 or more views.? COMPARISON:?? No relevant prior studies available.? FINDINGS:?? Bones/joints: Erosion of the distal phalanx of the left 1st toe.?? Degenerative arthropathy 1st metatarsophalangeal joint. No acute?? fractures. Large heel spurs.?? Soft tissues: Soft tissue swelling. Defect/ulceration distal 1st toe.?? Air present in the soft tissues.? IMPRESSION:?? 1. Findings consistent with osteomyelitis 1st distal toe.?? 2. 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 Discharge Plan 1.??Diabetic foot ulcer with osteomyelitis??E11.621 There is a deep wound to the tip of the left large toe with soft tissue lab for eventual closure??if possible. ??Patient will finish a week course of Bactrim DS rather than 2 weeks??with pharmacy suggesting this length of treatment.?? Follow-up surgery as scheduled.?? Care to be established per seePCP??as recommended by surgery. 2.??Type 2 diabetes mellitus with other specified complication??E11.69 Resume home treatment and??attempt better control of hyperglycemia. 3.??Hypertensive disorder??I10 Continue home medical therapy adjusting as needed with weight loss and watching??salt in diet??important. Orders: gabapentin 300 mg oral capsule, 900 mg = 3 cap, Oral, TID, 0 Refill(s) Bactrim DS 800 mg-160 mg oral tablet, 1 tab, Oral, TID, # 84 tab, 1 Refill(s), Pharmacy: [id number], 165, cm, 11/11/22 16:14:00 EST, Height/Length Dosing, 152.1, kg, 11/11/22 16:14:00 EST,Weight Dosing Dietary Supplements, 11/14/22 12:03:00 EST, Laith, ALL, Breakfast Dinner Dietary Supplements, 11/14/22 12:04:00 EST, Boost, ALL, Afternoon Snack Bedtime Snack, 8 ounce glucose control boost, (strawberry preferred) Discharge Activity Restrictions, No Restrictions Discharge Diet Instruction, Consistent Carbohydrate 2505-8913 ruben, Diabetic ADA, Heart Healthy Diet Discharge Patient, 11/15/22 8:59:00 EST, Home Independently Discharge Weight Bearing Restrictions, Lower, 11/15/22 8:59:00 EST, full weight- bearing, Left lowerextremity with walking boot to protect foot Discharge Wound Care Instructions, As per surgery in patient instructions and per outpatient wound care clinic instructions. All Diagnoses This Visit Diabetic foot ulcer with osteomyelitis Type 2 diabetes mellitus with other specified complication Hypertensive disorder Patient Instructions Call your primary care provider for: Temperature greater than 101F. Pain that does not go away. Persistent nausea, vomiting or constipation. Shortness of breath, with or without chest discomfort. Weight gain of 3 or more pounds per day. Redness or drainage from incision. Change dressing daily and as needed. Remove dressing before showering. ?? Surgical Wound Care Instructions: Recommend ??appointment with wound care for evaluation and treatment with possible ongoing debridement and wound checks. I would recommend soaking the foot in warm salty water or Epsom salts at night, bacitracin ointment, moist saline gauze and an Asher wrap on a daily basis and as needed. She can shower at home. Physical therapy to evaluate for a custom boot for her left foot. Consider stopping methotrexate if possible as it can inhibit wound healing.?? Vitamin D and Calcium supplements OTC??daily 2000 units for Vit D and Calcium around 1200 mg.?? Hernares swab was negative, but it would be reasonable to use mupirocin in the nares daily to prevent colonization Diabetic teaching an home teaching if it can be arranged by her primary provider.?? Patient Education Diabetes Mellitus and Foot Care Diabetes Mellitus and Skin Care Follow Up With When Contact Information Attila Bernal MD Within 1 month [facility] [place] [phone]- Additional Instructions: Medication Reconciliation New Prescription sulfamethoxazole-trimethoprim (Bactrim DS 800 mg-160 mg oral tablet)1 tab Oral (given by mouth) 3 times a day for 28 Days. Refills: 1. ?? Changed cetirizine (cetirizine 10 mg oral tablet)1 tab Oral (given by mouth) every day. Refills: 4. ?? gabapentin (gabapentin 300 mg oral capsule)3 Capsules Oral (given by mouth) 3 times a day. ?? gabapentin (gabapentin 300 mg oral capsule)3 Capsules Oral (given by mouth) 3 times a day. TAKE 3 CAPSULES BY MOUTH THREE TIMES DAILY. Refills: 3. ?? Unchanged ARIPiprazole (ARIPiprazole 5 mg oral tablet)1 tab Oral (given by mouth) every day. Refills: 4. ?? buPROPion (buPROPion 150 mg/24 hours (XL) oral tablet, extended release)1 tab Oral (given by mouth)every 24 hours. Refills: 4. ?? buPROPion (buPROPion 300 mg/24 hours (XL) oral tablet, extended release)1 tab Oral (given by mouth)every day. Refills: 4. ?? DULoxetine (DULoxetine 30 mg oral delayed release capsule)1 Capsules Oral (given by mouth) every day for 90 Days. Refills: 4. ?? DULoxetine (DULoxetine 60 mg oral delayed release capsule)1 Capsules Oral (given by mouth) every day. Take in addition to 30 mg for a total dose of 90 mg. Refills: 4. ?? Durable Medical Equipment for Prescription (Unbound Delica Plus lancest 30 gauge)Test twice daily.Refills: 4. ?? ferrous sulfate (ferrous sulfate 325 mg (65 mg elemental iron) oral tablet)1 tab Oral (given by mouth) 3 times a day. Refills: 4. ?? folic acid (folic acid 1 mg oral tablet)1 tab Oral (given by mouth) every day. Refills: 4. ?? ibuprofen (ibuprofen 800 mg oral tablet)1 tab Oral (given by mouth) 3 times a day. Refills: 4. ?? insulin glargine (Lantus Solostar Pen 100 units/mL subcutaneous solution)10 Units Subcutaneous (under the skin) every day. Inject 10 units daily and titrate up by 2 units every 3-4 days until FBS is below 130.. Refills: 4. ?? insulin pen needles 30G 8 mm (BD Ultra finr Pen needles)1 Each Not Applicable As Directed as needed. Use one daily. Refills: 4. ?? losartan (losartan 100 mg oral tablet)1 tab Oral (given by mouth) every day. Refills: 4. ?? metFORMIN (metFORMIN 1000 mg oral tablet)1 tab Oral (given by mouth) 2 times a day. Refills: 4. ?? methotrexate (methotrexate 2.5 mg oral tablet)2 tab Oral (given by mouth) every week. Refills: 3. ?? naloxone (Narcan 4 mg/0.1 mL nasal spray)1 Sprays Nasal (into the nose) once. may repeat every 2 to3 minutes until patient responds. ?? omeprazole (omeprazole 40 mg oral delayed release capsule)1 Capsules Oral (given by mouth) every day. Refills: 4. ?? One Touch Verio Test Strips (One Touch Verio)Test twice daily. Refills: 4. ?? oxyCODONE-acetaminophen (oxyCODONE-acetaminophen 10 mg-325 mg oral tablet)1 tab Oral (given by mouth) 2 times a day as needed as needed for pain for 28 Days. Refills: 0. ?? pramipexole (pramipexole 1.5 mg oral tablet)Take 1 tablet daily at bedtime. Refills: 4. ?? semaglutide (Ozempic 2 mg/1.5 mL (0.25 mg or 0.5 mg dose) subcutaneous solution)0.5 Milligrams Subcutaneous (under the skin) every week. rotate injection sites. Refills: 6. ?? sodium phenylbutyrate (Buphenyl 500 mg oral tablet) Electronically Signed on 11/15/22 09:49 AM Bubba Denton MD * Mauricio Donato MD: PERFORM, MODIFY Event Display: Discharge Summary Authored Date: [id number] HOOD DUNHAM :1965 Age:57 years Sex:Female Visit Date:11/11/2022 Primary Care Physician: Attila Bernal MD ? 1.??Diabetic foot ulcer with osteomyelitis??E11.621 ??Osteomyelitis left great toe Plan Recommend treatment with Bactrim DS one BID x 2 weeks? Recommend ??appt with wound care for evaluation and treatment with possible ongoing debridement andwound checks. I would recommend soaking the foot in warm salty water or Epsom salts at night, bacitracin ointment, moist saline gauze and an Asher wrap on a daily basis and as needed. She can shower at home. Physical therapy to evaluate for a custom boot for her left foot. Consider stopping methotrexate if possible as it can inhibit wound healing.?? Vitamin D and Calcium supplements OTC??daily 2000 units for Vit D and Calcium around 1200 mg.?? Hernares swab was negative, but it would be reasonable to use mupirocin in the nares daily to prevent colonization Diabetic teaching an home teaching if it can be arranged by her primary provider.? 2.??Type 2 diabetes mellitus with other specified complication??E11.69 ? 3.??Hypertensive disorder??I10 ? Orders: ??Colace, 100 mg = 1 cap, Oral, Cap, BID for 30 days, PRN constipation, First Dose: 11/14/22 15:45:00 EST, Stop Date: 12/14/22 15:44:00 EDT, Physician Stop, Routine Electronically Signed on 11/14/22 04:14 PM Mauricio Donato MD Electronically Signed on 11/14/22 04:18 PM Mauricio Donato MD * Mauricio Donato MD: PERFORM Event Display: Discharge Summary Authored Date: [id number] Work/School Release Form Employee/Student Information Name:HOOD DUNHAM Address: [facility] [place], [place] [id number] Sex:Female Date of :1965 Age:57 years Emergency Contact:LIDIA LLOYD Release Details This notice verifies that the above identified individual was seen in this facility. Date seen:?11/14/2022? He/she may return to work/school on date:?11/22/2022? They will return to work/school with the following restrictions: ?None ?No prolonged standing ?Desk work only ?No heavy lifting over: ?Other:?She will have a walking boot.? Patient may drive from the hospital upon discharge??and, to and from work? Restrictions Timeframe Restrictions apply through this date:?until??12/21/2022? After the date above, he/she should be able to participate full in all duties and activities. Note: If symptoms continue and he/she is unable to return to work/school with full duties by the date specified, please advise them to return to this facility or make an appointment with their Primary Care Provider or Work Comp Physician for further evaluation. Provider Signature: Date: Provider Name:?? Electronically Signed on 11/14/22 04:00 PM Mauricio Donato MD Patient Care team information Care Team Personnel Name: Attila Bernal MD Position: Physician Member Role: Primary Care Physician Address: Address: [facility] [address] Name: José Miguel Sauceda MD Position: Physician Member Role: ED Physician Address: Address: [address] Name: Jody Gilmore Position: Nurse Member Role: ED Nurse Care Team Related Persons Name: EDGAR GUADALUPE Address: Home Name: LIDIA LLOYD Address: Home
[2023-07-14 09:42] VITALS: BP 128/68; PULSE 80; RESP 18; TEMP 36.7; O2SAT 100
[2023-07-14 11:57] LABS: Abs Immature Grans 0.06 10^3/uL (0.0-0.06); Absolute Basophil Count 0.08 10^3/uL (0.0-0.2); Absolute Eosinophil Count 0.41 10^3/uL (0.0-0.7); Absolute Lymphocyte Count 2.63 10^3/uL (1.2-3.4); Absolute Monocyte Count 1.04 10^3/uL (0.1-0.8); Absolute Neutrophil Count 9.85 10^3/uL (1.2-6.7); Basophils % 0.6; Eosinophils % 2.9; HCT 35.5 % (36.0-46.0); HGB 11.5 g/dL (11.2-15.7); Immature Grans % 0.4; Lymphocytes % 18.7; MCH 27.7 pg (27.0-33.0); MCHC 32.4 % (32.0-36.0); MCV 86 fL (80-95); MPV 8.9 fL (8.0-11.0); Monocytes % 7.4; Platelet Count 571 10^3/uL (130-400); RBC 4.15 10^6/uL (3.93-5.22); RDW 13.2 % (11.7-14.6); RDW-SD 40.9 fL; WBC 14.07 10^3/uL (4.4-10.8)
[2023-07-14 12:22] LABS: ALT 19 U/L (14-59); AST 10 U/L (15-37); Albumin 3.2 g/dL (3.4-5.0); Alkaline Phosphatase 119 U/L (46-116); Anion Gap 7.2 mmol/L (3-11); BUN 7 mg/dL (7-18); Bilirubin, Total 0.4 mg/dL (0.2-1.0); C-Reactive Protein 7.31 mg/dL (0.0-0.3); CO2 25.8 mmol/L (21.0-32.0); CREATININE 0.7 mg/dL (0.55-1.02); Calcium 9.4 mg/dL (8.5-10.1); Chloride 102 mmol/L (98-107); Estimated GFR 100.81 (mL/min/1.73m2); Glucose 100 mg/dL (74-106); Potassium 3.2 mmol/L (3.5-5.1); Sodium 135 mmol/L (136-145)
[2023-07-14 12:40] LABS: Procalcitonin < 0.1 ng/mL
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
--- NOTE | 2023-07-14 14:00 | RT.EKG_ITS ---
APPROVED REPORT Exam: Resting ECG Reason for Exam: preoperative Patient Location: I HR:80 bpm ECG Measurements Heart Rate 80 AXIS NJ 160 P 73 QRSd 100 QRS 33 QT 388 T 10 QTc 448 Conclusion Sinus rhythm...normal P axis, V-rate 50- 99 Baseline wander in lead(s) II,III,aVR,aVL,aVF Normal Electrocardiogram
[2023-07-14] MEDS: VANCOMYCIN/WATER (PEG) 2 GM/400 ML BAG IV (14:19)
[2023-07-14] MEDS: Heparin 5,000 UNITS/ML VIAL 5000 UNITS SC ×2 (14:25→21:36)
[2023-07-14 14:42] LABS: Lab Add On Test DONE
[2023-07-14] MEDS: Potassium Chloride 10 MEQ CAPCR 20 MEQ PO (14:58)
[2023-07-14] MEDS: Gabapentin 300 MG CAP 900 MG PO ×2 (14:58→21:37)
[2023-07-14] MEDS: Normal Saline Flush 10 ML SYR IVP (14:59)
[2023-07-14 15:06] VITALS: BP 110/71; PULSE 73; RESP 18; TEMP 36.8; O2SAT 97
[2023-07-14 15:36] LABS: Hemoglobin A1C 5.6 % (<5.7)
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
[2023-07-14] MEDS: MEROPENEM 1 GM in Normal Saline 100 ML IVPB ×2 (16:41→23:13)
[2023-07-14] MEDS: metFORMIN 500 MG TAB 1000 MG PO (16:42)
[2023-07-14] MEDS: ARIPiprazole 5 MG TAB 10 MG PO (21:36)
[2023-07-14] MEDS: Potassium Chloride 20 MEQ TABCR PO (21:36)
[2023-07-14] MEDS: Pramipexole 0.5 MG TAB 1.5 MG PO (21:36)
[2023-07-14] MEDS: oxyCODONE 5 mg/Acetaminophen 325 mg TAB 1 TAB PO (22:11)
[2023-07-14 23:18] VITALS: BP 113/75; PULSE 87; RESP 18; TEMP 36.7; O2SAT 96
[2023-07-14] MEDS: VANCOMYCIN/WATER (PEG) 1.25 GM/250 ML BAG IVPB (23:46)
[2023-07-15] VITALS (8 sets, daily range): BP systolic 91–112; BP diastolic 48–72; PULSE 74–83; RESP 16–22; TEMP 35.6–37.2; O2SAT 91–100; BMI 32.1
--- NOTE | 2023-07-15 | DI.MRI_ITS ---
Exam(s) MR LOWER EXTREMITY LT WO CLINICAL HISTORY: osteomyelitis. TECHNIQUE: Multiplanar multisequence MRI was performed. CONTRAST MATERIAL: Noncontrast COMPARISON: Plain films 14 July 2023 FINDINGS: Extreme soft tissue edema. wound noted at dorsum of foot at the level of the 3rd and 4th proximal p halanges. Prior amputation of great toe. Mild nonspecific edema in distal shaft of 1st metatarsal. Arm abnormal marrow edema seen in 2nd toe in the majority of the 2nd metatarsal. Significantly abnor mal signal noted in in 3rd metatarsal proximal phalanx of the 3rd toe. Marrow edema also noted in 4t h metatarsal. On a 5 small focus of high signal seen in the 5th metatarsal head. Fifth toe is unrem arkable. The tarsal bones on show normal marrow signal. No gross tendon abnormalities. IMPRESSION: Findings consistent with osteomyelitis of the 2nd toe and 2nd metatarsal. Findings suspicious for os teomyelitis involving the 3rd and 4th metatarsals and proximal phalanx of the 3rd toe. DATA REPOSITORY:
[2023-07-15 07:13] LABS: Absolute Basophil Count 0.12 10^3/uL (0.0-0.2); Absolute Eosinophil Count 0.49 10^3/uL (0.0-0.7); Absolute Lymphocyte Count 2.66 10^3/uL (1.2-3.4); Absolute Monocyte Count 0.96 10^3/uL (0.1-0.8); Absolute Neutrophil Count 7.87 10^3/uL (1.2-6.7); HGB 11.8 g/dL (11.2-15.7); Immature Grans % 0.8; Lymphocytes % 21.8; MCH 28.5 pg (27.0-33.0); MCHC 32.8 % (32.0-36.0); MCV 87 fL (80-95); MPV 9.1 fL (8.0-11.0); Monocytes % 7.9; Neutrophils % 64.5; Platelet Count 605 10^3/uL (130-400); RBC 4.14 10^6/uL (3.93-5.22); RDW 13.2 % (11.7-14.6); RDW-SD 42.3 fL
[2023-07-15 07:29] LABS: Anion Gap 10.7 mmol/L (3-11); BUN 9 mg/dL (7-18); CO2 22.3 mmol/L (21.0-32.0); CREATININE 0.6 mg/dL (0.55-1.02); Calcium 9.3 mg/dL (8.5-10.1); Chloride 106 mmol/L (98-107); Estimated GFR 104.63 (mL/min/1.73m2); Glucose 115 mg/dL (74-106); Potassium 3.6 mmol/L (3.5-5.1); Sodium 139 mmol/L (136-145)
[2023-07-15] MEDS: MEROPENEM 1 GM in Normal Saline 100 ML IVPB ×3 (07:57→23:03)
[2023-07-15] MEDS: Gabapentin 300 MG CAP 900 MG PO ×3 (07:57→21:09)
[2023-07-15] MEDS: Losartan 50 MG TAB 100 MG PO (07:57)
[2023-07-15] MEDS: Insulin Glargine 300 UNITS/3 ML PEN 40 UNITS SC (08:05)
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
--- NOTE | 2023-07-15 10:42 | W.ANESPRE ---
General Info Date of Service Date Performed: 07/15/23 Height: 5 ft 5 in Weight: 87.77 kg Body Mass Index (BMI): 32.1 Surgical Procedure: Operation Date: 07/15/23 11:25 Proposed Procedure Side Surgeon p Toe Amputation Left Cindy Beavers DPM s Debridement Rt Foot Right Cindy Beavers DPM Meds Allergies and Home Medications Allergies Allergy/AdvReac Type Severity Reaction Status Date / Time squash Allergy Severe Skin Rash Unverified 07/14/23 10:08 bee venom protein (honey bee) Allergy Verified 07/14/23 10:08 codeine Allergy passed out Verified 07/14/23 10:08 latex Allergy Anaphylaxsi Verified 07/14/23 10:08 s morphine AdvReac vomitting/stomach Verified 07/14/23 10:08 cramps/bowman benzoin tincture Allergy Unknown Uncoded 07/14/23 10:08 Home Medication Medication Instructions Recorded metformin 500 mg tablet 1,000 mg PO BID 02/09/16 duloxetine 60 mg capsule,delayed 90 mg PO HS depression 04/11/17 release (Cymbalta) losartan 50 mg tablet 100 mg PO DAILY 04/11/17 gabapentin 300 mg capsule 900 mg (3 x 300 mg) PO TID #270 11/25/17 tab-caps insulin glargine 100 unit/mL (3 40 unit subcut QAM dm 07/01/23 mL) subcutaneous pen (Lantus Solostar U-100 Insulin) oxycodone-acetaminophen 10 mg-325 1 tab PO BID PRN 07/01/23 mg tablet (Percocet) semaglutide 2 mg/dose (8 mg/3 mL) 4 mg subcut QWEEK 07/01/23 subcutaneous pen injector (Ozempic) aripiprazole 10 mg tablet (Abilify) 10 mg PO HS 07/14/23 bupropion HCl 150 mg 24 hr tablet, 150 mg PO DAILY 07/14/23 extended release bupropion HCl 300 mg 24 hr tablet, 300 mg PO DAILY 07/14/23 extended release cetirizine 10 mg tablet (24Hour 10 mg PO DAILY allergies 07/14/23 Allergy) ferrous sulfate 325 mg (65 mg 325 mg PO DAILY 07/14/23 iron) tablet (Feosol) folic acid 1 mg tablet 1 mg PO DAILY 07/14/23 ibuprofen 800 mg tablet (IBU) 800 mg PO TID PRN 07/14/23 naloxone 4 mg/actuation nasal 4 mg intranasal Q2-3M PRN 07/14/23 spray (Narcan) omeprazole 40 mg capsule,delayed 40 mg PO DAILY acid reflux 07/14/23 release ondansetron 4 mg disintegrating 4 mg PO Q8H PRN nausea and vomiting 07/14/23 tablet pramipexole 1.5 mg tablet (Mirapex) 1.5 mg PO QHS restless leg 07/14/23 Current Visit Medications: Current Medications Generic Name Dose Route Start Last Admin Trade Name Freq PRN Reason Stop Dose Admin Acetaminophen 0 mg 07/14/23 10:38 Acetaminophen 325 Mg Tab PO Q4H PRN PRN Al Hydrox/Mg Hydrox/Simethicone 30 ml 07/14/23 10:38 Mylanta Suspension 30 Ml Cup PO Q2H PRN PRN Aripiprazole 10 mg 07/14/23 22:00 07/14/23 21:36 Aripiprazole 5 Mg Tab PO 10 mg HS [facility] Administration Bupropion HCl 450 mg 07/15/23 08:30 Bupropion-Xl 150 Mg Tabcr PO DAILY [facility] Cetirizine HCl 10 mg 07/15/23 08:30 Cetirizine 10 Mg Tab PO DAILY [facility] Dextrose 0 gm 07/14/23 13:48 Glucose Oral Gel 15 Gm/37.5 Gm Tube PO DIRECTED PRN Dextrose/Water 0 gm 07/14/23 13:48 Dextrose 50%-Water 25 Gm/50 Ml Syr IVP DIRECTED PRN Docusate Sodium 100 mg 07/14/23 10:38 Docusate Sodium 100 Mg Cap PO TID PRN PRN Duloxetine HCl 90 mg 07/15/23 08:30 Duloxetine 30 Mg Cap PO DAILY [facility] Ferrous Sulfate 325 mg 07/15/23 08:30 Ferrous Sulfate 325 Mg Tab PO DAILY [facility] Folic Acid 1 mg 07/15/23 08:30 Folic Acid 1 Mg Tab PO DAILY [facility] Gabapentin 900 mg 07/14/23 14:00 07/15/23 07:57 Gabapentin 300 Mg Cap PO 900 mg TID [facility] Administration Heparin Sodium (Porcine) 5,000 units 07/14/23 14:00 07/15/23 05:39 Heparin 5,000 Units/Ml Vial SC Not Given Q8H [facility] Vancomycin/PEG/NADA/Lysine/Water 1.25 gm in 250 mls @ 166.667 mls/hr 07/15/23 00:00 07/14/23 23:46 Vancocin Injection IVPB 166.667 mls/hr Q12H [facility] Administration Meropenem 1 gm/ Sodium 100 mls @ 200 mls/hr 07/14/23 16:00 07/15/23 07:57 Chloride IVPB 200 mls/hr Q8H [facility] Administration IV Miscellaneous Supplies 1 each 07/14/23 10:45 Iv Access IV DIRECTED [facility] Ibuprofen 800 mg 07/14/23 13:26 Ibuprofen 800 Mg Tab PO TID PRN PRN Insulin Aspart 0 units 07/14/23 17:00 07/14/23 16:50 Insulin Aspart 300 Units/3 Ml Pen SC Not Given 0800,1200,1700 [facility] Protocol Insulin Aspart 0 units 07/14/23 22:00 07/14/23 21:26 Insulin Aspart 300 Units/3 Ml Pen SC Not Given HS [facility] Protocol Insulin Glargine 40 units 07/15/23 08:30 07/15/23 08:05 Insulin Glargine 300 Units/3 Ml Pen SC 40 unit QAM [facility] Administration Losartan Potassium 100 mg 07/15/23 08:30 07/15/23 07:57 Losartan 50 Mg Tab PO 100 mg DAILY [facility] Administration Magnesium Hydroxide 30 ml 07/14/23 10:38 Milk Of Magnesia 30 Ml Cup PO DAILY PRN PRN Metformin HCl 1,000 mg 07/14/23 17:00 07/14/23 16:42 Metformin 500 Mg Tab PO 1,000 mg BID@0800,1700 [facility] Administration Omeprazole 40 mg 07/15/23 07:30 Omeprazole 20 Mg Capcr PO DAILY@0730 [facility] Ondansetron HCl 4 mg 07/14/23 13:26 Ondansetron O.D.T. 4 Mg Tabef PO Q8H PRN PRN nausea and vomiting Oxycodone/Acetaminophen 1 tab 07/14/23 14:47 07/14/23 22:11 Oxycodone 5 Mg/Acetaminophen 325 Mg Tab PO 1 tab BID PRN PRN Administration Polyethylene Glycol 17 gm 07/14/23 10:38 Polyethylene Glycol 3350 17 Gm Packet PO DAILY PRN PRN Constipation Pramipexole Dihydrochloride 1.5 mg 07/14/23 22:00 07/14/23 21:36 Pramipexole 0.5 Mg Tab PO 1.5 mg HS BETH Administration Sodium Chloride 0 ml 07/14/23 10:38 07/14/23 14:59 Normal Saline Flush 10 Ml Syr IVP 20 ml PRN PRN Administration PFSH Active Problems Active Problems: Problem Status Onset Code PAD (peripheral artery disease) I73.9 Ulcer of right foot with fat layer exposed L97.512 Cellulitis L03.90 Discharge planning issues Z02.9 DVT prophylaxis Z29.9 History of partial ray amputation of fourth toe of right foot Z89.421 Osteomyelitis of left foot M86.9 Pain in right foot M79.671 Medical History Medical History (Updated 07/14/23 @ 16:08 by Cindy Beavers DPM) Right shoulder tendinitis (04/26/16) Incomplete tear of right rotator cuff (09/19/16) Complex regional pain syndrome type 1 of right upper extremity (12/13/16) Biceps tendinitis of right shoulder (04/26/16) Amputation of left great toe Amputation of toe of right foot right 4th toe 06/06/23 HTN (hypertension) Impingement syndrome, shoulder Tobacco abuse Psoriasis Bicipital tendonitis of right shoulder Atopic eczema Depression Anxiety Diabetes mellitus, type 2 Morbid obesity Leiomyoma of uterus Low back pain Hx of migraines Surgical History Surgical History Amputation of great toe 12/19/22 Right Shoulder Surgery section Abdominal hysterectomy Excision, Distal Clavicle Tobacco Smoking/Tobacco Use Status: Current every day Tobacco Type: cigarettes Smoking packs per day: 0 Smoking cigarettes per day: 3 Years smoked: 40 and e-cigarettes Alcohol Alcohol Intake: never Substance Use Substance use: Never Substance use type: does not use Vital Signs and Lab Results Vital Signs Most Recent Vital Signs in EMR: Most Recent Vital Signs Temp Pulse Resp BP Pulse Ox 35.6 C L 76 18 112/72 100 07/15/23 07:25 07/15/23 07:25 07/15/23 07:25 07/15/23 07:25 07/15/23 07:25 Point of Care Results Point of Care Results: Finger Stick Blood Glucose 119 07/15/23 08:05 Lab Results 07/15/23 06:10 07/15/23 06:10 Blood Type / Crossmatch: No Data to Display Complete Blood Count: White Blood Count 12.20 10^3/uL (4.4-10.8) H 07/15/23 06:10 Red Blood Count 4.14 10^6/uL (3.93-5.22) 07/15/23 06:10 Hemoglobin 11.8 g/dL (11.2-15.7) 07/15/23 06:10 Hematocrit 36.0 % (36.0-46.0) 07/15/23 06:10 Platelet Count 605 10^3/uL (130-400) H 07/15/23 06:10 Complete Metabolic Panel: Sodium 139 mmol/L (136-145) 07/15/23 06:10 Potassium 3.6 mmol/L (3.5-5.1) 07/15/23 06:10 Chloride 106 mmol/L (98-107) 07/15/23 06:10 Carbon Dioxide 22.3 mmol/L (21.0-32.0) 07/15/23 06:10 BUN 9 mg/dL (7-18) 07/15/23 06:10 Creatinine 0.6 mg/dL (0.55-1.02) 07/15/23 06:10 Est GFR (CKD-EPI 2020) 104.63 (mL/min/1.73m2) 07/15/23 06:10 Magnesium 2.0 mg/dL (1.8-2.4) 07/14/23 11:05 Calcium 9.3 mg/dL (8.5-10.1) 07/15/23 06:10 Albumin 3.2 g/dL (3.4-5.0) L 07/14/23 11:05 Glucose 115 mg/dL (74-106) H 07/15/23 06:10 Hemoglobin A1c 5.6 % (<5.7) 07/14/23 11:05 C-Reactive Protein 7.31 mg/dL (0.0-0.3) H 07/14/23 11:05 Liver Function Panel: Alanine Aminotransferase (ALT/SGPT) 19 U/L (14-59) 07/14/23 11:05 Aspartate Amino Transf (AST/SGOT) 10 U/L (15-37) L 07/14/23 11:05 Coagulation Panel: No Data to Display Cardiac Panel: No Data to Display Arterial Blood Gas: No Data to Display Venous Blood Gas: No Data to Display Pancreas Panel: No Data to Display Thyroid Panel: No Data to Display Infectious Disease: No Data to Display Blood Cultures: No Data to Display Toxicology Panel: No Data to Display Imaging and Studies Imaging and Studies Study information below may be from another EMR and interpreted by another provider. Please see original notes in EMR for more complete details. EKG Summary: 07/14/2023: Exam: Resting ECG Reason for Exam: preoperative Patient Location: I HR:80 bpm ECG Measurements Heart Rate 80 AXIS WV 160 P 73 QRSd 100 QRS 33 QT 388 T10 QTc 448 Conclusion Sinus rhythm...normal P axis, V-rate 50- 99 Baseline wander in lead(s) II,III,aVR,aVL,aVF Normal Electrocardiogram Anesthesia Assessment and Plan Anesthesia History Personal History: No History of Anesthesia Complications Family History: No Family History of Anesthesia Complications Exercise Tolerance Exercise Tolerance: Metabolic Equivalents>4 Pertinent Negatives Pertinent Negatives: No Symptoms of GERD, No Major Cardiovascular Symptoms or Complaints and No Major Pulmonary Symptoms or Complaints Cardiac & Pulmonary Exam Cardiac Exam: Normal S1/S2 Heart Sounds Pulmonary Exam: Clear Bilateral Breath Sounds Implantable Cardiac Device Does patient have a Pacemaker or an ICD?: No Airway Exam Known Difficult Airway: No Mallampati Class: 2 Mouth Opening: Normal (> 3cm) Thyromental Distance: Greater than 3 cm Neck Range of Motion: Full ROM Neck Circumference: Thick Teeth Condition: Normal Dentition ASA Classification ASA Score: ASA 3 Emergency Case?: No NPO Status NPO Status: NPO Clears >2 hours, Solids >8 hours Anesthesia Plan Resuscitation Status: Full Code Anesthesia Technique: General Anesthesia Airway Planned: Endotracheal Tube Monitors Used: Standard Monitors Preoperative Comments:: Patient on Ozempic, took dose last Friday. Patient declined spinal and opted for ETT/RSI. Verbalizes understanding of potential aspiration risk.
[2023-07-15] MEDS: Normal Saline 1,000 ML 50 ML IV (11:45)
[2023-07-15] MEDS: Lidocaine 1% Pres-Free 30 ML VIAL (12:13)
--- NOTE | 2023-07-15 12:48 | BONE_PTH ---
PATIENT: Charlee Cummings LOC: U#:[id number] AGE/SX: 58/F ROOM: RE07/14/[address]: Piero Lozano : 1965 BED: A DIS: 07/22/2023 SPEC #: [id number] RECD: 07/15/23 17:11 STATUS: KIP REQ #: [id number] ROWAN: 07/15/23 12:[address]: Piero Lozano DEPT: Surgical Specimen RECD BY: Juliane Eason ENTERED: 07/15/23 17:13 SP TYPE: Bone OTHR DR: Marissa,Kimberli Marie,Sneha Huynh, Erik Bernal,Attila Beavers, DPM InPatient Nathen Porter Tissues: 1 - BONE BX/CURRETTE NOT PATH FRACTURE 2 - BONE BX/CURRETTE NOT PATH FRACTURE 3 - AMPUTATION EXTREMITY(NOT TRAUMA) Procedures: GROSS AND MICRO LEVEL 4 GROSS AND MICRO LEVEL 3 DECALCIFICATION GROSS LEVEL 1 Comments: [id number]
[2023-07-15] MEDS: Cellulose,Oxidized 4X8 1 PACKET MC (13:21)
--- NOTE | 2023-07-15 14:31 | W.PM.OP ---
Date of service: 07/15/23 Time of Service: 12:00 Operative Note Operative Note DATE OF PROCEDURE: 07/23/23 PRE-OP DIAGNOSIS: Osteomyelitis left foot; ulcer with fat layer exposed right foot PROCEDURE: Transmetatarsal amputation left foot Excisional wound debridement 1.5x1.5x0.5cm, right 4th toe amputation site SURGEON: Cindy Beavers ANESTHESIA TYPE: Local By Surgeon and General LMA/ETT Refer to Anesthesia Record ESTIMATED BLOOD LOSS: 100 PATHOLOGY: other (Soft tissue and bone left foot, margins left second metatarsal, left second metatarsal) TOURNIQUET TIME: 43 COMPLICATIONS: None Patient was transported to: PACU Patient's condition: stable Implants: None Indications: This is a 58-year-old female patient with history of diabetes, hypertension, anxiety, peripheral with history of osteomyelitis to both feet. Patient is seen at [facility] in [place] where she has had an amputation to the right fourth toe as well as the left great toe. Patient recently had an abscess to the left second third metatarsophalangeal joints where an abscess was drained and a drain was placed to the left foot. Patient was seen by myself in office a few weeks ago with nearly resolved erythema no drainage no malodor to the left foot wound at that time with a drain in place. The drain was removed in office. Patient had been on antibiotics. Was undergoing local care. On 07/13/2022 her home health nurses referred the patient to the hospital. Patient was seen in the hospital at 07/14/2023 for infection to the left foot pain and nonhealing wound to the right fourth toe amputation site. Imaging was reviewed where x-rays were noted to have changes consistent with osteomyelitis to the second metatarsal as well as the third metatarsal of the left foot. An MRI was taken today which showed osteomyelitis to the second and third metatarsals of the left foot. Patient also has a nonhealing wound to the right fourth webspace. I discussed the risks with osteomyelitis with the patient. She was advised that it with x-ray and MRI findings consistent with osteomyelitis I recommend a transmetatarsal amputation for the best outcomes as she does have osteomyelitis status to the second and third metatarsals and a transmetatarsal amputation provides the most reliable outcomes. I advised the patient that on MRI there is osteomyelitis to the entire second metatarsal at this time. She was advised that this may cause healing problems and will require antibiotics long-term. Patient understands and agrees. I advised the patient I recommend wound debridement to the right fourth webspace ulcer while we are in the OR as well. Patient consented. I discussed the risks and benefits and possible complications including but not limited to pain, nerve pain, CRPS, phantom limb pain, delayed healing, nonhealing, wound healing problems, infection, recurrent infection, need for further surgery or amputation, limb loss, risk for DVT, PE, GA, stroke, or with anesthesia. No guarantees or warranties were made or implied. Patient understands all risks and accepts them. Consent form was signed reviewed and in chart. No contraindications were noted to the procedure. Patient was cleared by medicine. Patient was n.p.o. midnight. Findings: Soft tissue necrosis was noted to the plantar flap of the left foot. Some soft bone noted to the second metatarsal however at the amputation site metatarsals 1-5 were noted to be of good integrity. A specimen was sent for the second metatarsal as a margin to pathology. This soft tissue cultures and biopsies were obtained and sent to pathology. Good healthy bleeding was noted from the left foot. Minute minimal bleeding was noted from the right fourth webspace some skin tightness noted to the right fourth webspace. Procedure Description: Patient was identified in preop holding. The patient was brought to the operating room placed on the operating table in supine position. After induction of general anesthesia and ankle block was performed to the left ankle using lidocaine plain preoperatively. An ankle tourniquet was then applied to the left lower extremity. Bilateral lower extremity was then scrubbed prepped and draped in the usual aseptic manner. Attention was directed to the right fourth webspace at the previous amputation site all necrotic nonviable tissue was excisionally debrided with a sterile #15 blade and passed from the operative field, cultures were taken and sent. There is some tunneling and undermining noted from the wound at this time however the wound was able to be reapproximated and then a decision was made to reapproximate the wound. Using 2-0 Vicryl deep sutures were made. The skin was then reapproximated and coapted using 3-0 Prolene. Dressings were applied with 4 x 4, Kerlix, Asher wrap. The tourniquet to the left ankle was then inflated after the left foot was exsanguinated with Esmarch. Attention was then directed to the left foot where a transmetatarsal amputation site was planned using skin markers. Using a sterile #15 blade an incision was made through the skin and subcutaneous tissue this incision was then carried to the level of the periosteum and was reflected distally and proximally care was taken to avoid the vital neurovascular structures the best possible considering this was not transmetatarsal amputation. Next, the periosteum was then freed from all soft tissue attachments both dorsally and laterally and plantarly. Next, using a sagittal saw transmetatarsal amputation was then performed through metatarsals 1-5 while maintaining the parabola and a dorsal distal to proximal plantar direction. All sharp edges were then resected and smoothed using the sagittal saw and a rasp. All soft tissue attachments were then further resected from the amputation site. The amputation was then passed from the operative field to be sent to pathology. The specimen for the second metatarsal was sent separately. A small specimen was obtained using a sagittal saw from the second metatarsal proximally to the remaining stump to as margins this was sent to pathology. Next cultures were obtained and sent to pathology. The site was then flushed with copious amounts of sterile saline using cystoscopy tubing. All potential bleeders were ligated using 2-0 Vicryl. The tourniquet was then released to inspect for bleeding. Some bleeders were notified ligated and cauterized as needed. Further bleeding was noted at this time as Surgicel was applied. Upon removal of Surgicel bleeding was noted to continue. Caridad was then applied to the wound bleeding was noted to be decreasing at this time. Further active bleeders were then right identified at this time and ligated and cauterized. Next deep sutures were placed using 2-0 Vicryl to prevent wound closure problems. The skin was then reapproximated using 2-0 Prolene without tension. The right foot was then cleaned with sterile saline. A victor m wound VAC was then applied to remove excessive bleeding. Dressings were then applied with 4 x 4, Kerlix and an Asher wrap. Patient tolerated the procedure and anesthesia well with vital signs stable and vascular status intact to the right lower extremity. Patient was transferred to PACU for further monitoring. Patient was transferred back to the floor when stable. Patient is to keep the left lower extremity elevated at all times. She may heel touch for transfers only. We will get her a surgical shoe. She has crutches at home which she will use. We will continue IV antibiotics. Will hold off on heparin. Nursing to reinforce dressings as needed. We will continue to follow.
[2023-07-15] MEDS: oxyCODONE 5 mg/Acetaminophen 325 mg TAB 1 TAB PO (15:14)
--- NOTE | 2023-07-15 15:25 | W.ANESPOSTOP ---
Postoperative Evaluation Date, Time and Location Date Performed: 07/15/23 Time Performed: 15:25 Patient Location: PACU Vital Signs Most Recent Imported Vital Signs: Most Recent Vital Signs Temp Pulse Resp BP Pulse Ox 36.2 C L 80 20 100/55 L 96 07/15/23 15:08 07/15/23 15:08 07/15/23 15:08 07/15/23 15:08 07/15/23 15:08 Pain Score Most Recent Pain Score: Most Recent Pain Score Pain Level 0 07/15/23 14:47 Assessment Mental Status: Awake (Alert & Oriented to Patient Baseline) Airway and Respiratory Function: Patent airway with normal (patient baseline) respiratory exam Cardiovascular Function: Hemodynamically Stable Hydration Status: Adequately Hydrated Nausea & Vomiting: No Nausea or Vomiting Pain: Pt. Denies Any Pain Peripheral Nerve Block: Patient did not receive a nerve block
[2023-07-15] MEDS: Heparin 5,000 UNITS/ML VIAL 5000 UNITS SC ×2 (15:59→21:23)
[2023-07-15] MEDS: VANCOMYCIN/WATER (PEG) 1.25 GM/250 ML BAG IVPB (15:59)
--- NOTE | 2023-07-15 16:21 | CHAPLAIN ---
Charlee was sitting up in bed when I visited. She has just been to the OR for a procedure, so said she was dozing off some. She's in touch with family and was going to be calling to let them know she is back in room. I explained my role and offered support.
[2023-07-15] MEDS: metFORMIN 500 MG TAB 1000 MG PO (16:36)
[2023-07-15] MEDS: Acetaminophen 325 MG TAB PO ×2 (16:36→21:09)
--- NOTE | 2023-07-15 16:48 | W.PM.PROGNOT ---
Date of Service Date of service: 07/15/23 Time of Service: 16:48 Assessment and Plan Assessment and plan (1) Osteomyelitis of left foot: Status: Acute Assessment and plan: POD #1 left TMA, right 4th digit amputation wound debridement; remains on Meropenem and Vancomycin pending wound cultures. patient will likely need home iv antibiotics for another 2 to 4 weeks, post surgery. Blood cultures from 07/14 are no growth at 24h Wound culture from admission shows mixed gram positive evan. Surgical cultures just obtained today. Qualifiers: Osteomyelitis type: other chronic Qualified Code(s): M86.672 - Other chronic osteomyelitis, left ankle and foot (2) Diabetes mellitus, type 2: Assessment and plan: Continue home diabetic medications and will add NovoLog sliding scale with blood sugar monitoring ACHS. 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 Qualifiers: Hypertension type: primary hypertension Qualified Code(s): I10 - Essential (primary) hypertension (4) Depression: Assessment and plan: Continue her home antidepressants and Wellbutrin and duloxetine. Continue her Abilify. Qualifiers: Depression Type: major depressive disorder Major depression recurrence: recurrent Active/Remission status: in remission of unspecified degree Qualified Code(s): F33.40 - Major depressive disorder, recurrent, in remission, unspecified (5) Anxiety: Assessment and plan: As above (6) DVT prophylaxis: Status: Acute Assessment and plan: heparin SC (7) Discharge planning issues: Status: Acute Assessment and plan: P.T. consult post operative. depending on her progress, she may need short term SNF vs home w/ home health and P.T. and O.T. Subjective Subjective Interval history since last seen: Patient did well w/ surgery. She had left transmetatarsal resection for her osteomyelitis and at the same time had wound debridement of her right 4th toe amputation site. She is having a lot of burning pain in her left foot. She does not want the dilaudid nor the fentanyl as she feels that it makes her too loopy. I have increased her oxycodone to 10 mg po q4h prn pain. Exam Narrative Exam Narrative: Charlee is sitting up in bed alert and oriented Lungs: clear Heart: RRR, no m,r,g Abdomen: soft, nontender Left and right feet are bandaged. There is no leg edema nor any erythema of the lower legs. Objective Last Vital Signs Temp 35.8 C L 07/15/23 15:56 Pulse 74 07/15/23 15:56 Resp 16 07/15/23 15:56 BP 103/67 07/15/23 15:56 Pulse Ox 98 07/15/23 15:56 Laboratory Results - last 24 hr 07/15/23 06:10 WBC 12.20 H RBC 4.14 Hgb 11.8 Hct 36.0 MCV 87 MCH 28.5 MCHC 32.8 RDW 13.2 Plt Count 605 H MPV 9.1 Immature Gran % 0.8 Neutrophils % 64.5 Lymphocytes % 21.8 Monocytes % 7.9 Eosinophils % 4.0 Basophils % 1.0 Nucleated RBC % 0.0 Absolute Neutrophils 7.87 H Absolute Lymphocytes 2.66 Absolute Monocytes 0.96 H Absolute Eosinophils 0.49 Absolute Basophils 0.12 Sodium 139 Potassium 3.6 Chloride 106 Carbon Dioxide 22.3 Anion Gap 10.7 BUN 9 Creatinine 0.6 Est GFR (CKD-EPI 2020) 104.63 Glucose 115 H Calcium 9.3 Time Spent with Patient Time Spent with Patient: 35-49 minutes Time was spent: preparing to see the patient(eg.review tests), ordering medications,tests, procedures, referring, communicating with other health ostomy care nurse, indepentently interpreting results, counseling the patient and care coordination
[2023-07-15] MEDS: oxyCODONE 5 mg/Acetaminophen 325 mg TAB PO (19:02)
[2023-07-15] MEDS: ARIPiprazole 5 MG TAB 10 MG PO (21:09)
[2023-07-15] MEDS: Pramipexole 0.5 MG TAB 1.5 MG PO (21:09)
[2023-07-15] MEDS: Insulin Aspart 300 UNITS/3 ML PEN SC (21:28)
--- NOTE | 2023-07-16 | DI.RAD_ITS ---
Exam(s) XR FOOT LT COMPLETE EXAM: XR FOOT LT COMPLETE CLINICAL HISTORY: Post TMA. TECHNIQUE: 2D digital imaging was performed. Three views. COMPARISON: CR XR FOOT LT COMPLETE from 07/14/2023 CR XR FOOT RT COMPLETE from 07/14/2023 MR MR LOWER EXTREMITY LT WO from 07/15/2023 FINDINGS: S/P amputation at the level of the proximal 1st through 5th metatarsals. Adjacent distal postsurgica l soft tissue swelling. DATA REPOSITORY: RADIATION DOSE DELIVERED:
[2023-07-16] MEDS: VANCOMYCIN/WATER (PEG) 1.25 GM/250 ML BAG IVPB ×2 (03:21→17:51)
[2023-07-16] MEDS: oxyCODONE 5 mg/Acetaminophen 325 mg TAB PO ×3 (03:32→21:27)
[2023-07-16] MEDS: Ibuprofen 800 MG TAB PO ×2 (03:32→21:26)
[2023-07-16] MEDS: Heparin 5,000 UNITS/ML VIAL 5000 UNITS SC (05:30)
[2023-07-16 07:18] VITALS: BP 100/68; PULSE 74; RESP 22; TEMP 37; O2SAT 97
[2023-07-16 07:25] LABS: Abs Immature Grans 0.19 10^3/uL (0.0-0.06); Absolute Basophil Count 0.11 10^3/uL (0.0-0.2); Absolute Eosinophil Count 0.41 10^3/uL (0.0-0.7); Absolute Lymphocyte Count 2.69 10^3/uL (1.2-3.4); Basophils % 0.8; Eosinophils % 3.1; HCT 29.4 % (36.0-46.0); HGB 9.5 g/dL (11.2-15.7); Immature Grans % 1.4; Lymphocytes % 20.4; MCH 28.7 pg (27.0-33.0); MCHC 32.3 % (32.0-36.0); MCV 89 fL (80-95); Monocytes % 8.9; Neutrophils % 65.4; Platelet Count 539 10^3/uL (130-400); RBC 3.31 10^6/uL (3.93-5.22); RDW 13.4 % (11.7-14.6); RDW-SD 43.8 fL
[2023-07-16 07:26] LABS: Absolute Monocyte Count 1.17 10^3/uL (0.1-0.8); Absolute Neutrophil Count 8.63 10^3/uL (1.2-6.7)
[2023-07-16 07:37] LABS: Anion Gap 10.1 mmol/L (3-11); BUN 12 mg/dL (7-18); CO2 22.9 mmol/L (21.0-32.0); CREATININE 0.9 mg/dL (0.55-1.02); Calcium 8.8 mg/dL (8.5-10.1); Chloride 107 mmol/L (98-107); Estimated GFR 74.57 (mL/min/1.73m2); Glucose 104 mg/dL (74-106); Potassium 3.2 mmol/L (3.5-5.1); Sodium 140 mmol/L (136-145)
[2023-07-16 07:39] LABS: C-Reactive Protein 3.21 mg/dL (0.0-0.3)
[2023-07-16] MEDS: Insulin Glargine 300 UNITS/3 ML PEN 40 UNITS SC (07:55)
[2023-07-16] MEDS: MEROPENEM 1 GM in Normal Saline 100 ML IVPB ×3 (07:55→23:08)
[2023-07-16] MEDS: DULoxetine 30 MG CAP 90 MG PO (07:56)
[2023-07-16] MEDS: Cetirizine 10 MG TAB PO (07:57)
[2023-07-16] MEDS: Gabapentin 300 MG CAP 900 MG PO ×3 (07:57→21:26)
[2023-07-16] MEDS: buPROPion-XL 150 MG TABCR 450 MG PO (07:57)
[2023-07-16] MEDS: Ferrous Sulfate 325 MG TAB PO (07:57)
[2023-07-16] MEDS: metFORMIN 500 MG TAB 1000 MG PO ×2 (07:57→17:50)
[2023-07-16] MEDS: Losartan 50 MG TAB 100 MG PO (07:57)
[2023-07-16] MEDS: Folic Acid 1 MG TAB PO (07:57)
--- NOTE | 2023-07-16 09:48 | PDOC.CMPRO ---
Date of service: 07/16/23 Time of Service: 09:48 Care Management Progress Note Progress Note Text Progress Note Text: S/O: Charlee was sitting up on the edge of her bed when CM met with her. She stated that she is not doing well today; CM asked if her concerns were physical, and she stated that they are both physical and mental. She reported that she is concerned about the possibility of having a PICC line. Per MD, we are awaiting blood culture results, which will determine her discharge plan. CM reviewed possible discharge options, discussing potential information security analyst IV antibiotic therapy. She is hesitant about returning home with home IV abx because she lives alone, and her family lives out of the area. If longterm IV abx are required, she may need to transition to [facility]. CM will continue to follow. A: Charlee is a 58 year old female admitted to [facility] on 07/14/23 for osteomyelitis left foot. P: Anticipate Charlee will be discharged home with a resumption of [facility] nursing services when medically cleared by provider. Physical therapy will evaluate her need for in-home PT services following surgery. Charlee will follow up with her PCP, plastic battery assembler, and plan of care as instructed. She will be transported home via [facility] private driver/refuse collector coordinated by CM when ready. CM will continue to support Charlee and any discharge planning needs.
--- NOTE | 2023-07-16 15:16 | PT.INIE ---
Date of service: 07/16/23 Time of Service: 15:16 PT Notes Visit Reasons: Osteomyelitis left foot Physical Therapy Inpatient Initial Evaluation Date: 07/16/2023 Referring Doctor: Hermes Galindo MD PT Orders: PT CONSULT: S/p Ortho surgery Precautions: Fall. Standard. Per wastewater design engineer's order: WBAT on R LE, heel touch only for transfers on the L LE. Patient Profile/Admitting Diagnosis: Charlee is a 58-year-old female with osteomyelitis of the left foot and ulceration of the right foot with fat layer exposed S/P transmetatarsal amputation of the left foot and excisional wound debridement of the right fourth toe amputation site on postoperative day 1. PMHX: All Active Problems (Updated 07/14/23 @ 14:04 by Hermes Galindo MD) Discharge planning issues (Acute) DVT prophylaxis (Acute) History of partial ray amputation of fourth toe of right foot (Acute) Osteomyelitis of left foot (Acute) Pain in right foot (Acute) Medical History (Updated 07/14/23 @ 14:04 by Hermes Galindo MD) Right shoulder tendinitis (04/26/16) Incomplete tear of right rotator cuff (09/19/16) Complex regional pain syndrome type 1 of right upper extremity (12/13/16) Biceps tendinitis of right shoulder (04/26/16) Amputation of left great toe Amputation of toe of right foot right 4th toe 06/06/23HTN (hypertension) Impingement syndrome, shoulder Tobacco abuse Psoriasis Bicipital tendonitis of right shoulder Atopic eczema Depression Anxiety Diabetes mellitus, type 2 Morbid obesity Leiomyoma of uterus Low back pain Hx of migraines Surgical History Amputation of great toe 12/19/22 Right Shoulder Surgery section Abdominal hysterectomy Excision, Distal Clavicle Social History/Home Situation: Lives lone in a priavte home. Independent with all aspects of ADLs prior to surgery. Still drives. Equipment Owned/DME: [employer], Subjective: Reports 10/10 pain in the L foot; 2-3/10 in the R. Refused to try out any footwear on the L for this afternoon due to significant pain but is willing to do so once pain is consistently controlled. States that she feels an electric-shock like sensation through the foot intermittently. Nurse came in to give patient Oxucodone to manage pain. Objective: General Observation: Seated at edge of bed. Needed to use commode to void urine. Bulky dressing on the L foot. Thin dressing on the R foot. Mental Status: Alert and oriented as to person, place, time, and purpose. Able to pay attention, focus, and respond appropriately. Pain: As above Vital Signs: Closely monitored by nursing staff ROM: Right Upper Extremity: Shoulder Flexion WFL. Shoulder abduction WFL. Elbow flexion WFL. Wrist flexion WFL. Functional opening and closing of hand WFL. Left Upper Extremity: Shoulder Flexion WFL. Shoulder abduction WFL. Elbow flexion WFL. Wrist flexion WFL. Functional opening and closing of hand WFL. Right Lower Extremity: Hip flexion WFL. Hip abduction WFL. Knee flexion WFL. Ankle dorsiflexion to neutral only . Ankle plantarflexion WFL. Left Lower Extremity: Hip flexion WFL. Hip abduction WFL. Knee flexion WFL. Ankle dorsiflexion unable to test due to bulky dressing. Ankle plantarflexion unable to test due to bulky dressing. Strength: Right Upper Extremity: Shoulder flexors 4/5. Shoulder abductors 4/5. Elbow flexors 5/5. Elbow extensors 5/5. Frame Welder Cargo Utility Trailers strong. Left Upper Extremity: Shoulder flexors 5/5. Shoulder abductors 5/5. Elbow flexors 5/5. Elbow extensors 5/5. Frame Welder Cargo Utility Trailers strong. Right Lower Extremity: Hip flexors /5. Hip abductors 5/5. Knee flexors 5/5. Knee extensors 5/5. Ankle dorsiflexors 3-/5. Ankle plantarflexors 3-/5. Left Lower Extremity: Hip flexors 5/5. Hip abductors 5/5. Knee flexors 4/5. Knee extensors 4/5. Ankle dorsiflexors 1/5. Ankle plantarflexors 1/5. Bed Mobility/Transfers: Rolling with independent Supine to sit independent Sit to supine independent Sit to stand stand by assist with FWW with cues provided for weight bearing precaution Stand to sit stand by assist with FWW with cues provided for weight bearing precaution Bed to bedside commode stand by assist with FWW with cues provided for weight bearing precaution Bedside commode to bed stand by assist with FWW with cues provided for weight bearing precaution Gait: 2 small steps with R LE to slowly transfer from edge of bed to bedside commode using FWW with cues for heel-touch on L given however patient would not allow put any part of foot to the gorund due to 10/10 pain level. WBAT on the R. Stand by assist needed with moderate cues given for correct weight bearing. Balance: Static Sitting: Normal Dynamic Sitting: Normal Static Standing: Fair Dynamic Standing: Unable Special Tests: Mobility Limitations Standardized Measure [facility] AM-PAC 6 clicks Basic Mobility Inpatient Short Form: Raw Score: 17 CMS Score: 5% deficit Informed Consent/Education: Patient was instructed in purpose of PT consult and plan of care. Agreeable to proceed with established PT POC to achieve personal goals. THERA EX: Guided patient with safe and correct performance of room exercises in order to maintain joint flexibility while increasing circulation and facilitating healing to operative sites in the feet: Alternate knee to chest x 10 Leg slide outs x 10 Ankle pumps and 10 Toes in and out x 10 Gentle toe curls on the R first 3 toes x 10 AASESSMENT: Unable to heel touch on L per wastewater design engineer's order as patient is highly favoring L foot due to 10/10 pain at time of evaluation. Will plan to continue with providing guidance with functional gait performance while pain level is being managed and progressing mobility level in compliance with wastewater design engineer's WB recommendation. Will continue to assess for most suitable post-op shoe when pain is more controlled. Patient presents with clinical signs and symptoms consistent with current/admitting diagnoses that have resulted to mobility limitations, gait instability, generalized weakness, and overall ADL decline as demonstrated by the following impairment level findings: 1. Decreased strength to B ankle/foot major muscle groups 2. Impaired sitting/standing balance 3. Impaired activity tolerance 4. Limitation of joint range of motion in B ankles 5. Pain level at 10/10 in the L foot/toes Impairments are contributing to the following functional limitations: 1. Decline in transfer skills 2. Difficulty with ambulation without assistive device and physical assistance 3. Increased completion time for mobility ADL performance 4. Increased risk for falls 5. Difficulty with managing steps alone safely Patient is assessed as a 45917 moderate complexity based on the following: History: 58-year-old female with past medical history as indicated above Examination: Demonstrable impairment in strength, balance, and mobility level with underlying impairments and functional limitations as exhibited above as well as deficit score of 50% utilizing the [facility] Mobility Inpatient Short Form Presentation: Evolving Decision Makin moderate complexity Goals: Goals X1 week 1. Stand-Sit independent with MEGAN 2. Bed-Chair independent with MEGAN 3. Chair-Bed independent with MEGAN 4. Independent gait on level surface with use of MEGAN for at least 150 feet without report of pain nor dyspnea 5. Independent stair negotiation while holding onto B rails for at least 5 steps without report of pain nor dyspnea 6. Independent with home exercise program 7. Good static and dynamic standing balance/tolerance Plan of Care/Treatment Plan: 1-2x/day, 7 days/week x 1 week. Plan of care has been reviewed with the SURGICAL SERVICES TECH providing the service under Physical Therapy direction. Initiate Physical Therapy intervention for pain management as needed, strengthening, bed mobility, transfers, gait, stairs, balance training, and use of assistive device. Pre-medicate for pain. DISCHARGE RECOMMENDATIONS: [] Home with no services [] [X] Home with services. Patient will benefit from home health PT services in order to progress mobility level using least restrictive assistive ambulatory device, assess home safety, identify additional equipment needs, and establish a functional maintenance program that will increase ability of patient to remain at home. [] Home with outpatient PT [] [] SNF for continued rehabilitation [] [] [facility] [] [] SNF versus LTC based on ability to participate and progress [] TREATMENT CODE/TIME: 9716 2 x 20 minutes for 1 unit, 38085 x 12 minutes for 1 unit beginning at 15:16 PM. Thank you for the opportunity to participate in the care of this patient. Whitney Corcoran PT, DPT, CLT [facility] [place], [place]
--- NOTE | 2023-07-16 15:20 | W.PM.PROGNOT ---
Date of Service Date of service: 07/16/23 Time of Service: 15:20 Assessment and Plan Assessment and plan (1) Osteomyelitis of left foot: Status: Acute Assessment and plan: POD #2 left TMA, wound w/ signficant bleeding, patient not currently on heparin or lovenox. monitor hemogram. continue ice, elevation and parenteral antibiotics (meropenem and vancomhycin) will adjust antibiotics based upon results of surgical wound cultures. patient to be non weight bearing on the left but may have heel touch down weight bearing on her right foot. She is going to need extensive P.T. before returning home. I think she will need SNF Qualifiers: Osteomyelitis type: other chronic Qualified Code(s): M86.672 - Other chronic osteomyelitis, left ankle and foot (2) Diabetes mellitus, type 2: Assessment and plan: continue home diabetic regimen along w/ sliding scale insulin Qualifiers: Diabetes mellitus terminal makeup operator insulin use: with terminal makeup operator use Diabetes mellitus complication status: with neurologic complications Diabetes mellitus complication detail: with polyneuropathy Qualified Code(s): E11.42 - Type 2 diabetes mellitus with diabetic polyneuropathy; Z79.4 - correction (current) use of insulin (3) HTN (hypertension): Assessment and plan: Continue dose of losartan and monitor blood pressure. Qualifiers: Hypertension type: primary hypertension Qualified Code(s): I10 - Essential (primary) hypertension (4) Cellulitis: Status: Acute Qualifiers: Site of cellulitis: extremity Site of cellulitis of extremity: lower extremity Laterality: left Qualified Code(s): L03.116 - Cellulitis of left lower limb (5) Ulcer of right foot with fat layer exposed: Status: Acute Assessment and plan: s/p debridement yesterday, wound care per podiatry (6) PAD (peripheral artery disease): Status: Acute (7) Tobacco abuse: Assessment and plan: patient continues to smoke a few cigarettes per day. I advised her to quit completely as even a couple cigarettes per day are enough to worsen arterial flow in her PAD. (8) Depression: Assessment and plan: Continue her home antidepressants and Wellbutrin and duloxetine. Continue her Abilify. Qualifiers: Depression Type: major depressive disorder Major depression recurrence: recurrent Active/Remission status: in remission of unspecified degree Qualified Code(s): F33.40 - Major depressive disorder, recurrent, in remission, unspecified (9) Anxiety: Assessment and plan: As above (10) DVT prophylaxis: Status: Acute Assessment and plan: heparin discontinued due to wound bleeding. SCD not practical given her bilateral surgeries. will monitor her bleeidng and once resolved will resume low dose heparin SC (11) Discharge planning issues: Status: Acute Assessment and plan: P.T. consult post operative. depending on her progress, she may need short term SNF vs home w/ home health and P.T. and O.T. Subjective Subjective Interval history since last seen: Patient is having increased burning pain at her left MTA site. Wound was redressed by Dr. Beavers. Wound had a fair amount of oozing of blood. Exam Narrative Exam Narrative: Charlee is sitting up in bed, left leg is elevaed on pillow and the lower leg is wrapped in dressing including the foot. I did not examine the wound as Dr. Beavers had just dressed this Upper leg is not swollen Lungs: clear Heart: RRR Abdomen : benign Objective Last Vital Signs Temp 37.0 C 07/16/23 07:18 Pulse 74 07/16/23 07:18 Resp 22 07/16/23 07:18 BP 100/68 07/16/23 07:18 Pulse Ox 97 07/16/23 07:18 Laboratory Results - last 24 hr 07/16/23 06:27 WBC 13.20 H RBC 3.31 L Hgb 9.5 L D Hct 29.4 L MCV 89 MCH 28.7 MCHC 32.3 RDW 13.4 Plt Count 539 H MPV 9.0 Immature Gran % 1.4 Neutrophils % 65.4 Lymphocytes % 20.4 Monocytes % 8.9 Eosinophils % 3.1 Basophils % 0.8 Nucleated RBC % 0.0 Absolute Neutrophils 8.63 H Absolute Lymphocytes 2.69 Absolute Monocytes 1.17 H Absolute Eosinophils 0.41 Absolute Basophils 0.11 Sodium 140 Potassium 3.2 L Chloride 107 Carbon Dioxide 22.9 Anion Gap 10.1 BUN 12 Creatinine 0.9 Est GFR (CKD-EPI 2020) 74.57 Glucose 104 Calcium 8.8 C-Reactive Protein 3.21 H Time Spent with Patient Time Spent with Patient: 25-34 minutes Time was spent: preparing to see the patient(eg.review tests), ordering medications,tests, procedures, referring, communicating with other health post acute care registered nurse (Dr Beavers), indepentently interpreting results, counseling the patient and care coordination
[2023-07-16 15:23] LABS: Vancomycin, Trough 18.1 ug/mL (10.0-20.0)
[2023-07-16 15:30] VITALS: BP 108/78; PULSE 79; RESP 20; TEMP 36.8; O2SAT 98
[2023-07-16 17:42] LABS: C Diff PCR Positive (Negative)
--- NOTE | 2023-07-16 17:43 | PGE_ITS ---
Date of Service Date of service: 07/16/23 Time of Service: 12:30 Assessment and Plan Assessment and plan (1) Osteomyelitis of left foot: Status: Acute Qualifiers: Osteomyelitis type: other chronic Qualified Code(s): M86.672 - Other chronic osteomyelitis, left ankle and foot (2) Diabetes mellitus, type 2: Qualifiers: Diabetes mellitus termite control representative insulin use: with intermediate use Diabetes mellitus complication status: with neurologic complications Diabetes mellitus complication detail: with polyneuropathy Qualified Code(s): E11.42 - Type 2 diabetes mellitus with diabetic polyneuropathy; Z79.4 - shelter (current) use of insulin (3) HTN (hypertension): Qualifiers: Hypertension type: primary hypertension Qualified Code(s): I10 - Essential (primary) hypertension (4) Cellulitis: Status: Acute (5) Ulcer of right foot with fat layer exposed: Status: Acute (6) PAD (peripheral artery disease): Status: Acute (7) Amputation of left great toe: (8) Amputation of toe of right foot: (9) Tobacco abuse: (10) Morbid obesity: Assessment and plan: Patient was seen bedside today. Labs and imaging and chart were reviewed. Will get x-rays. She is status post transmetatarsal amputation to the left foot and wound debridement with closure to the right fourth interspace, date of surgery is 07/11/2023. Patient was seen resting comfortably. She does report pain however has pain meds on order. Dressings were changed today to the right foot with a 4 x 4, Kerlix, Asher wrap. She is to keep the right foot elevated at all times allow minimal weightbearing. She is to use a surgical shoe for ambulation. Victor M wound VAC was removed today and no victor m wound VAC was applied. The incision site is noted to be healing very well at this time without any bogginess or crepitus. Patient was advised that overall bone quality did appear to be good at the site of amputation. We will wait for cultures and pathology reports to determine course of antibiotics going forward she emailed likely need 4 to 6 weeks of antibiotics at this time. Due to bleeding, I recommend holding off on heparin. I recommend physical therapy evaluation and treatment. She is to remain nonweightbearing to the left lower extremity. Limited weightbearing to the right lower extremity. She may use heel touch for transfers. She is to use crutches or knee scooter as needed. She is to let elevate and ice the left lower extremity 10 minutes on 20 minutes off around the clock. Unfortunately, she has developed a C. difficile. Will defer management to the medicine team. Case discussed with the medicine team and they are recommendations and management are greatly appreciated. She is okay to be discharged home from a podiatric standpoint however she does not want to go home herself yet as she has no help at home and does not feel ready to ambulate with the crutches with a TMA. I am optimistic that physical therapy will help her. We will continue to follow Subjective Subjective Interval history since last seen: Patient was seen bedside today resting comfortably. She does report pain to her left foot. Reports recent diarrhea. States that anytime she has antibiotics she gets diarrhea. She has kept her left lower extremity elevated at all times. States she is not ready to go home as she has no help at home and does not want to go to a nursing facility. Exam Extrem Other: Bilateral lower extremity physical exam: Derm: Incision site noted to the right fourth interspace noted to be well coapted with sutures in place without any signs of dehiscence there is some maceration noted however no purulence no bogginess no erythema and no signs of dehiscence noted. Left foot with victor m wound VAC noted to be intact however completely saturated. Upon removal of the victor m wound VAC the incision site is noted to be healing very well without any signs of dehiscence no evidence for periwound erythema no hematoma noted, no crepitus no bogginess no malodor noted, sutures in place without any signs of dehiscence. Some point tenderness to palpation noted. Vascular: DP PT pulses are slightly diminished to the left foot, nonpalpable to the right foot. CFT is less than 5 seconds to all the toes. No calf pain noted. There is edema noted to the left foot. MSK: History of amputation to the left hallux, right great toe. There is tenderness to palpation to the wounds bilaterally. Neuro: Light touch sensation noted to be absent bilaterally. Objective Last Vital Signs Temp 98.2 F 07/16/23 15:30 Pulse 79 07/16/23 15:30 Resp 20 07/16/23 15:30 BP 108/78 07/16/23 15:30 Pulse Ox 98 07/16/23 15:30 Laboratory Results - last 24 hr 07/16/23 07/16/23 07/16/23 06:27 15:00 16:15 WBC 13.20 H RBC 3.31 L Hgb 9.5 L D Hct 29.4 L MCV 89 MCH 28.7 MCHC 32.3 RDW 13.4 Plt Count 539 H MPV 9.0 Immature Gran % 1.4 Neutrophils % 65.4 Lymphocytes % 20.4 Monocytes % 8.9 Eosinophils % 3.1 Basophils % 0.8 Nucleated RBC % 0.0 Absolute Neutrophils 8.63 H Absolute Lymphocytes 2.69 Absolute Monocytes 1.17 H Absolute Eosinophils 0.41 Absolute Basophils 0.11 Sodium 140 Potassium 3.2 L Chloride 107 Carbon Dioxide 22.9 Anion Gap 10.1 BUN 12 Creatinine 0.9 Est GFR (CKD-EPI 2020) 74.57 Glucose 104 Calcium 8.8 C-Reactive Protein 3.21 H Stl C.difficile Tox PCR Positive A Vancomycin Trough 18.1 Time Spent with Patient Time Spent with Patient: 35-49 minutes Time was spent: preparing to see the patient(eg.review tests), obtaining and/or reviewing separately otained hiistory, ordering medications,tests, procedures, referring, communicating with other health small animal caretaker, indepentently interpreting results, counseling the patient and care coordination
[2023-07-16] MEDS: Pramipexole 0.5 MG TAB 1.5 MG PO (21:27)
[2023-07-16] MEDS: Omeprazole 20 MG CAPCR 40 MG PO (21:27)
[2023-07-16] MEDS: ARIPiprazole 5 MG TAB 10 MG PO (21:27)
[2023-07-16 22:57] VITALS: BP 107/72; PULSE 108; RESP 18; TEMP 36.7; O2SAT 98
[2023-07-16 23:54] VITALS: BP 105/58; PULSE 78; RESP 18; TEMP 36; O2SAT 96
[2023-07-17] MEDS: VANCOMYCIN/WATER (PEG) 1.25 GM/250 ML BAG IVPB (05:31)
[2023-07-17 07:02] LABS: Abs Immature Grans 0.18 10^3/uL (0.0-0.06); Absolute Basophil Count 0.06 10^3/uL (0.0-0.2); Absolute Eosinophil Count 0.51 10^3/uL (0.0-0.7); Absolute Lymphocyte Count 2.01 10^3/uL (1.2-3.4); Absolute Monocyte Count 0.83 10^3/uL (0.1-0.8); Absolute Neutrophil Count 6.05 10^3/uL (1.2-6.7); Basophils % 0.6; Eosinophils % 5.3; HCT 27.7 % (36.0-46.0); HGB 8.9 g/dL (11.2-15.7); Immature Grans % 1.9; Lymphocytes % 20.9; MCH 28.5 pg (27.0-33.0); MCHC 32.1 % (32.0-36.0); MCV 89 fL (80-95); MPV 8.7 fL (8.0-11.0); Monocytes % 8.6; Neutrophils % 62.7; Platelet Count 481 10^3/uL (130-400); RBC 3.12 10^6/uL (3.93-5.22); RDW 13.5 % (11.7-14.6); RDW-SD 43.9 fL; WBC 9.64 10^3/uL (4.4-10.8)
[2023-07-17 07:14] LABS: Anion Gap 7.9 mmol/L (3-11); BUN 11 mg/dL (7-18); CO2 25.1 mmol/L (21.0-32.0); CREATININE 0.6 mg/dL (0.55-1.02); Calcium 9.1 mg/dL (8.5-10.1); Chloride 108 mmol/L (98-107); Estimated GFR 104.63 (mL/min/1.73m2); Glucose 76 mg/dL (74-106); Potassium 3.5 mmol/L (3.5-5.1); Sodium 141 mmol/L (136-145)
[2023-07-17 07:35] VITALS: BP 127/74; PULSE 87; RESP 18; TEMP 35.9; O2SAT 98
[2023-07-17] MEDS: buPROPion-XL 150 MG TABCR 450 MG PO (08:29)
[2023-07-17] MEDS: Cetirizine 10 MG TAB PO (08:30)
[2023-07-17] MEDS: Ferrous Sulfate 325 MG TAB PO (08:30)
[2023-07-17] MEDS: Losartan 50 MG TAB 100 MG PO (08:30)
[2023-07-17] MEDS: metFORMIN 500 MG TAB 1000 MG PO ×2 (08:31→16:22)
[2023-07-17] MEDS: DULoxetine 30 MG CAP 90 MG PO (08:31)
[2023-07-17] MEDS: Folic Acid 1 MG TAB PO (08:31)
[2023-07-17] MEDS: Gabapentin 300 MG CAP 900 MG PO ×3 (08:31→20:47)
[2023-07-17] MEDS: MEROPENEM 1 GM in Normal Saline 100 ML IVPB (08:34)
--- NOTE | 2023-07-17 08:49 | CMPROGNOTE_ITS ---
Date of service: 07/17/23 Time of Service: 08:49 Care Management Progress Note Progress Note Text Progress Note Text: S/O: Charlee was having a PICC line placed today when CM attempted to meet with her. She had been hesitant about getting a PICC line, but was agreeable, if it is necessary for her care. Per report, she will likely require 4-6 weeks of IV antibiotics. CM has discussed options with Charlee for her to complete her IV antibiotic course; she will likely require SWB, as she cannot drive herself to the infusion room, and she lives alone with no support, so she will not be able to have the treatment at home. CM will continue to follow. A: Charlee is a 58 year old female admitted to [facility] on 07/14/23 for osteomyelitis left foot. P: Charlee will likely transition to SWB1 for her prolonged IV antibiotic course.PT will continue to work with her to improve her strength and independence with ambulation. Charlee will follow up with her PCP, electric vehicle electrician, and plan of care as instructed. She will be transported home via [facility] private trolley coach driver coordinated by CM when ready. CM will continue to support Charlee and any discharge planning needs.
[2023-07-17] MEDS: Insulin Glargine 300 UNITS/3 ML PEN 20 UNITS SC (09:33)
[2023-07-17] MEDS: oxyCODONE 5 mg/Acetaminophen 325 mg TAB PO ×3 (09:41→20:48)
[2023-07-17 10:46] LABS: ESR (LRH) 82 mm/hr
[2023-07-17 11:17] VITALS: BP 117/72; PULSE 83; RESP 18; TEMP 36.4; O2SAT 100
[2023-07-17] MEDS: Vancomycin 125 MG CAP PO ×3 (11:21→20:47)
--- NOTE | 2023-07-17 13:38 | DI.RAD_ITS ---
Exam(s) XR PORTABLE CHEST AP EXAM: XR PORTABLE CHEST AP CLINICAL HISTORY: PICC line placement TECHNIQUE: 2D digital imaging was performed. COMPARISON: No exams were available for comparison FINDINGS: A PICC line has been placed via the right arm. The tip is in the superior vena cava. Exam mildly limited by overlying electronic device over the right diaphragm. LUNGS: Grossly clear. No pleural abnormality seen. HEART: Normal size. AORTA: Normal diameter. BONES: Unremarkable for age. Soft tissues: Unremarkable. IMPRESSION: Satisfactory placement of PICC line. DATA REPOSITORY: RADIATION DOSE DELIVERED:
--- NOTE | 2023-07-17 13:46 | W.NUTRFU ---
Date of service: 07/16/23 Time of Service: 13:30 Nutrition Note NOTE: Charlee upright in bed upon my visit. She is status post transmetatarsal amputation to the left foot with closure of 4th toe space which had been amputated previously. She states that the food quality has been poor here - can't even touch my lunch and requested some canned fruit, jello and stawberry yogurt - I called down for this and told her the jello would be sugar-free, which led into a discussion about carb counting and diabetes. She states she does not count carbs at home and just watches what I eat which could not be explained when I asked what that looked like. I offered education on carbs/carb counting which she declined. Kitchen staff state pt has consistently been ordering a heavier carb load at meals than we usually prefer (over 100g many meals and kitchen staff makes substitutions to try to bring it down). Her A1C of 5.6 on 07/14 is very favorable. Weight is down 5kg from 07/01/23 - will monitor. declined glucerna supplement at this time. Pt declined diabetes education at this time. Gave her my card to contact for outpt services if she'd like at any time. Time Spent in Nutritional Counseling and Treatment: 15 min
[2023-07-17] MEDS: DAPTOmycin 500 MG in Normal Saline 50 ML 100 MG IVPB (14:26)
--- NOTE | 2023-07-17 15:30 | PT.INTREAT ---
PT Notes Visit Reasons: Osteomyelitis left foot Date: 07/17/2023 Precautions: Fall. Standard. Per tumbling and rolling supervisor's order: WBAT on R LE, heel touch only for transfers on the L LE. SUBJECTIVE: Pt in bed when approached for therapy this afternoon, pt agreed to participating with therapy OBJECTIVE: pt connected to IV line R UE, PAIN: 7/10 for pain on bilateral foot today. BED MOBILITY/TRANSFERS Bed mobility rolling L/R: independent Bed mobility moving up and down: independent Supine to EOB: independent Sit-stand: SBA Stand-sit: SBA Bed to toilet: SBA Toilet to Bed: SBA EOB to supine: independent GAIT Assistive Device: FWW Weight bearing: NWB/Heel touch RLE, WBAT LLE Assist: CGA Distance: 20'x2, 20'x2, 20'x2 seated rest break in between distance. last one going to the toilet for BM. Therapeutic Activity 90466: pt was measured and fitted with post op shoes, trialled post op shoes with gait training inside pt room. pt reports that the shoes feel ok. no complaints. ASSESSMENT: Tolerated today's session very well with good effort given. PLAN: Continue with general conditioning for improved activity tolerance. TREATMENT CODE/TIME: 09249 x 2, 3:00 to 3:30 pm
[2023-07-17 15:39] VITALS: BP 120/75; PULSE 82; RESP 18; TEMP 37.1; O2SAT 96
--- NOTE | 2023-07-17 16:01 | W.PM.PROGNOT ---
Date of Service Date of service: 07/17/23 Time of Service: 16:01 Assessment and Plan Assessment and plan (1) Osteomyelitis of left foot: Status: Acute Assessment and plan: POD #3 left TMA, spoke w/ Dr. Beavers, wound looks good, bleeding has ceased although she still recommends holding off any heparin for anther day. Patient weight bearing is limited to heel touches on the right foot, non weight bearing on the left. Patient does not want to go to SNF and is even reluctant to stay her for short snf of a few days to get more P.T. I have changed her antibiotics to Daptomycin which is a daily antibiotic and she can more easily manage at home. She could not come to outpatient infusion center for daily antibiotics. Dr. Beavers and I discussed switching her to oral doxycyline. However, I think given she has had recurrent osteomyeliits despite prior antibiotics for foot infections and given that there is question of whether the 2nd metatarsal marign was free of infection, she ought to continue on daptomycin for 4 to 6 weeks. She should then go on a lifetime of doxycycline. Qualifiers: Osteomyelitis type: other chronic Qualified Code(s): M86.672 - Other chronic osteomyelitis, left ankle and foot (2) Cellulitis: Status: Acute Qualifiers: Site of cellulitis: extremity Site of cellulitis of extremity: lower extremity Laterality: left Qualified Code(s): L03.116 - Cellulitis of left lower limb (3) Ulcer of right foot with fat layer exposed: Status: Acute Assessment and plan: s/p debridement yesterday, wound care per podiatry (4) C. difficile diarrhea: Status: Acute Assessment and plan: continue vancomycin 125 mg po qid (5) Diabetes mellitus, type 2: Assessment and plan: glucose running in the 80's to 90's. I have cut her daily lantus dose to half at 20 units daily. continue her metformin Qualifiers: Diabetes mellitus buttermaker continuous churn insulin use: with buttermaker continuous churn use Diabetes mellitus complication status: with neurologic complications Diabetes mellitus complication detail: with polyneuropathy Qualified Code(s): E11.42 - Type 2 diabetes mellitus with diabetic polyneuropathy; Z79.4 - [facility] (current) use of insulin (6) HTN (hypertension): Assessment and plan: Continue dose of losartan and monitor blood pressure. Qualifiers: Hypertension type: primary hypertension Qualified Code(s): I10 - Essential (primary) hypertension (7) PAD (peripheral artery disease): Status: Acute (8) Tobacco abuse: Assessment and plan: patient continues to smoke a few cigarettes per day. I advised her to quit completely as even a couple cigarettes per day are enough to worsen arterial flow in her PAD. (9) Depression: Assessment and plan: Continue her home antidepressants and Wellbutrin and duloxetine. Continue her Abilify. Qualifiers: Depression Type: major depressive disorder Major depression recurrence: recurrent Active/Remission status: in remission of unspecified degree Qualified Code(s): F33.40 - Major depressive disorder, recurrent, in remission, unspecified (10) Anxiety: Assessment and plan: As above (11) DVT prophylaxis: Status: Acute Assessment and plan: heparin discontinued due to wound bleeding. SCD not practical given her bilateral surgeries. will monitor her bleeidng and once resolved will resume low dose heparin SC (12) Discharge planning issues: Status: Acute Assessment and plan: P.T. consult post operative. depending on her progress, she may need short term SNF vs home w/ home health and P.T. and O.T. Subjective Subjective Interval history since last seen: Charlee is adamant that she can not go to SNF. She wants to go home. I discussed w/ her possible short stay here on swing bed. I do think she will need prolonged antibiotics but she can do this at home. However, I am concerned about her mobility and safety while having fresh TMA and not able to weight bear on this and w/ only heel touch down on the right foot d/t recent debridement of the 4th metatarsal. Exam Narrative Exam Narrative: Left foot is bandaged, the leg does not look swollen nor erythematous. calf is nontender; right foot is bandaged but she has capillary refill in the great toe, the rest of the toes are bandaged so I did not take down the bandage Lungs: clear Heart; RRR Abdomen: soft, nondistended, nontender Objective Last Vital Signs Temp 37.1 C 07/17/23 15:39 Pulse 82 07/17/23 15:39 Resp 18 07/17/23 15:39 BP 120/75 07/17/23 15:39 Pulse Ox 96 07/17/23 15:39 Laboratory Results - last 24 hr 07/14/23 07/16/23 07/17/23 11:05 16:15 06:35 WBC 9.64 RBC 3.12 L Hgb 8.9 L Hct 27.7 L MCV 89 MCH 28.5 MCHC 32.1 RDW 13.5 Plt Count 481 H MPV 8.7 Immature Gran % 1.9 Neutrophils % 62.7 Lymphocytes % 20.9 Monocytes % 8.6 Eosinophils % 5.3 Basophils % 0.6 Nucleated RBC % 0.0 Absolute Neutrophils 6.05 Absolute Lymphocytes 2.01 Absolute Monocytes 0.83 H Absolute Eosinophils 0.51 Absolute Basophils 0.06 ESR 82 Sodium 141 Potassium 3.5 Chloride 108 H Carbon Dioxide 25.1 Anion Gap 7.9 BUN 11 Creatinine 0.6 Est GFR (CKD-EPI 2020) 104.63 Glucose 76 Calcium 9.1 Stl C.difficile Tox PCR Positive A Time Spent with Patient Time Spent with Patient: 25-34 minutes Time was spent: preparing to see the patient(eg.review tests), ordering medications,tests, procedures, referring, communicating with other health day care teacher, indepentently interpreting results, counseling the patient and care coordination
--- NOTE | 2023-07-17 17:20 | PGE_ITS ---
Date of Service Date of service: 07/17/23 Time of Service: 17:20 Assessment and Plan Assessment and plan (1) Osteomyelitis of left foot: Status: Acute Qualifiers: Osteomyelitis type: other chronic Qualified Code(s): M86.672 - Other chronic osteomyelitis, left ankle and foot (2) Diabetes mellitus, type 2: Qualifiers: Diabetes mellitus complication detail: with polyneuropathy Diabetes mellitus complication status: with neurologic complications Diabetes mellitus superintendent terminal insulin use: with superintendent terminal use Qualified Code(s): E11.42 - Type 2 diabetes mellitus with diabetic polyneuropathy; Z79.4 - shelter (current) use of insulin (3) HTN (hypertension): Qualifiers: Hypertension type: primary hypertension Qualified Code(s): I10 - Essential (primary) hypertension (4) Cellulitis: Status: Acute Qualifiers: Laterality: left Site of cellulitis: extremity Site of cellulitis of extremity: lower extremity Qualified Code(s): L03.116 - Cellulitis of left lower limb (5) Ulcer of right foot with fat layer exposed: Status: Acute (6) PAD (peripheral artery disease): Status: Acute (7) Amputation of left great toe: (8) Amputation of toe of right foot: (9) Tobacco abuse: (10) Morbid obesity: Assessment and plan: Patient was seen bedside today. Labs and imaging and chart were reviewed. X-rays were reviewed today. Noted to be with a proximal transmetatarsal amputation however clean margins and well-maintained parabola. She is status post transmetatarsal amputation to the left foot and wound debridement with closure to the right fourth interspace, date of surgery is 07/11/2023. Patient was seen resting comfortably. She does report pain however has pain meds on order. Cultures reviewed today. There is growth of Staphylococcus noted at this time final cultures are pending. We will continue antibiotics Dressings were changed today to the right foot with betadine, 4 x 4, Kerlix, Asher wrap. She is to keep the right foot elevated at all times allow minimal weightbearing. She is to use a surgical shoe for ambulation. Victor M wound VAC was noted to be functioning well and left intact. Dressings were reinforced with 4 x 4, Kerlix and an Asher wrap. We will wait for cultures and pathology reports to determine course of antibiotics going forward she emailed likely need 4 to 6 weeks of antibiotics at this time. Due to bleeding, I recommend holding off on heparin. Patient had physical therapy evaluation and treatment states that it went well and she is feeling comfortable being able to ambulate with crutches and heel touch to the left foot. She is to elevate and ice the left lower extremity 10 minutes on 20 minutes off around the clock. Unfortunately, she has developed a C. difficile. Will defer management to the medicine team. She is okay to be discharged home from a podiatric standpoint. We will continue to follow Subjective Subjective Interval history since last seen: Patient was seen bedside today. She states that she is tired and miserable. States that she has pain to the left foot. She has been taking Percocet which is helping her. She continues to have diarrhea. She states she does not want to stay in the hospital for 4 weeks for antibiotics soon as she has a family and wants to go home. She states that she had physical therapy today which went well and she is feeling comfortable with being able to walk. Denies new pedal complaints denies nausea vomiting chills fever calf pain chest pain shortness of breath. Exam Extrem Other: Bilateral lower extremity physical exam: Derm: Incision site noted to the right fourth interspace noted to be well coapted with sutures in place without any signs of dehiscence there is some maceration noted however no purulence no bogginess no erythema and no signs of dehiscence noted. Left foot with victor m wound VAC noted to be intact and functioning well without any leaks. Wound VAC left intact today. Dressings reinforced on top of the dressing with 4 x 4, Kerlix, Asher wrap. Vascular: DP PT pulses are slightly diminished to the left foot, nonpalpable to the right foot. CFT is less than 5 seconds to all the toes. No calf pain noted. There is edema noted to the left foot. MSK: History of amputation to the left hallux, right great toe. There is tenderness to palpation to the wounds bilaterally. Neuro: Light touch sensation noted to be absent bilaterally. Objective Last Vital Signs Temp 98.8 F 07/17/23 15:39 Pulse 82 07/17/23 15:39 Resp 18 07/17/23 15:39 BP 120/75 07/17/23 15:39 Pulse Ox 96 07/17/23 15:39 Laboratory Results - last 24 hr 07/14/23 07/16/23 07/17/23 11:05 16:15 06:35 WBC 9.64 RBC 3.12 L Hgb 8.9 L Hct 27.7 L MCV 89 MCH 28.5 MCHC 32.1 RDW 13.5 Plt Count 481 H MPV 8.7 Immature Gran % 1.9 Neutrophils % 62.7 Lymphocytes % 20.9 Monocytes % 8.6 Eosinophils % 5.3 Basophils % 0.6 Nucleated RBC % 0.0 Absolute Neutrophils 6.05 Absolute Lymphocytes 2.01 Absolute Monocytes 0.83 H Absolute Eosinophils 0.51 Absolute Basophils 0.06 ESR 82 Sodium 141 Potassium 3.5 Chloride 108 H Carbon Dioxide 25.1 Anion Gap 7.9 BUN 11 Creatinine 0.6 Est GFR (CKD-EPI 2020) 104.63 Glucose 76 Calcium 9.1 Stl C.difficile Tox PCR Positive A Time Spent with Patient Time Spent with Patient: 35-49 minutes Time was spent: preparing to see the patient(eg.review tests), obtaining and/or reviewing separately otained hiistory, ordering medications,tests, procedures, referring, communicating with other health post acute care nurse, indepentently interpreting results, counseling the patient and care coordination
[2023-07-17] MEDS: ARIPiprazole 5 MG TAB 10 MG PO (20:47)
[2023-07-17] MEDS: Pramipexole 0.5 MG TAB 1.5 MG PO (20:47)
[2023-07-17] MEDS: Omeprazole 20 MG CAPCR 40 MG PO (20:47)
[2023-07-17 23:16] VITALS: BP 134/74; PULSE 91; RESP 16; TEMP 36.7; O2SAT 95
[2023-07-18 06:54] LABS: Abs Immature Grans 0.31 10^3/uL (0.0-0.06); Absolute Basophil Count 0.09 10^3/uL (0.0-0.2); Absolute Eosinophil Count 0.45 10^3/uL (0.0-0.7); Absolute Lymphocyte Count 1.83 10^3/uL (1.2-3.4); Absolute Monocyte Count 0.66 10^3/uL (0.1-0.8); Absolute Neutrophil Count 5.55 10^3/uL (1.2-6.7); Eosinophils % 5.1; HCT 29.4 % (36.0-46.0); HGB 9.2 g/dL (11.2-15.7); Immature Grans % 3.5; Lymphocytes % 20.6; MCH 27.1 pg (27.0-33.0); MCHC 31.3 % (32.0-36.0); MCV 87 fL (80-95); MPV 8.5 fL (8.0-11.0); Monocytes % 7.4; Neutrophils % 62.4; Platelet Count 508 10^3/uL (130-400); RBC 3.39 10^6/uL (3.93-5.22); RDW 13.4 % (11.7-14.6); RDW-SD 42.5 fL; WBC 8.89 10^3/uL (4.4-10.8)
[2023-07-18 07:13] LABS: Anion Gap 9.3 mmol/L (3-11); BUN 10 mg/dL (7-18); C-Reactive Protein 3.17 mg/dL (0.0-0.3); CO2 24.7 mmol/L (21.0-32.0); CREATININE 0.6 mg/dL (0.55-1.02); Calcium 9.1 mg/dL (8.5-10.1); Chloride 107 mmol/L (98-107); Creatine Kinase 22 U/L (26-192); Estimated GFR 104.63 (mL/min/1.73m2); Glucose 86 mg/dL (74-106); Potassium 3.5 mmol/L (3.5-5.1); Sodium 141 mmol/L (136-145)
[2023-07-18 07:32] LABS: Iron 24 ug/dL (50-170); Total Iron Binding Capacity 229 ug/dL (250-450); Transferrin Sat 10 % (15-50)
[2023-07-18 07:59] LABS: Ferritin 143 ng/mL (8-252); Folate 13.1 ng/mL (8.6-20.0); Vitamin B12 444 pg/mL (193-986)
[2023-07-18] MEDS: buPROPion-XL 150 MG TABCR 450 MG PO (08:08)
[2023-07-18] MEDS: metFORMIN 500 MG TAB 1000 MG PO ×2 (08:08→16:46)
[2023-07-18] MEDS: DULoxetine 30 MG CAP 90 MG PO (08:09)
[2023-07-18] MEDS: Cetirizine 10 MG TAB PO (08:09)
[2023-07-18] MEDS: Ferrous Sulfate 325 MG TAB PO (08:10)
[2023-07-18] MEDS: Folic Acid 1 MG TAB PO (08:10)
[2023-07-18] MEDS: Gabapentin 300 MG CAP 900 MG PO ×3 (08:11→21:10)
[2023-07-18] MEDS: Vancomycin 125 MG CAP PO ×4 (08:12→21:10)
[2023-07-18] MEDS: Losartan 50 MG TAB 100 MG PO (08:12)
[2023-07-18 08:17] VITALS: BP 133/79; PULSE 81; RESP 19; TEMP 36.9; O2SAT 96
--- NOTE | 2023-07-18 09:36 | PGE_ITS ---
Date of Service Date of service: 07/18/23 Time of Service: 09:36 Assessment and Plan Assessment and plan (1) Osteomyelitis of left foot: Status: Acute Qualifiers: Osteomyelitis type: other chronic Qualified Code(s): M86.672 - Other chronic osteomyelitis, left ankle and foot (2) Diabetes mellitus, type 2: Qualifiers: Diabetes mellitus termite control servicer insulin use: with fci use Diabetes mellitus complication status: with neurologic complications Diabetes mellitus complication detail: with polyneuropathy Qualified Code(s): E11.42 - Type 2 diabetes mellitus with diabetic polyneuropathy; Z79.4 - penitentiary (current) use of insulin (3) HTN (hypertension): Qualifiers: Hypertension type: primary hypertension Qualified Code(s): I10 - Essential (primary) hypertension (4) Cellulitis: Status: Acute Qualifiers: Site of cellulitis: extremity Site of cellulitis of extremity: lower extremity Laterality: left Qualified Code(s): L03.116 - Cellulitis of left lower limb (5) Ulcer of right foot with fat layer exposed: Status: Acute (6) PAD (peripheral artery disease): Status: Acute (7) Amputation of left great toe: (8) Amputation of toe of right foot: (9) Tobacco abuse: (10) Morbid obesity: Assessment and plan: Patient was seen bedside today. Labs and imaging and chart were reviewed. She is status post transmetatarsal amputation to the left foot and wound debridement with closure to the right fourth interspace, date of surgery is 07/11/2023. Patient was seen resting comfortably. She does report pain however has pain meds on order. Cultures reviewed today. There is evidence for MRSA to the left foot. To the right, there is growth of Staph species as well as fungal growth. Will get LFT's and if normal, will then recommend Lamisil. Dressings were changed today to the right foot with betadine, 4 x 4, Kerlix, Asher wrap. She is to keep the right foot elevated at all times allow minimal weightbearing. She is to use a surgical shoe for ambulation. Victor M wound VAC was noted to be functioning well and left intact. Dressings were reinforced with 4 x 4, Kerlix and an Asher wrap. We will wait for cultures and pathology reports to determine course of antibiotics going forward she will likely need 4 to 6 weeks of antibiotics at this time. Due to bleeding, I recommend holding off on heparin. Continue PT. She is to elevate and ice the left lower extremity 10 minutes on 20 minutes off around the clock. Subjective Subjective Interval history since last seen: Patient was seen bedside today resting comfortably. She does not complain about pain today. She has been NWB bilat. Exam Extrem Other: Bilateral lower extremity physical exam: Derm: Incision site to the right fourth interspace noted to be well coapted with sutures in place without any signs of dehiscence there is some maceration noted to the lateral aspect of the wound, there is minimal healing noted at this time. however no purulence no bogginess no erythema and no signs of dehiscence noted. Left foot with victor m wound VAC noted to be intact and functioning well without any leaks, there is some fresh strikethrough noted to the VAC. Wound VAC left intact today. Dressings reinforced on top of the VICTOR M with 4 x 4, Kerlix, Asher wrap to keep the VICTOR M intact. Vascular: DP PT pulses are slightly diminished to the left foot, diminished to the right foot. CFT is less than 5 seconds to all the toes. No calf pain noted. There is edema noted to the left foot. MSK: s/p TMA to the left foot and post 4th toe amputation (with non healing from from another biology lecturer). There is tenderness to palpation to the wounds bilaterally. Neuro: Light touch sensation noted to be absent bilaterally. Objective Last Vital Signs Temp 98.4 F 07/18/23 08:17 Pulse 81 07/18/23 08:17 Resp 19 07/18/23 08:17 BP 133/79 07/18/23 08:17 Pulse Ox 96 07/18/23 08:17 Laboratory Results - last 24 hr 07/14/23 07/18/23 11:05 06:10 WBC 8.89 RBC 3.39 L Hgb 9.2 L Hct 29.4 L MCV 87 MCH 27.1 MCHC 31.3 L RDW 13.4 Plt Count 508 H MPV 8.5 Immature Gran % 3.5 Neutrophils % 62.4 Lymphocytes % 20.6 Monocytes % 7.4 Eosinophils % 5.1 Basophils % 1.0 Nucleated RBC % 0.0 Absolute Neutrophils 5.55 Absolute Lymphocytes 1.83 Absolute Monocytes 0.66 Absolute Eosinophils 0.45 Absolute Basophils 0.09 ESR 82 Sodium 141 Potassium 3.5 Chloride 107 Carbon Dioxide 24.7 Anion Gap 9.3 BUN 10 Creatinine 0.6 Est GFR (CKD-EPI 2020) 104.63 Glucose 86 Calcium 9.1 Iron 24 L TIBC 229 L Transferrin % Sat 10 L Ferritin 143 Creatine Kinase 22 L C-Reactive Protein 3.17 H Vitamin B12 444 Folate 13.1 Time Spent with Patient Time Spent with Patient: >50 minutes Time was spent: preparing to see the patient(eg.review tests), obtaining and/or reviewing separately otained hiistory, ordering medications,tests, procedures, referring, communicating with other health health care marketing specialist, indepentently interpreting results, counseling the patient, care coordination and other
--- NOTE | 2023-07-18 10:00 | PGE_ITS ---
Date of Service Date of service: 07/18/23 Time of Service: 10:00 Assessment and Plan Assessment and plan (1) Osteomyelitis of left foot: Status: Acute Assessment and plan: POD #4 left TMA, patient seen w/ Dr. Beavers. Cultures are positive for MRSA. I had already changed her antibiotics to daptomycin and have filled referral to home infusion company to try to get prior authorization for home antibiotics. She will need minimum of 4 weeks and up to 6 weeks of antibiotics. If the margins of the 2nd MT is positive then I would go w/ 6 weeks. Afterwards, she will need lifetime of doxycycline for suppression. Continue P.T. w/ restrictions as noted by Dr. Beavers (heel touch down only on the right and nonweight bearing on the left. Patient would benefit from a kneel scooter to get around. Professional time spent interviewing and examining patient, discussion of goals of care with hospital team (care management, nursing and consulting professionals) was 45 minutes. Qualifiers: Osteomyelitis type: other chronic Qualified Code(s): M86.672 - Other ch ronic osteomyelitis, left ankle and foot (2) Cellulitis: Status: Acute Assessment and plan: as above Qualifiers: Site of cellulitis: extremity Site of cellulitis of extremity: lower extremity Laterality: left Qualified Code(s): L03.116 - Cellulitis of left lower limb (3) Ulcer of right foot with fat layer exposed: Status: Acute Assessment and plan: right wound now growing fungus, Dr. Beavers added liver panel to her tests, if LFT ok then add terbinafine oral to her treatment (4) C. difficile diarrhea: Status: Acute Assessment and plan: continue vancomycin 125 mg po qid, metamucil and probiotics. stools improving (5) Diabetes mellitus, type 2: Assessment and plan: glucose 80-90's. currently on basal/bolus insulin Qualifiers: Diabetes mellitus shelter insulin use: with shelter use Diabetes mellitus complication status: with neurologic complications Diabetes mellitus complication detail: with polyneuropathy Qualified Code(s): E11.42 - Type 2 diabetes mellitus with diabetic polyneuropathy; Z79.4 - ferry terminal supervisor (current) use of insulin (6) HTN (hypertension): Assessment and plan: Continue dose of losartan and monitor blood pressure. Qualifiers: Hypertension type: primary hypertension Qualified Code(s): I10 - Essential (primary) hypertension (7) PAD (peripheral artery disease): Status: Acute Assessment and plan: consider additon of pletal. will put her on aspirin bid for DVT prophylaxis (8) Tobacco abuse: Assessment and plan: patient continues to smoke a few cigarettes per day. I advised her to quit completely as even a couple cigarettes per day are enough to worsen arterial flow in her PAD. (9) Depression: Assessment and plan: Continue her home antidepressants and Wellbutrin and duloxetine. Continue her Abilify. Qualifiers: Depression Type: major depressive disorder Major depression recurrence: recurrent Active/Remission status: in remission of unspecified degree Q ualified Code(s): F33.40 - Major depressive disorder, recurrent, in remission, unspecified (10) Anxiety: Assessment and plan: As above (11) DVT prophylaxis: Status: Acute Assessment and plan: heparin discontinued due to wound bleeding. SCD not practical given her bilateral surgeries. will put on aspirin 81 mg bid (12) Discharge planning issues: Status: Acute Assessment and plan: P.T. consult post operative. depending on her progress, she may need short term SNF vs home w/ home health and P.T. and O.T. Subjective Subjective Interval history since last seen: Patient was seen w/ Dr. Beavers. Patient states she has pain but overall seems to be reasonably controlled. She is depressed over her situation having to have an TMA of her left foot but she is looking forward to getting better and going home. She wants to do the home infusion rather than going to SNF or going on swing bed. Exam Narrative Exam Narrative: Patients wounds were examined while Dr. 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 wound is intact by sutures and there is no purulent drainage. Dr. Beavers redressed the wound more tightly to hold the digits closer and prevent dehiscence Left foot amputation site looks intact, no purulent drainage but still w/ some fresh blood under the wound vac. Pedal pulses are intact in both feet, stronger on the left foot compared to the right foot. Objective Last Vital Signs Temp 36.9 C 07/18/23 08:17 Pulse 81 07/18/23 08:17 Resp 19 07/18/23 08:17 BP 133/79 10/27/23 08:17 Pulse Ox 96 07/18/23 08:17 Laboratory Results - last 24 hr 07/14/23 07/18/23 11:05 06:10 WBC 8.89 RBC 3.39 L Hgb 9.2 L Hct 29.4 L MCV 87 MCH 27.1 MCHC 31.3 L RDW 13.4 Plt Count 508 H MPV 8.5 Immature Gran % 3.5 Neutrophils % 62.4 Lymphocytes % 20.6 Monocytes % 7.4 Eosinophils % 5.1 Basophils % 1.0 Nucleated RBC % 0.0 Absolute Neutrophils 5.55 Absolute Lymphocytes 1.83 Absolute Monocytes 0.66 Absolute Eosinophils 0.45 Absolute Basophils 0.09 ESR 82 Sodium 141 Potassium 3.5 Chloride 107 Carbon Dioxide 24.7 Anion Gap 9.3 BUN 10 Creatinine 0.6 Est GFR (CKD-EPI 2020) 104.63 Glucose 86 Calcium 9.1 Iron 24 L TIBC 229 L Transferrin % Sat 10 L Ferritin 143 Creatine Kinase 22 L C-Reactive Protein 3.17 H Vitamin B12 444 Folate 13.1 Time Spent with Patient Time Spent with Patient: 35-49 minutes Time was spent: preparing to see the patient(eg.review tests), ordering medications,tests, procedures, referring, communicating with other health career services assistant, indepentently interpreting results, counseling the patient and care coordination
--- NOTE | 2023-07-18 10:38 | PDOC.CMPRO ---
Date of service: 07/18/23 Time of Service: 10:38 Care Management Progress Note Progress Note Text Progress Note Text: S/O: Charlee was sitting up in bed when CM met with her. She stated that she is doing ok today; she expressed that she is worried about her bills as she has been out of work for three months and will now be out longer due to her not being able to bear weight on her foot. CM discussed resources in the community, and sent a referral to [facility] for additional support. Charlee stated that it is difficult for her to ask for help, but she is willing to accept support at this time due to her difficult circumstances. CM discussed discharge planning with Charlee, who stated that she does not want to remain at [facility] for four weeks of IV antibiotics, and she feels that she will be able to administer her IV abx with the support of HH RN. She stated that she currently has HH RN through [facility]. CM faxed the orders to [facility] and [facility]; [facility] was not able to support the order. [facility] processed the order and informed CM that there is a $0 copay, but they are not able to deliver until at least Friday. CM will communicate with [facility] on Friday to coordinate the discharge plan. CM will continue to follow. A: Charlee is a 58 year old female admitted to [facility] on 07/14/23 for osteomyelitis left foot. P: Charlee will likely transition to SWB1 for her prolonged IV antibiotic course.PT will continue to work with her to improve her strength and independence with ambulation. Charlee will follow up with her PCP, radial drill press set up operator, and plan of care as instructed. She will be transported home via [facility] private furniture mover driver coordinated by CM when ready. CM will continue to support Charlee and any discharge planning needs.
[2023-07-18] MEDS: oxyCODONE 5 mg/Acetaminophen 325 mg TAB PO (12:00)
[2023-07-18 12:08] LABS: ALT 12 U/L (14-59); AST 12 U/L (15-37); Albumin 2.7 g/dL (3.4-5.0); Alkaline Phosphatase 88 U/L (46-116); Bilirubin, Total 0.2 mg/dL (0.2-1.0); Total Protein 6.4 g/dL (6.4-8.2)
[2023-07-18 12:10] LABS: Bilirubin, Direct < 0.1 mg/dL (0.0-0.2)
--- NOTE | 2023-07-18 13:52 | PT.INTREAT ---
Date of service: 07/18/23 Time of Service: 13:30 PT Notes Visit Reasons: Osteomyelitis left foot Inpatient Physical Therapy Treatment Note [facility] Date: 07/18/23 PRECAUTIONS: Fall, standard, activity as tolerated. TDWB RLE ON HEEL ONLY, ONLY FOR TRANSFERS, WBAT LLE, CONTACT PRECAUTIONS FOR C.DIFF. SUBJECTIVE: Patient reports some frustration because this morning the Doctor told her no weightbearing, but the PAPER SALES REPRESENTATIVE she saw yesterday told her it was fine to bear weight. Patient cannot remember if either the doctor or the therapist said one leg was different than the other. OBJECTIVE: Patient supine in bed, agreeable to therapy. ? PAIN: yes, legs hurt and arms are sore VITALS: monitored by nursing staff. ? ? BED MOBILITY/TRANSFERS? Rolling L/R: not assessed Supine-sit: modified independent with HOB maximally elevated and bilateral side rails. ? Sit-supine: modified independent with HOB maximally elevated and bilateral side rails. ? Sit-stand: SBA ? Stand-sit: SBA ? Bed-Chair: CGA ? Chair-bed: CGA Gait Training ([id number]): Direct one-on-one instruction and skilled instruction in: [] employing an assistive device [x] modified weight-bearing status - patient reports confusion re: how to walk without putting weight on RLE. Educated patient on hopping, using walker and bearing weight through arms. Educated patient on TDWB heel only for balance, and TDWB not involving putting weight through that leg. [] movement sequencing [] turning and movement with proper form [] Provided verbal cues for equipment management and technique [x] Provided instruction in gait pattern [x] Patient education regarding pacing and breathing techniques to maximize activity tolerance? GAIT? Assistive Device: FWW ? Weight bearing: TDWB RLE, WBAT LLE Assist: CGA? Distance:? 10 feet, seated rest, 10 feet ? Deviation: Patient lands heavily after each hop, c/o this form of ambulation being very hard on her arms and LLE. States that this will be very hard on her at home, but that she is determined to have RLE heal completely and she will follow instructions. ? Therapeutic Exercises: Direct one-on-one instruction in therapeutic exercises to develop strength, endurance, range of motion and flexibility. ? Exercises ? Reviewed exercises as written on patient's white board: knee to chest hip ab/adduction slides ankle pumps ASSESSMENT:? Patient able to observe weightbearing precautions once they have been explained to her. PLAN: Continue global strengthening per plan of care until patient is medically cleared for discharge. TREATMENT CODE/TIME: 18 minutes beginning at 13:30
[2023-07-18] MEDS: DAPTOmycin 500 MG in Normal Saline 50 ML 100 MG IVPB (14:11)
--- NOTE | 2023-07-18 16:31 | CHAPLAIN ---
Charlee was in bed when I visited. She said they're trying to keep me here on swing bed, but I need to go home. She explained that she has pets that other people are taking care of and she doesn't feel she can ask them to continue caring for them. She is also worried about finances (Care Management addressed this concern with her) and said she will likely sell her house and move in with her daughter who lives in [place]. Charlee showed me pictures of her grandchildren. She has nine, from 18 years to two years old. It sounds like she is particularly close to the seven year old grandson who lives in [place], as he lived with Charlee for a while, and his two year old sister. Charlee really enjoys doing adi art, but doesn't have any way to get her supplies from home here for her to use. I will continue to visit.
[2023-07-18 21:05] VITALS: BP 136/78; PULSE 92; RESP 20; TEMP 37.5; O2SAT 95
[2023-07-18] MEDS: Omeprazole 20 MG CAPCR 40 MG PO (21:08)
[2023-07-18] MEDS: ARIPiprazole 5 MG TAB 10 MG PO (21:09)
[2023-07-18] MEDS: Pramipexole 0.5 MG TAB 1.5 MG PO (21:09)
[2023-07-18] MEDS: Terbinafine 250 MG TAB 500 MG PO (21:46)
[2023-07-19 07:34] VITALS: BP 144/78; PULSE 95; RESP 18; TEMP 37.9; O2SAT 95
[2023-07-19] MEDS: Cetirizine 10 MG TAB PO (08:50)
[2023-07-19] MEDS: Ferrous Sulfate 325 MG TAB PO (08:50)
[2023-07-19] MEDS: Folic Acid 1 MG TAB PO (08:50)
[2023-07-19] MEDS: Acetaminophen 325 MG TAB PO (08:50)
[2023-07-19] MEDS: metFORMIN 500 MG TAB 1000 MG PO ×2 (08:50→16:41)
[2023-07-19] MEDS: Terbinafine 250 MG TAB 500 MG PO ×2 (08:50→22:02)
[2023-07-19] MEDS: Vancomycin 125 MG CAP PO ×4 (08:50→22:05)
[2023-07-19] MEDS: DULoxetine 30 MG CAP 90 MG PO (08:50)
[2023-07-19] MEDS: buPROPion-XL 150 MG TABCR 450 MG PO (08:51)
[2023-07-19] MEDS: Losartan 50 MG TAB 100 MG PO (08:51)
[2023-07-19] MEDS: Gabapentin 300 MG CAP 900 MG PO ×3 (08:51→22:03)
[2023-07-19] MEDS: oxyCODONE 5 mg/Acetaminophen 325 mg TAB PO ×2 (11:50→22:04)
--- NOTE | 2023-07-19 12:59 | PGE_ITS ---
Date of Service Date of service: 07/19/23 Time of Service: 12:59 Assessment and Plan Assessment and plan (1) Osteomyelitis of left foot: Status: Acute Assessment and plan: POD #5 left TMA, patient followed by Dr. Beavers. Cultures are positive for MRSA. Continue daptomycin and have filled referral to home infusion company to try to get prior authorization for home antibiotics. She will need minimum of 4 weeks and up to 6 weeks of antibiotics. If the margins of the 2nd MT is positive then go w/ 6 weeks. Afterwards, she will need lifetime of doxycycline for suppression. Continue P.T. w/ restrictions as noted by Dr. Beavers (heel touch down only on the right and nonweight bearing on the left. Patient would benefit from a kneel scooter to get around. Professional time spent interviewing and examining patient, discussion of goals of care with hospital team (care management, nursing and consulting professionals) was 45 minutes. Qualifiers: Osteomyelitis type: other chronic Qualified Code(s): M86.672 - Other chronic osteomyelitis, left ankle and foot (2) Cellulitis: Status: Acute Assessment and plan: as above Qualifiers: Site of cellulitis: extremity Site of cellulitis of extremity: lower extremity Laterality: left Qualified Code(s): L03.116 - Cellulitis of left lower limb (3) Ulcer of right foot with fat layer exposed: Status: Acute Assessment and plan: right wound now growing fungus and terbinafine initiated. (4) C. difficile diarrhea: Status: Acute Assessment and plan: continue vancomycin 125 mg po qid, metamucil and probiotics. stools improving (5) Diabetes mellitus, type 2: Assessment and plan: Controlled Continue basal/bolus insulin Qualifiers: Diabetes mellitus intermodal customer service insulin use: with custodial use Diabetes mellitus complication status: with neurologic complications Diabetes mellitus complication detail: with polyneuropathy Qualified Code(s): E11.42 - Type 2 diabetes mellitus with diabetic polyneuropathy; Z79.4 - exterminator helper (current) use of insulin (6) HTN (hypertension): Assessment and plan: Continue dose of losartan and monitor blood pressure. Qualifiers: Hypertension type: primary hypertension Qualified Code(s): I10 - Essential (primary) hypertension (7) PAD (peripheral artery disease): Status: Acute Assessment and plan: Consider aspirin bid for DVT prophylaxis (8) Tobacco abuse: Assessment and plan: patient continues to smoke a few cigarettes per day. She has been advised her to quit completely as even a couple cigarettes per day are enough to worsen arterial flow in her PAD. She declines any nicotine product (9) Depression: Assessment and plan: Continue her home antidepressants Wellbutrin and duloxetine. Continue her Abilify. Qualifiers: Depression Type: major depressive disorder Major depression recurrence: recurrent Active/Remission status: in remission of unspecified degree Qualified Code(s): F33.40 - Major depressive disorder, recurrent, in remission, unspecified (10) Anxiety: Assessment and plan: As above (11) DVT prophylaxis: Status: Acute Assessment and plan: heparin discontinued due to wound bleeding. SCD not practical given her bilateral surgeries. Continue aspirin 81 mg bid (12) Discharge planning issues: Status: Acute Assessment and plan: P.T. consult post operative. depending on her progress, she may need short term SNF vs home w/ home health and P.T. and O.T. Subjective Subjective Patient reports: no new complaints, pain is less and afebrile; denies nausea, vomiting or shortness of breath Exam Narrative Exam Narrative: General: Alert. Sitting up in bed. NAD Lungs: Clear. Nonlabored breathing. CV: RRR. Exts: Both feet with bandages in place with CARLITOS wraps covering bandages. Psych: A&O x 3. Affect appropriate. 07/18/2023: Dr Queen noted: Patients wounds were examined while Dr. 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 wound is intact by sutures and there is no purulent drainage. Dr. Beavers redressed the wound more tightly to hold the digits closer and prevent dehiscence Left foot amputation site looks intact, no purulent drainage but still w/ some fresh blood under the wound vac. Pedal pulses are intact in both feet, stronger on the left foot compared to the right foot. Objective Last Vital Signs Temp 37.9 C H 07/19/23 07:34 Pulse 95 H 07/19/23 07:34 Resp 18 07/19/23 07:34 BP 144/78 H 07/19/23 07:34 Pulse Ox 95 07/19/23 07:34 Time Spent with Patient Time Spent with Patient: 25-34 minutes Time was spent: preparing to see the patient(eg.review tests), obtaining and/or reviewing separately otained hiistory, ordering medications,tests, procedures, referring, communicating with other health child care center administrator, indepentently interpreting results and counseling the patient
[2023-07-19] MEDS: DAPTOmycin 500 MG in Normal Saline 50 ML 100 MG IVPB (14:18)
[2023-07-19 15:26] VITALS: BP 122/74; PULSE 90; RESP 18; TEMP 37.3; O2SAT 98
[2023-07-19 18:45] LABS: Bilirubin Negative (Negative); Blood Negative (Negative); Clarity Clear (Clear); Glucose Negative (Negative); Ketones Negative (Negative); Leukocyte Esterase Trace (Negative); Nitrite Negative (Negative); Specific Gravity 1.025 (1.005-1.025); Urobilinogen 0.2 mg/dL (Up to 0.2); pH 6.5 (5-8)
[2023-07-19 18:58] LABS: Bacteria Negative HPF (Negative); Crystals Few Calcium Oxalate HPF (Negative); Epithelial Cells Moderate HPF (Negative); Mucus Moderate (Negative); Other Cells Rare Yeast (Negative); RBC Negative HPF (0-2)
[2023-07-19 18:59] LABS: C & S Indicated? No/Sq. Contamination
[2023-07-19] MEDS: Pramipexole 0.5 MG TAB 1.5 MG PO (22:03)
[2023-07-19] MEDS: Omeprazole 20 MG CAPCR 40 MG PO (22:03)
[2023-07-19] MEDS: ARIPiprazole 5 MG TAB 10 MG PO (22:05)
[2023-07-19] MEDS: Normal Saline Flush 10 ML SYR IVP (22:05)
[2023-07-19 22:17] VITALS: BP 137/80; PULSE 106; RESP 18; TEMP 38.5; O2SAT 95
--- NOTE | 2023-07-20 | DI.RAD_ITS ---
Exam(s) XR PORTABLE CHEST AP EXAM: XR PORTABLE CHEST AP CLINICAL HISTORY: cough, fever TECHNIQUE: 2D digital imaging was performed. COMPARISON: CR XR PORTABLE CHEST AP from 07/17/2023 FINDINGS: PICC line again noted, unchanged in position. LUNGS: Clear where visualized. Medial left lower lobe obscured by cardiac silhouette.. No pleural a bnormality seen. HEART: Normal size. AORTA: Normal diameter. BONES: Unremarkable for age. Soft tissues: Unremarkable. IMPRESSION: No acute findings. DATA REPOSITORY: RADIATION DOSE DELIVERED:
[2023-07-20 07:58] VITALS: BP 141/84; PULSE 98; RESP 17; TEMP 37.3; O2SAT 96
--- NOTE | 2023-07-20 08:33 | DI.VRAD_ITS ---
PROCEDURE INFORMATION: Exam: XR Chest Exam date and time: 07/20/2023 8:18 AM Age: 58 years old Clinical indication: Cough and fever TECHNIQUE: Imaging protocol: Radiologic exam of the chest. Views: 1 view. COMPARISON: CR XR PORTABLE CHEST AP 07/17/2023 1:38 PM FINDINGS: Tubes, catheters and devices: Right PICC line again identified. Lungs: No focal consolidation seen. Pleural spaces: No large pleural effusion seen. Heart/Mediastinum: No cardiomegaly. Bones/joints: Grossly unremarkable. IMPRESSION: No acute findings to explain reported symptoms. Dictated and Authenticated by: Dianna Lion MD. Ordering:SANDRA Barba MD
[2023-07-20] MEDS: buPROPion-XL 150 MG TABCR 450 MG PO (08:52)
[2023-07-20] MEDS: Vancomycin 125 MG CAP PO ×4 (08:52→21:38)
[2023-07-20] MEDS: Ferrous Sulfate 325 MG TAB PO (08:53)
[2023-07-20] MEDS: Losartan 50 MG TAB 100 MG PO (08:53)
[2023-07-20] MEDS: Cetirizine 10 MG TAB PO (08:53)
[2023-07-20] MEDS: DULoxetine 30 MG CAP 90 MG PO (08:53)
[2023-07-20] MEDS: Terbinafine 250 MG TAB 500 MG PO ×2 (08:53→21:35)
[2023-07-20] MEDS: Folic Acid 1 MG TAB PO (08:54)
[2023-07-20] MEDS: Gabapentin 300 MG CAP 900 MG PO ×3 (08:54→21:37)
[2023-07-20] MEDS: metFORMIN 500 MG TAB 1000 MG PO ×2 (08:54→16:16)
[2023-07-20 08:55] LABS: Absolute Basophil Count 0.06 10^3/uL (0.0-0.2); Absolute Eosinophil Count 0.17 10^3/uL (0.0-0.7); Basophils % 0.5; Eosinophils % 1.5; HCT 29.4 % (36.0-46.0); HGB 9.6 g/dL (11.2-15.7); Immature Grans % 2.7; Lymphocytes % 16.2; MCH 27.9 pg (27.0-33.0); MCHC 32.7 % (32.0-36.0); MCV 86 fL (80-95); MPV 8.2 fL (8.0-11.0); Monocytes % 6.3; Neutrophils % 72.8; Platelet Count 398 10^3/uL (130-400); RBC 3.44 10^6/uL (3.93-5.22); RDW 13.6 % (11.7-14.6); RDW-SD 42.3 fL; WBC 11.09 10^3/uL (4.4-10.8)
[2023-07-20] MEDS: cefTRIAXone 2 GM/50 ML BAG IVPB (08:55)
[2023-07-20 08:58] LABS: Absolute Neutrophil Count 8.07 10^3/uL (1.2-6.7)
[2023-07-20] MEDS: Insulin Glargine 300 UNITS/3 ML PEN 20 UNITS SC (10:23)
[2023-07-20 12:04] LABS: Anion Gap 10.2 mmol/L (3-11); BUN 7 mg/dL (7-18); CO2 24.8 mmol/L (21.0-32.0); CREATININE 0.7 mg/dL (0.55-1.02); Chloride 101 mmol/L (98-107); Estimated GFR 100.81 (mL/min/1.73m2); Glucose 199 mg/dL (74-106); Potassium 3.3 mmol/L (3.5-5.1); Sodium 136 mmol/L (136-145)
--- NOTE | 2023-07-20 12:08 | W.PM.PROGNOT ---
Date of Service Date of service: 07/20/23 Time of Service: 12:10 Assessment and Plan Assessment and plan (1) Osteomyelitis of left foot: Status: Acute Assessment and plan: POD #6 left TMA, patient followed by Dr. Beavers. Cultures are positive for MRSA. Continue daptomycin and have filled referral to home infusion company to try to get prior authorization for home antibiotics. She will need minimum of 4 weeks and up to 6 weeks of antibiotics. If the margins of the 2nd MT is positive then go w/ 6 weeks. Afterwards, she will need lifetime of doxycycline for suppression. Continue P.T. w/ restrictions as noted by Dr. Beavers (heel touch down only on the right and nonweight bearing on the left. Patient would benefit from a kneel scooter to get around. Professional time spent interviewing and examining patient, discussion of goals of care with hospital team (care management, nursing and consulting professionals) was 45 minutes. D/T fever the night of 07/19 ceftriaxone added to regimen. Urine and CXT neg for findings that would be causitive of fever. Fever questionably from C.Diff though stools are infrequent and she is on Vancomycin. Qualifiers: Osteomyelitis type: other chronic Qualified Code(s): M86.672 - Other chronic osteomyelitis, left ankle and foot (2) Cellulitis: Status: Acute Assessment and plan: as above Qualifiers: Site of cellulitis: extremity Site of cellulitis of extremity: lower extremity Laterality: left Qualified Code(s): L03.116 - Cellulitis of left lower limb (3) Ulcer of right foot with fat layer exposed: Status: Acute Assessment and plan: right wound now growing fungus and terbinafine initiated. (4) C. difficile diarrhea: Status: Acute Assessment and plan: continue vancomycin 125 mg po qid, metamucil and probiotics. stools improving (5) Diabetes mellitus, type 2: Assessment and plan: Controlled Continue basal/bolus insulin Qualifiers: Diabetes mellitus intermodal dispatcher insulin use: with senior care use Diabetes mellitus complication status: with neurologic complications Diabetes mellitus complication detail: with polyneuropathy Qualified Code(s): E11.42 - Type 2 diabetes mellitus with diabetic polyneuropathy; Z79.4 - residential (current) use of insulin (6) HTN (hypertension): Assessment and plan: Continue dose of losartan and monitor blood pressure. Qualifiers: Hypertension type: primary hypertension Qualified Code(s): I10 - Essential (primary) hypertension (7) PAD (peripheral artery disease): Status: Acute Assessment and plan: Consider aspirin bid for DVT prophylaxis (8) Tobacco abuse: Assessment and plan: patient continues to smoke a few cigarettes per day. She has been advised her to quit completely as even a couple cigarettes per day are enough to worsen arterial flow in her PAD. She declines any nicotine product (9) Depression: Assessment and plan: Continue her home antidepressants Wellbutrin and duloxetine. Continue her Abilify. Qualifiers: Depression Type: major depressive disorder Major depression recurrence: recurrent Active/Remission status: in remission of unspecified degree Qualified Code(s): F33.40 - Major depressive disorder, recurrent, in remission, unspecified (10) Anxiety: Assessment and plan: As above (11) DVT prophylaxis: Status: Acute Assessment and plan: heparin discontinued due to wound bleeding. SCD not practical given her bilateral surgeries. Continue aspirin 81 mg bid (12) Discharge planning issues: Status: Acute Assessment and plan: P.T. consult post operative. depending on her progress, she may need short term SNF vs home w/ home health and P.T. and O.T. Subjective Subjective Patient reports: no new complaints, tolerating a regular diet, bowel movement and fever (38.5 last PM at 22:17. Now afebrile ); denies nausea, vomiting or shortness of breath Interval history since last seen: One liquid stool this AM. Last stool was recorded on 07/18; also liquid. Exam Narrative Exam Narrative: General: Alert. Sitting up in bed. NAD Lungs: Clear. Nonlabored breathing. CV: RRR. Abd: soft, NT. Exts: Both feet with bandages in place with CARLITOS wraps covering bandages. Psych: A&O x 3. Affect appropriate. 07/18/2023: Dr Queen noted: Patients wounds were examined while Dr. 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 wound is intact by sutures and there is no purulent drainage. Dr. Beavers redressed the wound more tightly to hold the digits closer and prevent dehiscence Left foot amputation site looks intact, no purulent drainage but still w/ some fresh blood under the wound vac. Pedal pulses are intact in both feet, stronger on the left foot compared to the right foot. Objective Last Vital Signs Temp 37.3 C 07/20/23 07:58 Pulse 98 H 07/20/23 07:58 Resp 17 07/20/23 07:58 BP 141/84 H 07/20/23 07:58 Pulse Ox 96 07/20/23 07:58 Laboratory Results - last 24 hr 07/19/23 07/20/23 18:00 08:48 WBC 11.09 H RBC 3.44 L Hgb 9.6 L Hct 29.4 L MCV 86 MCH 27.9 MCHC 32.7 RDW 13.6 Plt Count 398 MPV 8.2 Immature Gran % 2.7 Neutrophils % 72.8 Lymphocytes % 16.2 Monocytes % 6.3 Eosinophils % 1.5 Basophils % 0.5 Nucleated RBC % 0.0 Absolute Neutrophils 8.07 H Absolute Lymphocytes 1.80 Absolute Monocytes 0.70 Absolute Eosinophils 0.17 Absolute Basophils 0.06 Sodium 136 Potassium 3.3 L Chloride 101 Carbon Dioxide 24.8 Anion Gap 10.2 BUN 7 Creatinine 0.7 Est GFR (CKD-EPI 2020) 100.81 Glucose 199 H Calcium 9.0 Urine Color Yellow Urine Clarity Clear Urine pH 6.5 Ur Specific [place] 1.025 Urine Protein Trace H Urine Ketones Negative Urine Blood Negative Urine Nitrite Negative Urine Bilirubin Negative Urine Urobilinogen 0.2 Ur Leukocyte Esterase Trace H Urine RBC Negative Urine WBC 5-10 Ur Epithelial Cells Moderate Urine Crystals Few Calcium Oxalate Urine Bacteria Negative Urine Mucus Moderate Urine Other Rare Yeast Ur Culture Indicated? No/Sq. Contamination Urine Glucose Negative Time Spent with Patient Time Spent with Patient: 25-34 minutes Time was spent: preparing to see the patient(eg.review tests), obtaining and/or reviewing separately otained hiistory, ordering medications,tests, procedures, referring, communicating with other health congregational care pastor, indepentently interpreting results, counseling the patient and care coordination
[2023-07-20 12:35] LABS: Procalcitonin < 0.1 ng/mL
[2023-07-20] MEDS: Potassium Chloride 20 MEQ TABCR PO ×2 (12:39→21:38)
[2023-07-20] MEDS: DAPTOmycin 500 MG in Normal Saline 50 ML 100 MG IVPB (14:50)
[2023-07-20 15:33] VITALS: BP 132/70; PULSE 99; RESP 17; TEMP 37.4; O2SAT 96
[2023-07-20] MEDS: Omeprazole 20 MG CAPCR 40 MG PO (21:35)
[2023-07-20] MEDS: ARIPiprazole 5 MG TAB 10 MG PO (21:36)
[2023-07-20] MEDS: Pramipexole 0.5 MG TAB 1.5 MG PO (21:36)
[2023-07-20] MEDS: oxyCODONE 5 mg/Acetaminophen 325 mg TAB PO (21:38)
[2023-07-20 23:08] VITALS: BP 107/63; PULSE 90; RESP 17; TEMP 36.3; O2SAT 95
[2023-07-21 06:56] LABS: Abs Immature Grans 0.35 10^3/uL (0.0-0.06); Absolute Basophil Count 0.11 10^3/uL (0.0-0.2); Absolute Eosinophil Count 0.41 10^3/uL (0.0-0.7); Absolute Lymphocyte Count 1.97 10^3/uL (1.2-3.4); Absolute Monocyte Count 0.96 10^3/uL (0.1-0.8); Absolute Neutrophil Count 5.05 10^3/uL (1.2-6.7); Basophils % 1.2; Eosinophils % 4.6; HCT 28.6 % (36.0-46.0); HGB 9.1 g/dL (11.2-15.7); Lymphocytes % 22.3; MCH 27.5 pg (27.0-33.0); MCHC 31.8 % (32.0-36.0); MCV 86 fL (80-95); MPV 8.5 fL (8.0-11.0); Monocytes % 10.8; Neutrophils % 57.1; Platelet Count 396 10^3/uL (130-400); RBC 3.31 10^6/uL (3.93-5.22); RDW 13.6 % (11.7-14.6); RDW-SD 43.3 fL; WBC 8.85 10^3/uL (4.4-10.8)
[2023-07-21 07:13] LABS: Anion Gap 9.1 mmol/L (3-11); BUN 10 mg/dL (7-18); CO2 26.9 mmol/L (21.0-32.0); CREATININE 0.6 mg/dL (0.55-1.02); Calcium 8.9 mg/dL (8.5-10.1); Chloride 106 mmol/L (98-107); Estimated GFR 104.63 (mL/min/1.73m2); Glucose 103 mg/dL (74-106); Magnesium 1.9 mg/dL (1.8-2.4); Potassium 3.6 mmol/L (3.5-5.1); Sodium 142 mmol/L (136-145)
[2023-07-21 07:19] LABS: ALT 14 U/L (14-59); AST 12 U/L (15-37); Albumin 2.7 g/dL (3.4-5.0); Alkaline Phosphatase 82 U/L (46-116); Bilirubin, Direct 0.1 mg/dL (0.0-0.2); Bilirubin, Total 0.3 mg/dL (0.2-1.0); Total Protein 6.5 g/dL (6.4-8.2)
[2023-07-21 07:55] VITALS: BP 119/74; PULSE 82; RESP 18; TEMP 36.7; O2SAT 96
[2023-07-21] MEDS: Terbinafine 250 MG TAB 500 MG PO ×2 (07:59→21:04)
[2023-07-21] MEDS: Folic Acid 1 MG TAB PO (07:59)
[2023-07-21] MEDS: Losartan 50 MG TAB 100 MG PO (08:00)
[2023-07-21] MEDS: DULoxetine 30 MG CAP 90 MG PO (08:00)
[2023-07-21] MEDS: Ferrous Sulfate 325 MG TAB PO (08:00)
[2023-07-21] MEDS: buPROPion-XL 150 MG TABCR 450 MG PO (08:00)
[2023-07-21] MEDS: Cetirizine 10 MG TAB PO (08:00)
[2023-07-21] MEDS: Vancomycin 125 MG CAP PO ×4 (08:00→21:04)
[2023-07-21] MEDS: metFORMIN 500 MG TAB 1000 MG PO ×2 (08:01→16:58)
[2023-07-21] MEDS: Gabapentin 300 MG CAP 900 MG PO ×3 (08:01→21:04)
[2023-07-21] MEDS: Potassium Chloride 20 MEQ TABCR PO ×2 (08:01→21:05)
[2023-07-21] MEDS: Insulin Glargine 300 UNITS/3 ML PEN 20 UNITS SC (08:02)
--- NOTE | 2023-07-21 08:41 | CMPROGNOTE_ITS ---
Date of service: 07/21/23 Time of Service: 08:41 Care Management Progress Note Progress Note Text Progress Note Text: S/O: Charlee was sitting up on the edge of her bed when CM met with her. She stated that she is doing ok, although she feels that she is ready for discharge. Per MD, she is nearing discharge readiness, pending coordination of her home IV antibiotic therapy. CM called [facility], who can start her care on Friday07/23/23. CM contacted [facility], who will plan to deliver her meds tomorrow at 5pm at the earliest. This would work well, as long as they are delivered by 1pm on Friday, as her next dose will be at 2pm Fri07/23/23. CM reviewed this plan with Charlee, who is happy about going home. She stated that she has been doing well with PT, and feels that she will do well at home. CM will continue to follow. A: Charlee is a 58 year old female admitted to [facility] on 07/14/23 for osteomyelitis left foot. P: Charlee will likely transition to SWB1 for her prolonged IV antibiotic course.PT will continue to work with her to improve her strength and independence with ambulation. Charlee will follow up with her PCP, induction machine operator, and plan of care as instructed. She will be transported home via [facility] private route sales delivery drivers supervisor coordinated by CM when ready. CM will continue to support Charlee and any discharge planning needs.
[2023-07-21] MEDS: oxyCODONE 5 mg/Acetaminophen 325 mg TAB PO (10:43)
--- NOTE | 2023-07-21 13:59 | PT.INTREAT ---
Date of service: 07/21/23 Time of Service: 13:38 PT Notes Visit Reasons: Osteomyelitis left foot Inpatient Physical Therapy Treatment Note [facility] Date: 07/21/23 PRECAUTIONS: Fall, standard, activity as tolerated. WBAT RLE, TDWB only HEEL only LLE. SUBJECTIVE: Patient reports that she is going home today, is eager and a little nervous. OBJECTIVE: Patient in Neal's position in bed with LLE elevated on several pillows. ? PAIN: none reported. VITALS: monitored by nursing staff. ? ? ? BED MOBILITY/TRANSFERS? Rolling L/R: not assessed Supine-sit: modified independent with HOB elevated >70 degrees? Sit-supine: not assessedd ? Sit-stand: independent? Stand-sit: independent with good safety awareness. ? Bed-Chair: SBA ? Chair-bed: SBA Gait Training ([id number]): Direct one-on-one instruction and skilled instruction in: [x] employing an assistive device [x] modified weight-bearing status [x] movement sequencing [] turning and movement with proper form [x] Provided verbal cues for equipment management and technique [x] Provided instruction in gait pattern [] Patient education regarding pacing and breathing techniques to maximize activity tolerance? GAIT? Assistive Device: FWW? Weight bearing: WBAT RLE, TDWB HEEL ONLY LLE Assist: SBA, verbal and tactile cues to put weight through arms and walker, keep shoulderblades engaged down to load weight through latissimus dorsi / lower traps vs loading weight through arms and neck or hopping full force on RLE.? Distance:? 12 feet, seated rest, 10 feet ? Deviation: Patient performs much better today than Friday, able to put more weight through arms, reports more comfort vs Friday when she reported that's gonna kill my leg. Patient still reports you'd have to be a body mechanic apprentice to do this well, but is confident that she will gain the necessary strength quickly. ? ASSESSMENT:? patient tolerates therapy well, no c/o pain or dyspnea, reports more confident about going home now that she better understands how to move. PLAN: Continue global strengthening per plan of care until patient is medically cleared for discharge. TREATMENT CODE/TIME: 19 minutes beginning at 13:38
[2023-07-21] MEDS: Heparin 5,000 UNITS/ML VIAL 5000 UNITS SC ×2 (14:01→21:03)
--- NOTE | 2023-07-21 14:53 | W.PM.PROGNOT ---
Date of Service Date of service: 07/21/23 Time of Service: 14:53 Assessment and Plan Assessment and plan (1) Osteomyelitis of left foot: Status: Acute Assessment and plan: POD #6 left TMA, patient followed by Dr. Beavers. Cultures are positive for MRSA. Continue daptomycin and have filled referral to home infusion company to try to get prior authorization for home antibiotics. She will need minimum of 4 weeks and up to 6 weeks of antibiotics. If the margins of the 2nd MT is positive then go w/ 6 weeks. Afterwards, she will need lifetime of doxycycline for suppression. Continue P.T. w/ restrictions as noted by Dr. Beavers (heel touch down only on the right and nonweight bearing on the left. Patient would benefit from a kneel scooter to get around. Professional time spent interviewing and examining patient, discussion of goals of care with hospital team (care management, nursing and consulting professionals) was 45 minutes. She was given a dose of ceftriaxone x 1 after an isolated fever of 38.5 on 07/19 at 22:17. No recurrence and no further doses given. Fever could be related to C.Diff. infection. Dr Beavers evaluated her surgical wounds today and they looke fine w/o evidence of infection. Planning home tomorrow for 3 more weeks of IV antibiotics. Qualifiers: Osteomyelitis type: other chronic Qualified Code(s): M86.672 - Other chronic osteomyelitis, left ankle and foot (2) Cellulitis: Status: Acute Assessment and plan: as above Qualifiers: Site of cellulitis: extremity Site of cellulitis of extremity: lower extremity Laterality: left Qualified Code(s): L03.116 - Cellulitis of left lower limb (3) Ulcer of right foot with fat layer exposed: Status: Acute Assessment and plan: right wound now growing fungus and terbinafine initiated. (4) C. difficile diarrhea: Status: Acute Assessment and plan: continue vancomycin 125 mg po qid Metamucil d/c'd; pt not taking. Lomotil prn loose stool. (5) Diabetes mellitus, type 2: Assessment and plan: Controlled Continue basal/bolus insulin Qualifiers: Diabetes mellitus intermediate insulin use: with intermediate use Diabetes mellitus complication status: with neurologic complications Diabetes mellitus complication detail: with polyneuropathy Qualified Code(s): E11.42 - Type 2 diabetes mellitus with diabetic polyneuropathy; Z79.4 - halfway (current) use of insulin (6) HTN (hypertension): Assessment and plan: Continue dose of losartan and monitor blood pressure. Qualifiers: Hypertension type: primary hypertension Qualified Code(s): I10 - Essential (primary) hypertension (7) PAD (peripheral artery disease): Status: Acute Assessment and plan: Consider aspirin bid for DVT prophylaxis (8) Tobacco abuse: Assessment and plan: patient continues to smoke a few cigarettes per day. She has been advised her to quit completely as even a couple cigarettes per day are enough to worsen arterial flow in her PAD. She declines any nicotine product (9) Depression: Assessment and plan: Continue her home antidepressants Wellbutrin and duloxetine. Continue her Abilify. Qualifiers: Depression Type: major depressive disorder Major depression recurrence: recurrent Active/Remission status: in remission of unspecified degree Qualified Code(s): F33.40 - Major depressive disorder, recurrent, in remission, unspecified (10) Anxiety: Assessment and plan: As above (11) DVT prophylaxis: Status: Acute Assessment and plan: Heparin reinitiated. (12) Discharge planning issues: Status: Acute Assessment and plan: Pt has been doing well now with PT; tolerating well. Home for 3 weeks of IV antibiotics. Subjective Subjective Patient reports: no new complaints, bowel movement and afebrile; denies nausea, vomiting or shortness of breath Interval history since last seen: Ambulating better. Exam Narrative Exam Narrative: General: Alert. Sitting up in bed. NAD Lungs: Clear. Nonlabored breathing. CV: RRR. No murmur Abd: soft, NT. Exts: Both feet with bandages in place with CARLITOS wraps covering bandages. Psych: A&O x 3. Affect appropriate. Objective Last Vital Signs Temp 36.7 C 07/21/23 07:55 Pulse 82 07/21/23 07:55 Resp 18 07/21/23 07:55 BP 119/74 07/21/23 07:55 Pulse Ox 96 07/21/23 07:55 Laboratory Results - last 24 hr 07/21/23 07/21/23 07/21/23 06:00 06:00 06:00 WBC 8.85 RBC 3.31 L Hgb 9.1 L Hct 28.6 L MCV 86 MCH 27.5 MCHC 31.8 L RDW 13.6 Plt Count 396 MPV 8.5 Immature Gran % 4.0 Neutrophils % 57.1 Lymphocytes % 22.3 Monocytes % 10.8 Eosinophils % 4.6 Basophils % 1.2 Nucleated RBC % 0.0 Absolute Neutrophils 5.05 Absolute Lymphocytes 1.97 Absolute Monocytes 0.96 H Absolute Eosinophils 0.41 Absolute Basophils 0.11 Sodium 142 Cancelled Potassium 3.6 Cancelled Chloride 106 Carbon Dioxide Anion Gap BUN Creatinine Est GFR (CKD-EPI 2020) Glucose Calcium Magnesium Total Bilirubin Conjugated Bilirubin AST ALT Alkaline Phosphatase Total Protein Albumin 07/21/23 07/21/23 07/21/23 06:00 06:00 06:00 WBC RBC Hgb Hct MCV MCH MCHC RDW Plt Count MPV Immature Gran % Neutrophils % Lymphocytes % Monocytes % Eosinophils % Basophils % Nucleated RBC % Absolute Neutrophils Absolute Lymphocytes Absolute Monocytes Absolute Eosinophils Absolute Basophils Sodium Potassium Chloride Cancelled Carbon Dioxide 26.9 Cancelled Anion Gap 9.1 Cancelled BUN 10 Creatinine Est GFR (CKD-EPI 2020) Glucose Calcium Magnesium Total Bilirubin Conjugated Bilirubin AST ALT Alkaline Phosphatase Total Protein Albumin 07/21/23 07/21/23 07/21/23 06:00 06:00 06:00 WBC RBC Hgb Hct MCV MCH MCHC RDW Plt Count MPV Immature Gran % Neutrophils % Lymphocytes % Monocytes % Eosinophils % Basophils % Nucleated RBC % Absolute Neutrophils Absolute Lymphocytes Absolute Monocytes Absolute Eosinophils Absolute Basophils Sodium Potassium Chloride Carbon Dioxide Anion Gap BUN Cancelled Creatinine 0.6 Cancelled Est GFR (CKD-EPI 2020) 104.63 Cancelled Glucose 103 Calcium Magnesium Total Bilirubin Conjugated Bilirubin AST ALT Alkaline Phosphatase Total Protein Albumin 07/21/23 07/21/23 06:00 06:00 WBC RBC Hgb Hct MCV MCH MCHC RDW Plt Count MPV Immature Gran % Neutrophils % Lymphocytes % Monocytes % Eosinophils % Basophils % Nucleated RBC % Absolute Neutrophils Absolute Lymphocytes Absolute Monocytes Absolute Eosinophils Absolute Basophils Sodium Potassium Chloride Carbon Dioxide Anion Gap BUN Creatinine Est GFR (CKD-EPI 2020) Glucose Cancelled Calcium 8.9 Cancelled Magnesium 1.9 Total Bilirubin 0.3 Conjugated Bilirubin 0.1 AST 12 L ALT 14 Alkaline Phosphatase 82 Total Protein 6.5 Albumin 2.7 L Time Spent with Patient Time Spent with Patient: 25-34 minutes Time was spent: preparing to see the patient(eg.review tests), obtaining and/or reviewing separately otained hiistory, ordering medications,tests, procedures, referring, communicating with other health child day care provider, indepentently interpreting results, counseling the patient and care coordination
[2023-07-21 15:48] VITALS: BP 112/72; PULSE 79; RESP 18; TEMP 36.1; O2SAT 95
--- NOTE | 2023-07-21 16:37 | W.PM.PROGNOT ---
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: with snf use Diabetes mellitus complication status: with neurologic complications Diabetes mellitus complication detail: with polyneuropathy Qualified Code(s): E11.42 - Type 2 diabetes mellitus with diabetic polyneuropathy; Z79.4 - residential (current) use of insulin (3) HTN (hypertension): Qualifiers: Hypertension type: primary hypertension Qualified Code(s): I10 - Essential (primary) hypertension (4) Cellulitis: Status: Acute Qualifiers: Site of cellulitis: extremity Site of cellulitis of extremity: lower extremity Laterality: left Qualified Code(s): L03.116 - Cellulitis of left lower limb (5) Ulcer of right foot with fat layer exposed: Status: Acute (6) PAD (peripheral artery disease): Status: Acute (7) Amputation of left great toe: (8) Amputation of toe of right foot: (9) Tobacco abuse: (10) Morbid obesity: Assessment and plan: Patient was seen bedside today. Labs and imaging and chart were reviewed. She is status post transmetatarsal amputation to the left foot and wound debridement with closure to the right fourth interspace, date of surgery is 07/11/2023. Cultures reviewed today. There is evidence for MRSA to the left foot. To the right, there is growth of Staph species as well as fungal growth. Will continue Lamisil. We will continue daptomycin for at least 4 weeks total if margins are with osteomyelitis I would recommend continuing antibiotics for another 2 weeks. Dressings were changed today to the right foot with betadine, 4 x 4, Kerlix, Asher wrap. She is to keep the right foot elevated at all times allow minimal weightbearing. She is to use a surgical shoe for ambulation. Victor M wound VAC was noted to be functioning well and left intact. Dressings were reinforced with 4 x 4, Kerlix and an Asher wrap. Patient is okay to be discharged from a podiatry standpoint with IV antibiotics. She is to leave her dressings clean dry and intact. Patient is to follow-up with me in office within 1 week of discharge. She is to apply a bag prior to showers so as the dressings do not get wet. She may use crutches or knee scooter for ambulation. To continue to remain nonweightbearing to the left foot may apply weight to the heel for transfers. Subjective Subjective Interval history since last seen: Patient was seen bedside today resting comfortably. She is feeling more comfortable now has been getting physical therapy states she is comfortable weightbearing. Exam Extrem Other: Bilateral lower extremity physical exam: Derm: Incision site to the right fourth interspace noted to be well coapted with sutures in place without any signs of dehiscence there is some maceration noted to the lateral aspect of the wound, there is some healing noted at this time. however no purulence no bogginess no erythema and no signs of dehiscence noted. Left foot with victor m wound VAC noted to be intact and functioning well without any leaks, there is old strikethrough noted to the VAC. Wound VAC left intact today. Dressings reinforced on top of the VICTOR M with 4 x 4, Kerlix, Asher wrap to keep the VICTOR M intact. Vascular: DP PT pulses are slightly diminished to the left foot, diminished to the right foot. CFT is less than 5 seconds to all the toes. No calf pain noted. There is edema noted to the left foot. MSK: s/p TMA to the left foot and post 4th toe amputation (with non healing from from another transport medic). There is tenderness to palpation to the wounds bilaterally. Neuro: Light touch sensation noted to be absent bilaterally. Objective Last Vital Signs Temp 97.0 F L 07/21/23 15:48 Pulse 79 07/21/23 15:48 Resp 18 07/21/23 15:48 BP 112/72 07/21/23 15:48 Pulse Ox 95 07/21/23 15:48 Laboratory Results - last 24 hr 07/21/23 07/21/23 07/21/23 06:00 06:00 06:00 WBC 8.85 RBC 3.31 L Hgb 9.1 L Hct 28.6 L MCV 86 MCH 27.5 MCHC 31.8 L RDW 13.6 Plt Count 396 MPV 8.5 Immature Gran % 4.0 Neutrophils % 57.1 Lymphocytes % 22.3 Monocytes % 10.8 Eosinophils % 4.6 Basophils % 1.2 Nucleated RBC % 0.0 Absolute Neutrophils 5.05 Absolute Lymphocytes 1.97 Absolute Monocytes 0.96 H Absolute Eosinophils 0.41 Absolute Basophils 0.11 Sodium 142 Cancelled Potassium 3.6 Cancelled Chloride 106 Carbon Dioxide Anion Gap BUN Creatinine Est GFR (CKD-EPI 2020) Glucose Calcium Magnesium Total Bilirubin Conjugated Bilirubin AST ALT Alkaline Phosphatase Total Protein Albumin 07/21/23 07/21/23 07/21/23 06:00 06:00 06:00 WBC RBC Hgb Hct MCV MCH MCHC RDW Plt Count MPV Immature Gran % Neutrophils % Lymphocytes % Monocytes % Eosinophils % Basophils % Nucleated RBC % Absolute Neutrophils Absolute Lymphocytes Absolute Monocytes Absolute Eosinophils Absolute Basophils Sodium Potassium Chloride Cancelled Carbon Dioxide 26.9 Cancelled Anion Gap 9.1 Cancelled BUN 10 Creatinine Est GFR (CKD-EPI 2020) Glucose Calcium Magnesium Total Bilirubin Conjugated Bilirubin AST ALT Alkaline Phosphatase Total Protein Albumin 07/21/23 07/21/23 07/21/23 06:00 06:00 06:00 WBC RBC Hgb Hct MCV MCH MCHC RDW Plt Count MPV Immature Gran % Neutrophils % Lymphocytes % Monocytes % Eosinophils % Basophils % Nucleated RBC % Absolute Neutrophils Absolute Lymphocytes Absolute Monocytes Absolute Eosinophils Absolute Basophils Sodium Potassium Chloride Carbon Dioxide Anion Gap BUN Cancelled Creatinine 0.6 Cancelled Est GFR (CKD-EPI 2020) 104.63 Cancelled Glucose 103 Calcium Magnesium Total Bilirubin Conjugated Bilirubin AST ALT Alkaline Phosphatase Total Protein Albumin 07/21/23 07/21/23 06:00 06:00 WBC RBC Hgb Hct MCV MCH MCHC RDW Plt Count MPV Immature Gran % Neutrophils % Lymphocytes % Monocytes % Eosinophils % Basophils % Nucleated RBC % Absolute Neutrophils Absolute Lymphocytes Absolute Monocytes Absolute Eosinophils Absolute Basophils Sodium Potassium Chloride Carbon Dioxide Anion Gap BUN Creatinine Est GFR (CKD-EPI 2020) Glucose Cancelled Calcium 8.9 Cancelled Magnesium 1.9 Total Bilirubin 0.3 Conjugated Bilirubin 0.1 AST 12 L ALT 14 Alkaline Phosphatase 82 Total Protein 6.5 Albumin 2.7 L Time Spent with Patient Time Spent with Patient: >50 minutes Time was spent: preparing to see the patient(eg.review tests), obtaining and/or reviewing separately otained hiistory, ordering medications,tests, procedures, referring, communicating with other health zoo caretaker, indepentently interpreting results, counseling the patient and care coordination
[2023-07-21] MEDS: DAPTOmycin 500 MG in Normal Saline 50 ML 100 MG IVPB (18:23)
[2023-07-21] MEDS: ARIPiprazole 5 MG TAB 10 MG PO (21:04)
[2023-07-21] MEDS: Pramipexole 0.5 MG TAB 1.5 MG PO (21:05)
[2023-07-21] MEDS: Omeprazole 20 MG CAPCR 40 MG PO (21:05)
[2023-07-22] MEDS: Heparin 5,000 UNITS/ML VIAL 5000 UNITS SC (05:33)
[2023-07-22] MEDS: Normal Saline Flush 10 ML SYR IVP (05:33)
[2023-07-22 06:17] VITALS: BP 132/67; PULSE 80; RESP 18; TEMP 36.3; O2SAT 95
[2023-07-22] MEDS: Terbinafine 250 MG TAB 500 MG PO (08:09)
[2023-07-22] MEDS: Folic Acid 1 MG TAB PO (08:10)
[2023-07-22] MEDS: metFORMIN 500 MG TAB 1000 MG PO (08:10)
[2023-07-22] MEDS: buPROPion-XL 150 MG TABCR 450 MG PO (08:10)
[2023-07-22] MEDS: Cetirizine 10 MG TAB PO (08:10)
[2023-07-22] MEDS: DULoxetine 30 MG CAP 90 MG PO (08:11)
[2023-07-22] MEDS: Vancomycin 125 MG CAP PO ×2 (08:11→13:42)
[2023-07-22] MEDS: Ferrous Sulfate 325 MG TAB PO (08:11)
[2023-07-22] MEDS: Gabapentin 300 MG CAP 900 MG PO ×2 (08:11→13:42)
[2023-07-22] MEDS: Losartan 50 MG TAB 100 MG PO (08:12)
[2023-07-22] MEDS: Potassium Chloride 20 MEQ TABCR PO (08:12)
[2023-07-22] MEDS: Insulin Glargine 300 UNITS/3 ML PEN 20 UNITS SC (08:13)
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
--- NOTE | 2023-07-22 09:22 | PDOC.HHF2F ---
Home Health Referral Home Health Orders Clinical synopsis of why skilled professionals are needed: Pt with osteomyelitis of left foot, s/p full-thickness ulcer at the right fourth toe amputation site. On IV Daptomycin daily for 3 more weeks. Wound care. Dressings were changed on 07/21 to the right foot with betadine, 4 x 4, Kerlix, Asher wrap. She is to keep the right foot elevated at all times allow minimal weightbearing. She is to use a surgical shoe for ambulation Hallie wound VAC was noted to be functioning well and left intact. Dressings were reinforced with 4 x 4, Kerlix and an Asher wrap. She is to leave her dressings clean dry and intact. Patient is to follow-up with me in office within 1 week of discharge (arranged). She is to apply a bag prior to showers so as the dressings do not get wet. She may use crutches or knee scooter for ambulation. To continue to remain nonweightbearing to the left foot may apply weight to the heel for transfers. . Medical diagnosis necessitation home health referral: Long-term IV antibiotics Surgical wound care. Registered Nurse: Check all that apply Instruct on new or changed medication(s)/assess compliance: Ordered IV therapy, consisting of: Daptomycin 500mg daily. Assess wound for signs and symptoms of infection, instruct on wound care and/or provide skilled wound care consisting of: Current dressing to stay in place until Podiatry f/u. After that, instructions to be given by Brand Activation Manager. Physical Therapist: Check all that apply Increase strength & endurance for safe mobility at home: Ordered To design/establish home maintenance program: Ordered Home Bound Status Requires the aid of supportive device (check all that apply): Crutches and Walker Assistance of another person (Describe assistance and medical necessity): Need for assist device and standby assist by another person. Describe why leaving home would require a considerable and taxing effort: Requires frequent rest periods Encounter Date and Reason: I certify that a FTF encounter for this patient was performed on July 22, 2023 and that such encounter was related to the primary reason the patient requires home health services. The encounter was conducted in the following manner: By me as the certifying physician, CAREER PLACEMENT SPECIALIST, PA or By an inpatient physician, CAREER PLACEMENT SPECIALIST or PA during an inpatient stay who communicated findings to me, Certification And Authentication I certify that I composed the above information based on my clinical judgment relating to this patient's medical condition and, if applicable, clinical findings communicated to me by the NPP or inpatient physician who performed the FTF encounter. Name of Provider that will be monitoring home health services: Jameson Macias
[2023-07-22] MEDS: Doxycycline Hyclate 100 MG CAP PO (09:32)
--- NOTE | 2023-07-22 09:32 | PT.INTREAT ---
Date of service: 07/22/23 Time of Service: 09:04 PT Notes Visit Reasons: Osteomyelitis left foot Inpatient Physical Therapy Treatment Note [facility] Date: 07/22/23 PRECAUTIONS: Fall, standard, activity as tolerated SUBJECTIVE: Patient reports feeling good, going home today, excited to be home. OBJECTIVE: Long sitting in bed, agreeable to therapy. ? PAIN: None reported VITALS: monitored by nursing ? BED MOBILITY/TRANSFERS? Rolling L/R: not assessed Supine-sit: not assessed ? Sit-supine: not assessed ? Sit-stand: independent ? Stand-sit: independent ? Bed-Chair: independent ? Chair-bed: independent Gait Training (61464g8): Direct one-on-one instruction and skilled instruction in: [x] employing an assistive device [x] modified weight-bearing status [] movement sequencing [] turning and movement with proper form [] Provided verbal cues for equipment management and technique [x] Provided instruction in gait pattern [] Patient education regarding pacing and breathing techniques to maximize activity tolerance? GAIT? Assistive Device: FWW ? Weight bearing: WBAT RLE, NWB LLE Assist: SBA? Distance:? 50 feet ? Deviation: Multiple standing rests due to previous Right shoulder injury, hx multiple surgeries, weakness and impaired ROM. Patient is better able to shift weight from RLE to hands and back today. Tends to touch down with LLE when resting. Verbal cues to touch down only the heel of LLE. Patient does not put weight through LLE when she touches down.? Therapeutic Exercises (62682n2): Direct one-on-one instruction in therapeutic exercises to develop strength, endurance, range of motion and flexibility. ? Exercises HEP established as follows and reviewed with patient. Access Code: [email or web address] URL: [email or web address] Date: 07/22/2023 Prepared by: Shanna Mobley Exercises - Low Trap Sling with Resistance - 1 x daily - 7 x weekly - 3 sets - 10 reps - Vs red theraband. Verbal and written education to do exercise until it gets hard, then do one more, and record your number in the box on the checklist instead of 3x10. - Shoulder Flexion Serratus Activation with Resistance - 1 x daily - 7 x weekly - 3 sets - 10 reps - vs red theraband. - Supine Resisted Serratus Anterior Punches with Elbow Bent - 1 x daily - 7 x weekly - 3 sets - 10 reps - vs green theraband. - Standing Lower Cervical and Upper Thoracic Stretch - 1 x daily - 7 x weekly - 3 sets - 10 reps - Verbal and written directions to hold AT A COMFORTABLE INTENSITY for 30 seconds 1x per day. - Chest and Bicep Stretch - Arms Behind Back - 1 x daily - 7 x weekly - 3 sets - 10 reps- Verbal and written directions to hold AT A COMFORTABLE INTENSITY for 30 seconds 1x per day, hold a dishtowel to give more space between hands, decrease intensity of stretch - Seated Sidebending Arms Overhead - 1 x daily - 7 x weekly - 3 sets - 10 reps - Verbal and written directions to hold AT A COMFORTABLE INTENSITY for 30 seconds 1x per day, verbal and written cues to support RUE with LUE in front of the body since it lacks the mobility to go overhead. Provided skilled instruction in proper exercise performance Provided skilled manual cues to facilitate proper muscle recruitment and/or form: as above. ASSESSMENT:? Patient tolerates therapy well, demonstrates and verbalizes understanding of HEP. PLAN: Continue global strengthening per plan of care until patient is medically cleared for discharge. TREATMENT CODE/TIME: 48 minutes beginning at 9:04
--- NOTE | 2023-07-22 09:46 | PDOC.CMDIS ---
Date of service: 07/22/23 Time of Service: 09:46 LACE Index Scoring Tool Questions: Length of Stay (in days): 7 - 13 Was the patient admitted via the E.D.?: No E.D. Visits: 0 Answers: Total Score: 5 Risk of Readmission: Low Risk Care Management Discharge Plan Reason for Hospitalization: Osteomyelitis of left foot Discharge Plan: Charlee will return home today with new orders for HH RN, PT through [facility]. She will have home IV antibiotic therapy, supplied by [facility], coordinated by [facility]. [facility] will transport her home via private vehicle, coordinated by [facility]. She will follow up with Podiatry, her PCP, and her discharge plan of care. She is happy to be going home. Patient/Family Education Needs: Review discharge instructions and limitations, discussion of self care needs including ask me three. Services Needed at Discharge: DME Agency ([facility], Home IV supplies), Home Health Care Services ([facility]) and Transportation ([facility] private vehicle)
[2023-07-22] MEDS: DAPTOmycin 500 MG in Normal Saline 50 ML 100 MG IVPB (11:20)
== END 2023-07-22 14:09 | disposition home health service (06) | DRG 464 ==
PROVIDERS: Family Medicine; Internal Medicine; Podiatrist; Admitting Provider Emergency Medicine; PCP Family Medicine; Visit Provider Emergency Medicine
PROC: (CPT 28805; principal; 2023-07-15 11:15)
PROC: (CPT 28805; 2023-07-15 11:15)
DX: M86.672 Other chronic osteomyelitis, left ankle and foot (principal); A04.72 Enterocolitis due to Clostridium difficile, not specified as recurrent; F33.40 Major depressive disorder, recurrent, in remission, unspecified; L03.116 Cellulitis of left lower limb; G90.511 Complex regional pain syndrome I of right upper limb; L97.512 Non-pressure chronic ulcer of other part of right foot with fat layer exposed; E11.42 Type 2 diabetes mellitus with diabetic polyneuropathy; Z79.4 Long term (current) use of insulin; I10 Essential (primary) hypertension; F41.9 Anxiety disorder, unspecified; E66.01 Morbid (severe) obesity due to excess calories; B95.62 Methicillin resistant Staphylococcus aureus infection as the cause of diseases classified elsewhere; Z89.421 Acquired absence of other right toe(s); Z89.412 Acquired absence of left great toe; F17.210 Nicotine dependence, cigarettes, uncomplicated; L40.9 Psoriasis, unspecified; M54.50 Low back pain, unspecified; I73.9 Peripheral vascular disease, unspecified; J20.9 Acute bronchitis, unspecified; Z68.30 Body mass index [BMI] 30.0-30.9, adult
CPT/HCPCS: 28805; 11042; 00123; 36410; 36415; 36573; 80048; 80053; 80076; 82550; 84145; 85652; 87040; 87077; 87107; 87493; 88300; 88305; 97110; 97116; 97162; 97530; 71045; 73630; 73718; 80202; 81003; 81015; 82607; 82728; 82746; 83036; 83540; 83550; 83735; 85025; 86140; 87070; 87075; 87186; 87205; 88304; 88311; 93005; 93010; 94667; 94668; 99222; 99232; 99233; 99239; J0878; J1644; J2001; J2250; J2371; J2405; J2704